=== PATIENT | female | born 1965 | race Two or more races ===

== ENCOUNTER 2022-07-28 22:51 | Emergency (ER) | payer OTHER, SELFPAY ==
[2022-07-28 23:03] VITALS: BP 148/79; PULSE 72; RESP 20; TEMP 37.2; O2SAT 94; BMI 42.5
--- NOTE | 2022-07-29 00:08 | ED.URI1 ---
HPI - URI/Sore Throat General Chief Complaint: Upper Respiratory Infection Stated Complaint: COUGH Time Seen by Provider: 07/29/22 00:06 Source: patient Limitations: no limitations History of Present Illness HPI Narrative: complains of cough since mid week last week. States she did talk to Tele doc and amoxicillin and tessalon perles were called in and did not help. States she is wheezing. Not able to sleep because of the cough. No history of asthma and does not smoke cigarettes. No nausea or chest pain Related Data Home Medications Medication Instructions Recorded Confirmed cetirizine 10 mg tablet 10 mg PO DAILY 07/28/22 07/28/22 famotidine 40 mg tablet 40 mg PO Q12H 07/28/22 07/28/22 glimepiride 4 mg tablet 4 mg PO .TWICE 07/28/22 07/28/22 pioglitazone 30 mg tablet 30 mg PO DAILY 07/28/22 07/28/22 propranolol 80 mg capsule,24 80 mg PO Q24H 07/28/22 07/28/22 hr,extended release venlafaxine 150 mg 150 mg PO DAILY 07/28/22 07/28/22 capsule,extended release 24 hr Allergies Allergy/AdvReac Type Severity Reaction Status Date / Time No Known Drug Allergies Allergy Verified 07/28/22 23:11 Review of Systems ROS Status of ROS 10 or more systems reviewed and unremarkable except as noted in history and below Respiratory Reports: cough and wheezing Exam Constitutional Vital Signs - 24 hr 07/28/22 23:03 Temperature 99 F Pulse Rate [Monitor] 72 Respiratory Rate 20 Blood Pressure [Right Arm] 148/79 H Pulse Oximetry 94 L Oxygen Delivery Method Room Air [facility] Common normals: normocephalic and head/scalp atraumatic Eye Common normals: PERRL, EOMs intact bilaterally and conjunctivae normal Neck & C-Spine Common normals: full ROM and no lymphadenopathy Chest Common normals: inspection of chest normal Respiratory Common normals: normal respiratory effort, no retractions and no use of accessory muscles Effort & inspection: audible wheezes Cardio Common normals: regular rate, regular rhythm, S1 normal heart sound and S2 normal heart sound GI Common normals: Normal to inspection, nondistended, normoactive bowel sounds present, soft to palpation and non-tender Back & Pelvis Common normals: no CVA tenderness Extremity Common normals: normal to inspection, full ROM, normal capillary refill and no joint enlargement Neuro Common normals: oriented x3, CN's II-XII intact bilaterally, moves all extremities and no focal motor deficits Psych Appearance: grossly normal Course Vital Signs Vital signs: Vital Signs Temperature 99 F 07/28/22 23:03 Pulse Rate 72 07/28/22 23:03 Respiratory Rate 20 07/28/22 23:03 Blood Pressure 148/79 H 07/28/22 23:03 Pulse Oximetry 94 L 07/28/22 23:03 Oxygen Delivery Method Room Air 07/28/22 23:03 Temperature 99 F 07/28/22 23:03 Pulse Rate 72 07/28/22 23:03 Respiratory Rate 20 07/28/22 23:03 Blood Pressure 148/79 H 07/28/22 23:03 Pulse Oximetry 94 L 07/28/22 23:03 Oxygen Delivery Method Room Air 07/28/22 23:03 MDM - URI/Sore Throat MDM Narrative Medical decision making narrative: patient presents with cough. cough interfering with her sleeping. She denies cigarette smoke and does not have asthma. Exam with diffuse wheeze. Cxray is clear and swab positive for viral illness. Treated with solumedrol and albuterol NMT. At time of discharge wheezing significantly decreased and patient is feeling better and requesting discharge. Advised to discontinue Amoxicillin that was prescribed by TeleDoc. Discharged with albuterol solution, prednisone and zpak to cover atypicals. she is to follow up with her family doctor Discharge Plan Discharge Chief Complaint: Upper Respiratory Infection Clinical Impression: Acute bronchospasm, Bronchitis Patient Disposition: Home, Self-Care Prescriptions / Home Meds: No Action cetirizine 10 mg tablet 10 mg PO DAILY famotidine 40 mg tablet 40 mg PO Q12H glimepiride 4 mg tablet 4 mg PO .TWICE pioglitazone 30 mg tablet 30 mg PO DAILY propranolol 80 mg capsule,extended release 24 hr 80 mg PO Q24H venlafaxine 150 mg capsule,extended release 24hr 150 mg PO DAILY Instructions: Acute Bronchitis (ED), Bronchospasm (ED) Additional Instructions: follow up with PCP in 3 days Stand Alone Forms: Portal Instructions Referrals: POP MA [Primary Care Provider] - 1 week Follow Up Appointments: follow up with your family doctor in 3 days
--- NOTE | 2022-07-29 00:11 | XR_ITS ---
The [address] [address] Patient Name: VERONICA LEON MRN: [id number] date: 1965 Sex: F Assigned Patient Location: ER Current Patient Location: ER Accession/Order Number: [id number] Exam Date: 07/29/2022 00:23 Report Date: 07/29/2022 01:02 At the request of: JAMARCUS ZHANG Procedure: XR chest 2V EXAM: XR chest 2V 07/29/2022 12:23 AM EDT OH001 CLINICAL STATEMENT: cough COMPARISON: No prior studies are available at the time of dictation. TECHNIQUE: PA and lateral radiograph of the chest are submitted. FINDINGS: There is left midlung atelectasis and/or scarring. No acute airspace disease. The cardiac silhouette is normal. The costophrenic recesses are sharp. No pneumothorax. The bony elements are unremarkable. IMPRESSION: Left midlung atelectasis and/or scarring. No acute airspace disease. Electronically authenticated by: JAYANT OLMOS Date: 07/29/2022 01:02
[2022-07-29] MEDS: METHYLPREDNISOLONE SOD SUCC PF 125 MG/2 ML VIAL IVP (00:51)
[2022-07-29 00:55] LABS: Adenovirus NOT DETECTED (NOT DETECTE); Bordetella parapertussis NOT DETECTED (NOT DETECTE); Coronavirus 229E NOT DETECTED (NOT DETECTE); Coronavirus HKU1 NOT DETECTED (NOT DETECTE); Coronavirus NL63 NOT DETECTED (NOT DETECTE); Coronavirus OC43 NOT DETECTED (NOT DETECTE); Human Rhinovirus/Enterovirus NOT DETECTED (NOT DETECTE); Influenza A NOT DETECTED; Influenza B NOT DETECTED (NOT DETECTE); Mycoplasma pneumoniae NOT DETECTED (NOT DETECTE); Parainfluenza Virus 1 NOT DETECTED (NOT DETECTE); Parainfluenza Virus 2 NOT DETECTED (NOT DETECTE); Parainfluenza Virus 3 NOT DETECTED (NOT DETECTE); Parainfluenza Virus 4 NOT DETECTED (NOT DETECTE); Respiratory Syncytial Virus NOT DETECTED (NOT DETECTE); SARS-CoV-2 NOT DETECTED (NOT DETECTE)
[2022-07-29 01:13] LABS: Basophils Percent Auto 0.8 % (0.2-2.0); Eosinophils Absolute Auto 0.1 10^3/uL (0.0-0.7); Eosinophils Percent Auto 1.9 % (0.9-7.0); Hematocrit 49.8 % (36.0-48.0); Hemoglobin 15.6 g/dL (12.0-16.0); Immature Granulocytes Abs Auto 0.01 10^3/uL (0.00-0.03); Immature Granulocytes Pct Auto 0.2 % (0.0-0.5); Lymphocytes Absolute Auto 1.2 10^3/uL (1.2-3.8); Lymphocytes Percent Auto 24.6 % (20.5-60.0); Mean Corpuscular HGB Conc 31.3 g/dL (29.9-35.2); Mean Corpuscular Hemoglobin 27.4 pg (26.7-34.0); Mean Corpuscular Volume 87.4 fL (81.0-99.0); Monocytes Absolute Auto 0.5 10^3/uL (0.3-0.8); Monocytes Percent Auto 9.6 % (1.7-12.0); Neutrophils Percent Auto 62.9 % (43.0-75.0); Platelet Count 224 10^3/uL (150-450); Red Cell Distribution Width 13.6 % (11.0-15.0); White Blood Count 4.8 10^3/uL (4.0-11.0)
[2022-07-29 01:15] LABS: Anion Gap 13.4; Calcium 8.8 mg/dL (8.5-10.1); Carbon Dioxide 26.3 mmol/L (21.0-32.0); Chloride 104 mmol/L (98-107); Estimated GFR (African America >60 (>=60); Estimated GFR (Non-African Ame >60 (>=60); Glucose 100 mg/dL (74-106); Potassium 3.7 mmol/L (3.5-5.1); Sodium 140 mmol/L (136-145)
[2022-07-29 01:29] VITALS: PULSE 80; RESP 18; O2SAT 94
[2022-07-29] MEDS: ALBUTEROL SULFATE 2.5 MG/3 ML VIAL NEB IH (01:29)
[2022-07-29 01:36] VITALS: PULSE 70; RESP 18
[2022-07-29 02:01] LABS: Human Metapneumovirus DETECTED (NOT DETECTE)
[2022-07-29 02:58] VITALS: O2SAT 97
== END 2022-07-29 03:41 | disposition home or self-care (01) ==
PROVIDERS: Emergency Provider Internal Medicine; PCP Family Medicine
DX: J20.9 Acute bronchitis, unspecified (principal); Z20.822 Contact with and (suspected) exposure to COVID-19
CPT/HCPCS: 0202U; 36415; 71046; 80048; 85025; 94640; 96374; 99284; J2930

== ENCOUNTER 2022-09-03 23:07 | Emergency (ER) | payer OTHER, SELFPAY ==
[2022-09-03 23:12] VITALS: BP 126/84; PULSE 79; RESP 16; TEMP 37.2; O2SAT 95; BMI 43.8
[2022-09-04] MEDS: 0.9 % SODIUM CHLORIDE 1,000 ML 1000 ML IV (00:04)
[2022-09-04] MEDS: ONDANSETRON PF 4 MG/2 ML VIAL IV (00:05)
[2022-09-04] MEDS: FAMOTIDINE/PF 20 MG/2 ML VIAL IV (00:05)
[2022-09-04] MEDS: KETOROLAC TROMETHAMINE 30 MG/ML VIAL IVP (00:05)
[2022-09-04 00:13] LABS: Basophils Percent Auto 0.3 % (0.2-2.0); Eosinophils Percent Auto 0.5 % (0.9-7.0); Hematocrit 46.7 % (36.0-48.0); Hemoglobin 15.2 g/dL (12.0-16.0); Immature Granulocytes Abs Auto 0.02 10^3/uL (0.00-0.03); Immature Granulocytes Pct Auto 0.3 % (0.0-0.5); Lymphocytes Absolute Auto 0.3 10^3/uL (1.2-3.8); Lymphocytes Percent Auto 5.2 % (20.5-60.0); Mean Corpuscular HGB Conc 32.5 g/dL (29.9-35.2); Mean Corpuscular Hemoglobin 27.5 pg (26.7-34.0); Mean Corpuscular Volume 84.4 fL (81.0-99.0); Mean Platelet Volume 11.1 fL (9.5-13.5); Monocytes Absolute Auto 0.2 10^3/uL (0.3-0.8); Monocytes Percent Auto 3.6 % (1.7-12.0); Neutrophils Absolute Auto 5.2 10^3/uL (1.4-6.5); Neutrophils Percent Auto 90.1 % (43.0-75.0); Platelet Count 275 10^3/uL (150-450); Red Blood Count 5.53 10^6/uL (4.20-5.40); Red Cell Distribution Width 13.7 % (11.0-15.0); White Blood Count 5.8 10^3/uL (4.0-11.0)
[2022-09-04 00:27] LABS: Alanine Aminotransferase 19 U/L (14-59); Albumin Globulin Ratio 0.9; Albumin Level 3.6 g/dL (3.4-5.0); Alkaline Phosphatase 89 U/L (46-116); Anion Gap 12.3; Aspartate Amino Transferase 18 U/L (15-37); BUN Creatinine Ratio 13.2; Bilirubin Total 0.8 mg/dL (0.2-1.0); Calcium 8.7 mg/dL (8.5-10.1); Carbon Dioxide 26.5 mmol/L (21.0-32.0); Chloride 101 mmol/L (98-107); Estimated GFR (African America >60 (>=60); Estimated GFR (Non-African Ame >60 (>=60); Globulin 3.8 g/dL; Glucose 135 mg/dL (74-106); Potassium 3.8 mmol/L (3.5-5.1); Sodium 136 mmol/L (136-145); Total Protein 7.4 g/dL (6.4-8.2)
--- NOTE | 2022-09-04 01:17 | ED.NAVMDI1 ---
HPI - Nausea/Vomiting/Diarrhea General Chief complaint: Nausea/Vomiting/Diarrhea Stated complaint: NAUSES/VOMITTING/DIARRHEA Time Seen by Provider: 09/03/22 23:52 Source: patient Mode of arrival: walk-in Limitations: no limitations History of Present Illness HPI Narrative: This 56-year-old female presents for evaluation of nausea, vomiting and diarrhea. The patient states she wasn't feeling well this morning and around 1 PM started becoming nauseated with turning in her stomach. Since that time she has had 4-5 episodes of vomiting associated with diarrhea. She states she is having some abdominal cramps. She has not had any bloody stools. She has not had a fever. She denies any dizziness or syncope. She denies any bernadine abdominal pain. She states that she has having some generalized back pain because she thinks that she strained her back muscles due to forceful vomiting. She is not having any specific flank pain. She denies any chest pain or shortness of breath. She states she has had some cramping of her hands and feet and thinks that she is dehydrated. Related Data Home Medications Medication Instructions Recorded Confirmed cetirizine 10 mg tablet 10 mg PO DAILY 07/28/22 07/28/22 famotidine 40 mg tablet 40 mg PO Q12H 07/28/22 07/28/22 glimepiride 4 mg tablet 4 mg PO .TWICE 07/28/22 07/28/22 pioglitazone 30 mg tablet 30 mg PO DAILY 07/28/22 07/28/22 propranolol 80 mg capsule,24 80 mg PO Q24H 07/28/22 07/28/22 hr,extended release venlafaxine 150 mg 150 mg PO DAILY 07/28/22 07/28/22 capsule,extended release 24 hr Allergies Allergy/AdvReac Type Severity Reaction Status Date / Time No Known Drug Allergies Allergy Verified 07/28/22 23:11 Review of Systems ROS Status of ROS 10 or more systems reviewed and unremarkable except as noted in history and below [facility] Social History Smoking status: Never smoker Exam Narrative Exam Narrative: Nurses note and vital signs reviewed and patient is not hypoxic. General: The patient appears well and in no apparent distress. Patient is resting comfortably on cart. Skin: Warm, dry, no pallor noted. There is no rash noted. Head: Normocephalic, atraumatic Eye: Normal conjunctiva, no drainage, EOMI. PERRL Ears, Nose, Mouth, and Throat: oral mucosa is moist. Cardiovascular: Regular Rate and Rhythm Respiratory: Patient is in no distress, no accessory muscle use, lungs are clear to auscultation, no wheezing, rales or rhonchi Back: non-tender, no CVA tenderness bilaterally to percussion. GI: Obese, soft, nondistended, nontender, mildly diminished bowel sounds, no rebound guarding or rigidity Musculoskeletal: The patient has no evidence of calf tenderness, no pitting edema, symmetrical pulses noted bilaterally Neurological: A&O x4, normal speech Psychiatric: Cooperative Constitutional Vital Signs, click to edit/add: Last Vital Signs Temp 98.9 F 09/03/22 23:12 Pulse 79 09/03/22 23:12 Resp 16 09/03/22 23:12 BP 126/84 H 09/03/22 23:12 Pulse Ox 95 09/03/22 23:12 O2 Del Method Room Air 09/03/22 23:12 Course Vital Signs Vital signs: Vital Signs Temperature 98.9 F 09/03/22 23:12 Pulse Rate 79 09/03/22 23:12 Respiratory Rate 16 09/03/22 23:12 Blood Pressure 126/84 H 09/03/22 23:12 Pulse Oximetry 95 09/03/22 23:12 Oxygen Delivery Method Room Air 09/03/22 23:12 Temperature 98.9 F 09/03/22 23:12 Pulse Rate 79 09/03/22 23:12 Respiratory Rate 16 09/03/22 23:12 Blood Pressure 126/84 H 09/03/22 23:12 Pulse Oximetry 95 09/03/22 23:12 Oxygen Delivery Method Room Air 09/03/22 23:12 MDM - Nausea/Vomiting/Diarrhea MDM Narrative Medical decision making narrative: This 56-year-old female presents for evaluation of one day of nausea, vomiting, diarrhea, abdominal cramps and some spasming of her hands And feet. States she think that she strained her back muscle while she was forcefully vomiting. She has no reproducible back tenderness or flank pain. She is concerned that she may be dehydrated. She has not had a fever. She denies any chest pain or shortness of breath. She denies any sick contacts. Her physical exam and vital signs were normal. An IV was placed and she was given a liter of normal saline, Toradol, Pepcid and Zofran. Routine labs including CBC with differential, comprehensive metabolic profile and lipase were ordered and are reviewed. They are normal. I did not feel that any radiographic studies were indicated. On reevaluation the patient is feeling better and tolerating clear liquids. She feels comfortable being discharged home and will be discharged home with a prescription for Zofran and Bentyl. She did not have any recurrent vomiting or diarrhea while in the emergency department. I encouraged her to have a clear liquid diet for the next 24 hours and slowly advance her diet as tolerated. She is in agreement with this plan. Lab Data Attestation: I reviewed the patient's lab results. Lab results narrative: Labs are normal Labs: Lab Results 09/03/22 Range/Units 23:40 WBC 5.8 (4.0-11.0) 10^3/uL RBC 5.53 H (4.20-5.40) 10^6/uL Hgb 15.2 (12.0-16.0) g/dL Hct 46.7 (36.0-48.0) % MCV 84.4 (81.0-99.0) fL MCH 27.5 (26.7-34.0) pg MCHC 32.5 (29.9-35.2) g/dL RDW 13.7 (11.0-15.0) % Plt Count 275 (150-450) 10^3/uL MPV 11.1 (9.5-13.5) fL Neut % (Auto) 90.1 H (43.0-75.0) % Lymph % (Auto) 5.2 L (20.5-60.0) % [place] % (Auto) 3.6 (1.7-12.0) % Eos % (Auto) 0.5 L (0.9-7.0) % Baso % (Auto) 0.3 (0.2-2.0) % Neut # (Auto) 5.2 (1.4-6.5) 10^3/uL Lymph # (Auto) 0.3 L (1.2-3.8) 10^3/uL [place] # (Auto) 0.2 L (0.3-0.8) 10^3/uL Eos # (Auto) 0.0 (0.0-0.7) 10^3/uL Baso # (Auto) 0.0 (0.0-0.1) 10^3/uL Abs Immat Gran (auto) 0.02 (0.00-0.03) 10^3/uL Imm/Tot Granulo (auto) 0.3 (0.0-0.5) % Sodium 136 (136-145) mmol/L Potassium 3.8 (3.5-5.1) mmol/L Chloride 101 (98-107) mmol/L Carbon Dioxide 26.5 (21.0-32.0) mmol/L Anion Gap 12.3 BUN 10.0 (7.0-18.0) mg/dL Creatinine 0.76 (0.55-1.02) mg/dL Est GFR ( Amer) >60 (>=60) Est GFR (Non-Af Amer) >60 (>=60) BUN/Creatinine Ratio 13.2 Glucose 135 H (74-106) mg/dL Calcium 8.7 (8.5-10.1) mg/dL Total Bilirubin 0.8 (0.2-1.0) mg/dL AST 18 (15-37) U/L ALT 19 (14-59) U/L Alkaline Phosphatase 89 (46-116) U/L Total Protein 7.4 (6.4-8.2) g/dL Albumin 3.6 (3.4-5.0) g/dL Globulin 3.8 g/dL Albumin/Globulin Ratio 0.9 Lipase 42.0 L (73.0-393.0) U/L Discharge Plan Discharge Chief Complaint: Nausea/Vomiting/Diarrhea Clinical Impression: Gastroenteritis Patient Disposition: Home, Self-Care Time of Disposition Decision: 01:24 Condition: Good Prescriptions / Home Meds: No Action cetirizine 10 mg tablet 10 mg PO DAILY famotidine 40 mg tablet 40 mg PO Q12H glimepiride 4 mg tablet 4 mg PO .TWICE pioglitazone 30 mg tablet 30 mg PO DAILY propranolol 80 mg capsule,extended release 24 hr 80 mg PO Q24H venlafaxine 150 mg capsule,extended release 24hr 150 mg PO DAILY Instructions: Gastroenteritis (ED), Acute Nausea and Vomiting (ED) Stand Alone Forms: Portal Instructions Referrals: POP MA [Primary Care Provider] - 1 week
== END 2022-09-04 01:43 | disposition home or self-care (01) ==
PROVIDERS: Emergency Provider Emergency Medicine; PCP Family Medicine
DX: K52.9 Noninfective gastroenteritis and colitis, unspecified (principal); R10.9 Unspecified abdominal pain; Z79.84 Long term (current) use of oral hypoglycemic drugs; Z79.899 Other long term (current) drug therapy
CPT/HCPCS: 36415; 80053; 83690; 85025; 96374; 96375; 99284

== ENCOUNTER 2022-11-14 21:23 | Emergency (ER) | payer OTHER, SELFPAY ==
[2022-11-14 21:33] VITALS: BP 166/83; PULSE 75; RESP 16; TEMP 36.8; O2SAT 97; BMI 42.6
--- NOTE | 2022-11-14 21:38 | XR_ITS ---
The [address] [address] Patient Name: VERONICA LEON MRN: [id number] date: 1965 Sex: F Assigned Patient Location: ED.MAIN Current Patient Location: ER Accession/Order Number: [id number] Exam Date: 11/14/2022 22:08 Report Date: 11/14/2022 22:24 At the request of: EMERITA GUNN Procedure: XR foot LT min 3V EXAM: PLAIN FILM FOOT LEFT HISTORY: Pain. Foot pain for one half weeks. A car door was closed and hit the left lateral foot pain is not gotten any better. TECHNIQUE: 3 views of the foot are submitted for review. COMPARISON: None available FINDINGS: Evaluation for Lisfranc injury is limited given the lack of standing views. Joint spaces are within normal limits. Bone mineralization is decreased involving the head/neck of the proximal phalanx of the second third and fourth and fifth digits. Soft tissues are edematous. There is an acute displaced osseous avulsion off of the lateral cuboid bone. XR/XR foot LT min 3V IMPRESSION: 1. Soft tissue swelling. 2. Acute minimally displaced osseous avulsion off of the lateral cuboid bone. Electronically authenticated by: DORA PARADA Date: 11/14/2022 22:24
--- NOTE | 2022-11-14 21:45 | PC.NURSE ---
patient states approx 2 weeks ago she closed her left foot in the car door. states she was not seen at that time. patient remains ambulatory of foot but states pain has continued to increase. no swelling or bruising observed. nothing taken for pain prior to arrival. patient placed back in waiting room with written explanation, verbalized agreement and understanding, denies needs.
[2022-11-14 21:57] VITALS: BP 131/72; PULSE 67; RESP 16; TEMP 36.8; O2SAT 98; BMI 42.5
--- NOTE | 2022-11-14 22:41 | ED_ITS ---
HPI - Extremity Injury (Lower) General Chief Complaint: Extremity Injury, Lower Stated Complaint: left foot Injury Time Seen by Provider: 11/14/22 21:38 Source: patient Mode of arrival: walk-in Limitations: no limitations Limitations comment: Ambulated to room History of Present Illness HPI Narrative: This 57-year-old female presents for evaluation of left lateral foot pain. She states that she got her foot caught in a car door approximately 1-1/2 weeks ago. She has had pain in the lateral aspect of her foot, base of the 5th metatarsal going into her left 5th toe since that time. The pain is worse with ambulation. She has been using Tylenol with minimal relief of her pain. She does have an appointment scheduled with [facility] in the next several days. She has no radiation into her ankle or calf. She has no chest pain or shortness of breath. No additional injuries or complaints. Related Data Home Medications Medication Instructions Recorded Confirmed cetirizine 10 mg tablet 10 mg PO DAILY 07/28/22 11/14/22 famotidine 40 mg tablet 40 mg PO Q12H 07/28/22 11/14/22 glimepiride 4 mg tablet 4 mg PO .TWICE 07/28/22 11/14/22 pioglitazone 30 mg tablet 30 mg PO DAILY 07/28/22 11/14/22 propranolol 80 mg capsule,24 80 mg PO Q24H 07/28/22 11/14/22 hr,extended release venlafaxine 150 mg 150 mg PO DAILY 07/28/22 11/14/22 capsule,extended release 24 hr Allergies Allergy/AdvReac Type Severity Reaction Status Date / Time No Known Drug Allergies Allergy Verified 11/14/22 22:03 Review of Systems ROS Status of ROS 10 or more systems reviewed and unremarkable except as noted in history and below PFSH PFS Social History Smoking status: Never smoker Exam Narrative Exam Narrative: Nurses note and vital signs reviewed and patient is not hypoxic. General: Overweight female resting currently on the stretcher, no respiratory distress Skin: Warm, dry, no pallor noted. There is no rash noted. Head: Normocephalic, atraumatic Eye: Normal conjunctiva, no drainage, EOMI. PERRL Cardiovascular: Regular Rate and RhythmS1 and S2, no murmurs rubs or gallops Respiratory: Patient is in no distress, no accessory muscle use, lungs are cl ear to auscultation, no wheezing, rales or rhonchi GI: Normal bowel sounds, no tenderness to palpation, no masses appreciated. No rebound, guarding, or rigidity noted. Musculoskeletal: There is tenderness with mild swelling to the lateral aspect of the left foot with mild mild tenderness at the base of the 5th metatarsal and along the lateral aspect of the entire foot. No abrasion, laceration or bruising noted. Neurovascularly intact, pulses are brisk and equal bilaterally. There is no ankle tenderness, Achilles is intact. Patient is able to move all her toes, sensation is intact. Neurological: A&O x4, normal speech Psychiatric: Cooperative Constitutional Vital Signs, click to edit/add: Last Vital Signs Temp 98.2 F 11/14/22 21:57 Pulse 67 11/14/22 21:57 Resp 16 11/14/22 21:57 BP 131/72 11/14/22 21:57 Pulse Ox 98 11/14/22 21:57 O2 Del Method Room Air 11/14/22 21:57 Course Vital Signs Vital signs: Vital Signs Temperature 98.3 F 11/14/22 21:33 Pulse Rate 75 11/14/22 21:33 Respiratory Rate 16 11/14/22 21:33 Blood Pressure 166/83 H 11/14/22 21:33 Pulse Oximetry 97 11/14/22 21:33 Temperature 98.2 F 11/14/22 21:57 Pulse Rate 67 11/14/22 21:57 Respiratory Rate 16 11/14/22 21:57 Blood Pressure 131/72 11/14/22 21:57 Pulse Oximetry 98 11/14/22 21:57 Oxygen Delivery Method Room Air 11/14/22 21:57 MDM - Extremity Injury (Lower) MDM Narrative Medical decision making narrative: This 57-year-old female presents for evaluation of left lateral foot pain after getting her foot caught in a car door week and half ago. She has some mild tenderness along the distribution of the lateral aspect of the foot and base of the left 5th metatarsal. X-ray of the left foot show some soft tissue swelling and a subacute minimally displaced osseous avulsion of the lateral cuboid bone. The results of the x-ray was discussed with her and she was placed in an Faizan wrap and given a postop shoe. She was medicated with ibuprofen emergency department. She has follow up with outpatient orthopedics in the next several days. She was given a disc of her x-ray and a prescription for ibuprofen. She did not require anything stronger for pain. Discharge Plan Discharge Chief Complaint: Extremity Injury, Lower Clinical Impression: Closed fracture cuboid Patient Disposition: Home, Self-Care Time of Disposition Decision: 22:40 Condition: Good Prescriptions / Home Meds: No Action cetirizine 10 mg tablet 10 mg PO DAILY famotidine 40 mg tablet 40 mg PO Q12H glimepiride 4 mg tablet 4 mg PO .TWICE pioglitazone 30 mg tablet 30 mg PO DAILY propranolol 80 mg capsule,extended release 24 hr 80 mg PO Q24H venlafaxine 150 mg capsule,extended release 24hr 150 mg PO DAILY Instructions: Foot Fracture in Adults (ED) Additional Instructions: Follow up with orthopedics as scheduled, Use the postop shoe and Faizan wrap for comfort and compression. Use ice and elevation as well as ibuprofen as needed for pain. Stand Alone Forms: Portal Instructions Referrals: IRIS KENNEDY [Primary Care Provider] - 1 week Discharge Date/Time: 11/14/22 23:10
[2022-11-14] MEDS: IBUPROFEN 600 MG TABLET PO (22:57)
--- NOTE | 2022-11-14 23:03 | PC.NURSE ---
patient placed in surgical boot
== END 2022-11-14 23:10 | disposition home or self-care (01) ==
PROVIDERS: Emergency Provider Emergency Medicine; PCP Nurse Practitioner
DX: S92.212A Displaced fracture of cuboid bone of left foot, initial encounter for closed fracture (principal); W23.0XXA Caught, crushed, jammed, or pinched between moving objects, initial encounter; Z79.899 Other long term (current) drug therapy
CPT/HCPCS: 73630; 99283

== ENCOUNTER 2023-07-04 20:55 | Emergency (ER) | payer OTHER, SELFPAY ==
[2023-07-04 21:06] VITALS: BP 143/73; PULSE 94; TEMP 37.3; O2SAT 94; BMI 45.2
--- NOTE | 2023-07-04 21:13 | XR_ITS ---
The [address] [address] Patient Name: VERONICA LEON MRN: [id number] date: 1965 Sex: F Assigned Patient Location: ER Current Patient Location: ED.MAIN Accession/Order Number: [id number] Exam Date: 07/04/2023 21:18 Report Date: 07/04/2023 23:11 At the request of: POOL KRUGER Procedure: XR chest 1V CHEST RADIOGRAPH: HISTORY: Nausea, diabetes. COMPARISON: Chest 07/29/2022. TECHNIQUE: AP radiograph of was performed of the chest. FINDINGS: SUPPORT APPARATUS/POST-SURGICAL CHANGES: None. CARDIOMEDIASTINAL SILHOUETTE: Normal. AIRWAYS/LUNGS: Limited study due to the patient's body habitus but no definite focal consolidation. PLEURAL SPACES: No pleural effusion or pneumothorax. BONES AND SOFT TISSUES: No acute abnormality. XR/XR chest 1V IMPRESSION: Limited study but no definite acute cardiopulmonary process. Electronically authenticated by: XENIA AUGUSTINE Date: 07/04/2023 23:11
--- NOTE | 2023-07-04 21:14 | ED.GENADUL1 ---
HPI HPI - General Adult General Chief complaint: Nausea/Vomiting/Diarrhea Stated complaint: nausea, not feeling well Time Seen by Provider: 07/04/23 21:09 Source: patient Mode of arrival: Wheelchair Limitations: no limitations History of Present Illness HPI narrative: 57-year-old female presented to the emergency department for not feeling well for 2 days. She was nauseous and she threw up tonight for the first time about an hour ago. No diarrhea. She is not complaining of chest pain or significant cough and does not complain of abdominal pain. She is diabetic. She had recent travel to [place]. Related Data Home Medications ?Medication ?Instructions ?Recorded ?Confirmed cetirizine 10 mg tablet 10 mg PO DAILY 07/28/22 11/14/22 famotidine 40 mg tablet 40 mg PO Q12H 07/28/22 11/14/22 glimepiride 4 mg tablet 4 mg PO .TWICE 07/28/22 11/14/22 pioglitazone 30 mg tablet 30 mg PO DAILY 07/28/22 11/14/22 propranolol 80 mg capsule,24 80 mg PO Q24H 07/28/22 11/14/22 hr,extended release venlafaxine 150 mg 150 mg PO DAILY 07/28/22 11/14/22 capsule,extended release 24 hr Previous Rx's ?Medication ?Instructions ?Recorded ondansetron 4 mg disintegrating 4 mg PO Q6H PRN nausea and 07/04/23 tablet vomiting #20 tabs Allergies Allergy/AdvReac Type Severity Reaction Status Date / Time No Known Drug Allergies Allergy Verified 07/04/23 21:06 Opioid HPI Opioid Management Most Recent Opioid Data: Last Pain Scale 8 11/14/22 22:57 Review of Systems ROS Narrative A ten point review of systems is negative except as noted above. PFSH PFSH Social History Smoking status: Never smoker Exam Narrative Exam Narrative: Nurses note and vital signs reviewed and patient is not hypoxic. General: The patient appears well and in no apparent distress. Patient is resting comfortably on cart. Skin: Warm, dry, no pallor noted. There is no rash noted. Head: Normocephalic, atraumatic Eye: Normal conjunctiva, no drainage Ears, Nose, Mouth, and Throat: oral mucosa is moist. Nares patent. Cardiovascular: Regular Rate and Rhythm, not tachycardic Respiratory: Patient is in no distress, no accessory muscle use, lungs are clear to auscultation, no wheezing, rales or rhonchi Back: non-tender GI: Soft and nontender Musculoskeletal: The patient has no evidence of calf tenderness, no pitting edema, symmetrical pulses noted bilaterally Neurological: A&O, normal speech Psychiatric: Cooperative Constitutional Vital Signs, click to edit/add: Last Vital Signs Temp 98.6 F 07/04/23 22:10 Pulse 84 07/04/23 22:10 Resp 18 07/04/23 22:10 BP 143/73 H 07/04/23 21:06 Pulse Ox 94 L 07/04/23 21:06 O2 Del Method Room Air 07/04/23 21:06 Course Vital Signs Vital signs: Vital Signs Temperature 99.1 F 07/04/23 21:06 Pulse Rate 94 H 07/04/23 21:06 Respiratory Rate 20 07/04/23 21:06 Blood Pressure 143/73 H 07/04/23 21:06 Pulse Oximetry 94 L 07/04/23 21:06 Oxygen Delivery Method Room Air 07/04/23 21:06 Temperature 98.6 F 07/04/23 22:10 Pulse Rate 84 07/04/23 22:10 Respiratory Rate 18 07/04/23 22:10 Blood Pressure 143/73 H 07/04/23 21:06 Pulse Oximetry 94 L 07/04/23 21:06 Oxygen Delivery Method Room Air 07/04/23 21:06 Medical Decision Making MDM Narrative Medical decision making narrative: Her workup is essentially negative and she is feels better after being given IV fluids and Zofran. She is able to be discharged home with a prescription for Zofran. Treatment diagnosis and follow-up were discussed with the patient. Urine culture pending. She does not have urinary symptoms. Differential Diagnosis Differential Diagnosis: Gastroenteritis, dehydration, UTI Lab Data Lab results reviewed: Yes I reviewed the patient's lab results Labs: Lab Results 07/04/23 07/04/23 07/04/23 Range/Units 21:20 21:30 21:50 WBC 13.1 H (4.0-11.0) 10^3/uL RBC 5.21 (4.20-5.40) 10^6/uL Hgb 14.0 (12.0-16.0) g/dL Hct 43.0 (36.0-48.0) % MCV 82.5 (81.0-99.0) fL MCH 26.9 (26.7-34.0) pg MCHC 32.6 (29.9-35.2) g/dL RDW 13.4 (11.0-15.0) % Plt Count 241 (150-450) 10^3/uL MPV 11.4 (9.5-13.5) fL Neut % (Auto) 86.9 H (43.0-75.0) % Lymph % (Auto) 6.0 L (20.5-60.0) % [place] % (Auto) 5.7 (1.7-12.0) % Eos % (Auto) 0.5 L (0.9-7.0) % Baso % (Auto) 0.3 (0.2-2.0) % Neut # (Auto) 11.4 H (1.4-6.5) 10^3/uL Lymph # (Auto) 0.8 L (1.2-3.8) 10^3/uL [place] # (Auto) 0.8 (0.3-0.8) 10^3/uL Eos # (Auto) 0.1 (0.0-0.7) 10^3/uL Baso # (Auto) 0.0 (0.0-0.1) 10^3/uL Abs Immat Gran (auto) 0.08 H (0.00-0.03) 10^3/uL Imm/Tot Granulo (auto) 0.6 H (0.0-0.5) % Sodium 130 L (136-145) mmol/L Potassium 3.8 (3.5-5.1) mmol/L Chloride 96 L (98-107) mmol/L Carbon Dioxide 21.0 (21.0-32.0) mmol/L Anion Gap 16.8 BUN 10.0 (7.0-18.0) mg/dL Creatinine 0.80 (0.55-1.02) mg/dL Est GFR ( Amer) >60 (>=60) Est GFR (Non-Af Amer) >60 (>=60) BUN/Creatinine Ratio 12.5 Glucose 162 H (74-106) mg/dL Calcium 8.9 (8.5-10.1) mg/dL Urine Color Dk. yellow (YELLOW) Urine Clarity Clear (CLEAR) Urine pH 6.0 (5.0-9.0) Ur Specific [place] >=1.030 A (1.005-1.025) Urine Protein >=300 A (NEG/TRACE) mg/dL Urine Glucose (UA) 100 A (NEGATIVE) mg/dL Urine Ketones 15 A (NEGATIVE) mg/dL Urine Occult Blood Large A (NEGATIVE) Urine Nitrite Negative (NEGATIVE) Urine Bilirubin Moderate A (NEGATIVE) Urine Urobilinogen >=8.0 (0.2-1.0) EU/dL Ur Leukocyte Esterase Small A (NEGATIVE) Urine RBC 5-10 A (0-2) #/HPF Urine WBC 5-10 A (NONE SEEN) #/HPF Ur Squamous Epith Cells Many A (NONE/RARE) #/LPF Urine Crystals Seen A (None Seen) #/HPF Uric Acid Crystals Few Amorphous Sediment Few Urine Bacteria Large A (NONE SEEN) #/HPF Urine Casts None seen (NONE SEEN) #/LPF Urine Mucus None seen (NONE SEEN) Ur Culture Indicated? Yes Influenza Type A Ag Negative Influenza Type B Ag Negative SARS-CoV-2 Ag (CV2AG) Negative (NEGATIVE) Discharge Plan Discharge Stand Alone Forms: Portal Instructions Chief Complaint: Nausea/Vomiting/Diarrhea Clinical Impression: Nausea & vomiting Patient Disposition: Home, Self-Care Time of Disposition Decision: 23:03 Condition: Good Mode of Transportation: Private Vehicle Prescriptions / Home Meds: New ondansetron 4 mg tablet,disintegrating 4 mg PO Q6H PRN (Reason: nausea and vomiting) Qty: 20 0RF No Action cetirizine 10 mg tablet 10 mg PO DAILY famotidine 40 mg tablet 40 mg PO Q12H glimepiride 4 mg tablet 4 mg PO .TWICE pioglitazone 30 mg tablet 30 mg PO DAILY propranolol 80 mg capsule,extended release 24 hr 80 mg PO Q24H venlafaxine 150 mg capsule,extended release 24hr 150 mg PO DAILY Print Language: Tajik Instructions: Acute Nausea and Vomiting (ED) Referrals: IRIS KENNEDY [Primary Care Provider] - 1 week
[2023-07-04 21:35] LABS: Basophils Percent Auto 0.3 % (0.2-2.0); Eosinophils Absolute Auto 0.1 10^3/uL (0.0-0.7); Eosinophils Percent Auto 0.5 % (0.9-7.0); Immature Granulocytes Abs Auto 0.08 10^3/uL (0.00-0.03); Immature Granulocytes Pct Auto 0.6 % (0.0-0.5); Lymphocytes Absolute Auto 0.8 10^3/uL (1.2-3.8); Mean Corpuscular HGB Conc 32.6 g/dL (29.9-35.2); Mean Corpuscular Hemoglobin 26.9 pg (26.7-34.0); Mean Corpuscular Volume 82.5 fL (81.0-99.0); Mean Platelet Volume 11.4 fL (9.5-13.5); Monocytes Absolute Auto 0.8 10^3/uL (0.3-0.8); Monocytes Percent Auto 5.7 % (1.7-12.0); Neutrophils Absolute Auto 11.4 10^3/uL (1.4-6.5); Neutrophils Percent Auto 86.9 % (43.0-75.0); Platelet Count 241 10^3/uL (150-450); Red Blood Count 5.21 10^6/uL (4.20-5.40); Red Cell Distribution Width 13.4 % (11.0-15.0); White Blood Count 13.1 10^3/uL (4.0-11.0)
[2023-07-04 21:44] LABS: Anion Gap 16.8; BUN Creatinine Ratio 12.5; Calcium 8.9 mg/dL (8.5-10.1); Chloride 96 mmol/L (98-107); Estimated GFR (African America >60 (>=60); Estimated GFR (Non-African Ame >60 (>=60); Glucose 162 mg/dL (74-106); Potassium 3.8 mmol/L (3.5-5.1); Sodium 130 mmol/L (136-145)
[2023-07-04] MEDS: ONDANSETRON PF 4 MG/2 ML VIAL IV (21:45)
[2023-07-04] MEDS: 0.9 % SODIUM CHLORIDE 1,000 ML 1000 ML IV (21:45)
[2023-07-04 22:00] LABS: Bilirubin Urine MODERATE (NEGATIVE); Blood Urine LARGE (NEGATIVE); Clarity Urine CLEAR (CLEAR); Color Urine DK. YELLOW (YELLOW); Glucose Urine UA 100 mg/dL (NEGATIVE); Ketones Urine 15 mg/dL (NEGATIVE); Leukocyte Esterase Urine SMALL (NEGATIVE); Nitrite Urine NEGATIVE (NEGATIVE); Protein Urine >=300 mg/dL (NEG/TRACE); Specific Gravity Urine >=1.030 (1.005-1.025); Urobilinogen Urine >=8.0 EU/dL (0.2-1.0)
[2023-07-04 22:07] LABS: Influenza Virus A Antigen Negative; Influenza Virus B Antigen Negative
[2023-07-04 22:08] LABS: Internal Control Within Normal Limits; SARS-CoV-2 Ag NEGATIVE (NEGATIVE)
[2023-07-04 22:10] VITALS: PULSE 84; TEMP 37
[2023-07-04 22:10] LABS: Amorphous Sediment Urine FEW; Bacteria Urine LARGE #/HPF (NONE SEEN); Crystals Seen? Seen #/HPF (None Seen); Mucus Urine NONE SEEN (NONE SEEN); Squamous Epithelial Cell Urine MANY #/LPF (NONE/RARE); Uric Acid Crystals Urine FEW
[2023-07-04 22:11] LABS: Cast Seen? NONE SEEN #/LPF (NONE SEEN); Urine Culture Indicated YES
[2023-07-04 23:18] VITALS: BP 111/78; PULSE 85; O2SAT 94
== END 2023-07-04 23:20 | disposition home or self-care (01) ==
PROVIDERS: Emergency Provider Emergency Medicine; PCP Nurse Practitioner
DX: R11.2 Nausea with vomiting, unspecified (principal); E11.9 Type 2 diabetes mellitus without complications; Z79.84 Long term (current) use of oral hypoglycemic drugs
CPT/HCPCS: 36415; 71045; 80048; 81001; 85025; 87086; 87150; 87186; 87804; 87811; 96361; 96374; 99284

== ENCOUNTER 2023-08-05 05:37 | Emergency (ER) | payer OTHER, SELFPAY ==
[2023-08-05 05:40] VITALS: BP 144/66; PULSE 71; TEMP 36.6; O2SAT 97; BMI 44.3
[2023-08-05 05:54] LABS: Bilirubin Urine SMALL (NEGATIVE); Blood Urine LARGE (NEGATIVE); Clarity Urine CLEAR (CLEAR); Color Urine YELLOW (YELLOW); Glucose Urine UA NEGATIVE (NEGATIVE); Ketones Urine NEGATIVE (NEGATIVE); Leukocyte Esterase Urine SMALL (NEGATIVE); Nitrite Urine POSITIVE (NEGATIVE); Protein Urine 100 mg/dL (NEG/TRACE); Specific Gravity Urine 1.025 (1.005-1.025); pH Urine 6.5 (5.0-9.0)
--- OUTSIDE RECORDS SUMMARY | 2023-08-05 05:54 | XMS_ITS | CCD ---
Author Organization [facility] Care Team Providers Care Charter Representative Name Role Phone Anil Sexton., Robin Bray Primary Care Provider ANIL, DR LORD Primary Care Unavailable AKANKSHA, DR DEWITT Admitting Unavailable AKANKSHA, DR DEWITT Attending Unavailable AKANKSHA, DR DEWITT Consulting Unavailable STEPANIC, DR ORTIZ Admitting Unavailable STEPANIC, DR ORTIZ Attending Unavailable HOUSE, DR LORD Primary Care Unavailable STEPTESS, DR ORTIZ Consulting Unavailable ZIEBER, DR XENIA Mckee Consulting Unavailable ANIL, DR LORD Primary Care Unavailable SUSY, DR BEE Mckee Admitting Unavailable SUSY, DR BEE Mckee Attending Unavailable SUSY, DR BEE Mckee Consulting Unavailable STACIE, BRY Consulting Unavailable Terrance, Francia Unavailable Pawan FAMILY NURSE-MORTICIAN HELPER, Iris J Primary Care Provid er JR. JAZMÍN, ANGEL Tong Attending Unavaila IRIS Contreras Referring Unavailable VILLALTA, IRIS Primary Care Unavailable VILLALTA, IRIS Referring Unavailable VILLALTA, IRIS Primary Care Unavailable Ronan Delcid Admitting Unavailable Ronan Delcid Attending Unavailable Iris Villalta Primary Care Unavailable VILLALTAIRIS J Attending Unavailable VILLALTA, IRIS J Referring Unavailable VILLALTA, IRIS J Primary Care Unavailable VILLALTA, IRIS J Attending Unavailable VILLALTA, IRIS J Referring Unavailable VILLALTA, IRIS J Primary Care Unavailable VILLALTAIRIS J Attending Unavailable VILLALTA, IRIS J Referring Unavailable VILLALTA, IRIS J Primary Care Unavailable VILLALTA, IRIS J Attending Unavailable VILLALTA, IRIS J Referring Unavailable VILLALTA, IRIS J Primary Care Unavailable VILLALTA, IRIS J Attending Unavailable VILLALTA, IRIS J Referring Unavailable VILLALTA, IRIS J Primary Care Unavailable Medications Current Medications Medication Drug Class(es) Dates Sig (Normalized) Sig (Original) [id number] 200 actuat albuterol 0.09 mg/actuat metered dose inhaler (6 sources) beta2-Adrenergic Agonist Start: 08-28-2022 take 2 puff(s) by inhalation every six hours as needed VENTOLIN HFA 90 mcg/actuation inhaler Inhale 2 puffs every 6 (six) hours as needed. 0 08/28/2022 Active azithromycin 250 mg oral tablet (2 sources) Macrolide Antimicrobial Start: 01-14-2023 Azithromycin 250 MG 2 tablet on the first day, then 1 tablet daily for 4 days Orally Once a day for 5 day(s) Dec, Active betamethasone 0.5 mg/ml / clotrimazole 10 mg/ml topical cream (3 sources) Azole Antifungal, Corticosteroid Start: 05-19-2023 clotrimazole-beta methasone (LOTRISONE) cream Indications: Saloni infection of flexural skin Apply 1 Application topically in the morning and 1 Application before bedtime. 15 g 0 05/19/2023 Active blood-glucose sensor (FREESTYLE JAYNE 3 SENSOR) device (7 sources) Start: 03-18-2023 blood-glucose sensor (FREESTYLE JAYNE 3 SENSOR) device Indications: Type 2 diabetes mellitus with hyperglycemia, without long-term current use of insulin ([facility]) USE DIRECTED; change EVERY 2 (TWO) weeks 6 each 2 03/18/2023 Active Start: 09-25-2022 End: 03-18-2023 blood-glucose sensor (FREEST YLE JAYNE 3 SENSOR) device Indications: Type 2 diabetes mellitus with hyperglycemia, without long-term current use of insulin ([facility]) USE DIRECTED; change EVERY 2 (TWO) weeks 2 each 5 09/25/2022 03/18/2023 Discontinued (Reorder) Start: 09-25-2022 blood-glucose sensor (FREESTYLE JAYNE 3 SENSOR) device Indications: Type 2 diabetes mellitus with hyperglycemia, without long-term current use of insulin ([facility]) USE DIRECTED; change EVERY 2 (TWO) weeks 2 each 5 09/25/2022 Active dextromethorphan hydrobromide 1.5 mg/ml / pyrilamine maleate 1.5 mg/ml oral solution (2 sources) Uncompetitive M-ylsmlu-M-aspartate Receptor Antagonist, Sigma-1 Agonist Start: 01-12-2023 take 10 mL by mouth every eight hours [place] DM 7.5-7.5 MG/5ML 10 mL Orally every 8 hours for 5 days Dec, Active famotidine 40 mg oral tablet (10 sources) Histamine-2 Receptor Antagonist Start: 09-10-2022 End: 03-18-2023 take 1 tablet by mouth once famotidine (PEPCID) 40 mg tablet Indications: Gastroesophageal reflux disease without esophagitis Take 1 tablet (40 mg total) by mouth every 12 (twelve) hours. 180 tablet 1 03/18/2023 Active Start: 07-10-2020 take 1 tablet by th twice daily famotidine (PEPCID) 40 mg tablet Take 40 mg by mouth twice daily. 0 07/10/2020 Active Comment on above: Take 40 mg by mouth twice daily. fluconazole 150 mg oral tablet (1 source) Azole Antifungal Start: 2023 End: 2023 take 1 tablet by mouth in the morning fluconazole (DIFLUCAN) 150 mg tablet Indications: Saloni infection of flexural skin Take 1 tablet (150 mg total) by mouth in the morning for 3 doses. 3 tablet 0 05/19/2023 05/22/2023 Active glimepiride 4 mg oral tablet (10 sources) Sulfonylurea Start: 2022 End: 2023 take 1 tablet by mouth at bedtime glimepiride (AMARYL) 4 mg tablet Indications: Type 2 diabetes mellitus with hyperglycemia, without long-term current use of insulin ([facility]) Take 1 tablet (4 mg total) by mouth in the morning and at bedtime. 90 tablet 1 03/18/2023 Active Comment on above: 1 tablet with breakf ast or the first main meal of the day levocetirizine dihydrochloride 5 mg oral tablet (5 sources) Histamine-1 Receptor Antagonist Start: 2023 take 1 tablet by mouth once daily levocetirizine (XYZAL) 5 mg tablet Indications: Seasonal allergic rhinitis due to pollen Take 1 tablet (5 mg total) by mouth nightly. 90 tablet 1 03/18/2023 Active omeprazole 20 mg delayed release oral capsule (7 sources) Proton Pump Inhibitor Start: 2022 End: 2023 take 1 capsule by mouth in the morning omeprazole (PriLOSEC) 20 mg capsule Indications: Gastroesophageal reflux disease without esophagitis Take 1 capsule (20 mg total) by mouth in the morning. 90 capsule 1 03/18/2023 Active pioglitazone 30 mg oral tablet (11 sources) Peroxisome Proliferator Receptor alpha Agonist, Peroxisome Proliferator Receptor gamma Agonist, Thiazolidinedione Start: 2022 End: 2023 take 1 tablet by mouth in the morning pioglitazone (ACTOS) 30 mg tablet Indications: Type 2 diabetes mellitus with hyperglycemia, without long-term current use of insulin ([facility]) TAKE 1 TABLET BY MOUTH IN THE MORNING 90 tablet 1 03/30/2023 Active 24 hr propranolol hydrochloride 80 mg extended release oral capsule (11 sources) beta-Adrenergic Nikko Start: 2023 take 1 capsule by mouth once daily propranolol LA (INDERAL LA) 80 mg 24 hr capsule Indications: Benign essential HTN , Migraine 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, not intractable TAKE 1 CAPSULE BY MOUTH DAILY 30 capsule 1 03/30/2023 Active Start: 03-18-2023 End: 03-30-2023 take 1 capsule by mouth every twenty-four hours in the morning propranolol LA (INDERAL LA) 80 mg 24 hr capsule Indications: Benign essential HTN , Migraine 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, not intractable Take 1 capsule (80 mg total) by mouth in the morning. 90 capsule 1 03/18/2023 03/30/2023 Discontinued Start: 09-18-2022 End: 03-18-2023 take 1 capsule by mouth once daily propranolol LA (INDERAL LA) 80 mg 24 hr capsule Indications: Benign essential HTN , Migraine 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, not intractable TAKE 1 CAPSULE BY MOUTH EVERY DAY 30 capsule 5 09/18/2022 03/18/2023 Discontinued (Reorder) Start: 06-27-2020 take 1 capsule by mo uth once daily propranolol ER (INDERAL LA) 80 mg 24 hr capsule Take 80 mg by mouth once daily. 0 06/27/2020 Active Propranolol HCl Active Comment on above: Take 80 mg by mouth once daily. sulfamethoxazole 800 mg / trimethoprim 160 mg oral tablet (1 source) Dihydrofolate Reductase Inhibitor Antibacterial, Sulfonamide Antimicrobial Start: End: take 1 tablet by mouth once in the morning sulfamethoxazole-t rimethoprim (BACTRIM DS) 800-160 mg per tablet Indications: Acute cystitis without hematuria Take 1 tablet by mouth in the morning and 1 tablet before bedtime. Do all this for 7 days. Take with food. Increase fluids. 14 tablet 0 05/29/2023 06/05/2023 Active 24 hr venlafaxine 150 mg extended release oral capsule (10 sources) Serotonin and Norepinephrine Reuptake Inhibitor Start: take 1 capsule by mouth once daily venlafaxine XR (EFFEXOR-XR) 150 mg 24 hr capsule Indications: Current mild episode of major depressive disorder without prior episode (CMS-HCC) TAKE 1 CAPSULE BY MOUTH DAILY 30 capsule 1 03/30/2023 Active Start: 03-18-2023 End: 03-30-2023 take 1 capsule by mouth every twenty-four hours in the morning venlafaxine XR (EFFEXOR-XR) 150 mg 24 hr capsule Indications: Current mild episode of major depressive disorder without prior episode (CMS-HCC) Take 1 capsule (150 mg total) by mouth in the morning. 90 capsule 1 03/18/2023 03/30/2023 Discontinued Start: 09-18-2022 End: 03-18-2023 take 1 capsule by mouth once daily venlafaxine XR (EFFEXOR-XR) 150 mg 24 hr capsule TAKE 1 CAPSULE BY MOUTH DAILY 30 capsule 5 09/18/2022 03/18/2023 Discontinued (Reorder) Completed/Discontinued Medications Medication Drug Class(es) Dates Sig (Normalized) Sig (Original) ARIPiprazole 5 mg oral tablet (1 source) Atypical Antipsychotic Start: 1 ARIPiprazole (ABILIFY) 5 mg tablet cetirizine hydrochloride 10 mg oral tablet (2 sources) Histamine-1 Receptor Antagonist Start: 3 End: 4 take 1 tablet by mouth in the morning cetirizine (ZyrTEC) 10 mg tablet Indications: Seasonal allergic rhinitis due to pollen Take 1 tablet (10 mg total) by mouth in the morning. 90 tablet 1 09/10/2022 03/18/2023 Discontinued (Therapy completed) codeine phosphate 2 mg/ml / guaiFENesin 20 mg/ml oral solution (2 sources) Opioid Agonist Start: 8 take 5 mL by mouth every four hours as needed guaiFENesin-Codeine 100-10 MG/5ML 5 ml as needed Orally every [address] OR OPERATE MACHINERY Feb, Not-Taking 24 hr desvenlafaxine succinate 100 mg extended release oral tablet (1 source) Serotonin and Norepinephrine Reuptake Inhibitor Start: 9 desvenlafaxine ER (PRISTIQ) 100 mg 24 hr tablet diclofenac sodium 0.01 mg/mg topical gel (1 source) Nonsteroidal Anti-inflammatory Drug Start: 1 diclofenac (VOLTAREN) 1 % topical gel Indications: Secondary osteoarthritis of multiple sites apply 2gms to areas of joint pain up to four times a day. Avoid contact with eyes. Do not exceed 32gm/day 100 g 5 02/08/2021 Active Comment on above: apply 2gms to areas of joint pain up to four times a day. Avoid contact with eyes. Do not exceed 32gm/day Estradiol (2 sources) Estrogen Estradiol Not-Ta rob hydroxychloroquine sulfate 200 mg oral tablet (1 source) Antimalarial, Antirheumatic Agent Start: 1 hydrOXYchloroQUINE (PLAQUENIL) 200 mg tablet Indications: Ulnar deviation of fingers of both hands , Elevated C-reactive protein (CRP) , Elevated sed rate TAKE 1 TABLET BY MOUTH DAILY WITH FOOD. use sunscreen when outdoors. see ophthalmology EVERY 6-12 months on this med 90 tablet 3 02/08/2021 Active Comment on above: TAKE 1 TABLET BY ANGIE TH DAILY WITH FOOD. use sunscreen when outdoors. see ophthalmology EVERY 6-12 months on this med 24 hr levomilnacipran 20 mg extended release oral capsule (4 sources) Serotonin and Norepinephrine Reuptake Inhibitor Start: 3 End: 4 take 2 capsules by mouth every twenty-four hours in the morning levomilnacipran (FETZIMA) 20 mg capsule,extended release 24 hr Indications: Current severe episode of major depressive disorder without psychotic features without prior episode (CMS-HCC) Take 2 capsules (40 mg total) by mouth in the morning. 30 capsule 1 09/10/2022 03/18/2023 Discontinued (Therapy completed) Fetzima Not-Taki ng nabumetone 500 mg oral tablet (1 source) Nonsteroidal Anti-inflammatory Drug Start: 02-12-2021 take 1 tablet by mouth twice daily as needed nabumetone (RELAFEN) 500 mg tablet Indications: Secondary osteoarthritis of multiple sites Take 1 tablet by mouth twice daily as needed. 60 tablet 3 02/12/2021 Active Comment on above: Take 1 tablet by angie twice daily as needed. QUEtiapine (2 sources) Atypical Antipsychotic SEROquel Not-Taking tirzepatide (MOUNJARO) 5 mg/0.5 mL pen injector (2 sources) Start: 09-10-2022 End: 03-18-2023 tirzepatide (MOUNJARO) 5 mg/0.5 mL pen injector Indications: Type 2 diabetes mellitus with hyperglycemia, without long-term current use of insulin ([facility]) Inject 5 mg under the skin every 7 days. 2 mL 0 09/10/2022 03/18/2023 Discontinued (Cost of medication) Start: 09-10-2022 tirzepatide (M OUNJARO) 5 mg/0.5 mL pen injector Indications: Type 2 diabetes mellitus with hyperglycemia, without long-term current use of insulin ([facility]) Inject 5 mg under the skin every 7 days. 2 mL 0 09/10/2022 Active Problems Active Problems Problem Classification Problem Date Documented Da te Episodic/Chronic Abdominal pain (1 source) Unspecified abdominal pain; Translations: [Unspecified abdominal pain] Onset: 07-09-2023 Episodic Diabetes mellitus with complications (4 sources) Type 2 diabetes mellitus; Translations: [Type 2 diabetes mellitus with hyperglycemia] Onset: 03-18-2023 03-17-2023 Chronic Diabetes mellitus without complication (1 source) Diabetes mellitus Onset: 03-18-2023 Chronic Esophageal disorders (3 sources) Gastro-esophageal reflux disease without esophagitis; Translations: [Gastroesophageal reflux disease without esophagitis] Onset: 05-09-2021 03-18-2023 Chronic Essential hypertension (3 sources) Benign essential hypertension; Translations: [Essential (primary) hypertension] Onset: 03-18-2023 03-18-2023 Chronic Genitourinary symptoms and ill-defined conditions (2 sources) Dysuria; Translations: [Dysuria] Onset: 05-29-2023 4 Episodic Headache; including migraine (3 sources) Migraine without aura, not refractory ; Translations: [Migraine without aura, not intractable, without status migrainosus] Onset: 03-18-2023 03-18-2023 Chronic Joint disorders and dislocations; trauma-related (5 sources) Articular cartilage disorder of shoulder region; Translations: [Other articular cartilage disorders, left shoulder] Onset: 12-22-2020 03-18-2023 Chronic Mood disorders (3 sources) Mild major depression, single episode; Translations: [Major depressive disorder, single episode, mild] Onset: 03-18-2023 03-18-2023 Chronic Mycoses (1 source) Candidal intertrigo; Translations: [Candidiasis of skin and nail] 05-19-2023 Episodic Osteoarthritis (13 sources) Degenerative joint disease involving multiple joints; 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] Onset: 07-20-2020 07-20-2020 Chronic Other aftercare (1 source) Other [facility] (current) drug therapy; Translations: [OTH [facility] CURRENT DRUG THERAPY] Onset: 02-26-2022 Episodic Other non-traumatic joint disorders (4 sources) Other specific joint derangements of right shoulder, not elsewhere classified; Translations: [OTH SPEC JOINT DERANG RT SHLDR NEC] Onset: 05-03-2021 Chronic Other non-traumatic joint disorders (6 sources) Derangement of right shoulder joint; Translations: [Other specific joint derangements of right shoulder, not elsewhere classified] Onset: 04-02-2021 09-10-2022 Chronic Other upper respiratory disease (1 source) Allergic rhinitis due to pollen; Translations: [Allergic rhinitis due to pollen] 03-18-2023 Chronic Other upper respiratory disease (1 source) Allergic rhinitis due to pollen; Translations: [Allergic rhinitis due to pollen] Onset: 03-18-2023 Chronic Other upper respiratory infections (2 sources) Acute upper respiratory infection, unspecified; Translations: [ACUTE UP RESPIRATORY INFECTION UNS] Onset: 02-26-2022 Episodic Unclassified (2 sources) COUGH, UNSPECIFIED; Translations: [COUGH, UNSPECIFIED] Onset: 02-26-2022 Unclassified (1 source) CONTACT W/AND (SUSP) EXPOS COVID-19; Translations: [CONTACT W/AND (SUSP) EXPOS COVID-19] Onset: 02-26-2022 Unclassified (1 source) er follow up not eating Onset: 07-09-2023 Unclassified (1 source) Acute candidiasis of vulva and vagina; Translations: [Acute candidiasis of vulva and vagina] Onset: 05-19-2023 Unclassified (1 source) Rash Onset: 05-19-2023 Urinary tract infections (2 sources) Acute cystitis; Translations: [Acute cystitis without hematuria] Onset: 05-29-2023 05-29-2023 Episodic Past or Other Problems Problem Classification Problem Date Documented Date Episodic/Chronic E Codes: Natural/environment (1 source) Overexertion from strenuous movement or load, initial encounter; Translations: [OVEREXERT STRENUOUS MVMT/LOAD INIT] Onset: 05-09-2021 Episodic Mood disorders (6 sources) Mood disorders Onset: 09-10-2022 Resolved: 05-19-2023 09-10-2022 Other acquired deformities (7 sources) Ulnar drift; Translations: [Other deformity of right finger(s)] Onset: 07-21-2020 07-21-2020 Episodic Other aftercare (1 source) Drug therapy finding; Translations: [Other [facility] (current) drug therapy] Onset: 02-08-2021 02-08-2021 Episodic Other connective tissue disease (1 source) Pain of bilateral hands; Translations: [Pain in right hand] Onset: 07-20-2020 07-20-2020 Episodic Other connective tissue disease (1 source) Chronic pain of left upper limb; Translations: [Pain in left finger(s)] Onset: 02-08-2021 02-08-2021 Episodic Other connective tissue disease (1 source) Arthrodesis status; Translations: [ARTHRODESIS STATUS] Onset: 05-09-2021 Episodic Other hematologic conditions (1 source) ESR raised; Translations: [Elevated erythrocyte sedimentation rate] Onset: 07-20-2020 07-20-2020 Episodic Other non-traumatic joint disorders (7 sources) Pain in right knee; Translations: [Pain in joint, lower leg] Onset: 07-20-2020 07-20-2020 Episodic Other non-traumatic joint disorders (6 sources) Chronic pain of right upper limb; Translations: [Pain in right elbow] Onset: 07-20-2020 07-20-2020 Episodic Other non-traumatic joint disorders (1 source) Bilateral chronic pain of upper limbs; Translations: [Pain in right shoulder] Onset: 02-08-2021 02-08-2021 Episodic Other non-traumatic joint disorders (3 sources) Pain in right hip; Translations: [PAIN IN RIGHT HIP] Onset: 05-08-2021 Episodic Other non-traumatic joint disorders (6 sources) Arthralgia of the upper arm; Translations: [Pain in unspecified elbow] Onset: 02-11-2020 09-10-2022 Episodic Other screening for suspected conditions (not mental disorders or infectious disease) (1 source) Elevated C-reactive protein; Translations: [Elevated C-reactive protein (CRP)] Onset: 07-21-2020 07-21-2020 Episodic Residual codes; unclassified (1 source) Acquired absence of both cervix and uterus; Translations: [ACQUIRED ABSENCE BOTH CERVIX AND UTERUS] Onset: 05-09-2021 Episodic Sprains and strains (2 sources) Strain of muscle, fascia and tendon of right hip, initial encounter; Translations: [Strain of muscle, fascia and tendon of lower back, initial encounter] Onset: 05-09-2021 Episodic Unclassified (1 source) COUGH, UNSPECIFIED; Translations: [COUGH, UNSPECIFIED] Onset: 02-21-2022 Unclassified (1 source) Suspected COVID-19 virus infection Z20.822 Unclassified (6 sources) Onset: 09-10-2022 Resolved: 05-19-2023 09-10-2022 Results Test Name Value Interpretation Reference Range Facility CT abdomen pelvis w conon CT abdomen pelvis w con [place] [address] CT Scan Report Signed Patient: Judy Roca MR#: [id number] [birth year] : 1965 Acct:[id number] Age/Sex: 57 / F ADM Date: 07/09/23 Loc: ER Room: Type: [facility] ER Attending Dr: Copies to: Ronan Delcid APRN Ordering Provider: Ronan Delcid APRN Date of Service: 07/09/23 CT/CT abdomen pelvis w con: Abdominal Pain CT Abdomen and Pelvis withcontrast TECHNIQUE: Axial imaging with 2-D reconstruction.90 cc of Isovue-300. The CT exam was performed using one or more the following dose reduction techniques: Automated exposure control, adjustment of the MA and/or Kv according to patient size, or use of the iterative reconstruction technique. COMPARISON: None History: Nausea vomiting diarrhea for 5 days LIMITATIONS: None LOWER THORAX the LEFT lower lobe groundglass consolidation. LIVER: Unremarkable GALLBLADDER: No gallbladder abnormality identified. BILE DUCTS: No dilatation SPLEEN: Unremarkable PANCREAS: Unremarkable ADRENAL GLANDS: Unremarkable KIDNEYS:17 mm RIGHT renal cyst. Tiny fat-containing LEFT renal lesion. No nephrolithiasis or obstructive uropathy. AORTA: No abdominal aortic aneurysm identified. RETROPERITONEUM: No significant retroperitoneal abnormalities identified. MESENTERY:Unremarkable SMALL BOWEL: The small bowel loops are nondistended. APPENDIX: The appendix is not seen. No pericecal inflammatory changes identified. COLON: Unremarkable URINARY BLADDER: Urinary bladder is unremarkable. REPRODUCTIVE SYSTEM: Nonvisualization PNEUMOPERITONEUM: None PERITONEAL FLUID:None BONY STRUCTURES: Lower lumbar degeneration. ABDOMINAL WALL: Small fat-containing umbilical hernia. CT/CT abdomen pelvis w con IMPRESSION: LEFT lower lobe groundglass consolidation concerning for infiltrate. No acute abdominal or pelvic findings. Impression dictated by: Elia Weiss M.D.07/09/2023 6:06 PM Dictation Location: [place] [address] Transcribed By: [facility] 07/09/231805 Dictated By: Elia Weiss DO 07/09/23 1800 Signed By: 07/09/23 180 Normal [facility] Complete Blood Count Auto Di ffon 07-09-2023 Basophils (Bld) [#/Vol] 0.0 10*3/uL Normal 0.0-0.2 [facility] Comment on above: Result Comment: PERF ORMED BY: [place] [address] PATHOLOGIST RIDE ASSEMBLY SUPERVISOR ATIF JOHNSON M.D. Performed By: #### C MP, CBC #### [address] Basophils/100 WBC (Bld) 0.4 % Normal . [facility] Comment on above: Performed By: #### C MP, CBC #### [address] Eosinophils (Bld) [#/Vol] 0.1 10*3/uL Normal 0.0-0.45 [facility] Comment on above: Performed By: #### C MP, CBC #### [address] Eosinophils/100 WBC (Bld) 0.8 % Normal . [facility] Comment on above: Performed By: #### C MP, CBC #### [address] Erythrocyte distribution width (RBC) [Ratio] 14.3 % Normal 11.9-15.3 [facility] Comment on above: Performed By: #### C MP, CBC #### [address] Hematocrit (Bld) [Volume fraction] 40.5 % Normal 34.0-46.4 [facility] Comment on above: Performed By: #### C MP, CBC #### [address] Hemoglobin (Bld) [Mass/Vol] 13.6 g/dL Normal 11.8-15.4 [facility] Comment on above: Performed By: #### C MP, CBC #### [address] Lymphocytes (Bld) [#/Vol] 1.0 10*3/uL Normal 1.00-4.8 [facility] Comment on above: Performed By: #### C MP, CBC #### [address] Lymphocytes/100 WBC (Bld) 11.9 % Normal . [facility] Comment on above: Performed By: #### C MP, CBC #### [address] MCH (RBC) [Entitic mass] 27.3 pg Normal 24.7-34.3 [facility] Comment on above: Performed By: #### C MP, CBC #### [address] MCV (RBC) [Entitic vol] 81.2 fL Normal 80-100 [facility] Comment on above: Performed By: #### C MP, CBC #### [address] Mean Corpuscular HGB Conc 33.6 g/dL Normal 32.0-35.0 [facility] Comment on above: Performed By: #### C MP, CBC #### [address] Monocytes (Bld) [#/Vol] 0.9 10*3/uL High 0.0-0.8 [facility] Comment on above: Performed By: #### C MP, CBC #### [address] Monocytes/100 WBC (Bld) 28.39 % High 0.00-20.00 [facility] Comment on above: Result Comment: For adults in ED, MDW > 20.0 may be associated with a higher risk of sepsis during the first 12 hrs of hospital admission Performed By: #### C MP, CBC #### [address] Monocytes/100 WBC (Bld) 10.3 % Normal . [facility] Comment on above: Performed By: #### C MP, CBC #### [address] [address] Neutrophils (Bld) [#/Vol] 6.6 10*3/uL Normal 1.8-7.7 [facility] Comment on above: Performed By: #### C MP, CBC #### [place] [address] [place] Neutrophils/100 WBC (Bld) 76.6 % Normal . [facility] Comment on above: Performed By: #### C MP, CBC #### [address] NRBC% 0.1 /100{WBC} Normal 0-0.5 [facility] Comment on above: Performed By: #### C MP, CBC #### [address] Platelet mean volume (Bld) [Entitic vol] 8.9 fL Normal 6.3-10.7 [facility] Comment on above: Performed By: #### C MP, CBC #### [address] Platelets (Bld) [#/Vol] 293 10*3/uL Normal 150-450 [facility] Comment on above: Performed By: #### C MP, CBC #### [address] RBC (Bld) [#/Vol] 4.99 10*6/uL Normal 3.60-5.00 [facility] Comment on above: Performed By: #### C MP, CBC #### [address] WBC (Bld) [#/Vol] 8.7 10*3/uL Normal 3.8-11.6 [facility] Comment on above: Performed By: #### C MP, CBC #### [address] Comprehensive Metabolic Pane jazzmine 07-09-2023 Albumin [Mass/Vol] 3.1 g/dL Low 3.5-5.7 [facility] Comment on above: Performed By: #### C MP, CBC #### [address] Albumin/Globulin [Mass ratio] 0.8 {ratio} Normal [facility] Comment on above: Performed By: #### C MP, CBC #### [address] Performed By: #### H EPATIC #### [address] ALP [Catalytic activity/Vol] 222 U/L High 34-104 [facility] Comment on above: Performed By: #### C MP, CBC #### [address] [address] [place] ALT [Catalytic activity/Vol] 105 U/L High 7-52 [facility] Comment on above: Performed By: #### C MP, CBC #### [address] Anion gap [Moles/Vol] 14.3 mmol/L Normal 6.0-15.0 [facility] Comment on above: Performed By: #### C MP, CBC #### [address] AST [Catalytic activity/Vol] 54 U/L High 13-39 [facility] Comment on above: Performed By: #### C MP, CBC #### [address] Bilirubin [Mass/Vol] 0.6 mg/dL Normal 0.3-1.0 [facility] Comment on above: Performed By: #### C MP, CBC #### [address] Performed By: #### H EPATIC #### [address] Calcium [Mass/Vol] 8.1 mg/dL Low 8.6-10.3 [facility] Comment on above: Performed By: #### C MP, CBC #### [address] Chloride [Moles/Vol] 95 mmol/L Low 98-107 [facility] Comment on above: Performed By: #### C MP, CBC #### [address] CO2 [Moles/Vol] 23.7 mmol/L Normal 21.0-31.0 [facility] Comment on above: Performed By: #### C MP, CBC #### [address] Creatinine [Mass/Vol] 0.64 mg/dL Normal 0.60-1.20 [facility] Comment on above: Performed By: #### C MP, CBC #### [address] Creatinine Clr Calc Pharmacy 111.97 Normal [facility] Comment on above: Result Comment: PERF ORMED BY: [place] [address] PATHOLOGIST [employer]IDE ASSEMBLY SUPERVISOR ATIF JOHNSON M.D. Performed By: #### C MP, CBC #### [address] GFR/1.73 sq M.predicted MDRD (S/P/Bld) [Vol rate/Area] mL/min/{1.73_m2} Normal [facility] Comment on above: Performed By: #### C MP, CBC #### [address] Globulin (S) [Mass/Vol] 4.0 g/dL Normal [facility] Comment on above: Performed By: #### C MP, CBC #### [address] Glucose [Mass/Vol] 155 mg/dL High 70-100 [facility] Comment on above: Result Comment: [facility] Glucose Reference Range is dependent on time and content of last meal. Glucose of more than 200 mg/dL in a nonstressed, ambulatory subject supports the diagnosis of Diabetes Mellitus. ADA recommended reference range Performed By: #### C MP, CBC #### [address] Potassium [Moles/Vol] 3.0 mmol/L Low 3.5-5.1 [facility] Comment on above: Performed By: #### C MP, CBC #### [address] Protein [Mass/Vol] 7.1 g/dL Normal 6.4-8.9 [facility] Comment on above: Performed By: #### C MP, CBC #### [address] Performed By: #### H EPATIC #### [address] Sodium [Moles/Vol] 130 mmol/L Low 136-145 [facility] Comment on above: Performed By: #### C MP, CBC #### [facility] [address] [place] [address] [place] Urea nitrogen [Mass/Vol] 17 mg/dL Normal 7-25 [facility] Comment on above: Performed By: #### C MP, CBC #### [place] [address] [place] Dipstick and Microscopicon 0 07-09-2023 Appearance (U) Cloudy Critically abnormal Clear [facility] Comment on above: Order Comment: Name Collection Type:: Clean-Voided Midstream Performed By: #### C UU, ADDONUAPLUS #### [place] [address] [place] Bacteria,Urine 2+ High None Seen [facility] Comment on above: Order Comment: Name Collection Type:: Clean-Voided Midstream Performed By: #### C UU, ADDONUAPLUS #### [place] [address] [place] Bilirubin,Urine 2+ High Negative [facility] Comment on above: Order Comment: Name Collection Type:: Clean-Voided Midstream Performed By: #### C UU, ADDONUAPLUS #### [place] [address] [place] Color (U) Dark Yellow Critically abnormal Yellow [facility] Comment on above: Order Comment: Name Collection Type:: Clean-Voided Midstream Performed By: #### C UU, ADDONUAPLUS #### [place] [address] [place] Glucose Ql (U) Normal Normal Normal [facility] Comment on above: Order Comment: Name Collection Type:: Clean-Voided Midstream Performed By: #### C UU, ADDONUAPLUS #### [place] [address] [place] Hyaline Casts,Urine 9-19 High 0-8 [facility] Comment on above: Order Comment: Name Collection Type:: Clean-Voided Midstream Result Comment: PERF ORMED BY: [place] [address] PATHOLOGIST RIDE ASSEMBLY SUPERVISOR ATIF JOHNSON M.D. Performed By: #### C UU, ADDONUAPLUS #### [place] [address] [place] Ketones Ql (U) 3+ High Negative [facility] Comment on above: Order Comment: Name Collection Type:: Clean-Voided Midstream Performed By: #### C UU, ADDONUAPLUS #### [place] [address] [place] Leukocyte esterase Test strip Ql (U) 2+ High Negative [facility] Comment on above: Order Comment: Name Collection Type:: Clean-Voided Midstream Performed By: #### C UU, ADDONUAPLUS #### [place] [address] [place] Nitrite,Urine Negative Normal Negative [facility] Comment on above: Order Comment: Name Collection Type:: Clean-Voided Midstream Performed By: #### C UU, ADDONUAPLUS #### [place] [address] [place] Occult Blood,Urine 2+ High Negative [facility] Comment on above: Order Comment: Name Collection Type:: Clean-Voided Midstream Result Comment: PERF ORMED BY: [place] [address] PATHOLOGIST RIDE ASSEMBLY SUPERVISOR ATIF JOHNSON M.D. Performed By: #### C UU, ADDONUAPLUS #### [place] [address] [place] pH (U) 6.0 [pH] Normal 5.0-9.0 [facility] Comment on above: Order Comment: Name Collection Type:: Clean-Voided Midstream Performed By: #### C UU, ADDONUAPLUS #### [place] [address] [place] Protein (U) [Mass/Vol] 100 mg/dL High Negative [facility] Comment on above: Order Comment: Name Collection Type:: Clean-Voided Midstream Performed By: #### C UU, ADDONUAPLUS #### [address] RBC,Urine 10-19 High 0-4 [facility] Comment on above: Order Comment: Name Collection Type:: Clean-Voided Midstream Performed By: #### C UU, ADDONUAPLUS #### [address] Specificy [place],Urine 1.023 Normal 1.001-1.030 [facility] Comment on above: Order Comment: Name Collection Type:: Clean-Voided Midstream Performed By: #### C UU, ADDONUAPLUS #### [address] Squamous Epithelial Cell,Urine 5-9 High 0-2 [facility] Comment on above: Order Comment: Name Collection Type:: Clean-Voided Midstream Performed By: #### C UU, ADDONUAPLUS #### [address] Urobilinogen,Urin e Normal Normal Normal [facility] Comment on above: Order Comment: Name Collection Type:: Clean-Voided Midstream Performed By: #### C UU, ADDONUAPLUS #### [address] WBC,Urine 5-9 High 0-4 [facility] Comment on above: Order Comment: Name Collection Type:: Clean-Voided Midstream Performed By: #### C UU, ADDONUAPLUS #### [address] Glucose Poct Glucometerson 0 07-09-2023 Glucose [Mass/Vol] 160 mg/dL Normal [facility] Comment on above: Result Comment: [place] Glucose Reference Range is dependent on time and content of last meal. Glucose of more than 200 mg/dL in a nonstressed, ambulatory subject supports the diagnosis of Diabetes Mellitus. PERFORMED BY: [place] [address] PATHOLOGIST RIDE ASSEMBLY SUPERVISOR ATIF JOHNSON M.D. Performed By: #### G LULS #### Point of Care testing , Hepatic Panelon 07-09-2023 Albumin [Mass/Vol] 3.2 g/dL Low 3.5-5.7 [facility] Comment on above: Performed By: #### H EPATIC #### [address] ALP [Catalytic activity/Vol] 241 U/L High 34-104 [facility] Comment on above: Result Comment: PERF ORMED BY: [place] [address] PATHOLOGIST RIDE ASSEMBLY SUPERVISOR ATIF JOHNSON M.D. Performed By: #### H EPATIC #### [address] ALT [Catalytic activity/Vol] 104 U/L High 7-52 [facility] Comment on above: Performed By: #### H EPATIC #### [address] AST [Catalytic activity/Vol] 53 U/L High 13-39 [facility] Comment on above: Performed By: #### H EPATIC #### [address] Bilirubin,Indirec t 0.5 mg/dL Normal [facility] Comment on above: Performed By: #### H EPATIC #### [address] Bilirubin.indirec t [Mass/Vol] 0.10 mg/dL Normal 0.03-0.18 [facility] Comment on above: Performed By: #### H EPATIC #### [address] Globulin (S) [Mass/Vol] 3.9 g/dL Normal [facility] Comment on above: Performed By: #### H EPATIC #### [address] Lipaseon 07-09-2023 Lipase [Catalytic activity/Vol] 74.0 U/L Normal 11.0-82.0 [facility] Comment on above: Result Comment: PERF ORMED BY: [place] [address] PATHOLOGIST RIDE ASSEMBLY SUPERVISOR ATIF JOHNSON M.D. Performed By: #### L IPASE #### [facility] [address] [place] [address] [place] Urine Cultureon 07-09-2023 Bacteria identified Cx Nom (U) 30,000 colonies/ml mixed bacterial skin contaminants including mixed gram negative bacilli - 2 Days PERFORMED BY: [place] [address] PATHOLOGIST RIDE ASSEMBLY SUPERVISOR ATIF JOHNSON M.D. Normal [facility] Comment on above: Performed By: #### C UU, ADDONUAPLUS #### [facility] [address] [place], [place] [id number] [place] POCT urinalysis dipstick onl yon 05-29-2023 Appearance (U) clear [facility] External Poct Urine Bilirubin Negative [facility]ct Urine Blood Trace [facility] Poct Urine Color yellow [facility] External Poct Urine Glucose Negative [facility]ct Urine Ketones Negative [facility] Urine Leukocyte Esterase Trace [facility] Urine Nitrite Negative [facility] Urine Ph 5.5 [facility] External Poct Urine Protein Negative [facility] External Poct Urine Specific [place] 1.025 [facility] External Poct Urine Urobilinogen 0.2 [facility] URINE CULTUREon 05-29-2023 Bacteria identified Cx Nom (U) CULTURE RESULTS 50-100,000 ORGANISMS/ML NORMAL UROGENITAL ABHILASH Normal [facility] Comment on above: Performed By: #### 6 30-4 #### [facility] ([id number]) [address] [place] [address] MICROALBUMIN - ALBUMIN:CREAT ININE URINE RATIOon 03-18-2023 ALB/CREAT RATIO 5.5 mg/g creat Normal 0.0-30.0 [facility] Comment on above: Performed By: #### M ALBU #### [facility] ([id number]) [address], [address] [place] [address] Albumin DL <= 20 mg/L (U) [Mass/Vol] 1.0 mg/dL Normal 0.0-1.9 [facility] Comment on above: Performed By: #### M ALBU #### [facility] ([id number]) [address], [address] [place] [address] URINE CREAT 180.91 mg/dL Normal [facility] Comment on above: Performed By: #### M ALBU #### [facility] ([id number]) [address] [place] [address] POCT Hemoglobin A1con 2023 HbA1c (Bld) [Mass fraction] 6.5 g/dL 4 - 7 g/dL [facility] COVID + FLU Quick Testingon 01-12-2023 SARS-CoV-2 (COVID-19) RNA MONICO+probe Ql (Unsp spec) Negative [facility] Other COVID + FLU Quick Testing Negative [facility] Other Cov[facility]-19 PCR [facility] 01-25 SARS-CoV-2 (COVID-19) RNA MONICO+probe Ql (Unsp spec) Not detected Normal NOT DETECTED [facility] Comment on above: Result Comment: This test is not yet approved or cleared by the [place] FDA. When there are no FDA-approved or cleared tests available, and other criteria are met, FDA can make tests available under an emergency access mechanism called an Emergency Use Authorization (EUA). The EUA for this test is supported by the [employer] Tender of Health and Human Service's (HHS's) declaration that circumstances exist to justify the emergency use of in vitro diagnostics for the detection and/or diagnosis of the virus that causes COVID-19. This EUA will remain in effect (meaning this test can be used) for the duration of the COVID-19 declaration justifying emergency of IVDs, unless it is terminated or revoked by FDA (after which the test may no longer be used). When diagnostic testing is negative, the possibility of a false negative should be considered in the context of a patient's recent exposures and the presence of clinical signs and symptoms consistent with SARS-CoV-2. Performed By: #### [facility] #### [facility] [address] [place] [address] Dr. Robert Barragna INFLUENZA A AND B [facility] 02-21 [facility] SEE BELOW Normal [facility] Comment on above: Result Comment: Nega tive for Flu A protein angiten. Infection due to Flu A cannot be ruled out. Flu A angiten in the sample may be below the detection limit of the test. Performed By: #### I NFLUAB #### [facility] [address] [place] [address] Dr. Robert Barragan [facility] SEE BELOW Normal [facility] Comment on above: Result Comment: Nega tive for Flu B protein antigen. Infection due to Flu B cannot be ruled out. Flu B antigen in the sample may be below the detection limit of the test. Performed By: #### I NFLUAB #### [facility] [address] [place] [address] Dr. Robert Barragan INFLUENZA A AG Negative Normal NEGATIVE SEE COMMENT [facility] Comment on above: Performed By: #### I NFLUAB #### [facility] [address] [place] [address] Dr. Robert Barragan INFLUENZA B AG Negative Normal NEGATIVE SEE COMMENT [facility] Comment on above: Performed By: #### I NFLUAB #### [facility] [address] [place] [address] Dr. Robert Hadley 2021 LAUREN Telephone (SOHAM) JUDY ROCA ([id number]) 1965 F Date Time Provider Department 09/13/21 NABOR PICHARDO During your visit today, we recorded the following information about you: Nabor Pichardo MD 2021 6:02 AM Signed For chart eye exam 08/22/21 Dr.Mark Alonso, OD Blurry vision , diabetes making her vision fluctuate. Plaquenil 2years. No toxicity. Allergies As of Date: 2021 (No Known Allergies) Date Reviewed: 02/08/2021 Reviewed by: Nabor Pichardo MD - Fully Assessed Reason for Visit: Results [95] Prescriptions as of 2021 - nabumetone (RELAFEN) 500 mg tablet Take 1 tablet by mouth twice daily as needed. - glimepiride (AMARYL) 4 mg tablet 1 tablet with breakfast or the first main meal of the day - ARIPiprazole (ABILIFY) 5 mg tablet - pioglitazone (ACTOS) 30 mg tablet - diclofenac (VOLTAREN) 1 % topical gel apply 2gms to areas of joint pain up to four times a day. Avoid contact with eyes. Do not exceed 32gm/day - hydrOXYchloroQUINE (PLAQUENIL) 200 mg tablet TAKE 1 TABLET BY MOUTH DAILY WITH FOOD. use sunscreen when outdoors. see ophthalmology EVERY 6-12 months on this med - desvenlafaxine ER (PRISTIQ) 100 mg 24 hr tablet - famotidine (PEPCID) 40 mg tablet Take 40 mg by mouth twice daily. - propranolol ER (INDERAL LA) 80 mg 24 hr capsule Take 80 mg by mouth once daily. Problem List As Of Date 2021 Noted Resolved Elevated sed rate [R70.0] 07/20/2020 Bilateral hand pain [M79.641, M79.642] 07/20/2020 Chronic pain of both knees [M25.561, M25.562, G*07/20/2020 Chronic elbow pain, right [M25.521, G89.29] 07/20/2020 Secondary osteoarthritis of multiple sites [M15*07/20/2020 Ulnar deviation of fingers of both hands [M20.0*07/21/2020 Elevated C-reactive protein (CRP) [R79.82] 07/21/2020 Long-term use of Plaquenil [Z79.899] 02/08/2021 Chronic thumb pain, left [M79.645, G89.29] 02/08/2021 Chronic pain of both shoulders [M25.511, G89.29*02/08/2021 Encounter Status:Closed by NABOR PICHARDO on 09/13/21 Normal [facility] XR HIP RT 2 3V W PELVISon XR HIP RT 2 3V W PELVIS EXAM: XR HIP RT 2 3V W PELVIS HISTORY: Pain COMPARISON: None. TECHNIQUE: One view of the pelvis and 2 views of the right hip were obtained. FINDINGS: No acute fracture or dislocation is seen. The femoral heads are well-seated in the acetabula. There are mild degenerative changes of both sacroiliac joints and both hip joints. The pubic symphysis is preserved. IMPRESSION: 1. Mild degenerative changes of both hips with no acute abnormality of the pelvis or right hip seen. Electronically authenticated by: Benny QUINONES Date: 2021-05-08 03:14 Normal [facility] MRI SHOULDER RT WO CONon MRI SHOULDER RT WO CON EXAMINATION: MRI SHOULDER RT WO CON HISTORY: Derangement of right shoulder joint ; chronic right shoulder pain, decreased range of motion COMPARISON: No relevant comparison available. TECHNIQUE: A variety of imaging planes and parameters were utilized for visualization of suspected pathology. Imaging was performed without contrast. FINDINGS: ROTATOR CUFF REGION CUFF TENDONS: Minimal increased signal intensity in the supraspinatus tendon indicates tendon degeneration and/or tendinitis. No bernadine tear is seen. CUFF MUSCLES: Normal appearing muscles. DELTOID: Normal. No significant atrophy or tear. LONG BICEPS TENDON: Normal. No abnormal signal, attrition, or tear. LABRUM/BICEPS ANCHOR SUPERIOR: Normal. No visible labral tear or biceps anchor pathology. ANTERIOR/INFERIOR: Normal. No visible tear or attrition. POSTERIOR: Normal. No posterior labrum abnormality. CAPSULE Normal. No visible capsular laxity or thickening. AC JOINT REGION AC JOINT: Thickened and edematous appearance of the joint capsule and demonstrate increased T2 signal. Mild degenerative changes. AC LIGAMENTS: Normal acromioclavicular ligament. CC LIGAMENTS: Normal coracoclavicular ligaments. ACROMION: Normal horizontal (Type I) configuration. SUBACROMIAL BURSA: Normal. No significant effusion. HYALINE CARTILAGE: Normal. No visible cartilage narrowing or focal defect. OTHER BONES: Normal proximal humerus, glenoid, and coracoid. OTHER OBSERVATIONS: Negative. No other significant findings or glenohumeral effusion. IMPRESSION: 1. Mild strain of the supraspinatal tendon. 2. Acromioclavicular joints mild degenerative changes with increased T2 signal of the joint capsule suggestive of inflammatory changes, which may contribute to patient's symptoms. Electronically authenticated by: XENIA LO Date: 2021-05-04 07:[address] [facility] 02-12-2021 [facility] Telephone (INTMAL) JUDY ROCA ([id number]) 1965 F Date Time Provider Department 02/12/21 NABOR PICHARDO During your visit today, we recorded the following information about you: Jeanne Saini 02/12/2021 4:09 PM Signed Patient calling because she states she has a prescription Nabumetone and her instructions are to take 1 tablet po once daily. Patient states she were told she is supposed to take 1 tablet po twice daily. Patient wanting to know which regimen to follow or if this has changed ? Nabor Pichardo MD 02/12/2021 5:06 PM Signed Please call patient and pharmacy May increase relafen up to twice a day for pain if tolerated. New script sent to pharmacy May complete nonfasting labs Thank you. Patient's request for medication is as follows: Signed Prescriptions Disp Refills nabumetone (RELAFEN) 500 mg tablet 60 tablet 3 Sig: Take 1 tablet by mouth twice daily as needed. ANGIE: No Authorizing Provider: KYLEE, NABOR Prescription(s) as above. Please process accordingly. MD Octavia Augustine MA 02/13/2021 8:27 AM Signed Pt read my chart. No further action needed. Octavia Belle MA Allergies As of Date: 02/12/2021 (No Known Allergies) Date Reviewed: 02/08/2021 Reviewed by: Nabor Pichardo MD - Fully Assessed Reason for Visit: Medication Question [1478] Visit Diagnosis:Secondary osteoarthritis of multiple sites [M15.3] Order(s):nabumetone (RELAFEN) 500 mg tabletTake 1 tablet by mouth twice daily as needed.Disp: 60 tabletRfl: 3 Prescriptions as of 02/13/2021 - nabumetone (RELAFEN) 500 mg tablet Take 1 tablet by mouth twice daily as needed. - glimepiride (AMARYL) 4 mg tablet 1 tablet with breakfast or the first main meal of the day - ARIPiprazole (ABILIFY) 5 mg tablet - pioglitazone (ACTOS) 30 mg tablet - diclofenac (VOLTAREN) 1 % topical gel apply 2gms to areas of joint pain up to four times a day. Avoid contact with eyes. Do not exceed 32gm/day - hydrOXYchloroQUINE (PLAQUENIL) 200 mg tablet TAKE 1 TABLET BY MOUTH DAILY WITH FOOD. use sunscreen when outdoors. see ophthalmology EVERY 6-12 months on this med - desvenlafaxine ER (PRISTIQ) 100 mg 24 hr tablet - famotidine (PEPCID) 40 mg tablet Take 40 mg by mouth twice daily. - propranolol ER (INDERAL LA) 80 mg 24 hr capsule Take 80 mg by mouth once daily. Problem List As Of Date 02/12/2021 Noted Resolved Elevated sed rate [R70.0] 07/20/2020 Bilateral hand pain [M79.641, M79.642] 07/20/2020 Chronic pain of both knees [M25.561, M25.562, G*07/20/2020 Chronic elbow pain, right [M25.521, G89.29] 07/20/2020 Secondary osteoarthritis of multiple sites [M15*07/20/2020 Ulnar deviation of fingers of both hands [M20.0*07/21/2020 Elevated C-reactive protein (CRP) [R79.82] 07/21/2020 Long-term use of Plaquenil [Z79.899] 02/08/2021 Chronic thumb pain, left [M79.645, G89.29] 02/08/2021 Chronic pain of both shoulders [M25.511, G89.29*02/08/2021 Prescriptions ordered this encounter Disp Refills Start End NABUMETONE 500 MG TABLET 60 t* 3 02/12/2021 Route: ORAL Sig: Take 1 tablet by mouth twice daily as needed. Medications Discontinued During This Encounter Prescriptions - nabumetone (RELAFEN) 500 mg tablet (Discontinued) Take 1 tablet by mouth once daily. Encounter Status:Closed by OCTAVIA BELLE on 02/13/21 [facility] 02-08-2021 [facility] Office Visit (SOHAM ) JUDY ROCA ([id number]) 1965 F Date Time Provider Department 02/08/21 7:20 AM NABOR PICHARDO During your visit today, we recorded the following information about you: Pulse Blood pressure Weight 72/minute 122/62 94.3 kg Nabor Pichardo MD 02/08/2021 1:33 PM Signed Face to face follow up for joint pain/high esr/crp/ osteoarthritis Today's visit 02/08/21:high esr/crp levels improved. xrays showed osteoarthritis. Reports dry mouth, gerd, numbness, headache. Worse pain in R>L shoulders, hand, L thumb. Less relief with motrin. Just had steroid injections of both shoulders from ortho. L side better but R side still ouchy. Had L shoulder MRI 10/2020 showed fraying, bone spur and osteoarthritis. Diagnosed with diabetes 06/2020, better with diabetic medications. Reports pain 2-10/03. minimal AM stiffness. Had flu vaccine. Taking 1tab daily Plaquenil. Saw eye exam no medication toxicity. R elbow better after surgery 06/2020. Biking several times a week. COVID vaccine [employer] 03/07/20, 04/17/20, 11/29/20. Feels safe at home. Has enough food, supplies and medications. Overall mildly uncomfortable but happy with rheum care. No falls/fx/trauma/illnes s/oral sores/rash/hairloss/ja w pain/dysphagia/epistax is/hemoptysis since last visit. No adverse effects with meds. No other complaints. Patient denies fever, chills, cp, dyspnea, nausea, vomiting, night sweats, scalp tenderness, visual changes, mercado, bowel/bladder changes, weight changes or other complaints. Last visit supportive care, see ortho, no oral nsaids due to GI upset, start prn heat/ice/otc arthritis creams, low impact weightbearing exercise as tolerated, avoid aggravating triggers, July 20, 2020 SUBJECTIVE Ms. Roca is a 54 year old female who presents for joint pain/high esr eval. Back pain with radiation RLE/numbness, dragging RLE, now better after surgery S/p lumbar surgery 2000 with laser with temporary relief since no response with back injections s/p R CTS release with R cubital release summer joint pain hands L>R, neck, L>R knee medial, R mid foot/swelling at end of day, L shoulder, low back Swelling of MCPs 11/2019 R tennis elbow failed PT/injection, thus treated with surgery 07/04/20 removed bone spur Motrin some relief, stopped due to GI upset GI upset with mobic, tried celebrex no response Usually takes over the counter 650mg tylenol Reports pain 09/02 No falls/fx/trauma/illnes s/oral sores/rash/hairloss/ja w pain/dysphagia/epistax is/hemoptysis. No adverse effects with meds. No other complaints. Patient denies fever, chills, cp, dyspnea, nausea, vomiting, night sweats, scalp tenderness, visual changes, mercado, bowel/bladder changes, weight changes or other complaints. COMPLETE REVIEW OF SYSTEMS: RHEUM. ROS: Joint pain: yes- hands L>R, neck, L>R knee medial, R mid foot/swelling at end of day, L shoulder, low back Joint swelling: yes hands, R foot Am stiffness: yes 30minutes Low back pain: yes Enthesopathy/Yolie's /heel/plantar tenderness: s/p R CTS release with R cubital release 2007 Alpecia, patchy: yes Eye inflammation: glasses GI problems-diarrhea/blee ding/IBD/Gluten intolerence/Dysphagia: gerd Fatigue: yes, sleeps 5-6 hr/night PMR/GCA ROS: negative Patient denies history of Gout or Pseudogout, Psoriasis, Rheumatic Fever, PUD, Liver Disease, Hepatitis , Kidney Disease, Kidney Stones, DM, HTN, CAD, Dyslipidemia, PAD, Sinusitis, Asthma, TB infection or exposure, Pneumonias, Anemia, Seizures, Stroke, MS, Clots, Cancer, Thyroid Disease, Transfusions, Tattoos and Alcohol dependency. Other ROS:The remainder of the review of systems is negative. All other reviewed and negative other than HPI. PATIENT REPORTS: Cardiac stress test:no Breast exam:negative Pap exam: normal, last menses 2009 s/p hysterectomy/uterine prolapse, not taking hormones; G3, P3, no miscarriage Colonoscopy: no Bone Density:no History of Fractures:no Height Loss: no IMMUNIZATION HX: Pneumovax no Flu shot yes Tetanus yes Had both [employer] vaccines 03/2020 Last PPD: negative years ago PAST MEDICAL HISTORY: PMH gerd, anxiety, s/p R CTS release with R cubital release 2007, S/p lumbar surgery 2000,2009 s/p hysterectomy/uterine prolapse PAST SURGICAL HISTORY: s/p R CTS release with R cubital release 2007, S/p lumbar surgery 2000,2009 s/p hysterectomy/uterine prolapse FAMILY HISTORY: mother-osteoarthritis, htn;father-DM, CAD, htn;children/siblings- healthy; 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 Normal [facility] OBSOLETEon 11-14-2020 OBSOLETE Refill (RHEULN) JUDY ROCA ([id number]) 1965 F Date Time Provider Department 11/14/20 NABOR PICAHRDO During your visit today, we recorded the following information about you: Marshall Mcguire MA 11/15/2020 7:34 AM Signed Pending Prescriptions Disp Refills HYDROXYCHLOROQUINE 200 MG TABLET 30 tablet 3 Sig: TAKE 1 TABLET BY MOUTH DAILY WITH FOOD. use sunscreen when outdoors. see ophthalmology EVERY 6-12 months on this med ANGIE: No Nabor Pichardo MD 11/16/2020 6:22 AM Signed Notify patient medication sent as requested Thank you. Patient's request for medication is as follows: Pending Prescriptions: Disp Refills hydrOXYchloroQUINE (PLAQUENIL) 200 mg 90 tablet 3 tablet [Pharmacy Med Name: hydroxychloroquine 200 mg tablet] Sig: TAKE 1 TABLET BY MOUTH DAILY WITH FOOD. use sunscreen when outdoors. see ophthalmology EVERY 6-12 months on this med ANGIE: No Prescription(s) as above. Please process accordingly. 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 use sunscreen when outdoors. see ophthalmology EVERY 6-12 months on this medDisp: 90 tabletRfl: 3 Prescriptions as of 11/16/2020 - hydrOXYchloroQUINE (PLAQUENIL) 200 mg tablet TAKE 1 TABLET BY MOUTH DAILY WITH FOOD. use sunscreen when outdoors. see ophthalmology EVERY 6-12 months on this med - desvenlafaxine ER (PRISTIQ) 100 mg 24 hr tablet - famotidine (PEPCID) 40 mg tablet Take 40 mg by mouth twice daily. - ibuprofen (MOTRIN) 800 mg tablet TAKE 1 TABLET BY MOUTH THREE TIMES DAILY NEEDED WITH FOOD - propranolol ER (INDERAL LA) 80 mg 24 hr capsule Take 80 mg by mouth once daily. - cyanocobalamin (VITAMIN B-12) 500 mcg tablet Take 1 tablet by mouth once daily. - calcium carbonate/vitamin D3 (CALCIUM 600 + D,3, ORAL) Take by mouth. Problem List As Of Date 11/14/2020 Noted Resolved Elevated sed rate [R70.0] 07/20/2020 Bilateral hand pain [M79.641, M79.642] 07/20/2020 Chronic pain of both knees [M25.561, M25.562, G*07/20/2020 Chronic elbow pain, right [M25.521, G89.29] 07/20/2020 Secondary osteoarthritis of multiple sites [M15*07/20/2020 Ulnar deviation of fingers of both hands [M20.0*07/21/2020 Elevated C-reactive protein (CRP) [R79.82] 07/21/2020 Prescriptions ordered this encounter Disp Refills Start End HYDROXYCHLOROQUINE 200 MG TABLET 90 t* 3 11/16/2020 Cmt: This patient participates in our Sync Your Meds program to help increase their medication adherence. We are requesting this refill a month in advance so we can have it on file. Thank You! Sig: TAKE 1 TABLET BY MOUTH DAILY WITH FOOD. use sunscreen when outdoors. see ophthalmology EVERY 6-12 months on this med Medications Discontinued During This Encounter Prescriptions - hydrOXYchloroQUINE (PLAQUENIL) 200 mg tablet (Discontinued) Take one tab by mouth daily with food. Sunscreen when outdoors. See ophthalmology every 6-12months on med. Encounter Status:Closed by NABOR PICHARDO on 11/16/20 Normal [facility] Vital Signs Date Time Vital Sign Value Performing Clinician Facility 05-19-2023 13:54-0400 Body height 160 cm Iris Villalta APRN-JORDIN Work Phone: [facility] [employer] [facility] 05-19-2023 13:54-0400 Body mass index (BMI) [Ratio] 45.6 kg/m2 Iris Villalta APRN-JORDIN Work Phone: [facility] [employer] [facility] 05-19-2023 13:54-0400 Body temperature 98.1 [degF] Iris Villalta APRN-JORDIN Work Phone: [facility] [employer] [facility] 05-19-2023 13:54-0400 Body weight 116.76 kg Iris Villalta APRN-JORDIN Work Phone: [facility] [employer] [facility] 05-19-2023 13:54-0400 Diastolic blood pressure 78 mm[Hg] Iris Villalta APRN-JORDIN Work Phone: [facility] [employer] [facility] 05-19-2023 13:54-0400 Heart rate 74 /min Iris ABARCA Work Phone: [facility] 05-19-2023 13:54-0400 SaO2% (BldA) [Mass fraction] 97 % Iris Villalta APRN-JORDIN Work Phone: [facility] [employer] [facility] 05-19-2023 13:54-0400 Systolic blood pressure 120 mm[Hg] Iris Villalta APRN-JORDIN Work Phone: [facility] [employer] [facility] 03-18-2023 08:17-0500 Body height 160 cm Iris Villalta APRN-JORDIN Work Phone: [facility] [employer] [facility] 03-18-2023 08:17-0500 Body mass index (BMI) [Ratio] 45.19 kg/m2 Iris Villalta APRN-JORDIN Work Phone: [facility] [employer] [facility] 03-18-2023 08:17-0500 Body temperature 97.7 [degF] Iris Villalta APRN-MORTICIAN HELPER Work Phone: [facility] [employer] [facility] 01-23-2024 08:17-0500 Body weight 115.71 kg Iris Villalta APRN-JORDIN Work Phone: [employer] 03-18-2023 08:17-0500 Diastolic blood pressure 80 mm[Hg] Iris Villalta APRN-MORTICIAN HELPER Work Phone: [employer] 03-18-2023 08:17-0500 Heart rate 67 /min Iris Villalta APRN-JORDIN Work Phone: [employer] 03-18-2023 08:17-0500 SaO2% (BldA) [Mass fraction] 95 % Iris Villalta APRN-JORDIN Work Phone: [employer] 03-18-2023 08:17-0500 Systolic blood pressure 120 mm[Hg] Iris Villalta APRN-MORTICIAN HELPER Work Phone: [employer] 01-12-2023 14:10-0500 Body height 160.02 cm Francia Carlos Other [facility] Other 01-12-2023 14:10-0500 Body mass index (BMI) [Ratio] 43.78 kg/m2 Francia Carlos Other [facility] Other 01-12-2023 14:10-0500 Body temperature 97.4 [degF] Francia Carlos Other [facility] Other 01-12-2023 14:10-0500 Body weight 112.13 kg Francia Carlos Other [facility] Other 01-12-2023 14:10-0500 Respiratory rate 18 /min Francia Carlos Other [facility] Other 01-12-2023 14:10-0500 SaO2% (BldA) [Mass fraction] 97 % Francia Carlos Other [facility] [employer] Other Encounters Encounter Date Encounter Type Care Provider Facility Start: 07-22-2023 End: 07-22-2023 ambulatory [facility] Start: 07-09-2023 End: 07-09-2023 Emergency department patient visit Ronan Delcid Facility:[facility] Start: 07-09-2023 End: 07-09-2023 ambulatory [facility] Start: 05-29-2023 End: 05-30-2023 ambulatory [facility] Start: 05-29-2023 End: 05-29-2023 ambulatory [facility] Start: 05-29-2023 End: 05-29-2023 Clinical Support Iris Villalta FAMILY NURSE-MORTICIAN HELPER Work Phone: [facility] - [facility] Comment on above: Dysuria (Primary Dx) ; Acute cystitis without hematuria Start: 05-26-2023 Telephone encounter Iris Villalta FAMILY NURSE-MORTICIAN HELPER Work Phone: [facility] Start: 05-19-2023 End: 05-19-2023 ambulatory [facility] Start: 05-19-2023 End: 05-19-2023 Office outpatient visit 15 minutes Iris Villalta FAMILY NURSE-MORTICIAN HELPER Work Phone: [facility] Comment on above: Saloni infection of flexural skin (Primary Dx) Start: 03-29-2023 Refill Iris Jovanna Dory paredes FAMILY NURSE-MORTICIAN HELPER Work Phone: [facility] Comment on above: Type 2 diabetes hunter itus with hyperglycemia, without long-term current use of insulin ([facility]); Current mild episode of major depressive disorder without prior episode ([facility]); Benign essential HTN; Migraine 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, not intractable Start: 03-19-2023 End: 03-19-2023 ambulatory ANGEL BAHENA Not Available Start: 03-18-2023 End: 03-19-2023 ambulatory IRISSoto VILLALTA [facility] Start: 03-18-2023 End: 03-18-2023 ambulatory IRISMIK VILLALTA [facility] Start: 03-18-2023 End: 03-18-2023 Office outpatient visit 25 minutes Iris J Pawan FAMILY NURSE-MORTICIAN HELPER Work Phone: [facility] - [facility] Comment on above: Type 2 diabetes hunter itus with hyperglycemia, without long-term current use of insulin ([facility]) (Primary Dx); Current mild episode of major depressive disorder without prior episode ([facility]); Gastroesophageal reflux disease without esophagitis; Benign essential HTN; Migraine 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, not intractable; Seasonal allergic rhinitis due to pollen Start: 03-13-2023 Orders Only Irissoto quinonesronaldo FAMILY NURSE-MORTICIAN HELPER Work Phone: [facility] - [facility] Start: 01-14-2023 End: 01-14-2023 ambulatory Francia Carlos Other [facility] Other Start: 01-14-2023 Telephone encounter Francia Carlos [facility] Start: 01-12-2023 End: 01-12-2023 ambulatory Francia Carlos Other [facility] Other Start: 01-12-2023 Office outpatient ne w 30 minutes Francia Carlos [facility] Start: 02-21-2022 End: 02-21-[address] ROBIN MA Facility:[facility] Start: 2021 Telephone encounter Nabro low MD Work Phone: Rheumatology Comment on above: Results Start: 05-08-2021 End: 05-08-[address] ROBIN MA Facility:[facility] Start: 05-03-2021 End: 05-04-[address] ANGEL NOYOLA Facility:[facility] Procedures Date Procedure Procedure Detail Performing Clinician Start: 07-22-2023 Follow-up visit Follow-up IRIS VILLALTA Start: 05-29-2023 Urnls dip stick/tabl et rgnt non-auto w/o micrscp Iris Villalta [facility] Work Phone: Start: 05-19-2023 Adult depression scr eening [facility] Work Phone: Start: 03-18-2023 Hemoglobin glycosyla moshe a1c Iris Villalta [facility] Work Phone: Start: 03-18-2023 Adult depression scr eening assessment Iris Villalta [facility] Work Phone: Start: 03-18-2023 Microalbumin [Mass/v olume] in Urine by Test strip [facility] Work Phone: Start: 02-13-2023 Diabetic retinal eye exam Iris Villalta [facility] Work Phone: Start: 09-10-2022 Adult depression scr eening assessment Iris Villalta [facility] Work Phone: Start: 07-13-2020 Adult depression scr eening assessment Nabor Pichardo MD Work Phone: Start: 07-03-2013 Microscopic observat ion [Identifier] in Cervix by Cyto stain Iris Villalta [facility] Work Phone: Plan of Treatment Date Care Activity Detail Author Start: 05-18-2024 Adult BMI Follow Up Plan Adult BMI Follow Up Plan [facility] Start: 05-18-2024 Adult BMI Screening Adult BMI Screen ing [facility] Start: 05-18-2024 Depression Screening Depression Scre ening [facility] Start: 05-18-2024 Tobacco Screening Tobacco Screening [facility] Start: 03-18-2024 Adult BMI Follow Up Plan Adult BMI Follow Up Plan [facility] Start: 03-18-2024 Adult BMI Screening Adult BMI Screen ing [facility] Start: 03-18-2024 Depression Screening Depression Scre ening [facility] Start: 03-18-2024 Tobacco Screening Tobacco Screening [facility] Start: 03-18-2024 Urine screening for protein Urine Microalbumin [facility] Start: 02-14-2024 Glaucoma screening Diabetic Op hthalmology Exam [facility] Start: 10-26-2023 Influenza vaccination Influenza Vacc ine [facility] Start: 09-22-2023 End: 09-22-2023 Patient encounter procedure 09/22/2023 11:00 AM EDT Office Visit [facility] [address] [place] [address] Iris Villalta, FAMILY NURSE-MORTICIAN HELPER [address] [place] [address] [facility] Start: 09-11-2023 Adult BMI Follow Up Plan Adult BMI Follow Up Plan [facility] Start: 09-11-2023 Adult BMI Screening Adult BMI Screen ing [facility] Start: 09-11-2023 Depression Screening Depression Scre ening [facility] Start: 09-11-2023 Tobacco Screening Tobacco Screening [facility] Start: 07-21-2023 DIABETES SCREEN DIABETES SCREEN [facility] Start: 03-18-2023 End: 03-18-2023 Patient encounter procedure 03/18/2023 8:00 AM EST Office Visit [facility] [address] [place] [address] Iris Villalta, FAMILY NURSE-MORTICIAN HELPER [address] [place] [address] [facility] Start: 10-25-2022 COVID-19 Vaccine ( season) COVID-19 Vaccine ( season) [facility] Start: 10-25-2022 Influenza vaccination Influenza Vacc ine [facility] Start: 10-25-2021 Influenza vaccination INFLUENZA (#1) [facility] Start: 07-13-2021 Adult depression screening assessment DEPRESSION SCREENING [facility] Start: 03-01-2021 COVID-19 VACCINE (4 - Booster for Pfizer series) COVID-19 VACCINE (4 - Booster for Pfizer series) [facility] Start: 2016 Administration of varicella zoster vaccine Zoster (Shingles) Vaccine (1 of 2) [facility] Start: 07-03-2016 Screening for malign ant neoplasm of cervix Pap Smear [facility] Start: 09-14-2011 COLOGUARD (FIT-DNA) COLOGUARD (FIT-D NA) [facility] Start: 09-14-2011 Colonoscopy COLONOSCOPY [facility] Start: 09-14-2011 COLORECTAL CANCER SCREENING COLORECTAL CANCER SCREENING [facility] Start: 09-14-[address] COLONOGRAPHY [facility] Start: 09-14-2011 FECAL OCCULT BLOOD FECAL OCCULT BLOO D [facility] Start: 09-14-2011 LIPID SCREEN LIPID SCREEN [facility] Start: 09-14-2011 SIGMOIDOSCOPY SIGMOIDOSCOPY [facility] Start: 2006 Mammography MAMMOGRAM [facility] Start: 1996 HPV TESTING HPV TESTING [facility] Start: 09-14-1987 PAP TESTING PAP TESTING [facility] Start: 1985 SHINGRIX VACCINE (1 of 2) SHINGRIX VACCINE (1 of 2) [facility] Start: 1985 Urine microalbumin profile DTAP,TDAP,TD (1 - Tdap) [facility] Start: 1984 Diabetic foot examination Diabetic Foot Exam [facility] Start: 1984 HIV SCREENING HIV SCREENING [facility] Start: 12-17-1983 DTaP,Tdap and Td Vaccines (3 - Tdap) DTaP,Tdap and Td Vaccines (3 - Tdap) [facility] Start: 1972 PNEUMOCOCCAL (1 - PCV) PNEUMOCOCCAL (1 - PCV) [facility] Start: 1966 Urine screening for protein Urine Microalbumin [facility] End: 05-28-2024 Bacteria identified in Urine by Culture Urine culture (clean catch) Microbiology Routine Acute cystitis without hematuria 1 Occurrences starting 05/29/2023 until 05/28/2024 [employer] Work Phone: Comment on above: 1 Occurrences starti ng 05/29/2023 until 05/28/2024 End: 03-17-2024 Microalbumin - Albumin: Creatinine Urine Ratio Microalbumin - Albumin: Creatinine Urine Ratio Lab Routine Type 2 diabetes mellitus with hyperglycemia, without long-term current use of insulin ([facility]) 1 Occurrences starting 03/18/2023 until 03/17/2024 [facility] Work Phone: Comment on above: 1 Occurrences starti ng 03/18/2023 until 03/17/2024 [facility] Immunizations Immunization Date Immunization Notes Care Provider Tor[facility] 12-05-2022 influenza, injectabl e, quadrivalent, preservative free Iris Villalta FAMILY NURSE-MORTICIAN HELPER Work Phone: [facility] 12-05-2022 influenza virus vaccine, unspecified formulation Iris Villalta FAMILY NURSE-MORTICIAN HELPER Work Phone: [facility] 10-27-2021 influenza, injectabl e, quadrivalent, preservative free Iris Villalta FAMILY NURSE-MORTICIAN HELPER Work Phone: [facility] 10-27-2021 influenza virus vaccine, unspecified formulation Iris Villalta FAMILY NURSE-MORTICIAN HELPER Work Phone: [facility] 11-02-2020 influenza, injectabl e, quadrivalent, preservative free Iris Villalta FAMILY NURSE-MORTICIAN HELPER Work Phone: [facility] 10-27-2019 influenza, injectabl e, quadrivalent, preservative free Iris Villalta FAMILY NURSE-MORTICIAN HELPER Work Phone: [facility] 12-16-1983 mumps virus vaccine Iris Villalta FAMILY NURSE-MORTICIAN HELPER Work Phone: [facility] 12-16-1983 TD(adult) unspecifie d formulation Iris Villalta FAMILY NURSE-MORTICIAN HELPER Work Phone: [facility] 12-05-1970 poliovirus vaccine, unspecified formulation Iris Villalta FAMILY NURSE-MORTICIAN HELPER Work Phone: [facility] 11-07-1970 diphtheria, tetanus toxoids and pertussis vaccine Iris Villalta FAMILY NURSE-MORTICIAN HELPER Work Phone: [facility] 11-07-1970 measles, mumps and rubella virus vaccine Iris Villalta FAMILY NURSE-MORTICIAN HELPER Work Phone: [facility] 11-04-1967 poliovirus vaccine, unspecified formulation Iris Villalta FAMILY NURSE-[facility] Work Phone: [facility] 08-30-1967 measles virus vaccine Jenni Villalta FAMILY NURSE-[facility] Work Phone: [facility] 08-05-1967 poliovirus vaccine, unspecified formulation rIis Villalta FAMILY NURSE-[facility] Work Phone: [facility] Payers Date Payer Category Payer Self-pay 2021 Unknown [facility] [id number] 2021-Present [phone] [address] [address] [place] [address] [id number] 2020 Unknown MMO [employer] [id number] 2020-Present [phone] [address] [place] [address] PPO [id number] 1966 Unknown [id number] 1966 Unknown [id number] 1966 Unknown [id number] 1966 Unknown [id number] 1966 Unknown [id number] 1966 Unknown [id number] 1966 Unknown [id number] 1966 Unknown [id number] 1966 Unknown [id number] 1966 Unknown [id number] 1966 Unknown [id number] 1959 Unknown [id number] 1959 Unknown [id number] Unknown [id number] Social History Date Type Detail Facility Start: 07-20-2020 End: 09-10-2022 Tobacco smoking status NHIS Never smoked tobacco [facility] Start: 07-20-2020 End: 09-10-2022 Tobacco use and exposure Smokeless tobacco non-user [facility] Start: 02-08-2021 Alcohol intake Ex-drinker (finding) [facility] Start: 1965 Sex Assigned At Female [facility] Start: 09-10-2022 End: 05-19-2023 Sex Assigned At [facility] Other Start: 09-10-2022 End: 05-19-2023 Alcohol intake Lifetime non-drinker (finding) [facility] Start: 09-10-2022 End: 05-19-2023 History of Social function [facility] Adolescent depressio n screening assessment 8 [facility] Start: 1965 Sex Assigned At Not on file P [facility] Clinical Notes 02-08-2021 to 05-29-2023 IrisRIMA Mulligan - 05/29/2023 1:40 PM EDTAddendum Note - Fidencio Degroot CMA - 05/29/2023 1:40 PM EDTAddendum Note - Fidencio Degroot CMA - 05/29/2023 1:40 PM EDT Note Date & Type Note Facility 05-29-2023 History of Presen t illness Narrative New orders for Bactrim DS oral twice daily for 7 days. Send urine for culture. RIMA Gamez 05/29/23 1451 documented in this encounter [facility] 05-29-2023 Miscellaneous Notes Addended by: FIDENCIO DEGROOT on: 05/29/2023 03:03 PM Modules accepted: Orders documented in this encounter [facility] 05-29-2023 Note Addended by: FIDENCIO DEGROOT on: 05/29/2023 03:03 PM Modules accepted: Orders [facility] 05-26-2023 Miscellaneous Notes Formattin g of this note might be different from the original. Patient called ans said that she is still having some pressure and burning, the rash is starting to clear up. She was wondering if you could send in estrogen cream for her Please inform patient I do not order estrogen cream for her current complaint. I am concerned she may have a UTI. Patient will be dropping a UA arounf 1:30okay per shereen documented in this encounter [facility] 05-26-2023 Telephone encount er Note Patient called ans said that she is still having some pressure and burning, the rash is starting to clear up. She was wondering if you could send in estrogen cream for her [facility] 05-26-2023 Telephone encount er Note Please inform patient I do not order estrogen cream for her current complaint. I am concerned she may have a UTI. [facility] 05-26-2023 Telephone encount er Note Patient will be dropping a UA arounf 1:30okay per shereen [facility] 05-19-2023 History of Presen t illness Narrative Images from the original note were not included. [address] [facility] [id number] SUBJECTIVE: Patient ID: Judy Roca is a 57 y.o. female. Chief Complaint Patient presents with Rash Right groin Presents for rash occurring for several weeks, external vaginal areas. Discomfort is dull to moderate. Denies dysuria, hematuria, or any changes with urination. Rash This is a new problem. The current episode started 1 to 4 weeks ago. The problem has been waxing and waning since onset. Location: external vaginal. The rash is characterized by pain, redness and burning. She was exposed to nothing. Pertinent negatives include no fever or shortness of breath. Treatments tried: keeping area clean and dry. The following portions of the patient's history were reviewed and updated as appropriate: allergies, current medications, past family history, past medical history, past social history, past surgical history and problem list. Past Surgical History: Procedure Laterality Date ROTATOR CUFF REPAIR Right 05/2021 Past Medical History: Diagnosis Date Allergic Diabetes mellitus ([facility]) Hypertension Immunization History Administered Date(s) Administered COVID-19, mRNA, LNP-S, PF, 30mcg/0.3mL Dose 03/17/2020, 04/07/2020, 11/29/2020 Covid-19, Mrna, Lnp-s, Bivalent, Pf, 30mcg/0.3 ml 11/09/2021 Covid-19, Mrna, Lnp-s, Pf, 30 Mcg/0.3 Ml Dose, Arnie-sucrose 06/07/2021 DTP 11/07/1970 Influenza, Injectable, quadrivalent (PF) 10/27/2019, 11/02/2020, 10/27/2021, 12/05/2022 MMR 11/07/1970 Measles 08/30/1967 Mumps 12/16/1983 Polio, Unspecified 08/05/1967, 11/04/1967, 12/05/1970 Td, Unspecified 12/16/1983 REVIEW OF SYSTEMS: Review of Systems Constitutional: Negative for chills and fever. HENT: Negative. Eyes: Negative for visual disturbance. Respiratory: Negative for chest tightness and shortness of breath. Cardiovascular: Negative for chest pain and palpitations. Gastrointestinal: Negative. Endocrine: Negative. Genitourinary: Negative for menstrual problem and pelvic pain. Musculoskeletal: Negative. Skin: Positive for rash. Allergic/Immunologic: Negative. Neurological: Negative for syncope and facial asymmetry. Hematological: Does not bruise/bleed easily. Psychiatric/Behavioral: Negative. PHYSICAL EXAMINATION: Vitals: 05/19/23 1354 BP: 120/78 BP Site: Left Arm BP Postition: Sitting Pulse: 74 Temp: 36.7 C (98.1 F) TempSrc: Tympanic SpO2: 97% Weight: 116.8 kg (257 lb 6.4 oz) Height: 160 cm (5' 3 ) Patient noted to have elevated BMI and the following intervention(s) were applied: encouragement to exercise. Physical Exam Vitals and nursing note reviewed. Constitutional: General: She is not in acute distress. Appearance: She is well-developed. She is not diaphoretic. HENT: Head: Normocephalic and atraumatic. Right Ear: Tympanic membrane and external ear normal. Left Ear: Tympanic membrane and external ear normal. Nose: Nose normal. Mouth/Throat: Mouth: Mucous membranes are moist. Pharynx: No oropharyngeal exudate. Eyes: General: Right eye: No discharge. Left eye: No discharge. Conjunctiva/sclera: Conjunctivae normal. Pupils: Pupils are equal, round, and reactive to light. Neck: Thyroid: No thyromegaly. Vascular: No JVD. Cardiovascular: Rate and Rhythm: Normal rate and regular rhythm. Heart sounds: Normal heart sounds. No murmur heard. No friction rub. No gallop. Pulmonary: Effort: Pulmonary effort is normal. Breath sounds: Normal breath sounds. Abdominal: General: Bowel sounds are normal. There is no distension. Palpations: Abdomen is soft. There is no mass. Tenderness: There is no abdominal tenderness. Musculoskeletal: General: Normal range of motion. Cervical back: Normal range of motion and neck supple. Lymphadenopathy: Cervical: No cervical adenopathy. Skin: General: Skin is warm and dry. Capillary Refill: Capillary refill takes less than 2 seconds. Neurological: Mental Status: She is alert and oriented to person, place, and time. Deep Tendon Reflexes: Reflexes are normal and symmetric. Psychiatric: Mood and Affect: Mood normal. Behavior: Behavior normal. Thought Content: Thought content normal. Judgment: Judgment normal. ASSESSMENT/PLAN: Judy was seen today for rash. Diagnoses and all orders for this visit: Saloni infection of flexural skin - fluconazole (DIFLUCAN) 150 mg tablet; Take 1 tablet (150 mg total) by mouth in the morning for 3 doses. - clotrimazole-betamethasone (LOTRISONE) cream; Apply 1 Application topically in the morning and 1 Application before bedtime. Keep area clean and dry. Start fluconazole 150 mg oral daily x3 days Lotrisone cream as directed. ALL QUESTIONS ANSWERED Total time spent was 25 minutes: Preparing to see the patient (e.g., review of tests) Obtaining and/or reviewing separately obtained history Performing a medically appropriate examination and/or evaluation Counseling and educating the patient/family/caregiver Ordering medications, tests, or procedures Follow-up: Next scheduled Sooner if no improvement RIMA Gamez 05/19/23 1412 documented in this encounter [facility] [place] 03-18-2023 History of Presen t illness Narrative Images from the original note were not included. [address] [place] [address] SUBJECTIVE: Patient ID: Judy Roca is a 57 y.o. female. Chief Complaint Patient presents with Diabetes Presents for follow up States her allergies have been bothering her more lately. Is taking cetirizine but is not effective. Has tried loratadine as well. Flonase causes nose bleeds. Blood sugars average in the 130s. Uses [employer] system for blood glucose monitoring. Diabetes She presents for her follow-up diabetic visit. She has type 2 diabetes mellitus. Her disease course has been stable. There are no hypoglycemic associated symptoms. There are no diabetic associated symptoms. Pertinent negatives for diabetes include no chest pain and no weight loss. There are no hypoglycemic complications. Symptoms are stable. There are no diabetic complications. Risk factors for coronary artery disease include diabetes mellitus, dyslipidemia, hypertension and post-menopausal. Current diabetic treatment includes oral agent (dual therapy). She is compliant with treatment all of the time. She is following a low fat/cholesterol and generally healthy diet. Meal planning includes avoidance of concentrated sweets. She participates in exercise intermittently. Her home blood glucose trend is fluctuating minimally. Her breakfast blood glucose range is generally 130-140 mg/dl. 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 Hypertension This is a chronic problem. The current episode started more than 1 year ago. The problem is controlled. Pertinent negatives include no chest pain, palpitations or shortness of breath. There are no associated agents to hypertension. Risk factors for coronary artery disease include obesity, post-menopausal state, diabetes mellitus, dyslipidemia and family history. Past treatments include beta blockers. The current treatment provides significant improvement. There are no compliance problems. Sinus Problem This is a chronic problem. Associated symptoms include congestion, sinus pressure and sneezing. Pertinent negatives include no chills or shortness of breath. Heartburn She reports no belching, no chest pain or no globus sensation. This is a chronic problem. The current episode started more than 1 year ago. The problem occurs rarely. The problem has been resolved. The symptoms are aggravated by certain foods. Pertinent negatives include no anemia, melena, muscle weakness, orthopnea or weight loss. Risk factors include obesity. She has tried a PPI and a histamine-2 antagonist for the symptoms. The treatment provided significant relief. Depression Visit: Follow-up Initial visit: Symptoms: no chest pain, no palpitations and no shortness of breath Follow-up visit: Symptoms: decreased concentration and depressed mood Frequency: Occasionally Severity: Mild Current Treatment: Non-SSRI antidepressants Response to treatment: Stable The following portions of the patient's history were reviewed and updated as appropriate: allergies, current medications, past family history, past medical history, past social history, past surgical history and problem list. Past Surgical History: Procedure Laterality Date ROTATOR CUFF REPAIR Right 05/2021 Past Medical History: Diagnosis Date Allergic Diabetes mellitus ([facility]) Hypertension Immunization History Administered Date(s) Administered COVID-19, mRNA, LNP-S, PF, 30mcg/0.3mL Dose 03/17/2020, 04/07/2020, 11/29/2020 Covid-19, Mrna, Lnp-s, Bivalent, Pf, 30mcg/0.3 ml 11/09/2021 Covid-19, Mrna, Lnp-s, Pf, 30 Mcg/0.3 Ml Dose, Arnie-sucrose 06/07/2021 DTP 11/07/1970 Influenza, Injectable, quadrivalent (PF) 10/27/2019, 11/02/2020, 10/27/2021 MMR 11/07/1970 Measles 08/30/1967 Mumps 12/16/1983 Polio, Unspecified 08/05/1967, 11/04/1967, 12/05/1970 Td, Unspecified 12/16/1983 REVIEW OF SYSTEMS: Review of Systems Constitutional: Negative for chills, fever and weight loss. HENT: Positive for congestion, sinus pressure and sneezing. Eyes: Negative for visual disturbance. Respiratory: Negative for chest tightness and shortness of breath. Cardiovascular: Negative for chest pain and palpitations. Gastrointestinal: Negative for melena. Endocrine: Negative. Genitourinary: Negative for menstrual problem and pelvic pain. Musculoskeletal: Negative. Negative for muscle weakness. Skin: Negative. Allergic/Immunologic: Negative. Neurological: Negative for syncope and facial asymmetry. Hematological: Does not bruise/bleed easily. Psychiatric/Behavioral: Negative. PHYSICAL EXAMINATION: Vitals: 03/18/23 0817 BP: 120/80 BP Site: Left Arm BP Postition: Sitting Pulse: 67 Temp: 36.5 C (97.7 F) TempSrc: Tympanic SpO2: 95% Weight: 115.7 kg (255 lb 1.6 oz) Height: 160 cm (5' 3 ) Patient noted to have elevated BMI and the following intervention(s) were applied: encouragement to exercise. Physical Exam Vitals and nursing note reviewed. Constitutional: General: She is not in acute distress. Appearance: She is well-developed. She is not diaphoretic. HENT: Head: Normocephalic and atraumatic. Right Ear: Tympanic membrane and external ear normal. Left Ear: Tympanic membrane and external ear normal. Nose: Nose normal. Mouth/Throat: Mouth: Mucous membranes are moist. Pharynx: No oropharyngeal exudate. Eyes: General: Right eye: No discharge. Left eye: No discharge. Conjunctiva/sclera: Conjunctivae normal. Pupils: Pupils are equal, round, and reactive to light. Neck: Thyroid: No thyromegaly. Vascular: No JVD. Cardiovascular: Rate and Rhythm: Normal rate and regular rhythm. Heart sounds: Normal heart sounds. No murmur heard. No friction rub. No gallop. Pulmonary: Effort: Pulmonary effort is normal. Breath sounds: Normal breath sounds. Abdominal: General: Bowel sounds are normal. There is no distension. Palpations: Abdomen is soft. There is no mass. Tenderness: There is no abdominal tenderness. Musculoskeletal: General: Normal range of motion. Cervical back: Normal range of motion and neck supple. Lymphadenopathy: Cervical: No cervical adenopathy. Skin: General: Skin is warm and dry. Capillary Refill: Capillary refill takes less than 2 seconds. Neurological: Mental Status: She is alert and oriented to person, place, and time. Deep Tendon Reflexes: Reflexes are normal and symmetric. Psychiatric: Mood and Affect: Mood normal. Behavior: Behavior normal. Thought Content: Thought content normal. Judgment: Judgment normal. ASSESSMENT/PLAN: Judy was seen today for diabetes. Diagnoses and all orders for this visit: Type 2 diabetes mellitus with hyperglycemia, without long-term current use of insulin ([facility]) - POCT Hemoglobin A1c - blood-glucose sensor (FREESTYLE JAYNE 3 SENSOR) device; USE DIRECTED; change EVERY 2 (TWO) weeks - pioglitazone (ACTOS) 30 mg tablet; Take 1 tablet (30 mg total) by mouth in the morning. - glimepiride (AMARYL) 4 mg tablet; Take 1 tablet (4 mg total) by mouth in the morning and at bedtime. - Microalbumin - Albumin: Creatinine Urine Ratio; Future Current mild episode of major depressive disorder without prior episode ([facility]) - venlafaxine XR (EFFEXOR-XR) 150 mg 24 hr capsule; Take 1 capsule (150 mg total) by mouth in the morning. Gastroesophageal reflux disease without esophagitis - omeprazole (PriLOSEC) 20 mg capsule; Take 1 capsule (20 mg total) by mouth in the morning. - famotidine (PEPCID) 40 mg tablet; Take 1 tablet (40 mg total) by mouth every 12 (twelve) hours. Benign essential HTN - propranolol LA (INDERAL LA) 80 mg 24 hr capsule; Take 1 capsule (80 mg total) by mouth in the morning. Migraine 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, not intractable - propranolol LA (INDERAL LA) 80 mg 24 hr capsule; Take 1 capsule (80 mg total) by mouth in the morning. Seasonal allergic rhinitis due to pollen - levocetirizine (XYZAL) 5 mg tablet; Take 1 tablet (5 mg total) by mouth nightly. Type 2 Dm Currently taking pioglitazone and glimepiride A1c 6.5% in office today. Was 6.3% Using Jayne 3 testing system Previously ordered Jihan but insurance would not cover Encourage daily foot skin checks Yearly eye exams or as directed by eye provider Microalbumine urine collected today HTN Controlled with propanolol LA 80 mg nightly Migraines Controlled with propanolol Seasonal allergic rhinitis Not controlled Has tried cetirizine and Claritin products. Flonase causes nosebleeds She would like to start levocetirizine 5 mg oral daily, as this benefited in the past GERD Limit or avoid trigger foods and beverages. Consider weight loss. Reorder omeprazole, famotidine Depression Depression: Not at risk (03/18/2023) PHQ-2 PHQ-2 Score: 0 Continue venlafaxine 150 mg oral daily Body mass index is 45.19 kg/m . Patient noted to have elevated BMI and the following intervention(s) were applied: Discussed current weight today. Consider healthy food choices, portion control. Avoid sugary beverages and high concentrated sweets. Routine exercise regimen encouraged. ALL QUESTIONS ANSWERED Total time spent was 30 minutes: Preparing to see the patient (e.g., review of tests) Obtaining and/or reviewing separately obtained history Performing a medically appropriate examination and/or evaluation Counseling and educating the patient/family/caregiver Ordering medications, tests, or procedures Follow-up: Annual physical RIMA Gamez 03/18/23 0935 documented in this encounter [facility] 01-12-2023 Evaluation note Encounter Date Diagnosis Assessment Notes Dec, Suspected COVID-19 virus infection (ICD-10 - Z20.822) Dec, Viral URI with cough (ICD-10 - J06.9) Advised patient that rapid COVID/Influenza A/B was negative today in office. Advised that we will treat as viral URI. Advised that viral illnesses may last 7-10 days, antibiotics are not indicated at this time. If symptoms do not improve in the next 3 days, will send in Rx of Z-Thai. Encouraged supportive care as directed, increase fluids and rest, Tylenol/Motrin as directed, rx of [place], OTC Flonase, cool mist humidifier, throat lozenges. Discussed infection control practices such as good hand washing and mask wearing. Patient to follow up with PCP if symptoms persist or worsen despite treatment. Immediate eval for SOB, difficulty breathing, chest pain, fevers that do not break with antipyretic or any other concerning symptoms as reviewed on patient education handout. Patient verbalizes understanding and is agreeable to treatment plan. Patient left in stable condition [facility] Other 07-21-2022 Miscellaneous Notes* Telephone Encounter - Nabor Pichardo MD - 2021 5:59 AM EDT For chart eye exam 08/22/21 Dr.Mark Alonso, OD Blurry vision , diabetes making her vision fluctuate. Plaquenil 2years. No toxicity. [facility] NoteHNO ID: [id number] Author: Nabor Pichardo MD Service: ? Author Type: Physician Type: Progress Notes Filed: 02/08/2021 1:33 PM Note Text: Face to face follow up for joint pain/high esr/crp/ osteoarthritis Today's visit 02/08/21:high esr/crp levels improved. xrays showed osteoarthritis. Reports dry mouth, gerd, numbness, headache. Worse pain in R>L shoulders, hand, L thumb. Less relief with motrin. Just had steroid injections of both shoulders from ortho. L side better but R side still ouchy. Had L shoulder MRI 10/2020 showed fraying, bone spur and osteoarthritis. Diagnosed with diabetes 06/2020, better with diabetic medications. Reports pain 2-10/03. minimal AM stiffness. Had flu vaccine. Taking 1tab daily Plaquenil. Saw eye exam no medication toxicity. R elbow better after surgery 06/2020. Biking several times a week. COVID vaccine [employer] 03/07/20, 04/17/20, 11/29/20. Feels safe at home. Has enough food, supplies and medications. Overall mildly uncomfortable but happy with rheum care. No falls/fx/trauma/illness/oral sores/rash/hairloss/jaw pain/dysphagia/epistaxis/hemoptysis since last visit. No adverse effects with meds. No other complaints. Patient denies fever, chills, cp, dyspnea, nausea, vomiting, night sweats, scalp tenderness, visual changes, mercado, bowel/bladder changes, weight changes or other complaints. Last visit supportive care, see ortho, no oral nsaids due to GI upset, start prn heat/ice/otc arthritis creams, low impact weightbearing exercise as tolerated, avoid aggravating triggers, July 20, 2020 SUBJECTIVE Ms. Roca is a 54 year old female who presents for joint pain/high esr eval. Back pain with radiation RLE/numbness, dragging RLE, now better after surgery S/p lumbar surgery 2000 with laser with temporary relief since no response with back injections s/p R CTS release with R cubital release summer joint pain hands L>R, neck, L>R knee medial, R mid foot/swelling at end of day, L shoulder, low back Swelling of MCPs 11/2019 R tennis elbow failed PT/injection, thus treated with surgery 07/04/20 removed bone spur Motrin some relief, stopped due to GI upset GI upset with mobic, tried celebrex no response Usually takes over the counter 650mg tylenol Reports pain 09/02 No falls/fx/trauma/illness/oral sores/rash/hairloss/jaw pain/dysphagia/epistaxis/hemoptysis. No adverse effects with meds. No other complaints. Patient denies fever, chills, cp, dyspnea, nausea, vomiting, night sweats, scalp tenderness, visual changes, mercado, bowel/bladder changes, weight changes or other complaints. COMPLETE REVIEW OF SYSTEMS: RHEUM. ROS: Joint pain: yes- hands L>R, neck, L>R knee medial, R mid foot/swelling at end of day, L shoulder, low back Joint swelling: yes hands, R foot Am stiffness: yes 30minutes Low back pain: yes Enthesopathy/[place]'s/heel/plantar tenderness: s/p R CTS release with R cubital release 2007 Alpecia, patchy: yes Eye inflammation: glasses GI problems-diarrhea/bleeding/IBD/Gluten intolerence/Dysphagia: gerd Fatigue: yes, sleeps 5-6 hr/night PMR/GCA ROS: negative Patient denies history of Gout or Pseudogout, Psoriasis, Rheumatic Fever, PUD, Liver Disease, Hepatitis , Kidney Disease, Kidney Stones, DM, HTN, CAD, Dyslipidemia, PAD, Sinusitis, Asthma, TB infection or exposure, Pneumonias, Anemia, Seizures, Stroke, MS, Clots, Cancer, Thyroid Disease, Transfusions, Tattoos and Alcohol dependency. Other ROS:The remainder of the review of systems is negative. All other reviewed and negative other than HPI. PATIENT REPORTS: Cardiac stress test:no Breast exam:negative Pap exam: normal, last menses 2009 s/p hysterectomy/uterine prolapse, not taking hormones; G3, P3, no miscarriage Colonoscopy: no Bone Density:no History of Fractures:no Height Loss: no IMMUNIZATION HX: Pneumovax no Flu shot yes Tetanus yes Had both [employer] vaccines 03/2020 Last PPD: negative years ago PAST MEDICAL HISTORY: PMH gerd, anxiety, s/p R CTS release with R cubital release 2007, S/p lumbar surgery 2000,2009 s/p hysterectomy/uterine prolapse PAST SURGICAL HISTORY: s/p R CTS release with R cubital release 2007, S/p lumbar surgery 2000,2009 s/p hysterectomy/uterine prolapse FAMILY HISTORY: mother-osteoarthritis, htn;father-DM, CAD, htn;children/siblings-healthy; 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 07/20/20 hand xrays-Right hand:No erosive changes of the fingers are carpus. Ulnar positive sarah (more content not included)...[facility]No InformationNortSaint [facility] Other Evaluation note* Diagnosis Type 2 diabetes mellitus with hyperglycemia, without long-term current use of insulin ([facility])- Primary Current mild episode of major depressive disorder without prior episode ([facility]) Gastroesophageal reflux disease without esophagitis Esophageal reflux Benign essential HTN Migraine 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, not intractable Seasonal allergic rhinitis due to pollen documented in this encounter [facility] SystemEvaluation note* Diagnosis Type 2 diabetes mellitus with hyperglycemia, without long-term current use of insulin ([facility]) Current mild episode of major depressive disorder without prior episode ([facility]) Benign essential HTN Migraine 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, not intractable documented in this encounter [facility]* Diagnosis Saloni infection of flexural skin- Primary Candidiasis of skin and nails documented in this encounter [facility] SystemEvaluation note* Diagnosis Dysuria- Primary Acute cystitis without hematuria documented in this encounter [facility] SystemHistory general Narrative - Reported* Type Description Date Medical History depression Medical History hypertension Medical History menopause Surgical History hysterectomy Surgical History back surgery Surgical History elbow surgery Surgical History carpal tunnel release [facility] Other InstructionsNot on filedocumented in this encounter [facility] SystemInst[facility]* Attachments The following attachments cannot be sent through Care Everywhere. * High blood pressure in adults ([place]inyarwanda) documented in this [facility] SystemInstructionsNot on file documented in this [facility]Pro[facility] SystemInstructionsNot on file documented in [facility]Pro[facility] SystemInstructionsNot on file documented in this [facility]Pro[facility] SystemInstructionsNot on file [facility] Summary Purpose Family History No Family History Records FoundNo Family History Records FoundNo Family History Records FoundNo Family History Records FoundNo Family History Records FoundNo Family History Records Found Advance Directives No Advanced Directives Records FoundNo Advanced Directives Records FoundNo Advanced Directives Records FoundNo Advanced Directives Records FoundNo Advanced Directives Records FoundNo Advanced Directives Records Found Reason for Referral Specialty Diagnoses / Procedures Referred By Lukasz t Referred To Contact Diagnoses Seasonal allergic rhinitis due to pollen Iris Villalta, FAMILY NURSE-MORTICIAN HELPER [address] [place] [address] Referral ID Status Reason Start Date Expiration Date V isits Requested Visits Authorized [id number] Pending Review 1 1 Additional Source Comments Source Comments (unrecognize d section and content) In the event this informatio n is protected by the Federal Confidentiality of Alcohol and Drug Abuse Patient Records regulations: The Federal rules restrict any use of the information to criminally investigate or prosecute any alcohol or drug abuse patient.[facility] Reason for Visit (unrecogniz ed section and content) Reason Comments Results Reason Comments Diabetes Reason Comments Med Refill Reason Comments Rash Right groin Reason Comments Urinary Tract Infection Care Teams (unrecognized sec tion and content) Charter Representative Relationship Specialty Start Date End Date Robin Ma Sr. [address] [place], [place] [id number] PCP - General Family Practice 07/20/20 Charter Representative Relationship Specialty Start Date End Date [facility] [address] [place] [address] PCP - General Family Medicine 08/28/22 Charter Representative Relationship Specialty Start Date End Date [facility] [address] [place] [address] PCP - General Family Medicine 08/28/22 Charter Representative Relationship Specialty Start Date End Date [facility]ris [facility] [address] [place] [address] PCP - General Family Medicine 08/28/22 Charter Representative Relationship Specialty Start Date End Date [facility]ris [facility] [address] [place] [address] PCP - General Family Medicine 08/28/22 Charter Representative Relationship Specialty Start Date End Date [facility]ris [facility] [address] [place] [address] PCP - General Family Medicine 08/28/22 Charter Representative Relationship Specialty Start Date End Date [facility]ris [facility] [address] [place] [address] PCP - General Family Medicine 08/28/22 INFORMATION SOURCE (unrecogn ized section and content) DATE CREATED AUTHOR 09/15/2021 [facility] DATE CREATED AUTHOR AUTHOR'S ORGANIZ ATION 02/26/2022 [facility] DATE CREATED AUTHOR AUTHOR'S ORGANIZ ATION 03/20/2023 [facility] DATE CREATED AUTHOR AUTHOR'S ORGANIZ ATION 05/31/2023 [facility] DATE CREATED AUTHOR AUTHOR'S ORGANIZ ATION 07/20/2023 [facility] DATE CREATED AUTHOR AUTHOR'S ORGANIZ ATION 07/22/[address] [facility] FOR RECORDS PERTAINING TO PATIENTS WHO ARE OR HAVE BEEN ENROLLED IN A CHEMICAL DEPENDENCY/SUBSTANCEABUSE PROGRAM, SOME INFORMATION MAY BE OMITTED. This clinical summary was aggregated from multiple sources. Caution should be exercised in using it in the provision of clinical care. This summary normalizes information from multiple sources, and as a consequence, information in this document may materially change the coding, format and clinical context of patient data. In addition, data may be omitted in some cases. CLINICAL DECISIONS SHOULD BE BASED ON THE PRIMARY CLINICAL RECORDS. [facility] [employer] provides no warranty or guarantee of the accuracy or completeness of information in this document.
--- NOTE | 2023-08-05 05:56 | ED.FEMALEGU1 ---
HPI - Female Genitourinary General Chief complaint: Urogenital-Female Stated complaint: UTI Time Seen by Provider: 08/05/23 05:49 Source: patient Mode of arrival: walk-in Limitations: no limitations History of Present Illness HPI Narrative: 57-year-old female presents for dysuria. She believes she has a UTI, she has had none before. She has had symptoms for 3 days and she tried to get into see her family doctor but was unable to do so. No fever or vomiting or current back pain. Related Data Home Medications ?Medication ?Instructions ?Recorded ?Confirmed cetirizine 10 mg tablet 10 mg PO DAILY 07/28/22 11/14/22 famotidine 40 mg tablet 40 mg PO Q12H 07/28/22 11/14/22 glimepiride 4 mg tablet 4 mg PO .TWICE 07/28/22 11/14/22 pioglitazone 30 mg tablet 30 mg PO DAILY 07/28/22 11/14/22 propranolol 80 mg capsule,24 80 mg PO Q24H 07/28/22 11/14/22 hr,extended release venlafaxine 150 mg 150 mg PO DAILY 07/28/22 11/14/22 capsule,extended release 24 hr Previous Rx's ?Medication ?Instructions ?Recorded ondansetron 4 mg disintegrating 4 mg PO Q6H PRN nausea and 07/04/23 tablet vomiting #20 tabs cephalexin 500 mg capsule 500 mg PO TID 7 days #21 caps 08/05/23 phenazopyridine 200 mg tablet 200 mg PO Q8H PRN pain #15 tabs 08/05/23 (Pyridium) Allergies Allergy/AdvReac Type Severity Reaction Status Date / Time No Known Drug Allergies Allergy Verified 08/05/23 05:43 Review of Systems ROS Narrative A ten point review of systems is negative except as noted above. PFSH PFSH Social History Smoking status: Never smoker Exam Narrative Exam Narrative: Nurses note and vital signs reviewed and patient is not hypoxic. General: The patient appears well and in no apparent distress. Patient is resting comfortably on cart. Skin: Warm, dry, no pallor noted. There is no rash noted. Head: Normocephalic, atraumatic Eye: Normal conjunctiva, no drainage Ears, Nose, Mouth, and Throat: oral mucosa is moist. Nares patent. Cardiovascular: Regular Rate and Rhythm Respiratory: Patient is in no distress, no accessory muscle use, lungs are clear to auscultation, no wheezing, rales or rhonchi Back: non-tender, no CVA tenderness bilaterally to percussion. GI: Soft and nontender Musculoskeletal: The patient has no evidence of calf tenderness, no pitting edema, symmetrical pulses noted bilaterally Neurological: Awake and alert Psychiatric: Cooperative Constitutional Vital Signs, click to edit/add: Last Vital Signs Temp 97.9 F 08/05/23 05:40 Pulse 71 08/05/23 05:40 Resp 18 08/05/23 05:40 BP 144/66 H 08/05/23 05:40 Pulse Ox 97 08/05/23 05:40 O2 Del Method Room Air 08/05/23 05:40 Course Vital Signs Vital signs: Vital Signs Temperature 97.9 F 08/05/23 05:40 Pulse Rate 71 08/05/23 05:40 Respiratory Rate 18 08/05/23 05:40 Blood Pressure 144/66 H 08/05/23 05:40 Pulse Oximetry 97 08/05/23 05:40 Oxygen Delivery Method Room Air 08/05/23 05:40 Temperature 97.9 F 08/05/23 05:40 Pulse Rate 71 08/05/23 05:40 Respiratory Rate 18 08/05/23 05:40 Blood Pressure 144/66 H 08/05/23 05:40 Pulse Oximetry 97 08/05/23 05:40 Oxygen Delivery Method Room Air 08/05/23 05:40 MDM - Female Genitourinary MDM Narrative Medical decision making narrative: UTI is identified and she is prescribed Keflex and Pyridium. She was given her first doses here. Treatment diagnosis and follow-up were discussed with the patient. Differential Diagnosis Differential diagnosis: Likely urinary tract infection and other (Pyelonephritis) Lab Data Attestation: I reviewed the patient's lab results. Labs: Lab Results 08/05/23 Range/Units 05:46 Urine Color Yellow (YELLOW) Urine Clarity Clear (CLEAR) Urine pH 6.5 (5.0-9.0) Ur Specific [place] 1.025 (1.005-1.025) Urine Protein 100 A (NEG/TRACE) mg/dL Urine Glucose (UA) Negative (NEGATIVE) mg/dL Urine Ketones Negative (NEGATIVE) mg/dL Urine Occult Blood Large A (NEGATIVE) Urine Nitrite Positive A (NEGATIVE) Urine Bilirubin Small A (NEGATIVE) Urine Urobilinogen 1.0 (0.2-1.0) EU/dL Ur Leukocyte Esterase Small A (NEGATIVE) Urine RBC >100 A (0-2) #/HPF Urine WBC 0-2 A (NONE SEEN) #/HPF Ur Squamous Epith Cells Few A (NONE/RARE) #/LPF Urine Crystals None seen (None Seen) #/HPF Urine Bacteria None seen (NONE SEEN) #/HPF Urine Casts None seen (NONE SEEN) #/LPF Urine Mucus None seen (NONE SEEN) Ur Culture Indicated? Yes Discharge Plan Discharge Stand Alone Forms: Portal Instructions Chief Complaint: Urogenital-Female Clinical Impression: Urinary tract infection Patient Disposition: Home, Self-Care Time of Disposition Decision: 06:02 Condition: Good Mode of Transportation: Private Vehicle Prescriptions / Home Meds: New cephalexin 500 mg capsule 500 mg PO TID 7 Days Qty: 21 0RF phenazopyridine [Pyridium] 200 mg tablet 200 mg PO Q8H PRN (Reason: pain) Qty: 15 0RF No Action cetirizine 10 mg tablet 10 mg PO DAILY famotidine 40 mg tablet 40 mg PO Q12H glimepiride 4 mg tablet 4 mg PO .TWICE pioglitazone 30 mg tablet 30 mg PO DAILY propranolol 80 mg capsule,extended release 24 hr 80 mg PO Q24H venlafaxine 150 mg capsule,extended release 24hr 150 mg PO DAILY ondansetron 4 mg tablet,disintegrating 4 mg PO Q6H PRN (Reason: nausea and vomiting) Qty: 20 0RF Print Language: Georgian Instructions: Urinary Tract Infection in Women (ED) Referrals: IRIS KENNEDY [Primary Care Provider] - 1 week
[2023-08-05 06:01] LABS: Bacteria Urine NONE SEEN #/HPF (NONE SEEN); Cast Seen? NONE SEEN #/LPF (NONE SEEN); Crystals Seen? None Seen #/HPF (None Seen); Mucus Urine NONE SEEN (NONE SEEN); RBC Urine >100 #/HPF (0-2); Squamous Epithelial Cell Urine FEW #/LPF (NONE/RARE); Urine Culture Indicated YES; WBC Urine 0-2 #/HPF (NONE SEEN)
[2023-08-05] MEDS: CEPHALEXIN 500 MG CAPSULE PO (06:20)
[2023-08-05] MEDS: PHENAZOPYRIDINE 100 MG TABLET 200 MG PO (06:20)
[2023-08-05 06:22] VITALS: BP 132/82; PULSE 70; O2SAT 99
== END 2023-08-05 06:22 | disposition home or self-care (01) ==
PROVIDERS: Emergency Provider Emergency Medicine; PCP Nurse Practitioner
DX: N39.0 Urinary tract infection, site not specified (principal)
CPT/HCPCS: 81001; 87086; 99283

== ENCOUNTER 2023-08-31 20:30 | Emergency (ER) | payer OTHER, SELFPAY ==
[2023-08-31 20:35] VITALS: BP 139/88; PULSE 69; TEMP 36.8; O2SAT 96; BMI 44.3
--- OUTSIDE RECORDS SUMMARY | 2023-08-31 20:38 | XMS_ITS | CCD ---
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 JAZMÍN, ANGEL Gonzales Attending Unavaila kellen NOYOLA JR., ANGEL Gonzales Attending Unavaila kellen NOYOLA JR., ANGEL Gonzales Referring Unavaila ble IRIS VILLALTA Attending Unavailable VILLALTAIRIS Referring Unavailable VILLALTA, IRIS J Primary Care Unavailable VILLALTAIRIS Attending Unavailable VILLALTA, IRIS J Referring Unavailable VILLALTA, IRIS J Primary Care Unavailable VILLALTAIRIS J Attending Unavailable VILLALTA, IRIS J Referring Unavailable VILLALTA, IRIS J Primary Care Unavailable VILLALTA, IRIS J Attending Unavailable VILLALTA, IRIS J Referring Unavailable VILLALTA, IRIS J Primary Care Unavailable VILLALTA, IRIS J Attending Unavailable VILLALTA, IRIS J Referring Unavailable VILLALTA, IRIS J Primary Care Unavailable IRIS VILLALTA Attending Unavailable IRIS VILLALTA Referring Unavailable IRIS VILLALTA Primary Care Unavailable Medications Current Medications Medication Drug Class(es) Dates Sig (Normalized) Sig (Original) [id number] 200 actuat albuterol 0.09 mg/actuat metered dose [...] Start: 05-19-2023 clotrimazole-beta methasone (LOTRISONE) cream Indications: Slaoni infection of flexural skin Apply 1 Application topically in the morning and 1 Application before bedtime. 15 g 0 05/19/2023 Active blood-glucose sensor (FREESTYLE JAYNE 3 SENSOR) device (7 sources) Start: 03-18-2023 blood-glucose sensor (FREESTYLE JAYNE 3 SENSOR) device Indications: Type 2 diabetes mellitus with hyperglycemia, without long-term current use of insulin ([facility]) USE DIRECTED; change EVERY 2 (TWO) weeks 6 each 2 03/18/2023 Active Start: 09-25-2022 End: 03-18-2023 blood-glucose sensor (FREEST YLE JAYNE 3 SENSOR) device Indications: Type 2 diabetes mellitus with hyperglycemia, without long-term current use of insulin ([facility]) USE DIRECTED; change EVERY 2 (TWO) weeks 2 each 5 09/25/2022 03/18/2023 Discontinued (Reorder) Start: 09-25-2022 blood-glucose sensor (FREESTYLE JAYNE 3 SENSOR) device Indications: Type 2 diabetes mellitus with hyperglycemia, without long-term current use of insulin ([facility]) USE DIRECTED; change EVERY 2 (TWO) weeks 2 each 5 09/25/2022 Active dextromethorphan hydrobromide 1.5 mg/ml / pyrilamine maleate 1.5 mg/ml oral solution (2 sources) Uncompetitive B-sdnajp-H-aspartate Receptor Antagonist, Sigma-1 Agonist Start: 01-12-2023 take 10 mL by mouth every eight hours [place] DM 7.5-7.5 MG/5ML 10 mL Orally every [...] Active Start: 07-10-2020 take 1 tablet by angie th twice daily famotidine (PEPCID) 40 mg [...] hyperglycemia, without long-term current use of insulin ([facility]) Take 1 tablet (4 mg total) by [...] hyperglycemia, without long-term current use of insulin ([facility]) TAKE 1 TABLET BY MOUTH IN THE [...] Start: 06-27-2020 take 1 capsule by mo ut once daily propranolol ER (INDERAL LA) 80 [...] 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 OPERATOR CURRENT DRUG THERAPY] Onset: 02-26-2022 Episodic Other [...] source) Rash Onset: 05-19-2023 Urinary tract infections (4 sources) Acute cystitis; Translations: [Acute cystitis without [...] (1 source) Drug therapy finding; Translations: [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] Onset: 02-08-2021 02-08-2021 Episodic [...] Reference Range Facility CT abdomen pelvis w [facility] CT abdomen pelvis [place] [address] CT Scan Report Signed Patient: Judy Roca MR#: [id number] 18 : 1965 Acct:[id number] Age/Sex: 57 / F ADM Date: 07/09/23 Loc: ER Room: Type: [facility] ER Attending Dr: Copies to: Ronan Delcid [...] Elia Weiss M.D.07/09/2023 6:06 PM Dictation Location: [place] [address] Transcribed By: [facility] 07/09/231805 Dictated By: Elia Weiss DO 07/09/23 1800 Signed By: 07/09/231805 Normal [facility] Complete Blood Count Auto Di ffon 07-09-2023 Basophils (Bld) [#/Vol] 0.0 10*3/uL Normal 0.0-0.2 [facility] Comment on above: Result Comment: PERF ORMED BY: [facility] [address] [place] [address] PATHOLOGIST SOFTWARE DESIGNER ATIF JOHNSON M.D. Performed By: #### C MP, CBC #### [address] Basophils/100 WBC (Bld) 0.4 % Normal . [facility] Comment on above: Performed By: #### C MP, CBC #### [address] Eosinophils (Bld) [#/Vol] 0.1 10*3/uL Normal 0.0-0.45 [facility] Comment on above: Performed By: #### C MP, CBC #### [address] Eosinophils/100 WBC (Bld) 0.8 % Normal . [facility] Comment on above: Performed By: #### C MP, CBC #### [address] Erythrocyte distribution width (RBC) [Ratio] 14.3 % Normal 11.9-15.3 [facility] Comment on above: Performed By: #### C MP, CBC #### [address] Hematocrit (Bld) [Volume fraction] 40.5 % Normal 34.0-46.4 [facility] Comment on above: Performed By: #### C MP, CBC #### [address] Hemoglobin (Bld) [Mass/Vol] 13.6 g/dL Normal 11.8-15.4 [facility] Comment on above: Performed By: #### C MP, CBC #### [address] Lymphocytes (Bld) [#/Vol] 1.0 10*3/uL Normal 1.00-4.8 [facility] Comment on above: Performed By: #### C MP, CBC #### [address] Lymphocytes/100 WBC (Bld) 11.9 % Normal . [facility] Comment on above: Performed By: #### C MP, CBC #### [address] MCH (RBC) [Entitic mass] 27.3 pg Normal 24.7-34.3 [facility] Comment on above: Performed By: #### C MP, CBC #### [address] MCV (RBC) [Entitic vol] 81.2 fL Normal 80-100 [facility] Comment on above: Performed By: #### C MP, CBC #### [address] Mean Corpuscular HGB Conc 33.6 g/dL Normal 32.0-35.0 [facility] Comment on above: Performed By: #### C MP, CBC #### [address] Monocytes (Bld) [#/Vol] 0.9 10*3/uL High 0.0-0.8 [facility] Comment on above: Performed By: #### C MP, CBC #### [address] Monocytes/100 WBC (Bld) 28.39 % High 0.00-20.00 [facility] Comment on above: Result Comment: For adults in ED, MDW > 20.0 may be associated with a higher risk of sepsis during the first 12 hrs of hospital admission Performed By: #### C MP, CBC #### [address] Monocytes/100 WBC (Bld) 10.3 % Normal . [facility] Comment on above: Performed By: #### C MP, CBC #### [address] Neutrophils (Bld) [#/Vol] 6.6 10*3/uL Normal 1.8-7.7 [facility] Comment on above: Performed By: #### C MP, CBC #### [address] Neutrophils/100 WBC (Bld) 76.6 % Normal . [facility] Comment on above: Performed By: #### C MP, CBC #### [address] NRBC% 0.1 /100{WBC} Normal 0-0.5 [facility] Comment on above: Performed By: #### C MP, CBC #### [address] Platelet mean volume (Bld) [Entitic vol] 8.9 fL Normal 6.3-10.7 [facility] Comment on above: Performed By: #### C MP, CBC #### [address] Platelets (Bld) [#/Vol] 293 10*3/uL Normal 150-450 [facility] Comment on above: Performed By: #### C MP, CBC #### [address] RBC (Bld) [#/Vol] 4.99 10*6/uL Normal 3.60-5.00 [facility] Comment on above: Performed By: #### C MP, CBC #### [address] WBC (Bld) [#/Vol] 8.7 10*3/uL Normal 3.8-11.6 [facility] Comment on above: Performed By: #### C MP, CBC #### [address] Comprehensive Metabolic Pane jazzmine 07-09-2023 Albumin [Mass/Vol] 3.1 g/dL Low 3.5-5.7 [facility] Comment on above: Performed By: #### C MP, CBC #### [address] Albumin/Globulin [Mass ratio] 0.8 {ratio} Normal [facility] Comment on above: Performed By: #### C MP, CBC #### [address] Performed By: #### H EPATIC #### [address] ALP [Catalytic activity/Vol] 222 U/L High 34-104 [facility] Comment on above: Performed By: #### C MP, CBC #### [address] ALT [Catalytic activity/Vol] 105 U/L High 7-52 [facility] Comment on above: Performed By: #### C MP, CBC #### [address] Anion gap [Moles/Vol] 14.3 mmol/L Normal 6.0-15.0 [facility] Comment on above: Performed By: #### C MP, CBC #### [address] AST [Catalytic activity/Vol] 54 U/L High 13-39 [facility] Comment on above: Performed By: #### C MP, CBC #### [address] Bilirubin [Mass/Vol] 0.6 mg/dL Normal 0.3-1.0 [facility] Comment on above: Performed By: #### C MP, CBC #### [facility] [address] [place] [address] Performed By: #### H EPATIC #### [address] Calcium [Mass/Vol] 8.1 mg/dL Low 8.6-10.3 [facility] Comment on above: Performed By: #### C MP, CBC #### [address] Chloride [Moles/Vol] 95 mmol/L Low 98-107 [facility] Comment on above: Performed By: #### C MP, CBC #### [address] CO2 [Moles/Vol] 23.7 mmol/L Normal 21.0-31.0 [facility] Comment on above: Performed By: #### C MP, CBC #### [address] Creatinine [Mass/Vol] 0.64 mg/dL Normal 0.60-1.20 [facility] Comment on above: Performed By: #### C MP, CBC #### [address] Creatinine Clr Calc Pharmacy 111.97 Normal [facility] Comment on above: Result Comment: PERF ORMED BY: [place] [address] PATHOLOGIST SOFTWARE DESIGNER ATIF JOHNSON M.D. Performed By: #### C MP, CBC #### [address] GFR/1.73 sq M.predicted MDRD (S/P/Bld) [Vol rate/Area] mL/min/{1.73_m2} Normal [facility] Comment on above: Performed By: #### C MP, CBC #### [address] Globulin (S) [Mass/Vol] 4.0 g/dL Normal [facility] Comment on above: Performed By: #### C MP, CBC #### [address] Glucose [Mass/Vol] 155 mg/dL High 70-100 [facility] Comment on above: Result Comment: [place] Glucose Reference Range is dependent on time and content of last meal. Glucose of more than 200 mg/dL in a nonstressed, ambulatory subject supports the diagnosis of Diabetes Mellitus. ADA recommended reference range Performed By: #### C MP, CBC #### [address] Potassium [Moles/Vol] 3.0 mmol/L Low 3.5-5.1 [facility] Comment on above: Performed By: #### C MP, CBC #### [address] Protein [Mass/Vol] 7.1 g/dL Normal 6.4-8.9 [facility] Comment on above: Performed By: #### C MP, CBC #### [address] Performed By: #### H EPATIC #### [address] Sodium [Moles/Vol] 130 mmol/L Low 136-145 [facility] Comment on above: Performed By: #### C MP, CBC #### [address] Urea nitrogen [Mass/Vol] 17 mg/dL Normal 7-25 [facility] Comment on above: Performed By: #### C MP, CBC #### [address] Dipstick and Microscopicon 0 07-09-2023 Appearance (U) Cloudy Critically abnormal Clear [facility] Comment on above: Order Comment: Name Collection Type:: Clean-Voided Midstream Performed By: #### C UU, ADDONUAPLUS #### [address] Bacteria,Urine 2+ High None Seen [facility] Comment on above: Order Comment: Name Collection Type:: Clean-Voided Midstream Performed By: #### C UU, ADDONUAPLUS #### [address] Bilirubin,Urine 2+ High Negative [facility] Comment on above: Order Comment: Name Collection Type:: Clean-Voided Midstream Performed By: #### C UU, ADDONUAPLUS #### [address] Color (U) Dark Yellow Critically abnormal Yellow [facility] Comment on above: Order Comment: Name Collection Type:: Clean-Voided Midstream Performed By: #### C UU, ADDONUAPLUS #### [address] Glucose Ql (U) Normal Normal Normal [facility] Comment on above: Order Comment: Name Collection Type:: Clean-Voided Midstream Performed By: #### C UU, ADDONUAPLUS #### [place] [address] [place] Hyaline Casts,Urine 9-19 High 0-8 [facility] Comment on above: Order Comment: Name Collection Type:: Clean-Voided Midstream Result Comment: PERF ORMED BY: [place] [address] PATHOLOGIST SOFTWARE DESIGNER ATIF JOHNSON M.D. Performed By: #### C UU, ADDONUAPLUS #### [address] Ketones Ql (U) 3+ High Negative [facility] Comment on above: Order Comment: Name Collection Type:: Clean-Voided Midstream Performed By: #### C UU, ADDONUAPLUS #### [address] Leukocyte esterase Test strip Ql (U) 2+ High Negative [facility] Comment on above: Order Comment: Name Collection Type:: Clean-Voided Midstream Performed By: #### C UU, ADDONUAPLUS #### [place] [address] [place] Nitrite,Urine Negative Normal Negative [facility] Comment on above: Order Comment: Name Collection Type:: Clean-Voided Midstream Performed By: #### C UU, ADDONUAPLUS #### [place] [address] [place] Occult Blood,Urine 2+ High Negative [facility] Comment on above: Order Comment: Name Collection Type:: Clean-Voided Midstream Result Comment: PERF ORMED BY: [place] [address] PATHOLOGIST SOFTWARE DESIGNER ATIF JOHNSON M.D. Performed By: #### C UU, ADDONUAPLUS #### [place] [address] [place] pH (U) 6.0 [pH] Normal 5.0-9.0 [facility] Comment on above: Order Comment: Name Collection Type:: Clean-Voided Midstream Performed By: #### C UU, ADDONUAPLUS #### [address] Protein (U) [Mass/Vol] 100 mg/dL High Negative [facility] Comment on above: Order Comment: Name Collection Type:: Clean-Voided Midstream Performed By: #### C UU, ADDONUAPLUS #### [address] RBC,Urine 10-19 High 0-4 [facility] Comment on above: Order Comment: Name Collection Type:: Clean-Voided Midstream Performed By: #### C UU, ADDONUAPLUS #### [address] Specificy Harper,Urine 1.023 Normal 1.001-1.030 [facility] Comment on above: Order Comment: Name Collection Type:: Clean-Voided Midstream Performed By: #### C UU, ADDONUAPLUS #### [address] Squamous Epithelial Cell,Urine 5-9 High 0-2 [facility] Comment on above: Order Comment: Name Collection Type:: Clean-Voided Midstream Performed By: #### C UU, ADDONUAPLUS #### [address] Urobilinogen,Urin e Normal Normal Normal [facility] Comment on above: Order Comment: Name Collection Type:: Clean-Voided Midstream Performed By: #### C UU, ADDONUAPLUS #### [address] WBC,Urine 5-9 High 0-4 [facility] Comment on above: Order Comment: Name Collection Type:: Clean-Voided Midstream Performed By: #### C UU, ADDONUAPLUS #### [address] Glucose Poct Glucometerson 0 07-09-2023 Glucose [Mass/Vol] 160 mg/dL Normal [facility] Comment on above: Result Comment: [place] Glucose Reference Range is dependent on time and content of last meal. Glucose of more than 200 mg/dL in a nonstressed, ambulatory subject supports the diagnosis of Diabetes Mellitus. PERFORMED BY: [place] [address] PATHOLOGIST SOFTWARE DESIGNER ATIF JOHNSON M.D. Performed By: #### G LUKAS #### Point of Care testing , Hepatic Panelon 07-09-2023 Albumin [Mass/Vol] 3.2 g/dL Low 3.5-5.7 [facility] Comment on above: Performed By: #### H EPATIC #### [address] ALP [Catalytic activity/Vol] 241 U/L High 34-104 [facility] Comment on above: Result Comment: PERF ORMED BY: [place] [address] PATHOLOGIST SOFTWARE DESIGNER ATIF JOHNSON M.D. Performed By: #### H EPATIC #### [address] ALT [Catalytic activity/Vol] 104 U/L High 7-52 [facility] Comment on above: Performed By: #### H EPATIC #### [address] AST [Catalytic activity/Vol] 53 U/L High 13-39 [facility] Comment on above: Performed By: #### H EPATIC #### [place] [address] [place] Bilirubin,Indirec t 0.5 mg/dL Normal [facility] Comment on above: Performed By: #### H EPATIC #### [address] Bilirubin.indirec t [Mass/Vol] 0.10 mg/dL Normal 0.03-0.18 [facility] Comment on above: Performed By: #### H EPATIC #### [address] Globulin (S) [Mass/Vol] 3.9 g/dL Normal [facility] Comment on above: Performed By: #### H EPATIC #### [address] Lipaseon 07-09-2023 Lipase [Catalytic activity/Vol] 74.0 U/L Normal 11.0-82.0 [facility] Comment on above: Result Comment: PERF ORMED BY: [place] [address] PATHOLOGIST SOFTWARE DESIGNER ATIF JOHNSON M.D. Performed By: #### L IPASE #### [facility] [address] [place] [address] Urine Cultureon 07-09-2023 Bacteria identified Cx Nom (U) 30,000 colonies/ml mixed bacterial skin contaminants including mixed gram negative bacilli - 2 Days PERFORMED BY: [place] [address] PATHOLOGIST SOFTWARE DESIGNER ATIF JOHNSON M.D. Normal [facility] Comment on above: Performed By: #### C UU, ADDONUAPLUS #### [address] POCT urinalysis dipstick onl yon 05-29-2023 Appearance (U) clear [facility] External Poct Urine Bilirubin Negative [facility] Poct Urine Blood Trace [facility] External Poct Urine Color yellow [facility] External Poct Urine Glucose Negative [facility] Poct Urine Ketones Negative [facility] Poct Urine Leukocyte Esterase Trace [facility] Urine Nitrite Negative [facility] Urine Ph 5.5 [facility] Urine Protein Negative [facility] Urine Specific Harper 1.025 [facility] Urine Urobilinogen 0.2 [facility] URINE CULTUREon 05-29-2023 Bacteria identified Cx Nom (U) CULTURE RESULTS 50-100,000 ORGANISMS/ML NORMAL UROGENITAL ABHILASH Normal [facility] Comment on above: Performed By: #### 6 30-4 #### [facility] ([id number]) [address], [address] [place] [address] MICROALBUMIN - ALBUMIN:CREAT ININE URINE RATIOon 03-18-2023 ALB/CREAT RATIO 5.5 mg/g creat Normal 0.0-30.0 [facility] Comment on above: Performed By: #### M ALBU #### [facility] ([id number]) [address], [address] [place] [address] Albumin DL <= 20 mg/L (U) [Mass/Vol] 1.0 mg/dL Normal 0.0-1.9 [facility] Comment on above: Performed By: #### M ALBU #### [facility] ([id number]) [address] [place] [address] URINE CREAT 180.91 mg/dL Normal [facility] Comment on above: Performed By: #### M ALBU #### [facility] ([id number]) [address] [place] [address] POCT Hemoglobin A1con 2023 HbA1c (Bld) [Mass fraction] 6.5 g/dL 4 - 7 g/dL [facility] COVID + FLU Quick Testingon 01-12-2023 SARS-CoV-2 (COVID-19) RNA MONICO+probe Ql (Unsp spec) Negative [employer] [facility] Other COVID + FLU Quick Testing Negative [employer] [facility] Other Covid-19 PCR (CVDTBH)on 01-25 SARS-CoV-2 (COVID-19) RNA MONICO+probe Ql (Unsp spec) Not detected Normal NOT DETECTED [facility] Comment on above: Result Comment: This test is not yet approved or cleared by the [place] FDA. When there are no FDA-approved or cleared tests available, and other criteria are met, FDA can make tests available under an emergency access mechanism called an Emergency Use Authorization (EUA). The EUA for this test is supported by the [place] of Health and Human Service's (HHS's) declaration [...] consistent with SARS-CoV-2. Performed By: #### C VDTB #### [facility] [address] [place] [address] Dr. Robert Barragan INFLUENZA A AND B [facility] 02-21 [facility] SEE BELOW Normal [facility] Comment on above: Result Comment: Nega tive for Flu A protein angiten. Infection due to Flu A cannot be ruled out. Flu A angiten in the sample may be below the detection limit of the test. Performed By: #### I NFLUAB #### [facility] [address] [place] [address] Dr. Robert Barragan [facility] SEE BELOW Normal [facility] Comment on above: Result Comment: Nega tive for Flu B protein antigen. Infection due to Flu B cannot be ruled out. Flu B antigen in the sample may be below the detection limit of the test. Performed By: #### I NFLUAB #### [facility] [address] [place] [address] Dr. Robert Barragan INFLUENZA A AG Negative Normal NEGATIVE SEE COMMENT [facility] Comment on above: Performed By: #### I NFLUAB #### [facility] [address] [place] [address] Dr. Robert Barragan INFLUENZA B AG Negative Normal NEGATIVE SEE COMMENT [facility] Comment on above: Performed By: #### I NFLUAB #### [facility] [address] [place] [address] Dr. Robert Hadley 2021 [facility] JUDY ROCA ([id number]) 1965 F Date Time Provider Department 09/13/21 [...] Status:Closed by NABOR PICHARDO on 09/13/21 Normal [facility] XR HIP RT 2 3V W [...] by: Benny QUINONES Date: 2021-05-08 03:14 Normal [facility] MRI SHOULDER RT WO CONon MRI [...] contribute to patient's symptoms. Electronically authenticated by: XEINA LO Date: 2021-05-04 07:53 Normal [facility] 02-12-2021 [facility] Telephone (INTMAL) JUDY ROCA ([id number]) 1965 F Date Time Provider Department 02/12/21 [...] daily as needed. ANGIE: No Authorizing Provider: NABOR PICHARDO Prescription(s) as above. Please process accordingly. MD Octavia Augustine MA 02/13/2021 8:27 AM Signed Pt read my chart. No further action needed. Octavia Blele MA Allergies As of Date: 02/12/2021 (No [...] Encounter Status:Closed by OCTAVIA BELLE on 02/13/21 [facility] Sang 02-08-2021 NAHUN Office Visit (SOHAM ) JUDY ROCA ([id number]) 1965 F Date Time Provider Department 02/08/21 [...] Biking several times a week. COVID vaccine Traxian 03/07/20, 04/17/20, 11/29/20. Feels safe at home. 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 Normal [facility] OBSOLETEon 11-14-2020 OBSOLETE Refill (RHEULN) EDWARDJUDY ([id number]) 1965 F Date Time Provider Department 11/14/20 NABOR PICHARDO During your visit today, we [...] Status:Closed by NABOR PICHARDO on 11/16/20 Normal [facility] Vital Signs Date Time Vital Sign Value Performing Clinician Facility 05-19-2023 13:54-0400 Body height 160 cm Iris Villalta APRN-[employer] SAL[employer] Work Phone: [facility] 05-19-2023 13:54-0400 Body mass index (BMI) [Ratio] 45.6 kg/m2 Iris Villalta APRN-[employer] Work Phone: [facility] 05-19-2023 13:54-0400 Body temperature 98.1 [degF] Iris Villalta IMAGING CENTER MANAGER-[employer] Work Phone: [facility] 05-19-2023 13:54-0400 Body weight 116.76 kg Iris Villalta APRN-[employer] Work Phone: [facility] 05-19-2023 13:54-0400 Diastolic blood pressure 78 mm[Hg] Iris Villalta APRN-[employer] Work Phone: [facility] 05-19-2023 13:54-0400 Heart rate 74 /min Iris Villalta APRN[employer] Work Phone: [facility] 05-19-2023 13:54-0400 SaO2% (BldA) [Mass fraction] 97 % Iris Villalta APRN[employer] Work Phone: [facility] 05-19-2023 13:54-0400 Systolic blood pressure 120 mm[Hg] Iris Villalta APRN[employer] Work Phone: [facility] 03-18-2023 08:17-0500 Body height 160 cm Iris Villalta IMAGING CENTER MANAGER-[employer] Work Phone: [facility] 03-18-2023 08:17-0500 Body mass index (BMI) [Ratio] 45.19 kg/m2 Iris Villalta IMAGING CENTER MANAGER-[employer] Work Phone: [facility] 03-18-2023 08:17-0500 Body temperature 97.7 [degF] Iris Villalta APRN-JORDIN Work Phone: [facility] 03-18-2023 08:17-0500 Body weight 115.71 kg Iris Villalta APRN-JORDIN Work Phone: [facility] 03-18-2023 08:17-0500 Diastolic blood pressure 80 mm[Hg] Iris Villalta APRN-JORDIN Work Phone: [facility] 03-18-2023 08:17-0500 Heart rate 67 /min Iris Villalta APRN-JORDIN Work Phone: [facility] 03-18-2023 08:17-0500 SaO2% (BldA) [Mass fraction] 95 % Iris Villalta APRN-JORDIN Work Phone: [facility] 03-18-2023 08:17-0500 Systolic blood pressure 120 mm[Hg] Iris Villalta APRN-JORDIN Work Phone: [facility] 01-12-2023 14:10-0500 Body height 160.02 cm Fracnia Carlos Other [facility] Other 01-12-2023 14:10-0500 Body mass index (BMI) [Ratio] 43.78 kg/m2 Francia Carlos Other [facility] Other 01-12-2023 14:10-0500 Body temperature 97.4 [degF] Francia Carlos Other [facility] Other 01-12-2023 14:10-0500 Body weight 112.13 kg Francia Carlos Other [facility] Other 01-12-2023 14:10-0500 Respiratory rate 18 /min Francia Carlos Other [facility] Other 01-12-2023 14:100500 SaO2% (BldA) [Mass fraction] 97 % Francia Carlos Other [facility] Other Encounters Encounter Date Encounter Type Care Provider Facility Start: 08-19-2023 End: 08-19-2023 ambulatory [facility] Start: 08-11-2023 End: 08-11-2023 ambulatory ANGEL BAHENA Not Available Start: 07-22-2023 End: 07-22-2023 ambulatory [facility] Start: 07-09-2023 End: 07-09-2023 Emergency department patient visit Ronan Delcid Facility:[facility] Start: 07-09-2023 End: 07-09-2023 ambulatory [facility] Start: 05-29-2023 End: 05-30-2023 [facility] Start: 05-29-2023 End: 05-29-2023 Clinical Support Iris Villalta IMAGING CENTER MANAGER-[employer] Work Phone: [facility] Comment on above: Dysuria (Primary Dx) ; Acute cystitis without hematuria Start: 05-26-2023 Telephone encounter Iris Villalta IMAGING CENTER MANAGER-[employer] Work Phone: [facility] Start: 05-19-2023 End: 05-19-2023 ambulatory [facility] Start: 05-19-2023 End: 05-19-2023 Office outpatient visit 15 minutes Iris Villalta IMAGING CENTER MANAGER-[employer] Work Phone: [facility] Comment on above: Saloni infection of flexural skin (Primary Dx) Start: 03-29-2023 Refill Iris paerdes IMAGING CENTER MANAGER-[employer] Work Phone: [facility] Comment on above: Type 2 diabetes hunter itus with hyperglycemia, without long-term current use of insulin ([facility]); Current mild episode of major depressive disorder without prior episode ([facility]); Benign essential HTN; Migraine 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, not intractable Start: 03-19-2023 End: 03-19-2023 ambulatory ANGEL BAHENA Not Available Start: 03-18-2023 End: 03-19-2023 ambulatory [facility] Start: 03-18-2023 End: 03-18-2023 ambulatory [facility] Start: 03-18-2023 End: 03-18-2023 Office [facility] CENTER MANAGER-[employer] Work Phone: [facility] Comment on above: Type 2 diabetes hunter itus with hyperglycemia, without long-term current use of insulin ([facility]) (Primary Dx); Current mild episode of major depressive disorder without prior episode ([facility]); Gastroesophageal reflux disease without esophagitis; Benign essential HTN; Migraine 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, not intractable; Seasonal allergic rhinitis due to pollen Start: 03-13-2023 Orders Only [facility] IMAGING CENTER MANAGER-[employer] Work Phone: [facility] Start: 01-14-2023 End: 01-14-2023 ambulatory Francia Carlos Other [facility] Other Start: 01-14-2023 Telephone encounter Francia Carlos [facility] Start: 01-12-2023 End: 01-12-2023 ambulatory Francia Carlos Other [facility] Other Start: 01-12-2023 Office outpatient ne w 30 minutes Francia Carlos [facility] Start: 02-21-2022 End: 02-21-[address] ROBIN MA Facility: Start: 2021 Telephone encounter Nabor low MD Work Phone: Rheumatology Comment on above: Results Start: 05-08-2021 End: 05-08-[address] ROBIN MA Facility:[facility] Start: 05-03-2021 End: 05-04-[address] ANGEL NOYOLA Facility:[facility] Procedures Date Procedure Procedure Detail Performing Clinician Start: 07-22-2023 Follow-up visit Follow-up IRIS Jovanna CONNORSVILLALTA Start: 05-29-2023 Urnls dip stick/tabl et rgnt non-auto w/o micrscp Iriserich Villalta IMAGING CENTER MANAGER-[facility] Work Phone: Start: 05-19-2023 Adult depression scr eening assessment Iris Villalta IMAGING CENTER MANAGER-[facility] Work Phone: Start: 03-18-2023 Hemoglobin glycosyla moshe a1c Iris Connorsillo IMAGING CENTER MANAGER-[facility] Work Phone: Start: 03-18-2023 Adult depression scr eening assessment Iris Villalta IMAGING CENTER MANAGER-[facility] Work Phone: Start: 03-18-2023 Microalbumin [Mass/v olume] in Urine by Test strip Iris Connorsillo [facility] Work Phone: Start: 02-13-2023 Diabetic retinal eye exam Iris Connorsillo IMAGING CENTER MANAGER-[facility] Work Phone: Start: 09-10-2022 Adult depression scr eening assessment Iris Connorsillo IMAGING CENTER MANAGER-[facility] Work Phone: Start: 07-13-2020 Adult depression scr eening assessment Nabor Pichardo MD Work Phone: Start: 07-03-2013 Microscopic observat ion [Identifier] in Cervix by Cyto stain Iris Connorsillo [facility] Work Phone: Plan of Treatment Date Care Activity Detail Author Start: 05-18-2024 Adult BMI Follow Up Plan Adult BMI Follow Up Plan [facility] Start: 05-18-2024 Adult BMI Screening Adult BMI Screen ing [facility] Start: 05-18-2024 Depression Screening Depression Scre ening [facility] Start: 05-18-2024 Tobacco Screening Tobacco Screening [facility] Start: 03-18-2024 Adult BMI Follow Up Plan Adult BMI Follow Up Plan [facility] Start: 03-18-2024 Adult BMI Screening Adult BMI Screen ing [facility] Start: 03-18-2024 Depression Screening Depression Scre ening [facility] Start: 03-18-2024 Tobacco Screening Tobacco Screening [facility] Start: 03-18-2024 Urine screening for protein Urine Microalbumin [facility] Start: 02-14-2024 Glaucoma screening Diabetic Op hthalmology Exam [facility] Start: 10-26-2023 Influenza vaccination Influenza Vacc ine [facility] Start: 09-22-2023 End: 09-22-2023 Patient encounter procedure 09/22/2023 11:00 AM EDT Office Visit [facility] [address] [place] [address] Iris Villalta, IMAGING CENTER MANAGER-[employer] [address] [place] [address] [facility] Start: 09-11-2023 Adult BMI Follow Up Plan Adult BMI Follow Up Plan [facility] Start: 09-11-2023 Adult BMI Screening Adult BMI Screen ing [facility] Start: 09-11-2023 Depression Screening Depression Scre ening [facility] Start: 09-11-2023 Tobacco Screening Tobacco Screening [facility] Start: 07-21-2023 DIABETES SCREEN DIABETES SCREEN [facility] Start: 03-18-2023 End: 03-18-2023 Patient encounter procedure 03/18/2023 8:00 AM EST Office Visit [facility] [address] [place] [address] Iris Villalta, IMAGING CENTER MANAGER-[employer] [address] [place] [address] [facility] Start: 10-25-2022 COVID-19 Vaccine ( season) COVID-19 Vaccine ( season) [facility] Start: 10-25-2022 Influenza vaccination Influenza Vacc ine [facility] Start: 10-25-2021 Influenza vaccination INFLUENZA (#1) [facility] Start: 07-13-2021 Adult depression screening assessment DEPRESSION SCREENING [facility] Start: 03-01-2021 COVID-19 VACCINE (4 - Booster for Pfizer series) COVID-19 VACCINE (4 - Booster for Pfizer series) [facility] Start: 2016 Administration of varicella zoster vaccine Zoster (Shingles) Vaccine (1 of 2) [facility] Start: 07-03-2016 Screening for malign ant neoplasm of cervix Pap Smear [facility] Start: 09-14-2011 COLOGUARD (FIT-DNA) COLOGUARD (FIT-D NA) [facility] Start: 09-14-2011 Colonoscopy COLONOSCOPY [facility] Start: 09-14-2011 COLORECTAL CANCER SCREENING COLORECTAL CANCER SCREENING [facility] Start: 09-14-[address] COLONOGRAPHY [facility] Start: 09-14-2011 FECAL OCCULT BLOOD FECAL OCCULT BLOO D [facility] Start: 09-14-2011 LIPID SCREEN LIPID SCREEN [facility] Start: 09-14-2011 SIGMOIDOSCOPY SIGMOIDOSCOPY [facility] Start: 2006 Mammography MAMMOGRAM [facility] Start: 1996 HPV TESTING HPV TESTING [facility] Start: 09-14-1987 PAP TESTING PAP TESTING [facility] Start: 1985 SHINGRIX VACCINE (1 of 2) SHINGRIX VACCINE (1 of 2) [facility] Start: 1985 Urine microalbumin profile DTAP,TDAP,TD (1 - Tdap) [facility] Start: 1984 Diabetic foot examination Diabetic Foot Exam [facility] Start: 1984 HIV SCREENING HIV SCREENING [facility] Start: 12-17-1983 DTaP,Tdap and Td Vaccines (3 - Tdap) DTaP,Tdap and Td Vaccines (3 - Tdap) [facility] Start: 1972 PNEUMOCOCCAL (1 - PCV) PNEUMOCOCCAL (1 - PCV) [facility] Start: 1966 Urine screening for protein Urine Microalbumin [facility] End: 05-28-2024 Bacteria identified in Urine by Culture Urine culture (clean catch) Microbiology Routine Acute cystitis without hematuria 1 Occurrences starting 05/29/2023 until 05/28/2024 [facility] Work Phone: Comment on above: 1 Occurrences starti ng 05/29/2023 until 05/28/2024 End: 03-17-2024 Microalbumin - Albumin: Creatinine Urine Ratio Microalbumin - Albumin: Creatinine Urine Ratio Lab Routine Type 2 diabetes mellitus with hyperglycemia, without long-term current use of insulin ([facility]) 1 Occurrences starting 03/18/2023 until 03/17/2024 [facility] Work Phone: Comment on above: 1 Occurrences starti ng 03/18/2023 until 03/17/2024 Oconnor Amari gonzales Immunizations Immunization Date Immunization Notes Care Provider [facility] 12-05-2022 influenza, injectabl e, quadrivalent, preservative free Iris Villalta IMAGING CENTER MANAGER-[employer] Work Phone: [facility] 12-05-2022 influenza virus vaccine, unspecified formulation Iris Villalta IMAGING CENTER MANAGER-[employer] Work Phone: [facility] 10-27-2021 influenza, injectabl e, quadrivalent, preservative free Iris Villalta IMAGING CENTER MANAGER-[employer] Work Phone: [facility] 10-27-2021 influenza virus vaccine, unspecified formulation Iris Villalta IMAGING CENTER MANAGER-[employer] Work Phone: [facility] 11-02-2020 influenza, injectabl e, quadrivalent, preservative free Iris Villalta IMAGING CENTER MANAGER-[employer] Work Phone: [facility] 10-27-2019 influenza, injectabl e, quadrivalent, preservative free Iris Villalta IMAGING CENTER MANAGER-[employer] Work Phone: [facility] 12-16-1983 mumps virus vaccine Iris Villalta IMAGING CENTER MANAGER-[employer] Work Phone: [facility] 12-16-1983 TD(adult) unspecifie d formulation Iris Villalta IMAGING CENTER MANAGER-[employer] Work Phone: [facility] 12-05-1970 poliovirus vaccine, unspecified formulation Iris Connorsillo IMAGING CENTER MANAGER-[employer] Work Phone: [facility] 11-07-1970 diphtheria, tetanus toxoids and pertussis vaccine Iris Villalta IMAGING CENTER MANAGER-[employer] Work Phone: [facility] 11-07-1970 measles, mumps and rubella virus vaccine Iris Villalta IMAGING CENTER MANAGER-[employer] Work Phone: [facility] 11-04-1967 poliovirus vaccine, unspecified formulation Iris Connorsillo IMAGING CENTER MANAGER-[employer] Work Phone: [facility] 08-30-1967 measles virus vaccine Jenni dana Villalta IMAGING CENTER MANAGER-[employer] Work Phone: [facility] 08-05-1967 poliovirus vaccine, unspecified formulation Iris Villalta IMAGING CENTER MANAGER-[employer] Work Phone: [facility] Payers Date Payer Category Payer Self-pay 2021 Unknown [facility] [id number] 2021-Present [phone] [address] [address] [place] [address] [id number] 2020 Unknown MMO MMO [employer] [id number] 2020-Present [phone] [address] [place] [address] PPO [id number] 1965 Unknown [id number] 1965 Unknown [id number] 1965 Unknown [id number] [id number] 1965 Unknown [id number] [id number] 1965 Unknown [id number] [id number] 1965 Unknown [id number] [id number] 1965 Unknown [id number] [id number] 1965 Unknown [id number] [id number] 1965 Unknown [id number] [id number] 1966 Unknown [id number] [id number] 1965 Unknown [id number] [id number] 1965 Unknown [id number] [id number] 1966 Unknown [id number] [id number] 1965 Unknown [id number] [id number] 1959 Unknown [id number] 1959 Unknown [id number] Unknown [id number] Social History Date Type Detail Facility Start: 07-20-2020 End: 09-10-2022 Tobacco smoking status NHIS Never smoked tobacco [facility] Start: 07-20-2020 End: 09-10-2022 Tobacco use and exposure Smokeless tobacco non-user [facility] Start: 02-08-2021 Alcohol intake Ex-drinker (finding) [facility] Start: 1965 Sex Assigned At Female C [facility] Start: 09-10-2022 End: 05-19-2023 Sex Assigned At [facility] Other Start: 09-10-2022 End: 05-19-2023 Alcohol intake Lifetime non-drinker (finding) [facility] Start: 09-10-2022 End: 05-19-2023 History of Social function [facility] Adolescent depressio n screening assessment 8 [facility] Start: 1965 Sex Assigned At Not on file P [facility] Clinical Notes 02-08-2021 to 05-29-2023 RIMA Gamez - 05/29/2023 1:40 PM EDTAddendum Note - Fidencio Degroot CMA - 05/29/2023 1:40 PM EDTAddendum Note - Fidencio Degroot CMA - 05/29/2023 1:40 PM EDT Note Date & Type Note Facility 05-29-2023 History of Presen t illness Narrative New orders for Bactrim DS oral twice daily for 7 days. Send urine for culture. RIMA Gamez 05/29/23 1451 documented in this encounter [facility] 05-29-2023 Miscellaneous Notes Addended by: FIDENCIO DEGROOT on: 05/29/2023 03:03 PM Modules accepted: Orders documented in this encounter [facility] 05-29-2023 Note Addended by: FIDENCIO DEGROOT on: 05/29/2023 03:03 PM Modules accepted: Orders [facility] 05-26-2023 Miscellaneous Notes Formattin g of this note might be different from the original. Patient called donal said that she is still having some [...] 1:30okay per shereen documented in this encounter [facility] 05-26-2023 Telephone encount er Note Patient called ans said that she is still having some pressure and burning, the rash is starting to clear up. She was wondering if you could send in estrogen cream for her [facility] 05-26-2023 Telephone encount er Note Please inform patient I do not order estrogen cream for her current complaint. I am concerned she may have a UTI. [facility] 05-26-2023 Telephone encount er Note Patient will be dropping a UA arounf 1:30okay per shereen [facility] 05-19-2023 History of Presen t illness Narrative Images from the original note were not included. [place] [address] SUBJECTIVE: Patient ID: Judy Roca is a [...] Medical History: Diagnosis Date Allergic Diabetes mellitus ([facility]) Hypertension Immunization History Administered Date(s) Administered COVID-19, [...] [facility] 05/19/23 1412 documented in this encounter [facility] 03-18-2023 History of Presen t illness Narrative Images from the original note were not included. [address] [place] [address] SUBJECTIVE: Patient ID: Judy Roca is a 57 y.o. female. Chief Complaint Patient presents with Diabetes Presents for follow up States her allergies have been bothering her more lately. Is taking cetirizine but is not effective. Has tried loratadine as well. Flonase causes nose bleeds. Blood sugars average in the 130s. Uses [employer] system for blood glucose monitoring. Diabetes She [...] 130-140 mg/dl. She does not see a pipe coremaker.Eye exam is current. Hypertension This is a [...] Medical History: Diagnosis Date Allergic Diabetes mellitus ([facility]) Hypertension Immunization History Administered Date(s) Administered COVID-19, [...] hyperglycemia, without long-term current use of insulin ([facility]) - POCT Hemoglobin A1c - blood-glucose sensor ([employer] JAYNE 3 SENSOR) device; USE DIRECTED; change [...] of major depressive disorder without prior episode ([facility]) - venlafaxine XR (EFFEXOR-XR) 150 mg 24 [...] [facility] 03/18/23 0935 documented in this encounter [facility] 01-12-2023 Evaluation note Encounter Date Diagnosis Assessment [...] and rest, Tylenol/Motrin as directed, rx of [place], OTC Flonase, cool mist humidifier, throat lozenges. [...] treatment plan. Patient left in stable condition [employer] [facility] Other 07-21-2022 Miscellaneous Notes* Telephone Encounter - Nabor Pichardo MD - 2021 5:59 AM EDT For chart eye exam 08/22/21 Dr.Mark Alonso, OD Blurry vision , diabetes making her vision fluctuate. Plaquenil 2years. No toxicity. [facility] NoteHNO ID: [id number] Author: Nabor Pichardo MD Service: ? Author [...] 06/2020, better with diabetic medications. Reports pain 2-8/10. minimal AM stiffness. Had flu vaccine. Taking 1tab daily Plaquenil. Saw eye exam no medication toxicity. R elbow better after surgery 06/2020. Biking several times a week. COVID vaccine [employer] 03/07/20, 04/17/20, 11/29/20. Feels safe at home. 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 Ulnar positive sarah (more content not included)...[facility] [employer] Other Evaluation note* Diagnosis Type 2 diabetes mellitus with hyperglycemia, without long-term current use of insulin ([facility])- Primary Current mild episode of major depressive disorder without prior episode ([facility]) Gastroesophageal reflux disease without esophagitis Esophageal reflux Benign essential HTN Migraine 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, not intractable Seasonal allergic rhinitis due to pollen [facility] Diagnosis Type 2 diabetes mellitus with hyperglycemia, without long-term current use of insulin ([facility]) Current mild episode of major depressive disorder without prior episode ([facility]) Benign essential HTN Migraine 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, not intractable [facility] Diagnosis Saloni infection of flexural skin- Primary Candidiasis of skin and nails [facility]* Diagnosis Dysuria- Primary Acute cystitis without hematuria [facility] Narrative - Reported* Type Description Date Medical History depression Medical History hypertension Medical History menopause Surgical History hysterectomy Surgical History back surgery Surgical History elbow surgery Surgical History carpal tunnel release [facility] Other InstructionsNot on filedocumented in this encounter [facility]* Attachments The following attachments cannot be sent through Care Everywhere. * High blood pressure in adults (Rwandan) documented in [facility] encounter[facility] SystemInstructionsNot on file documented in this encounterPro[facility] [employer] SystemInstructionsNot on file documented in this encounterProM[facility] Hospital [employer] SystemInstructionsNot on file [facility] [employer] SystemInstructionsNot on file documented in [facility] Summary Purpose Family History No [...] Referral Specialty Diagnoses / Procedures Referred By Contac t Referred To Contact Diagnoses Seasonal allergic rhinitis due to pollen Iris Villalta, IMAGING CENTER MANAGER-[employer] [address] [place] [place] [address] Referral ID Status Reason Start Date Expiration Date V isits Requested Visits Authorized [id number] Pending Review 1 1 Additional Source Comments Source Comments (unrecognize d section and content) In the event this informatio n is protected by the Federal Confidentiality of Alcohol and Drug Abuse Patient Records regulations: The Federal rules restrict any use of the information to criminally investigate or prosecute any alcohol or drug abuse patient.[facility] Reason for Visit (unrecogniz ed section and content) Reason Comments Results Reason Comments Diabetes Reason Comments Med Refill Reason Comments Rash Right groin Reason Comments Urinary Tract Infection Care Teams (unrecognized sec tion and content) Lay Out Worker Relationship Specialty Start Date End Date Robin Ma Sr. [address] [facility] [place] [address] PCP - General Family Practice 07/20/20 Lay Out Worker Relationship Specialty Start Date End Date Iris Villalta APRN-[facility] [address] [place] [address] PCP - General Family Medicine 08/28/22 Lay Out Worker Relationship Specialty Start Date End Date Iris Villalta APRNJORDIN [address] [place] [address] PCP - General Family Medicine 08/28/22 Lay Out Worker Relationship Specialty Start Date End Date Iris Villalta APRN[employer] [address] [place] [place] [address] PCP - General Family Medicine 08/28/22 Lay Out Worker Relationship Specialty Start Date End Date Iris Villalta [employer] [address] [place] [place] [address] PCP - General Family Medicine 08/28/22 Lay Out Worker Relationship Specialty Start Date End Date Iris Villalta APRN-[employer] [address] [place] [address] PCP - General Family Medicine 08/28/22 Lay Out Worker Relationship Specialty Start Date End Date Villalta Iris Nugent, ABIDA[employer] [address] [place] [address] PCP - General Family Medicine 08/28/22 INFORMATION SOURCE (unrecogn ized section and content) DATE CREATED AUTHOR 09/15/2021 [facility] DATE CREATED AUTHOR AUTHOR'S ORGANIZ ATION 02/26/2022 [facility] DATE CREATED AUTHOR AUTHOR'S ORGANIZ ATION 05/31/2023 [facility] DATE CREATED AUTHOR AUTHOR'S ORGANIZ ATION 07/20/2023 [facility] DATE CREATED AUTHOR AUTHOR'S ORGANIZ ATION 08/16/2023 [facility] DATE CREATED AUTHOR AUTHOR'S ORGANIZ ATION 08/21/2023 [facility] FOR RECORDS PERTAINING TO PATIENTS [...] BE BASED ON THE PRIMARY CLINICAL RECORDS. [facility]. provides no warranty or guarantee of the accuracy or completeness of information in this document.
--- NOTE | 2023-08-31 20:43 | CT_ITS ---
The [address] [address] Patient Name: VERONICA LEON MRN: [id number] date: 1965 Sex: F Assigned Patient Location: ER Current Patient Location: ER Accession/Order Number: [id number] Exam Date: 08/31/2023 21:22 Report Date: 08/31/2023 22:42 At the request of: POOL KRUGER Procedure: CT head/brain wo con EXAMINATION: CT head/brain wo con, , 08/31/2023 9:22 PM EDT INDICATION: Fall, hit head HISTORY: Ordering Provider Reason for Exam: Fall, hit head Technologist Note: Additional: COMPARISON: None. TECHNIQUE: CT scan of the head was performed without IV contrast. CT dose reduction technique was used, including Automated Exposure Control. FINDINGS: Ventricles and sulci are normal in size and configuration. No extra-axial collection. No intracranial hemorrhage. No mass effect or edema. No CT evidence of large territorial infarction. Visualized paranasal sinuses are well aerated. Mastoids are clear. Calvarium is unremarkable. Large right high posterior scalp hematoma is seen. CT/CT head/brain wo con IMPRESSION: No intracranial hemorrhage or mass effect. Large right high posterior scalp hematoma. Electronically authenticated by: LEONID DOWELL Date: 08/31/2023 22:42
--- NOTE | 2023-08-31 20:43 | ED_ITS ---
HPI HPI - Head Injury General Chief complaint: Head Injury Stated complaint: FALL - HEADACHE Time Seen by Provider: 08/31/23 20:41 Source: patient Mode of arrival: Wheelchair Limitations: no limitations History of Present Illness HPI Narrative: 57-year-old female presents to the emergency department for head injury. She fell and hit the back of her head on concrete. No LOC or vomiting and she does not have neck pain. She put ice on it. No other injury was sustained and it happened just before coming into the emergency department. Related Data Home Medications ?Medication ?Instructions ?Recorded ?Confirmed cetirizine 10 mg tablet 10 mg PO DAILY 07/28/22 11/14/22 famotidine 40 mg tablet 40 mg PO Q12H 07/28/22 11/14/22 glimepiride 4 mg tablet 4 mg PO .TWICE 07/28/22 11/14/22 pioglitazone 30 mg tablet 30 mg PO DAILY 07/28/22 11/14/22 propranolol 80 mg capsule,24 80 mg PO Q24H 07/28/22 11/14/22 hr,extended release venlafaxine 150 mg 150 mg PO DAILY 07/28/22 11/14/22 capsule,extended release 24 hr Previous Rx's ?Medication ?Instructions ?Recorded ondansetron 4 mg disintegrating 4 mg PO Q6H PRN nausea and 07/04/23 tablet vomiting #20 tabs cephalexin 500 mg capsule 500 mg PO TID 7 days #21 caps 08/05/23 phenazopyridine 200 mg tablet 200 mg PO Q8H PRN pain #15 tabs 08/05/23 (Pyridium) Allergies Allergy/AdvReac Type Severity Reaction Status Date / Time No Known Drug Allergies Allergy Verified 08/31/23 20:39 Opioid HPI Opioid Management Most Recent Pain and Opioid Data: Last Pain Scale 8 11/14/22 22:57 Review of Systems ROS Narrative A ten point review of systems is negative except as noted above. PFSH PFSH Social History Smoking status: Never smoker Exam Narrative Exam Narrative: Nurses note and vital signs reviewed and patient is not hypoxic. General: The patient appears well and in no apparent distress. Skin: Warm, dry, no pallor noted. There is no rash noted. Head: Normocephalic, hematoma present on the occipital scalp without laceration. Cervical spine nontender. Eye: Normal conjunctiva, no drainage Ears, Nose, Mouth, and Throat: oral mucosa is moist. Nares patent. Cardiovascular: Regular Rate and Rhythm Respiratory: Patient is in no distress, no accessory muscle use, lungs are clear to auscultation, no wheezing, rales or rhonchi Back: non-tender, including the C-spine and thoracic spine. GI: Soft and nontender Musculoskeletal: The patient has no evidence of calf tenderness, no pitting edema, symmetrical pulses noted bilaterally Neurological: Awake and alert, moves all extremities well Psychiatric: Cooperative Constitutional Vital Signs, click to edit/add: Last Vital Signs Temp 98.3 F 08/31/23 20:35 Pulse 69 08/31/23 20:35 Resp 18 08/31/23 20:35 BP 139/88 08/31/23 20:35 Pulse Ox 96 08/31/23 20:35 O2 Del Method Room Air 08/31/23 20:35 Course Vital Signs Vital signs: Vital Signs Temperature 98.3 F 08/31/23 20:35 Pulse Rate 69 08/31/23 20:35 Respiratory Rate 18 08/31/23 20:35 Blood Pressure 139/88 08/31/23 20:35 Pulse Oximetry 96 08/31/23 20:35 Oxygen Delivery Method Room Air 08/31/23 20:35 Temperature 98.3 F 08/31/23 20:35 Pulse Rate 69 08/31/23 20:35 Respiratory Rate 18 08/31/23 20:35 Blood Pressure 139/88 08/31/23 20:35 Pulse Oximetry 96 08/31/23 20:35 Oxygen Delivery Method Room Air 08/31/23 20:35 MDM - Head Injury MDM Narrative Medical decision making narrative: CT per radiologist shows scalp hematoma but no intracranial pathology. Ice and Tylenol were recommended. Treatment diagnosis and follow-up were discussed with the patient. Differential Diagnosis Differential diagnosis: Likely epidural hematoma, closed head injury, subarachnoid hematoma and subdural hematoma Imaging Data CT scan - head: Radiologist's impression: ITS Impressions Head CT 08/31/23 20:43 IMPRESSION: No intracranial hemorrhage or mass effect. Large right high posterior scalp hematoma. Electronically authenticated by: LEONID DOWELL Date: 08/31/2023 22:42 Discharge Plan Discharge Stand Alone Forms: Portal Instructions Chief Complaint: Head Injury Clinical Impression: Head injury, Scalp hematoma Patient Disposition: Home, Self-Care Time of Disposition Decision: 22:54 Condition: Good Mode of Transportation: Private Vehicle Prescriptions / Home Meds: No Action cephalexin 500 mg capsule 500 mg PO TID 7 Days Qty: 21 0RF phenazopyridine [Pyridium] 200 mg tablet 200 mg PO Q8H PRN (Reason: pain) Qty: 15 0RF cetirizine 10 mg tablet 10 mg PO DAILY famotidine 40 mg tablet 40 mg PO Q12H glimepiride 4 mg tablet 4 mg PO .TWICE pioglitazone 30 mg tablet 30 mg PO DAILY propranolol 80 mg capsule,extended release 24 hr 80 mg PO Q24H venlafaxine 150 mg capsule,extended release 24hr 150 mg PO DAILY ondansetron 4 mg tablet,disintegrating 4 mg PO Q6H PRN (Reason: nausea and vomiting) Qty: 20 0RF Print Language: Japanese Instructions: Head Injury (ED), Scalp Contusion in Adults (ED) Referrals: IRIS KENNEDY [Primary Care Provider] - 1 week
[2023-08-31] MEDS: ACETAMINOPHEN 325 MG TABLET 650 MG PO (23:04)
== END 2023-08-31 23:08 | disposition home or self-care (01) ==
PROVIDERS: Emergency Provider Emergency Medicine; PCP Nurse Practitioner
DX: S00.03XA Contusion of scalp, initial encounter (principal); S09.90XA Unspecified injury of head, initial encounter; W19.XXXA Unspecified fall, initial encounter
CPT/HCPCS: 70450; 99284

== ENCOUNTER 2023-10-12 18:29 | Emergency (ER) | payer OTHER, SELFPAY ==
--- OUTSIDE RECORDS SUMMARY | 2023-10-12 18:35 | XMS_ITS | CCD ---
Author Organization [facility] Care Team Providers Care Behavioral Assistant Name Role Phone Anil Sr., Robin Bray [...] BRY Consulting Unavailable Francia Carlos Unavailable Pawan CASING PULLER-SEAFOOD CLERK, Iris Nugent Primary Care Provid er IRIS VILLALTA Referring Unavailable VILLALTA, IRIS Primary Care Unavailable VILLALTA, IRIS Referring Unavailable VILLALTA, IRIS Primary Care Unavailable Ronan Delcid Admitting Unavailable Ronan Delcid Attending Unavailable Iris Villalta Primary Care Unavailable JR. JAZMÍN, ANGEL Tong Attending Unavaila kellen NOYOLA JR., ANGEL Tong Attending Unavaila kellen NOYOLA JR., ANGEL Tong Referring Unavaila ble IRIS VILLALTA Attending Unavailable VILLALTAIRIS Referring Unavailable VILLALTA, IRIS J Primary Care Unavailable VILLALTAIRIS Attending Unavailable VILLALTA, IRIS J Referring Unavailable VILLALTA, IRIS J Primary Care Unavailable VILLALTAIRIS J Attending Unavailable VILLALTA, IRIS J Referring Unavailable VILLALTA, IRIS J Primary Care Unavailable VLILALTA, IRIS J Attending Unavailable VILLALTA, IRIS J Referring Unavailable VILLALTA, IRIS J Primary Care Unavailable VILLALTA, IRIS J Attending Unavailable VILLALTA, IRIS J Referring Unavailable VILLALTA, IRIS J Primary Care Unavailable IRIS VILLALTA Attending Unavailable IRIS VILLALTA Referring Unavailable IRIS VILLALTA Primary Care Unavailable IRIS VILLALTA Attending Unavailable IRIS VILLALTA Referring Unavailable IRIS VILLALTA Primary Care Unavailable Medications Current Medications Medication Drug Class(es) Dates Sig (Normalized) Sig (Original) [id number] 200 actuat albuterol 0.09 mg/actuat metered dose [...] hyperglycemia, without long-term current use of insulin ([facility]) USE DIRECTED; change EVERY 2 (TWO) weeks 6 each 2 03/18/2023 Active Start: 09-25-2022 End: 03-18-2023 blood-glucose sensor (FREEST YLE JAYNE 3 SENSOR) device Indications: Type 2 diabetes mellitus with hyperglycemia, without long-term current use of insulin ([facility]) USE DIRECTED; change EVERY 2 (TWO) weeks 2 each 5 09/25/2022 03/18/2023 Discontinued (Reorder) Start: 09-25-2022 blood-glucose sensor (FREESTYLE JAYNE 3 SENSOR) device Indications: Type 2 diabetes mellitus with hyperglycemia, without long-term current use of insulin ([facility]) USE DIRECTED; change EVERY 2 (TWO) weeks 2 each 5 09/25/2022 Active dextromethorphan hydrobromide 1.5 mg/ml / pyrilamine maleate 1.5 mg/ml oral solution (2 sources) Uncompetitive G-yxvlqt-J-aspartate Receptor Antagonist, Sigma-1 Agonist Start: 01-12-2023 take 10 mL by mouth every eight hours [place] DM 7.5-7.5 MG/5ML 10 mL Orally every [...] Active Start: 07-10-2020 take 1 tablet by cindy th twice daily famotidine (PEPCID) 40 mg [...] hyperglycemia, without long-term current use of insulin ([facility]) Take 1 tablet (4 mg total) by [...] hyperglycemia, without long-term current use of insulin ([facility]) TAKE 1 TABLET BY MOUTH IN THE [...] (Reorder) Start: 06-27-2020 take 1 capsule by [facility] once daily propranolol ER (INDERAL LA) 80 [...] Comment on above: TAKE 1 TABLET BY DAILY WITH FOOD. use sunscreen when outdoors. 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 QUEtiapine (2 sources) Atypical Antipsychotic SEROquel Not-Taking tirzepatide (MOUNJARO) 5 mg/0.5 mL pen injector (2 sources) Start: 09-10-2022 End: 03-18-2023 tirzepatide (MOUNJARO) 5 mg/0.5 mL pen injector Indications: Type 2 diabetes mellitus with hyperglycemia, without long-term current use of insulin ([facility]) Inject 5 mg under the skin every 7 days. 2 mL 0 09/10/2022 03/18/2023 Discontinued (Cost of medication) Start: 09-10-2022 tirzepatide (M OUNJARO) 5 mg/0.5 mL pen injector Indications: Type 2 diabetes mellitus with hyperglycemia, without long-term current use of insulin ([facility]) Inject 5 mg under the skin every 7 days. 2 mL 0 09/10/2022 Active Problems Active Problems Problem Classification Problem Date Documented Da te Episodic/Chronic Abdominal pain (1 source) Unspecified abdominal pain; Translations: [Unspecified abdominal pain] Onset: 07-09-2023 Episodic Bacterial infection; unspecified site (1 source) Other specified bacterial agents as the cause of diseases classified elsewhere; Translations: [Other specified bacterial agents as the cause of diseases classified elsewhere] Onset: 09-16-2023 Episodic Diabetes mellitus with complications (4 sources) [...] essential hypertension; Translations: [Essential (primary) hypertension] Onset: 08-19-2023 03-18-2023 Chronic Headache; including migraine (3 sources) Migraine without aura, not refractory ; Translations: [Migraine without aura, not intractable, without status migrainosus] Onset: 08-19-2023 03-18-2023 Chronic Inflammatory diseases of female pelvic organs (1 source) Acute vaginitis; Translations: [Acute vaginitis] Onset: 09-16-2023 Episodic Joint disorders and dislocations; trauma-related (5 sources) Articular cartilage disorder of shoulder region; Translations: [Other articular cartilage disorders, left shoulder] Onset: 12-22-2020 03-18-2023 Chronic Mood disorders (3 sources) Mild major depression, single episode; Translations: [Major depressive disorder, single episode, mild] Onset: 08-19-2023 03-18-2023 Chronic Mycoses (1 source) Candidal intertrigo; Translations: [Candidiasis of skin and nail] 05-19-2023 Episodic Osteoarthritis (13 sources) Degenerative joint disease involving multiple joints; 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] Onset: 07-20-2020 07-20-2020 Chronic Other aftercare (1 source) Other meterman (current) drug therapy; Translations: [OTH RETIREMENT CURRENT DRUG THERAPY] Onset: 02-26-2022 Episodic Other non-traumatic joint disorders (4 sources) Other specific joint derangements of right shoulder, not elsewhere classified; Translations: [OTH SPEC JOINT DERANG RT SHLDR NEC] Onset: 05-03-2021 Chronic Other non-traumatic joint disorders (6 sources) Derangement of right shoulder joint; Translations: [Other specific joint derangements of right shoulder, not elsewhere classified] Onset: 04-02-2021 09-10-2022 Chronic Other skin disorders (1 source) Acne vulgaris; Translations: [Acne vulgaris] Onset: 09-16-2023 Episodic Other upper respiratory disease (1 source) Allergic [...] [OVEREXERT STRENUOUS MVMT/LOAD INIT] Onset: 05-09-2021 Episodic Genitourinary symptoms and ill-defined conditions (2 sources) Dysuria; Translations: [Dysuria] Onset: 05-29-2023 05-29-2023 Episodic Mood disorders (6 sources) Mood disorders Onset: 09-10-2022 Resolved: 05-19-2023 09-10-2022 Other acquired deformities (7 sources) Ulnar drift; Translations: [Other deformity of right finger(s)] Onset: 07-21-2020 07-21-2020 Episodic Other aftercare (1 source) Drug therapy finding; Translations: [Other meterman (current) drug therapy] Onset: 02-08-2021 02-08-2021 Episodic Other connective tissue disease (1 source) Pain of bilateral hands; Translations: [Pain in right hand] Onset: 07-20-2020 1 Episodic Other connective tissue disease (1 source) [...] w conon CT abdomen pelvis w con [facility] [place] [address] [place] [id number] Scan Report Signed Patient: Judy Roca MR#: [id number] 18 : 1965 Acct:[id number] Age/Sex: 57 / F ADM Date: 07/09/23 Loc: ER Room: Type: [facility] ER Attending Dr: Copies to: Ronan [...] Elia Weiss M.D.07/09/2023 6:06 PM Dictation Location: [place] [address] Transcribed By: [facility] 07/09/23 [id number] Dictated By: Elia Weiss DO 07/09/23 1800 Signed By: 07/09/23 1806 Normal [facility] Complete Blood Count Auto Di ffon 07-09-2023 Basophils (Bld) [#/Vol] 0.0 10*3/uL Normal 0.0-0.2 [facility] Comment on above: Result Comment: PERF ORMED BY: [place] [address] PATHOLOGIST [employer] SOCIAL SCIENCE TEACHER ATIF JOHNSON M.D. Performed By: #### C MP, CBC #### [address] Basophils/100 WBC (Bld) 0.4 % Normal . [facility] Comment on above: Performed By: #### C MP, CBC #### [address] Eosinophils (Bld) [#/Vol] 0.1 10*3/uL Normal 0.0-0.45 [facility] Comment on above: Performed By: #### C MP, CBC #### [address] Eosinophils/100 WBC (Bld) 0.8 % Normal . [facility] Comment on above: Performed By: #### C MP, CBC #### [address] Erythrocyte distribution width (RBC) [Ratio] 14.3 % Normal 11.9-15.3 [facility] Comment on above: Performed By: #### C MP, CBC #### [address] Hematocrit (Bld) [Volume fraction] 40.5 % Normal 34.0-46.4 [facility] Comment on above: Performed By: #### C MP, CBC #### [address] Hemoglobin (Bld) [Mass/Vol] 13.6 g/dL Normal 11.8-15.4 [facility] Comment on above: Performed By: #### C MP, CBC #### [address] Lymphocytes (Bld) [#/Vol] 1.0 10*3/uL Normal 1.00-4.8 [facility] Comment on above: Performed By: #### C MP, CBC #### [address] Lymphocytes/100 WBC (Bld) 11.9 % Normal . [facility] Comment on above: Performed By: #### C MP, CBC #### [address] MCH (RBC) [Entitic mass] 27.3 pg Normal 24.7-34.3 [facility] Comment on above: Performed By: #### C MP, CBC #### [address] MCV (RBC) [Entitic vol] 81.2 fL Normal 80-100 [facility] Comment on above: Performed By: #### C MP, CBC #### [address] Mean Corpuscular HGB Conc 33.6 g/dL Normal 32.0-35.0 [facility] Comment on above: Performed By: #### C MP, CBC #### [address] Monocytes (Bld) [#/Vol] 0.9 10*3/uL High 0.0-0.8 [facility] Comment on above: Performed By: #### C MP, CBC #### [place] [address] [place] Monocytes/100 WBC (Bld) 28.39 % High 0.00-20.00 [facility] Comment on above: Result Comment: For adults in ED, MDW > 20.0 may be associated with a higher risk of sepsis during the first 12 hrs of hospital admission Performed By: #### C MP, CBC #### [place] [address] [place] Monocytes/100 WBC (Bld) 10.3 % Normal . [facility] Comment on above: Performed By: #### C MP, CBC #### [facility] [address] [place] [address] [place] Neutrophils (Bld) [#/Vol] 6.6 10*3/uL Normal 1.8-7.7 [facility] Comment on above: Performed By: #### C MP, CBC #### [facility] [address] [place] [address] [place] Neutrophils/100 WBC (Bld) 76.6 % Normal . [facility] Comment on above: Performed By: #### C MP, CBC #### [facility] [address] NRBC% 0.1 /100{WBC} Normal 0-0.[address] [facility] Comment on above: Performed By: #### C MP, CBC #### [facility] [address] [place] [address] [place] Platelet mean volume (Bld) [Entitic vol] 8.9 fL Normal 6.3-10.7 [facility] Comment on above: Performed By: #### C MP, CBC #### [facility] [address] [place] [address] [place] Platelets (Bld) [#/Vol] 293 10*3/uL Normal 150-450 [facility] Comment on above: Performed By: #### C MP, CBC #### [facility] [address] [place] [address] [place] RBC (Bld) [#/Vol] 4.99 10*6/uL Normal 3.60-5.00 [facility] Comment on above: Performed By: #### C MP, CBC #### [facility] [address] [place] [address] [place] WBC (Bld) [#/Vol] 8.7 10*3/uL Normal 3.8-11.6 [facility] Comment on above: Performed By: #### C MP, CBC #### [facility] [address] [place] [address] [place] Comprehensive Metabolic Pane jazzmine 07-09-2023 Albumin [Mass/Vol] 3.1 g/dL Low 3.5-5.7 [facility] Comment on above: Performed By: #### C MP, CBC #### [address] Albumin/Globulin [Mass ratio] 0.8 {ratio} Normal [facility] Comment on above: Performed By: #### C MP, CBC #### [address] Performed By: #### H EPATIC #### [address] ALP [Catalytic activity/Vol] 222 U/L High 34-104 [facility] Comment on above: Performed By: #### C MP, CBC #### [address] ALT [Catalytic activity/Vol] 105 U/L High 7-52 [facility] Comment on above: Performed By: #### C MP, CBC #### [address] Anion gap [Moles/Vol] 14.3 mmol/L Normal 6.0-15.0 [facility] Comment on above: Performed By: #### C MP, CBC #### [address] AST [Catalytic activity/Vol] 54 U/L High 13-39 [facility] Comment on above: Performed By: #### C MP, CBC #### [address] Bilirubin [Mass/Vol] 0.6 mg/dL Normal 0.3-1.0 [facility] Comment on above: Performed By: #### C MP, CBC #### [address] Performed By: #### H EPATIC #### [address] Calcium [Mass/Vol] 8.1 mg/dL Low 8.6-10.3 [facility] Comment on above: Performed By: #### C MP, CBC #### [address] Chloride [Moles/Vol] 95 mmol/L Low 98-107 [facility] Comment on above: Performed By: #### C MP, CBC #### [address] CO2 [Moles/Vol] 23.7 mmol/L Normal 21.0-31.0 [facility] Comment on above: Performed By: #### C MP, CBC #### [address] Creatinine [Mass/Vol] 0.64 mg/dL Normal 0.60-1.20 [facility] Comment on above: Performed By: #### C MP, CBC #### [address] Creatinine Clr Calc Pharmacy 111.97 Normal [facility] Comment on above: Result Comment: PERF ORMED BY: [place] [address] PATHOLOGIST [employer] SOCIAL SCIENCE TEACHER ATIF JOHNSON M.D. Performed By: #### C MP, CBC #### [address] GFR/1.73 sq M.predicted MDRD (S/P/Bld) [Vol rate/Area] mL/min/{1.73_m2} Normal [facility] Comment on above: Performed By: #### C MP, CBC #### [address] Globulin (S) [Mass/Vol] 4.0 g/dL Normal [facility] Comment on above: Performed By: #### C MP, CBC #### [address] Glucose [Mass/Vol] 155 mg/dL High 70-100 [facility] Comment on above: Result Comment: Check Glucose Reference Range is dependent on time and content of last meal. Glucose of more than 200 mg/dL in a nonstressed, ambulatory subject supports the diagnosis of Diabetes Mellitus. ADA recommended reference range Performed By: #### C MP, CBC #### [address] Potassium [Moles/Vol] 3.0 mmol/L Low 3.5-5.1 [facility] Comment on above: Performed By: #### C MP, CBC #### [address] Protein [Mass/Vol] 7.1 g/dL Normal 6.4-8.9 [facility] Comment on above: Performed By: #### C MP, CBC #### [address] Performed By: #### H EPATIC #### [address] Sodium [Moles/Vol] 130 mmol/L Low 136-145 [facility] Comment on above: Performed By: #### C MP, CBC #### [address] Urea nitrogen [Mass/Vol] 17 mg/dL Normal 7-25 [facility] Comment on above: Performed By: #### C MP, CBC #### [place] [address] [place] Dipstick and Microscopicon 0 07-09-2023 Appearance (U) Cloudy Critically abnormal Clear [facility] Comment on above: Order Comment: Name Collection Type:: Clean-Voided Midstream Performed By: #### C UU, ADDONUAPLUS #### [place] [address] [place] Bacteria,Urine 2+ High None Seen [facility] Comment on above: Order Comment: Name Collection Type:: Clean-Voided Midstream Performed By: #### C UU, ADDONUAPLUS #### [place] [address] [place] Bilirubin,Urine 2+ High Negative The Count includes the [facility] Comment on above: Order Comment: Name Collection Type:: Clean-Voided Midstream Performed By: #### C UU, ADDONUAPLUS #### [address] Color (U) Dark Yellow Critically abnormal Yellow [facility] Comment on above: Order Comment: Name Collection Type:: Clean-Voided Midstream Performed By: #### C UU, ADDONUAPLUS #### [place] [address] [place] Glucose Ql (U) Normal Normal Normal [facility] Comment on above: Order Comment: Name Collection Type:: Clean-Voided Midstream Performed By: #### C UU, ADDONUAPLUS #### [place] [address] [place] Hyaline Casts,Urine 9-19 High 0-8 [facility] Comment on above: Order Comment: Name Collection Type:: Clean-Voided Midstream Result Comment: PERF ORMED BY: [place] [address] PATHOLOGIST [employer] SOC[employer] SCIENCE TEACHER ATIF JOHNSON M.D. Performed By: #### C UU, ADDONUAPLUS #### [place] [address] [place] Ketones Ql (U) 3+ High Negative [facility] Comment on above: Order Comment: Name Collection Type:: Clean-Voided Midstream Performed By: #### C UU, ADDONUAPLUS #### [place] [address] [place] Leukocyte esterase Test strip Ql (U) 2+ High Negative [facility] Comment on above: Order Comment: Name Collection Type:: Clean-Voided Midstream Performed By: #### C UU, ADDONUAPLUS #### [place] [address] [place] Nitrite,Urine Negative Normal Negative The [facility] Comment on above: Order Comment: Name Collection Type:: Clean-Voided Midstream Performed By: #### C UU, ADDONUAPLUS #### [place] [address] [place] Occult Blood,Urine 2+ High Negative [facility] Comment on above: Order Comment: Name Collection Type:: Clean-Voided Midstream Result Comment: PERF ORMED BY: [place] [address] PATHOLOGIST [employer] SOCIAL SCIENCE TEACHER ATIF JOHNSON M.D. Performed By: #### C UU, ADDONUAPLUS #### [address] pH (U) 6.0 [pH] Normal 5.0-9.0 [facility] Comment on above: Order Comment: Name Collection Type:: Clean-Voided Midstream Performed By: #### C UU, ADDONUAPLUS #### [address] Protein (U) [Mass/Vol] 100 mg/dL High Negative [facility] Comment on above: Order Comment: Name Collection Type:: Clean-Voided Midstream Performed By: #### C UU, ADDONUAPLUS #### [address] RBC,Urine 10-19 High 0-4 [facility] Comment on above: Order Comment: Name Collection Type:: Clean-Voided Midstream Performed By: #### C UU, ADDONUAPLUS #### [address] Specificy Foley,Urine 1.023 Normal 1.001-1.030 [facility] Comment on above: Order Comment: Name Collection Type:: Clean-Voided Midstream Performed By: #### C UU, ADDONUAPLUS #### [address] Squamous Epithelial Cell,Urine 5-9 High 0-2 [facility] Comment on above: Order Comment: Name Collection Type:: Clean-Voided Midstream Performed By: #### C UU, ADDONUAPLUS #### [address] Urobilinogen,Urin e Normal Normal Normal [facility] Comment on above: Order Comment: Name Collection Type:: Clean-Voided Midstream Performed By: #### C UU, ADDONUAPLUS #### [address] WBC,Urine 5-9 High 0-4 [facility] Comment on above: Order Comment: Name Collection Type:: Clean-Voided Midstream Performed By: #### C UU, ADDONUAPLUS #### [address] Glucose Poct Glucometerson 0 07-09-2023 Glucose [Mass/Vol] 160 mg/dL Normal [facility] Comment on above: Result Comment: [facility] Glucose Reference Range is dependent on time and content of last meal. Glucose of more than 200 mg/dL in a nonstressed, ambulatory subject supports the diagnosis of Diabetes Mellitus. PERFORMED BY: [place] [address] PATHOLOGIST [employer] SOC[employer] SCIENCE TEACHER ATIF JOHNSON M.D. Performed By: #### G LULS #### Point of Care testing , Hepatic Panelon 07-09-2023 Albumin [Mass/Vol] 3.2 g/dL Low 3.5-5.7 [facility] Comment on above: Performed By: #### H EPATIC #### [address] ALP [Catalytic activity/Vol] 241 U/L High 34-104 [facility] Comment on above: Result Comment: PERF ORMED BY: [place] [address] PATHOLOGIST [employer] SOCIAL SCIENCE TEACHER ATIF JOHNSON M.D. Performed By: #### H EPATIC #### [address] ALT [Catalytic activity/Vol] 104 U/L High 7-52 [facility] Comment on above: Performed By: #### H EPATIC #### [address] AST [Catalytic activity/Vol] 53 U/L High 13-39 [facility] Comment on above: Performed By: #### H EPATIC #### [place] [address] [place] Bilirubin,Indirec t 0.5 mg/dL Normal [facility] Comment on above: Performed By: #### H EPATIC #### [address] Bilirubin.indirec t [Mass/Vol] 0.10 mg/dL Normal 0.03-0.18 [facility] Comment on above: Performed By: #### H EPATIC #### [address] Globulin (S) [Mass/Vol] 3.9 g/dL Normal [facility] Comment on above: Performed By: #### H EPATIC #### [address] Lipaseon 07-09-2023 Lipase [Catalytic activity/Vol] 74.0 U/L Normal 11.0-82.0 [facility] Comment on above: Result Comment: PERF ORMED BY: [place] [address] PATHOLOGIST [employer] SCIENCE TEACHER ATIF JOHNSON M.D. Performed By: #### L IPASE #### [address] Urine Cultureon 07-09-2023 Bacteria identified Cx Nom (U) 30,000 colonies/ml mixed bacterial skin contaminants including mixed gram negative bacilli - 2 Days PERFORMED BY: [place] [address] PATHOLOGIST [employer] SCIENCE TEACHER ATIF JOHNSON M.D. Normal [facility] Comment on above: Performed By: #### C UU, ADDONUAPLUS #### [address] POCT urinalysis dipstick onl yon 05-29-2023 Appearance (U) clear [facility] External Poct Urine Bilirubin Negative [facility] External Poct Urine Blood Trace [facility] External Poct Urine Color yellow [facility] External Poct Urine Glucose Negative [facility] External Poct Urine Ketones Negative [facility] External Poct Urine Leukocyte Esterase Trace [facility] External Poct Urine Nitrite Negative [facility] External Poct Urine Ph 5.5 [facility] External Poct Urine Protein Negative [facility] External Poct Urine Specific [place] 1.025 [facility] External Poct Urine Urobilinogen 0.2 [facility] URINE CULTUREon 05-29-2023 Bacteria identified Cx Nom (U) CULTURE RESULTS 50-100,000 ORGANISMS/ML NORMAL UROGENITAL ABHILASH Normal [facility] Comment on above: Performed By: #### 6 30-4 #### [facility] ([id number]) [address] [place] [address], [address] [address] MICROALBUMIN - ALBUMIN:CREAT ININE URINE RATIOon 03-18-2023 ALB/CREAT RATIO 5.5 mg/g creat Normal 0.0-30.0 [facility] Comment on above: Performed By: #### M ALBU #### [facility] ([id number]) [address] [place] [address], [facility] [address] [place] [address] Albumin DL <= 20 mg/L (U) [Mass/Vol] 1.0 mg/dL Normal 0.0-1.9 [facility] Comment on above: Performed By: #### M ALBU #### [facility] ([id number]) [address] [place] [address], [address] [address] URINE CREAT 180.91 mg/dL Normal [facility] Comment on above: Performed By: #### M ALBU #### [facility] ([id number]) [address] [place] [address], [address] [place] [address] POCT Hemoglobin A1con 2023 HbA1c (Bld) [Mass fraction] 6.5 g/dL 4 - 7 g/dL [facility] COVID + FLU Quick Testingon 01-12-2023 SARS-CoV-2 (COVID-19) RNA MONICO+probe Ql (Unsp spec) Negative [facility] Other COVID + FLU Quick Testing Negative [facility] Other [facility] 01-25 SARS-CoV-2 (COVID-19) RNA MONICO+probe Ql (Unsp spec) Not detected Normal NOT DETECTED [facility] Comment on above: Result Comment: This test is not yet approved or cleared by the [place] FDA. When there are no FDA-approved or cleared tests available, and other criteria are met, FDA can make tests available under an emergency access mechanism called an Emergency Use Authorization (EUA). The EUA for this test is supported by the Pumping Plant Operator of Health and Human Service's (HHS's) declaration [...] consistent with SARS-CoV-2. Performed By: #### C VDTBH #### [facility] [address] [place] [address] Dr. Robert Barragan INFLUENZA A AND B AGon 02-21 [facility] SEE BELOW Normal [facility] Comment on above: Result Comment: Nega tive for Flu A protein angiten. Infection due to Flu A cannot be ruled out. Flu A angiten in the sample may be below the detection limit of the test. Performed By: #### I NFLUAB #### [facility] [address] [place] [address] Dr. Robert [facility] SEE BELOW Normal [facility] Comment on above: Result Comment: Nega tive for Flu B protein antigen. Infection due to Flu B cannot be ruled out. Flu B antigen in the sample may be below the detection limit of the test. Performed By: #### I NFLUAB #### [facility] [address] [place] [address] Dr. Robert Barragan INFLUENZA A AG Negative Normal NEGATIVE SEE COMMENT [facility] Comment on above: Performed By: #### I NFLUAB #### [facility] [address] [address] [address] Robert Barragan INFLUENZA B AG Negative Normal NEGATIVE SEE COMMENT [facility] Comment on above: Performed By: #### I NFLUAB #### [facility] [address] [address] [address] Robert Hadley 2021 CNPN Telephone (The BauhubULN) JUDY ROCA ([id number]) 1965 F Date Time Provider Department 09/13/21 [...] Status:Closed by NABOR PICHARDO on 09/13/21 Normal [facility] XR HIP RT 2 3V [...] right hip seen. Electronically authenticated by: Benny QUINNOES Date: 2021-05-08 03:14 Normal [facility] MRI SHOULDER RT WO CONon MRI SHOULDER [...] by: XENIA LO Date: 2021-05-04 07:53 Normal [facility] Joamr 02-12-2021 JORDIN Telephone (INTMAL) JUDY ROCA ([id number]) 1965 F Date Time Provider Department 02/12/21 [...] Prescription(s) as above. Please process accordingly. MD Julienne Augustine MA 02/13/2021 8:27 AM Signed Pt read my chart. No further action needed. Julienne Belle MA Allergies As of Date: 02/12/2021 [...] by mouth once daily. Encounter Status:Closed by JULIENNE BELLE on 02/13/21 [facility] 02-08-2021 NAHUN Office Visit (SOHAM ) JUDY ROCA ([id number]) 1965 F Date Time Provider Department 02/08/21 [...] 06/2020, better with diabetic medications. Reports pain 2-8. minimal AM stiffness. Had flu vaccine. Taking 1tab daily Plaquenil. Saw eye exam no medication toxicity. R elbow better after surgery 06/2020. Biking several times a week. COVID vaccine ODEC 03/07/20, 04/17/20, 11/29/20. Feels safe at home. 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 Normal [facility] OBSOLETEon 11-14-2020 OBSOLETE Refill (XIOMARAULN) JUDY ROCA ([id number]) 1965 F Date Time Provider Department 11/14/20 [...] Status:Closed by NABOR PICHARDO on 11/16/20 Normal [facility] Vital Signs Date Time Vital Sign Value Performing Clinician Facility 05-19-2023 13:54-0400 Body height 160 cm Iris ABARCA Work Phone: [facility] 05-19-2023 13:54-0400 Body mass index (BMI) [Ratio] 45.6 kg/m2 Iris Villalta APRNShopettiSEAFOOD CLERK Work Phone: [facility] 05-19-2023 13:54-0400 Body temperature 98.1 [degF] Iris Pawan [employer] Work Phone: [facility] 05-19-2023 13:54-0400 Body weight 116.76 kg Iris Villalta APRNPhotoPharmics Work Phone: [facility] 05-19-2023 13:54-0400 Diastolic blood pressure 78 mm[Hg] Iris Villalta [employer]NPhotoPharm[employer] Work Phone: [facility] 05-19-2023 13:54-0400 Heart rate 74 /min Iris Villalta [employer]NPhotoPharm[employer] Work Phone: [facility] 05-19-2023 13:54-0400 SaO2% (BldA) [Mass fraction] 97 % Iris Villalta APRNPhotoPharmics Work Phone: [facility] 05-19-2023 13:54-0400 Systolic blood pressure 120 mm[Hg] Iris Villalta APRN-SEAFOOD CLERK Work Phone: [facility] 03-18-2023 08:17-0500 Body height 160 cm Iris Villalta APRN-SEAFOOD CLERK [facility] 03-18-2023 08:17-0500 Body mass index (BMI) [Ratio] 45.19 kg/m2 Iris Villalta APRN-SEAFOOD CLERK [facility] 03-18-2023 08:17-0500 Body temperature 97.7 [degF] Iris Villalta APRN-SEAFOOD CLERK [facility] 03-18-2023 08:17-0500 Body weight 115.71 kg Iris Villalta APRN-SEAFOOD CLERK Work Phone: [facility] 03-18-2023 08:17-0500 Diastolic blood pressure 80 mm[Hg] Iris Villalta APRN-SEAFOOD CLERK [facility] 03-18-2023 08:17-0500 Heart rate 67 /min Iris Villalta APRN-JORDIN [facility] 03-18-2023 08:17-0500 SaO2% (BldA) [Mass fraction] 95 % Iris Villalta APRN-SEAFOOD CLERK Work Phone: [employer] 03-18-2023 08:17-0500 Systolic blood pressure 120 mm[Hg] Iris Villalta APRN-SEAFOOD CLERK Work Phone: [employer] 01-12-2023 14:10-0500 Body height 160.02 cm Francia Carlos Other [employer] Other 01-12-2023 14:10-0500 Body mass index (BMI) [Ratio] 43.78 kg/m2 Francia Carlos Other [employer] Other 01-12-2023 14:10-0500 Body temperature 97.4 [degF] Francia Carlos Other [employer] Other 01-12-2023 14:10-0500 Body weight 112.13 kg Francia Carlos Other [employer] Other 01-12-2023 14:10-0500 Respiratory rate 18 /min Francia Carlos Other [employer] Other 01-12-2023 14:10-0500 SaO2% (BldA) [Mass fraction] 97 % Francia Carlos Other [employer] Other Encounters Encounter Date Encounter Type Care Provider Facility Start: 09-16-2023 End: 09-16-2023 ambulatory [facility] Start: 08-19-2023 End: 08-19-2023 ambulatory [facility] Start: 08-11-2023 End: 08-11-2023 ambulatory ANGEL BAHENA Not Available Start: 07-22-2023 End: 07-22-2023 ambulatory [facility] Start: 07-09-2023 End: 07-09-2023 Emergency department patient visit Ronan Delcid Facility:[facility] Start: 07-09-2023 End: 07-09-2023 ambulatory [facility] Start: 05-29-2023 End: 05-30-2023 ambulatory [facility] Start: 05-29-2023 End: 05-29-2023 Clinical Support Iris ABARCA Work Phone: [facility] Comment on above: Dysuria (Primary Dx) ; Acute cystitis without hematuria Start: 05-26-2023 Telephone encounter Iris ABARCA Work Phone: [facility] - [facility] Start: 05-19-2023 End: 05-19-2023 ambulatory [facility] Start: 05-19-2023 End: 05-19-2023 Office outpatient visit 15 minutes Irisdana Villalta CASING PULLER-SEAFOOD CLERK Work Phone: [facility] Comment on above: Saloni infection of flexural skin (Primary Dx) Start: 03-29-2023 Refill Iris paredes CASING PULLER-SEAFOOD CLERK Work Phone: [facility] Comment on above: Type 2 diabetes hunter itus with hyperglycemia, without long-term current use of insulin ([facility]); Current mild episode of major depressive disorder without prior episode ([facility]); Benign essential HTN; Migraine 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, not intractable Start: 03-19-2023 End: 03-19-2023 ambulatory ANGEL BAHENA Not Available Start: 03-18-2023 End: 03-19-2023 ambulatory [facility] Start: 03-18-2023 End: 03-18-2023 ambulatory [facility] Start: 03-18-2023 End: 03-18-2023 Office outpatient visit 25 minutes Iris Villalta CASING PULLER-SEAFOOD CLERK Work Phone: [facility] Comment on above: Type 2 diabetes hunter itus with hyperglycemia, without long-term current use of insulin ([facility]) (Primary Dx); Current mild episode of major depressive disorder without prior episode ([facility]); Gastroesophageal reflux disease without esophagitis; Benign essential HTN; Migraine 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, not intractable; Seasonal allergic rhinitis due to pollen Start: 03-13-2023 Orders Only Iris paredes CASING PULLER-SEAFOOD CLERK Work Phone: [facility] Start: 01-14-2023 End: 01-14-2023 ambulatory Francia Carlos Other [employer] Other Start: 01-14-2023 Telephone encounter Francia Terrance [facility] [place] Start: 01-12-2023 End: 01-12-2023 ambulatory Francia Carlos Other [employer] Other Start: 01-12-2023 Office outpatient ne w 30 minutes Francia Terrance [facility] [place] Start: 02-21-2022 End: 02-21-[address] ROBIN MA Facility:[facility] Start: 2021 Telephone encounter Nabor low MD Work Phone: Rheumatology Comment on above: Results Start: 05-08-2021 End: 05-08-[address] ROBIN MA Facility:[facility] Start: 05-03-2021 End: 05-04-[address] ANGEL NOYOLA Facility:[facility] Procedures Date Procedure Procedure Detail Performing Clinician Start: 07-22-2023 Follow-up visit Follow-up IRIS VILLALTA Start: 05-29-2023 Urnls dip stick/tabl et rgnt non-auto w/o micrscp Iris Villalta CASING PULLER-SEAFOOD CLERK Work Phone: Start: 05-19-2023 Adult depression scr eening assessment Iris Villalta CASING PULLER-SEAFOOD CLERK Work Phone: Start: 03-18-2023 Hemoglobin glycosyla moshe a1c Iris Villalta CASING PULLER-SEAFOOD CLERK Work Phone: Start: 03-18-2023 Adult depression scr eening assessment Iris Villalta CASING PULLER-SEAFOOD CLERK Work Phone: Start: 03-18-2023 Microalbumin [Mass/v olume] in Urine by Test strip Iris Villalta APRN-SEAFOOD CLERK Work Phone: Start: 02-13-2023 Diabetic retinal eye exam Iris Villalta APRN-SEAFOOD CLERK Work Phone: Start: 09-10-2022 Adult depression scr eening assessment Iris Villalta CASING PULLER-SEAFOOD CLERK Work Phone: Start: 07-13-2020 Adult depression scr eening assessment Nabor Pichardo MD Work Phone: Start: 07-03-2013 Microscopic observat ion [Identifier] in Cervix by Cyto stain Iris [facility]alta [facility] Work Phone: Plan of Treatment Date Care Activity Detail Author Start: 05-18-2024 Adult BMI Follow Up Plan Adult BMI Follow Up Plan [facility] Start: 05-18-2024 Adult BMI Screening Adult BMI Screen ing [facility] Start: 05-18-2024 Depression Screening Depression Scre ening [facility] Start: 05-18-2024 Tobacco Screening Tobacco Screening [facility] Start: 03-18-2024 Adult BMI Follow Up Plan Adult BMI Follow Up Plan [facility] Start: 03-18-2024 Adult BMI Screening Adult BMI Screen ing [facility] Start: 03-18-2024 Depression Screening Depression Scre ening [facility] Start: 03-18-2024 Tobacco Screening Tobacco Screening [facility] Start: 03-18-2024 Urine screening for protein Urine Microalbumin [facility] Start: 02-14-2024 Glaucoma screening Diabetic Op hthalmology Exam [facility] Start: 10-26-2023 Influenza vaccination Influenza Vacc ine [facility] Start: 09-22-2023 End: 09-22-2023 Patient encounter procedure 09/22/2023 11:00 AM EDT Office [facility] [address] [place] [address] Iris Villalta [facility] [address] [place] [address] [facility] Start: 09-11-2023 Adult BMI Follow Up Plan Adult BMI Follow Up Plan [facility] Start: 09-11-2023 Adult BMI Screening Adult BMI Screen ing [facility] Start: 09-11-2023 Depression Screening Depression Scre ening [facility] Start: 09-11-2023 Tobacco Screening Tobacco Screening [facility] Start: 07-21-2023 DIABETES SCREEN DIABETES SCREEN [facility] Start: 03-18-2023 End: 03-18-2023 Patient encounter procedure 03/18/2023 8:00 AM EST Office Visit [facility] [address] [place] [id number] Iris Villalta, CASING PULLER-SEAFOOD CLERK [address] [place] [address] [facility] Start: 10-25-2022 COVID-19 Vaccine ( season) COVID-19 Vaccine ( season) [facility] Start: 10-25-2022 Influenza vaccination Influenza Vacc ine [facility] Start: 10-25-2021 Influenza vaccination INFLUENZA (#1) [facility] Start: 07-13-2021 Adult depression screening assessment DEPRESSION SCREENING [facility] Start: 03-01-2021 COVID-19 VACCINE (4 - Booster for Pfizer series) COVID-19 VACCINE (4 - Booster for Pfizer series) [facility] Start: 2016 Administration of varicella zoster vaccine Zoster (Shingles) Vaccine (1 of 2) [facility] Start: 07-03-2016 Screening for malign ant neoplasm of cervix Pap Smear [facility] Start: 09-14-2011 COLOGUARD (FIT-DNA) COLOGUARD (FIT-D NA) [facility] Start: 09-14-2011 Colonoscopy COLONOSCOPY [facility] Start: 09-14-2011 COLORECTAL CANCER SCREENING COLORECTAL CANCER SCREENING [facility] Start: 09-14-[address] COLONOGRAPHY [facility] Start: 09-14-2011 FECAL OCCULT BLOOD FECAL OCCULT BLOO D [facility] Start: 09-14-2011 LIPID SCREEN LIPID SCREEN [facility] Start: 09-14-2011 SIGMOIDOSCOPY SIGMOIDOSCOPY [facility] Start: 2006 Mammography MAMMOGRAM [facility] Start: 1996 HPV TESTING HPV TESTING [facility] Start: 09-14-1987 PAP TESTING PAP TESTING [facility] Start: 1985 SHINGRIX VACCINE (1 of 2) SHINGRIX VACCINE (1 of 2) [facility] Start: 1985 Urine microalbumin profile DTAP,TDAP,TD (1 - Tdap) [facility] Start: 1984 Diabetic foot examination Diabetic Foot Exam [facility] Start: 1984 HIV SCREENING HIV SCREENING [facility] Start: 12-17-1983 DTaP,Tdap and Td Vaccines (3 - Tdap) DTaP,Tdap and Td Vaccines (3 - Tdap) [facility] Start: 1972 PNEUMOCOCCAL (1 - PCV) PNEUMOCOCCAL (1 - PCV) [facility] Start: 1966 Urine screening for protein Urine Microalbumin [facility] End: 05-28-2024 Bacteria identified in Urine by Culture Urine culture (clean catch) Microbiology Routine Acute cystitis without hematuria 1 Occurrences starting 05/29/2023 until 05/28/2024 [employer] Work Phone: Comment on above: 1 Occurrences starti ng 05/29/2023 until 05/28/2024 End: 03-17-2024 Microalbumin - Albumin: Creatinine Urine Ratio Microalbumin - Albumin: Creatinine Urine Ratio Lab Routine Type 2 diabetes mellitus with hyperglycemia, without long-term current use of insulin ([facility]) 1 Occurrences starting 03/18/2023 until 03/17/2024 [facility] Work Phone: Comment on above: 1 Occurrences starti ng 03/18/2023 until 03/17/2024 [facility] Immunization Date Immunization Notes Care Provider Torito patton 12-05-2022 influenza, injectabl e, quadrivalent, preservative free Iris Villalta CASING PULLER-SEAFOOD CLERK Work Phone: [facility] 12-05-2022 influenza virus vaccine, unspecified formulation Iris Villalta CASING PULLER-SEAFOOD CLERK Work Phone: [facility] 10-27-2021 influenza, injectabl e, quadrivalent, preservative free Iris Villlata CASING PULLER-SEAFOOD CLERK Work Phone: [facility] 10-27-2021 influenza virus vaccine, unspecified formulation Iris Villalta CASING PULLER-SEAFOOD CLERK Work Phone: [facility] 11-02-2020 influenza, injectabl e, quadrivalent, preservative free Iris Villalta CASING PULLER-SEAFOOD CLERK Work Phone: [facility] 10-27-2019 influenza, injectabl e, quadrivalent, preservative free Iris Villalta CASING PULLER-SEAFOOD CLERK Work Phone: [facility] 12-16-1983 mumps virus vaccine Iris Villalta CASING PULLER-SEAFOOD CLERK Work Phone: [facility] 12-16-1983 TD(adult) unspecifie d formulation Iris Villalta CASING PULLER-SEAFOOD CLERK Work Phone: [facility] 12-05-1970 poliovirus vaccine, unspecified formulation Iris Villalta CASING PULLER-SEAFOOD CLERK Work Phone: [facility] 11-07-1970 diphtheria, tetanus toxoids and pertussis vaccine Iris Villalta CASING PULLER-SEAFOOD CLERK Work Phone: [facility] 11-07-1970 measles, mumps and rubella virus vaccine Iris Villalta CASING PULLER-SEAFOOD CLERK Work Phone: [facility] 11-04-1967 poliovirus vaccine, unspecified formulation Iris Villalta CASING PULLER-SEAFOOD CLERK Work Phone: [facility] 08-30-1967 measles virus vaccine Jenni e Villalta CASING PULLER-SEAFOOD CLERK Work Phone: [facility] 08-05-1967 poliovirus vaccine, unspecified formulation Iris Villalta CASING PULLER-SEAFOOD CLERK Work Phone: [facility] Payers Date Payer Category Payer Self-pay 2021 Unknown [facility] [id number] 2021-Present [phone] [address] [address] [place] [address] [id number] 2020 Unknown [employer] [id number] 2020-Present [phone] [address] [place] [address] O [id number] 1966 Unknown [id number] 1965 Unknown [id number] [id number] 1965 Unknown [id number] [id number] 1965 Unknown [id number] [id number] 1965 Unknown [id number] [id number] 1965 Unknown [id number] [id number] 1965 Unknown [id number] [id number] 1965 Unknown [id number] [id number] 1965 Unknown [id number] 2.16.840.1.588206.3.579.2.1286 1965 Unknown [id number] 2.16.840.1.983154.3.579.2.1286 1966 Unknown [id number] 2.16.840.1.753589.3.579.2.1286 1965 Unknown [id number] 2.16.840.1.045004.3.579.2.1286 1965 Unknown [id number] 2.16.840.1.990411.3.579.2.1286 1965 Unknown [id number] 2.16.840.1.003308.3.579.2.1286 1966 Unknown [id number] 2.16.840.1.937873.3.579.2.1286 1959 Unknown [id number] 1959 Unknown [id number] Unknown [id number] Social History Date Type Detail Facility Start: 07-20-2020 End: 09-10-2022 Tobacco smoking status NHIS Never smoked tobacco [facility] Start: 07-20-2020 End: 09-10-2022 Tobacco use and exposure Smokeless tobacco non-user [facility] Start: 02-08-2021 Alcohol intake Ex-drinker (finding) [facility] Start: 1965 Sex Assigned At Female [facility] Start: 09-10-2022 End: 05-19-2023 Sex Assigned At [facility] [employer] Other Start: 09-10-2022 End: 05-19-2023 Alcohol intake Lifetime non-drinker (finding) [facility] Start: 09-10-2022 End: 05-19-2023 History of Social function [facility] Adolescent depressio n screening assessment 8 [facility] Start: 1965 Sex Assigned At Not on file P [facility] Clinical Notes 02-08-2021 to 05-29-2023 HEIDI GamezSEAFOOD CLERK - 05/29/2023 1:40 PM EDTAddendum Note - Fidencio Degroot CMA - 05/29/2023 1:40 PM EDTAddendum Note - Fidencio Degroot CMA - 05/29/2023 1:40 PM EDT Note Date & Type Note Facility 05-29-2023 History of Presen t illness Narrative New orders for Bactrim DS oral twice daily for 7 days. Send urine for culture. RIMA [employer] 05/29/23 1451 documented in this encounter [facility] 05-29-2023 Miscellaneous Notes Addended by: FIDENCIO DEGROOT on: 05/29/2023 03:03 PM Modules accepted: Orders documented in this encounter [facility] 05-29-2023 Note Addended by: FIDENCIO DEGROOT on: 05/29/2023 03:03 PM Modules accepted: Orders [facility] 05-26-2023 Miscellaneous Notes Formattin g of [...] 1:30okay per shereen documented in this encounter [facility] 05-26-2023 Telephone encount er Note Patient called ans said that she is still having some pressure and burning, the rash is starting to clear up. She was wondering if you could send in estrogen cream for her [facility] 05-26-2023 Telephone encount er Note Please inform patient I do not order estrogen cream for her current complaint. I am concerned she may have a UTI. [facility] 05-26-2023 Telephone encount er Note Patient will be dropping a UA arounf 1:30okay per shereen [facility] 05-19-2023 History of Presen t illness Narrative Images from the original note were not included. [address] [place] [address] SUBJECTIVE: Patient ID: Judy Roca is a [...] Medical History: Diagnosis Date Allergic Diabetes mellitus ([facility]) Hypertension Immunization History Administered Date(s) Administered COVID-19, [...] [employer] 05/19/23 1412 documented in this encounter [facility] [employer] 03-18-2023 History of Presen t illness Narrative Images from the original note were not included. [address] [facility] [address] SUBJECTIVE: Patient ID: Judy Roca is a 57 y.o. female. Chief Complaint Patient presents with Diabetes Presents for follow up States her allergies have been bothering her more lately. Is taking cetirizine but is not effective. Has tried loratadine as well. Flonase causes nose bleeds. Blood sugars average in the 130s. Uses [employer] system for blood glucose monitoring. Diabetes She [...] 130-140 mg/dl. 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 Hypertension This is a [...] Medical History: Diagnosis Date Allergic Diabetes mellitus ([facility]) Hypertension Immunization History Administered Date(s) Administered COVID-19, [...] hyperglycemia, without long-term current use of insulin ([facility]) - POCT Hemoglobin A1c - blood-glucose sensor [...] of major depressive disorder without prior episode [place] [facility]) - venlafaxine XR (EFFEXOR-XR) 150 mg 24 [...] 6.5% in office today. Was 6.3% Using [employer] testing system Previously ordered Jihan but insurance [...] [employer] 03/18/23 0935 documented in this encounter [facility] 01-12-2023 Evaluation note Encounter Date Diagnosis [...] and rest, Tylenol/Motrin as directed, rx of [place], OTC Flonase, cool mist humidifier, throat lozenges. [...] treatment plan. Patient left in stable condition [employer] Other 07-21-2022 Miscellaneous Notes* Telephone Encounter - Nabor Pichardo MD - 2021 5:59 AM EDT For chart eye exam 08/22/21 Dr.Mark Alonso, OD Blurry vision , diabetes making her vision fluctuate. Plaquenil 2years. No toxicity. [facility] NoteHNO ID: [id number] Author: Nabor Pichardo MD Service: ? Author [...] Biking several times a week. COVID vaccine ODEC 03/07/20, 04/17/20, 11/29/20. Feels safe at home. 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 Ulnar positive sarah (more content not included)...[facility]al[facility] noteNo InformationNoGe[facility] [employer] Other Evaluation note* Diagnosis Type 2 diabetes mellitus with hyperglycemia, without long-term current use of insulin ([facility])- Primary Current mild episode of major depressive disorder without prior episode ([facility]) Gastroesophageal reflux disease without esophagitis Esophageal reflux Benign essential HTN Migraine 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, not intractable Seasonal allergic rhinitis due to pollen documented in this encounter [facility] System[facility]* Diagnosis Type 2 diabetes mellitus with hyperglycemia, without long-term current use of insulin ([facility]) Current mild episode of major depressive disorder without prior episode ([facility]) Benign essential HTN Migraine 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, not intractable documented in this encounter [facility]* Diagnosis Saloni infection of flexural skin- Primary Candidiasis of skin and nails documented in this encounter [facility]* Diagnosis Dysuria- Primary Acute cystitis without hematuria documented in this encounter [facility] SystemHistory general Narrative - Reported* Type Description Date Medical History depression Medical History hypertension Medical History menopause Surgical History hysterectomy Surgical History back surgery Surgical History elbow surgery Surgical History carpal tunnel release [facility] [employer] Other InstructionsNot on filedocumented in this encounter [facility] [employer] SystemInstructions* Attachments The following attachments cannot be sent through Care Everywhere. * High blood pressure in adults ([place]) documented [facility] [employer] Pages SystemInstructionsNot on file documented in this encounterProN[facility] Insider Pages SystemInstructionsNot on file documented in this encounterProNoland [facility] Insider Pages SystemInstructionsNot on file documented in this encounterBl[facility] [employer] Pages SystemInstructionsNot on file documented in this encounterBl[facility] Summary Purpose Family History No [...] Seasonal allergic rhinitis due to pollen Iris Villalta APRN-SEAFOOD CLERK [address] [place] [address] Referral ID Status Reason Start Date Expiration Date V isits Requested Visits Authorized [id number] Pending Review 1 1 Additional Source Comments Source Comments (unrecognize d section and content) In the event this informatio n is protected by the Federal Confidentiality of Alcohol and Drug Abuse Patient Records regulations: The Federal rules restrict any use of the information to criminally investigate or prosecute any alcohol or drug abuse patient.[facility] Reason for Visit (unrecogniz ed section and content) Reason Comments Results Reason Comments Diabetes Reason Comments Med Refill Reason Comments Rash Right groin Reason Comments Urinary Tract Infection Care Teams (unrecognized sec tion and content) Behavioral Assistant Relationship Specialty Start Date End Date Anil Robin Asa . [address] [facility] [place] [address] PCP - General Family Practice 07/20/20 Behavioral Assistant Relationship Specialty Start Date End Date Iris Villalta APRN-SEAFOOD CLERK [address] [place] [address] PCP - General Family Medicine 08/28/22 Behavioral Assistant Relationship Specialty Start Date End Date Iris Villalta APRN-SEAFOOD CLERK [address] [place] [id number] PCP - General Family Medicine 08/28/22 Behavioral Assistant Relationship Specialty Start Date End Date Iris Villalta [facility] [address] [place] [address] PCP - General Family Medicine 08/28/22 Behavioral Assistant Relationship Specialty Start Date End Date Iris Villalta [facility] [address] [place] [address] PCP - General Family Medicine 08/28/22 Behavioral Assistant Relationship Specialty Start Date End Date Iris Villalta [facility] [address] [place] [address] PCP - General Family Medicine 08/28/22 Behavioral Assistant Relationship Specialty Start Date End Date Iris Villalta [facility] [address] [place] [address] PCP - General Family Medicine 08/28/22 INFORMATION SOURCE (unrecogn ized section and content) DATE CREATED AUTHOR 09/15/2021 [facility] DATE CREATED AUTHOR AUTHOR'S ORGANIZ ATION 02/26/2022 [facility] DATE CREATED AUTHOR AUTHOR'S ORGANIZ ATION 05/31/2023 [facility] DATE CREATED AUTHOR AUTHOR'S ORGANIZ ATION 07/20/2023 [facility] DATE CREATED AUTHOR AUTHOR'S ORGANIZ ATION 08/16/[address] [facility] DATE CREATED AUTHOR AUTHOR'S ORGANIZ ATION 09/19/2023 [facility] FOR RECORDS PERTAINING TO PATIENTS [...] BE BASED ON THE PRIMARY CLINICAL RECORDS. [facility]. provides no warranty or guarantee of the accuracy or completeness of information in this document.
[2023-10-12 18:36] VITALS: BP 100/78; PULSE 65; TEMP 36.8; O2SAT 95; BMI 45.0
[2023-10-12 18:48] LABS: Bilirubin Urine NEGATIVE (NEGATIVE); Blood Urine SMALL (NEGATIVE); Clarity Urine CLEAR (CLEAR); Color Urine LT. YELLOW (YELLOW); Glucose Urine UA NEGATIVE (NEGATIVE); Ketones Urine NEGATIVE (NEGATIVE); Leukocyte Esterase Urine TRACE (NEGATIVE); Nitrite Urine NEGATIVE (NEGATIVE); Protein Urine NEGATIVE (NEG/TRACE); Specific Gravity Urine >=1.030 (1.005-1.025); Urobilinogen Urine 0.2 EU/dL (0.2-1.0); pH Urine 5.5 (5.0-9.0)
--- NOTE | 2023-10-12 18:55 | ED.GENADUL1 ---
HPI HPI - General Adult General Chief complaint: Urogenital-Female Stated complaint: EYE IRRITATION, URINARY ISSUES Time Seen by Provider: 10/12/23 18:39 Source: patient Mode of arrival: walk-in Limitations: no limitations History of Present Illness HPI narrative: 58-year female presents for 2 issues. First she has had a 2-day history of eye redness and drainage. She woke up today and yesterday with her eyes matted shut. Second for 4 days she has had frequency and dysuria and believes she has a UTI. No fever or back pain vomiting or gross hematuria. Related Data Home Medications ?Medication ?Instructions ?Recorded ?Confirmed cetirizine 10 mg tablet 10 mg PO DAILY 07/28/22 11/14/22 famotidine 40 mg tablet 40 mg PO Q12H 07/28/22 11/14/22 glimepiride 4 mg tablet 4 mg PO .TWICE 07/28/22 11/14/22 pioglitazone 30 mg tablet 30 mg PO DAILY 07/28/22 11/14/22 propranolol 80 mg capsule,24 80 mg PO Q24H 07/28/22 11/14/22 hr,extended release venlafaxine 150 mg 150 mg PO DAILY 07/28/22 11/14/22 capsule,extended release 24 hr Previous Rx's ?Medication ?Instructions ?Recorded ondansetron 4 mg disintegrating 4 mg PO Q6H PRN nausea and 07/04/23 tablet vomiting #20 tabs cephalexin 500 mg capsule 500 mg PO TID 7 days #21 caps 08/05/23 phenazopyridine 200 mg tablet 200 mg PO Q8H PRN pain #15 tabs 08/05/23 (Pyridium) nitrofurantoin 100 mg PO BID 7 days #14 caps 10/12/23 monohydrate/macrocrystals 100 mg capsule (Macrobid) sulfacetamide sodium 10 % eye drops 2 drp ophthalmic (eye) Q4H #15 mL 10/12/23 Allergies Allergy/AdvReac Type Severity Reaction Status Date / Time No Known Drug Allergies Allergy Verified 10/12/23 18:39 Opioid HPI Opioid Management Most Recent Opioid Data: Last Pain Scale 8 11/14/22 22:57 Review of Systems ROS Narrative A ten point review of systems is negative except as noted above. PFSH PFSH Social History Smoking status: Never smoker Exam Narrative Exam Narrative: Nurses note and vital signs reviewed and patient is not hypoxic. General: The patient appears well and in no apparent distress. Patient is resting comfortably on cart. Skin: Warm, dry, no pallor noted. There is no rash noted. Head: Normocephalic, atraumatic Eye: Both conjunctiva are minimally injected. No periorbital erythema or swelling. Ears, Nose, Mouth, and Throat: oral mucosa is moist. Nares patent. Cardiovascular: Regular Rate and Rhythm Respiratory: Patient is in no distress, no accessory muscle use, lungs are clear to auscultation, no wheezing, rales or rhonchi Back: non-tender GI: Soft and non- Musculoskeletal: The patient has no evidence of calf tenderness, no pitting edema, symmetrical pulses noted bilaterally Neurological: A&O, normal speech Psychiatric: Cooperative Constitutional Vital Signs, click to edit/add: Last Vital Signs Temp 98.2 F 10/12/23 18:36 Pulse 65 10/12/23 18:36 Resp 18 10/12/23 18:36 BP 100/78 10/12/23 18:36 Pulse Ox 95 10/12/23 18:36 O2 Del Method Room Air 10/12/23 18:36 Course Vital Signs Vital signs: Vital Signs Temperature 98.2 F 10/12/23 18:36 Pulse Rate 65 10/12/23 18:36 Respiratory Rate 18 10/12/23 18:36 Blood Pressure 100/78 10/12/23 18:36 Pulse Oximetry 95 10/12/23 18:36 Oxygen Delivery Method Room Air 10/12/23 18:36 Temperature 98.2 F 10/12/23 18:36 Pulse Rate 65 10/12/23 18:36 Respiratory Rate 18 10/12/23 18:36 Blood Pressure 100/78 10/12/23 18:36 Pulse Oximetry 95 10/12/23 18:36 Oxygen Delivery Method Room Air 10/12/23 18:36 Medical Decision Making MDM Narrative Medical decision making narrative: Urinalysis shows a few white cells and she has symptoms so she will be placed on Macrobid. She was also prescribed Bleph-10 for the conjunctivitis. Treatment diagnosis and follow-up were discussed with the patient. Differential Diagnosis Differential Diagnosis: UTI, conjunctivitis, environmental allergy Lab Data Lab results reviewed: Yes I reviewed the patient's lab results Labs: Lab Results 10/12/23 Range/Units 18:40 Urine Color Lt. yellow (YELLOW) Urine Clarity Clear (CLEAR) Urine pH 5.5 (5.0-9.0) Ur Specific [place] >=1.030 A (1.005-1.025) Urine Protein Negative (NEG/TRACE) mg/dL Urine Glucose (UA) Negative (NEGATIVE) mg/dL Urine Ketones Negative (NEGATIVE) mg/dL Urine Occult Blood Small A (NEGATIVE) Urine Nitrite Negative (NEGATIVE) Urine Bilirubin Negative (NEGATIVE) Urine Urobilinogen 0.2 (0.2-1.0) EU/dL Ur Leukocyte Esterase Trace A (NEGATIVE) Urine RBC None seen (0-2) #/HPF Urine WBC 5-10 A (NONE SEEN) #/HPF Ur Squamous Epith Cells Moderate A (NONE/RARE) #/LPF Urine Crystals None seen (None Seen) #/HPF Amorphous Sediment Few Urine Bacteria None seen (NONE SEEN) #/HPF Urine Casts None seen (NONE SEEN) #/LPF Urine Mucus Moderate A (NONE SEEN) Ur Culture Indicated? Yes Discharge Plan Discharge Stand Alone Forms: Portal Instructions Chief Complaint: Urogenital-Female Clinical Impression: Acute conjunctivitis, bilateral, Urinary tract infection Patient Disposition: Home, Self-Care Time of Disposition Decision: 19:06 Condition: Good Mode of Transportation: Private Vehicle Prescriptions / Home Meds: New sulfacetamide sodium 10 % drops 2 drp ophthalmic (eye) Q4H Qty: 15 0RF nitrofurantoin monohyd/m-cryst [Macrobid] 100 mg capsule 100 mg PO BID 7 Days Qty: 14 0RF Rx Instructions: must administer with a meal/food No Action cephalexin 500 mg capsule 500 mg PO TID 7 Days Qty: 21 0RF phenazopyridine [Pyridium] 200 mg tablet 200 mg PO Q8H PRN (Reason: pain) Qty: 15 0RF cetirizine 10 mg tablet 10 mg PO DAILY famotidine 40 mg tablet 40 mg PO Q12H glimepiride 4 mg tablet 4 mg PO .TWICE pioglitazone 30 mg tablet 30 mg PO DAILY propranolol 80 mg capsule,extended release 24 hr 80 mg PO Q24H venlafaxine 150 mg capsule,extended release 24hr 150 mg PO DAILY ondansetron 4 mg tablet,disintegrating 4 mg PO Q6H PRN (Reason: nausea and vomiting) Qty: 20 0RF Print Language: [place] Citizen Instructions: Urinary Tract Infection in Women (ED), Conjunctivitis (ED) Referrals: IRIS KENNEDY [Primary Care Provider] - 1 week
[2023-10-12 19:03] LABS: Amorphous Sediment Urine FEW; Bacteria Urine NONE SEEN #/HPF (NONE SEEN); Cast Seen? NONE SEEN #/LPF (NONE SEEN); Crystals Seen? None Seen #/HPF (None Seen); Mucus Urine MODERATE (NONE SEEN); RBC Urine NONE SEEN #/HPF (0-2); Squamous Epithelial Cell Urine MODERATE #/LPF (NONE/RARE); Urine Culture Indicated YES
== END 2023-10-12 19:16 | disposition home or self-care (01) ==
PROVIDERS: Emergency Provider Emergency Medicine; PCP Nurse Practitioner
DX: N39.0 Urinary tract infection, site not specified (principal); H10.33 Unspecified acute conjunctivitis, bilateral
CPT/HCPCS: 81001; 87086; 99283

== ENCOUNTER 2023-12-15 20:38 | Emergency (ER) | payer MEDICAID, SELFPAY ==
[2023-12-15 20:43] VITALS: BP 160/88; PULSE 69; TEMP 36.7; O2SAT 98; BMI 44.3
--- OUTSIDE RECORDS SUMMARY | 2023-12-15 21:00 | XMS_ITS | CCD ---
Author Organization [facility] Care Team Providers Care Arabic Linguist Name Role Phone Anil Sexton., Robin Bray Primary Care Provider ANIL, DR LORD Primary Care Unavailable AKANKSHA, DR DEWITT Admitting Unavailable AKANKSHA, DR DEWITT Attending Unavailable AKANKSHA, DR DEWITT Consulting Unavailable STEPANIC, DR ORTIZ Admitting Unavailable STEPANIC, DR ORTIZ Attending Unavailable HOUSE, DR LORD Primary Care Unavailable STEPANIC, DR ORTIZ Consulting Unavailable ZIEBER, DR XENIA Mckee Consulting Unavailable ANIL, DR LORD Primary Care Unavailable SUSY, DR BEE Mckee Admitting Unavailable SUSY, DR BEE Mckee Attending Unavailable SUSY, DR BEE Mckee Consulting Unavailable STACIE, BRY Consulting Unavailable Francia Carlos Unavailable Villalta SPOKE MAKER-CABLE ARMORER, Iris Nugent Primary Care Provid er Ronan Delcid Admitting Unavailable Ronan Delcid Attending Unavailable Iris Villalta Primary Care Unavailable JR. JAZMÍN, ANGEL Tong Attending Unavaila kellen NOYOLA JR., ANGEL Tong Attending Unavaila kellen NOYOLA JR., ANGEL Tong Referring Unavaila ble IRIS VILLALTA Referring Unavailable VILLALTA, IRIS Nugent Primary Care Unavailable VILLALTAIRIS Referring Unavailable VILLALTA, IRIS Jovanna Primary Care Unavailable VILLALTA, IRIS J Referring Unavailable VILLALTA, IRIS Jovanna Primary Care Unavailable VILLALTA, IRIS Nugent Attending Unavailable VILLALTAGARYE J Referring Unavailable VILLALTA, IRIS J Primary Care Unavailable VILLALTA, IRIS J Attending Unavailable VILLALTA, IRIS J Referring Unavailable VILLALTA, IRIS J Primary Care Unavailable VILLALTA, IRIS J Attending Unavailable VILLALTA, IRIS J Referring Unavailable VILLALTA, IRIS J Primary Care Unavailable VILLALTA, IRIS J Attending Unavailable VILLALTA, IRIS J Referring Unavailable VILLALTA, IRIS J Primary Care Unavailable VILLLATA, IRIS J Attending Unavailable IRIS VILLALTA Referring Unavailable IRIS VILLALTA Primary Care Unavailable IRIS VILLALTA Attending Unavailable IRIS VILLALTA Referring Unavailable PAWAN, IRIS Nugent Primary Care Unavailable PAWAN, IRIS Nugent Attending Unavailable IRIS VILLALTA Referring Unavailable PAWAN, IRIS Nugent Primary Care Unavailable IRIS VILLALTA Attending Unavailable IRIS VILLALTA Referring Unavailable IRIS VILLALTA Primary Care Unavailable IRIS VILLALTA Attending Unavailable IRIS VILLALTA Referring Unavailable IRIS VILLALTA Primary Care Unavailable IRIS VILLALTA Attending Unavailable IRIS VILLALTA Referring Unavailable IRIS VILLALTA Primary Care Unavailable Medications Current Medications Medication Drug Class(es) Dates Sig (Normalized) Sig (Original) [id number] 200 actuat albuterol 0.09 mg/actuat metered dose [...] (3 sources) Azole Antifungal, Corticosteroid Start: 05-19-2023 clotrimazole-betam ethasone (LOTRISONE) cream Indications: Saloni infection of flexural skin Apply 1 Application topically in the morning and 1 Application before bedtime. 15 g 0 05/19/2023 Active blood-glucose sensor (FREESTYLE JAYNE 3 SENSOR PLUS) device (1 source) Start: 11-18-2023 blood-glucose sensor (FREESTYLE JAYNE 3 SENSOR PLUS) device Indications: Type 2 diabetes mellitus with hyperglycemia, without long-term current use of insulin ([facility]) 1 Device by miscellaneous route See Admin Instructions. Change every 15 days 2 each 6 11/18/2023 Active blood-glucose sensor (FREESTYLE JAYNE 3 SENSOR) device (7 sources) Start: 03-18-2023 blood-glucose sensor (FREESTYLE JAYNE 3 SENSOR) device Indications: Type 2 diabetes mellitus with hyperglycemia, without long-term current use of insulin (CMS-HCC) USE DIRECTED; change EVERY 2 (TWO) weeks 6 each 2 03/18/2023 Active Start: 09-25-2022 End: 03-18-2023 blood-glucose sensor (FREEST YLE JAYNE 3 SENSOR) device Indications: Type 2 diabetes mellitus with hyperglycemia, without long-term current use of insulin (CMS-HCC) USE DIRECTED; change EVERY 2 (TWO) weeks 2 each 5 09/25/2022 03/18/2023 Discontinued (Reorder) Start: 09-25-2022 blood-glucose sensor (FREESTYLE JAYNE 3 SENSOR) device Indications: Type 2 diabetes mellitus with hyperglycemia, without long-term current use of insulin (CMS-HCC) USE DIRECTED; change EVERY 2 (TWO) weeks 2 each 5 09/25/2022 Active cariprazine 1.5 mg oral capsule (1 source) Atypical Antipsychotic Start: 11-18-2023 take 1 capsule by mouth in the morning cariprazine (VRAYLAR) 1.5 mg capsule Indications: Major depression, chronic Take 1 capsule (1.5 mg total) by mouth in the morning. 90 capsule 1 11/18/2023 Active dextromethorphan hydrobromide 1.5 mg/ml / pyrilamine maleate 1.5 mg/ml oral solution (2 sources) Uncompetitive R-ndxxfc-V-aspartat e Receptor Antagonist, Sigma-1 Agonist Start: 01-12-2023 take 10 mL by mouth every eight hours [place] DM 7.5-7.5 MG/5ML 10 mL Orally every 8 hours for 5 days Dec, Active diclofenac sodium 50 mg delayed release oral tablet (2 sources) Nonsteroidal Anti-inflammatory Drug Start: 11-18-2023 take 1 tablet by mouth in the morning, then take 1 tablet by mouth at bedtime diclofenac (VOLTAREN) 50 mg EC tablet Indications: Arthritis, multiple joint involvement Take 1 tablet (50 mg total) by mouth in the morning and 1 tablet (50 mg total) before bedtime. 180 tablet 1 11/18/2023 Active Start: 02-08-2021 diclofenac (VO LTAREN) 1 % topical gel Indications: Secondary osteoarthritis of multiple sites apply 2gms to areas of joint pain up to four times a day. Avoid contact with eyes. Do not exceed 32gm/day 100 g 5 02/08/2021 Active Comment on above: apply 2gms to areas of joint pain up to four times a day. Avoid contact with eyes. Do not exceed 32gm/day dicyclomine hydrochloride 20 mg oral tablet (1 source) Anticholinergic Start: take 1 tablet by mouth every eight hours as needed dicyclomine (BENTYL) 20 mg tablet Indications: Generalized abdominal pain Take 1 tablet (20 mg total) by mouth every 8 (eight) hours as needed (abdominal cramping). 90 tablet 10/21/2023 Active famotidine 40 mg oral tablet (11 sources) Histamine-2 Receptor Antagonist Start: take 1 tablet by mouth once famotidine (PEPCID) 40 mg tablet Indications: Gastroesophageal reflux disease without esophagitis Take 1 tablet (40 mg total) by mouth every 12 (twelve) hours. 180 tablet 1 08/19/2023 Active Start: 09-10-2022 End: 03-18-2023 take 1 tablet by mouth once famotidine (PEPCID) 40 mg tablet Indications: Gastroesophageal reflux disease without esophagitis Take 1 tablet (40 mg total) by mouth every 12 (twelve) hours. 180 tablet 1 03/18/2023 Active Start: 07-10-2020 take 1 tablet by angie twice daily famotidine (PEPCID) 40 mg tablet Take 40 mg by mouth twice daily. 0 07/10/2020 Active Comment on above: Take 40 mg by mouth twice daily. flash glucose scanning reader (FREESTYLE JAYNE 2 READER) [facility] (1 source) Start: 11-11-19 flash glucose scanning reader (FREESTYLE JAYNE 2 READER) [facility] Indications: Non-insulin dependent type 2 diabetes mellitus (CMS-HCC) 1 each by miscellaneous route in the morning. 1 each 11/11/2023 Active flash glucose sensor (FREESTYLE JAYNE 2 SENSOR) kit (1 source) Start: 11-11-19 flash glucose sensor (FREESTYLE JAYNE 2 SENSOR) kit Indications: Non-insulin dependent type 2 diabetes mellitus ([facility]) 1 Device by miscellaneous route every 14 (fourteen) days. 3 kit 3 11/11/2023 Active fluconazole 150 mg oral tablet (1 source) Azole Antifungal Start: 05-19-19 End: 05-22-19 take 1 tablet by mouth in the morning fluconazole (DIFLUCAN) 150 mg tablet Indications: Saloni infection of flexural skin Take 1 tablet (150 mg total) by mouth in the morning for 3 doses. 3 tablet 0 05/19/2023 05/22/2023 Active glimepiride 4 mg oral tablet (11 sources) Sulfonylurea Start: 08-19-19 take 1 tablet by mouth at bedtime glimepiride (AMARYL) 4 mg tablet Indications: Type 2 diabetes mellitus with hyperglycemia, without long-term current use of insulin ([facility]) Take 1 tablet (4 mg total) by mouth in the morning and at bedtime. 90 tablet 1 08/19/2023 Active Start: 09-10-2022 End: 03-18-2023 take 1 tablet by mouth at bedtime glimepiride (AMARYL) 4 mg tablet Indications: Type 2 diabetes mellitus with hyperglycemia, without long-term current use of insulin ([facility]) Take 1 tablet (4 mg total) by mouth in the morning and at bedtime. 90 tablet 1 03/18/2023 Active Comment on above: 1 tablet with breakf ast or the first main meal of the day hydrOXYzine hydrochloride 25 mg oral tablet (1 source) Antihistamine Start: take 1 tablet by mouth once daily as needed hydrOXYzine (ATARAX) 25 mg tablet Indications: Other insomnia Take 1 tablet (25 mg total) by mouth nightly as needed for itching. 30 tablet 2 11/12/2023 Active levocetirizine dihydrochloride 5 mg oral tablet (6 sources) Histamine-1 Receptor Antagonist Start: take 1 tablet by mouth once daily levocetirizine (XYZAL) 5 mg tablet Indications: Seasonal allergic rhinitis due to pollen Take 1 tablet (5 mg total) by mouth nightly. 90 tablet 1 03/18/2023 Active lisinopril 10 mg oral tablet (1 source) Angiotensin Converting Enzyme Inhibitor Start: take 1 tablet by mouth in the morning lisinopriL (PRINIVIL,ZESTRIL) 10 mg tablet Indications: Benign essential HTN Take 1 tablet (10 mg total) by mouth in the morning. 90 tablet 1 11/18/2023 Active omeprazole 20 mg delayed release oral capsule (8 sources) Proton Pump Inhibitor Start: take 1 capsule by mouth in the morning omeprazole (PriLOSEC) 20 mg capsule Indications: Gastroesophageal reflux disease without esophagitis Take 1 capsule (20 mg total) by mouth in the morning. 90 capsule 1 08/19/2023 Active Start: 09-10-2022 End: 03-18-2023 take 1 capsule by mouth in the morning omeprazole (PriLOSEC) 20 mg capsule Indications: Gastroesophageal reflux disease without esophagitis Take 1 capsule (20 mg total) by mouth in the morning. 90 capsule 1 03/18/2023 Active pioglitazone 30 mg oral tablet (12 sources) Peroxisome Proliferator Receptor alpha Agonist, Peroxisome Proliferator Receptor gamma Agonist, Thiazolidinedione Start: 08-19-2023 take 1 tablet by mouth in the morning pioglitazone (ACTOS) 30 mg tablet Indications: Type 2 diabetes mellitus with hyperglycemia, without long-term current use of insulin ([facility]) Take 1 tablet (30 mg total) by mouth in the morning. 90 tablet 1 08/19/2023 Active Start: 09-10-2022 End: 03-30-2023 take 1 tablet by mouth in the morning pioglitazone (ACTOS) 30 mg tablet Indications: Type 2 diabetes mellitus with hyperglycemia, without long-term current use of insulin ([facility]) TAKE 1 TABLET BY MOUTH IN THE MORNING 90 tablet 1 03/30/2023 Active 24 hr propranolol hydrochloride 80 mg extended release oral capsule (12 sources) beta-Adrenergic Nikko Start: 08-19-2023 take 1 capsule by mouth every twenty-four hours in the morning propranolol LA (INDERAL LA) 80 mg 24 hr capsule Indications: Benign essential HTN , Migraine 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, not intractable Take 1 capsule (80 mg total) by mouth in the morning. 90 capsule 1 08/19/2023 Active Start: 03-30-2023 take 1 capsule by mo [facility] once daily propranolol LA (INDERAL LA) 80 [...] venlafaxine 150 mg extended release oral capsule (11 sources) Serotonin and Norepinephrine Reuptake Inhibitor Start: take 1 capsule by mouth every twenty-four hours in the morning venlafaxine XR (EFFEXOR-XR) 150 mg 24 hr capsule Indications: Current mild episode of major depressive disorder without prior episode (CMS-HCC) Take 1 capsule (150 mg total) by mouth in the morning. 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 QUEtiapine (2 sources) Atypical Antipsychotic SEROquel Not-Taking tirzepatide (MOUNJARO) 5 mg/0.5 mL pen injector (2 sources) Start: 09-10-2022 End: 03-18-2023 tirzepatide (MOUNJARO) 5 mg/0.5 mL pen injector Indications: Type 2 diabetes mellitus with hyperglycemia, without long-term current use of insulin ([facility]) Inject 5 mg under the skin every 7 days. 2 mL 0 09/10/2022 03/18/2023 Discontinued (Cost of medication) Start: 09-10-2022 tirzepatide (M OUNJARO) 5 mg/0.5 mL pen injector Indications: Type 2 diabetes mellitus with hyperglycemia, without long-term current use of insulin ([facility]) Inject 5 mg under the skin every 7 days. 2 mL 0 09/10/2022 Active Problems Active Problems Problem Classification Problem Date Documented Da te Episodic/Chronic Abdominal pain (3 sources) Unspecified abdominal pain; Translations: [Generalized abdominal pain] Onset: 07-09-2023 Episodic Anxiety disorders (1 source) Anxiety Onset: 11-12-2023 Chronic Bacterial infection; unspecified site (1 source) Other [...] without status migrainosus] Onset: 08-19-2023 03-18-2023 Chronic Headache; including migraine (1 source) Headache Onset: 11-12-2023 Episodic Inflammatory diseases of female pelvic organs (1 source) Acute vaginitis; Translations: [Acute vaginitis] Onset: 09-16-2023 Episodic Joint disorders and dislocations; trauma-related (6 sources) Articular cartilage disorder of shoulder region; Translations: [Other articular cartilage disorders, left shoulder] Onset: 12-22-2020 03-18-2023 Chronic Mood disorders (4 sources) Mild major depression, single episode; Translations: [Major depressive disorder, single episode, mild] Onset: 08-19-2023 03-18-2023 Chronic Mycoses (1 source) Candidal intertrigo; Translations: [Candidiasis of skin and nail] 05-19-2023 Episodic Osteoarthritis (15 sources) Degenerative joint disease involving multiple joints; 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] Onset: 07-20-2020 07-20-2020 Chronic Other aftercare (1 source) Other oysterman (current) drug therapy; Translations: [OTH [facility] CURRENT DRUG THERAPY] Onset: 02-26-2022 Episodic Other gastrointestinal disorders (1 source) Diarrhea Onset: 10-21-2023 Episodic Other non-traumatic joint disorders (4 sources) Other specific joint derangements of right shoulder, not elsewhere classified; Translations: [OTH SPEC JOINT DERANG RT SHLDR NEC] Onset: 05-03-2021 Chronic Other non-traumatic joint disorders (7 sources) Derangement of right shoulder joint; Translations: [Other specific joint derangements of right shoulder, not elsewhere classified] Onset: 04-02-2021 09-10-2022 Chronic Other non-traumatic joint disorders (1 source) Arthropathy, unspecified; Translations: [Arthropathy, unspecified] Onset: 11-18-2023 Chronic Other skin disorders (1 source) Acne [...] UP RESPIRATORY INFECTION UNS] Onset: 02-26-2022 Episodic Residual codes; unclassified (1 source) Other insomnia; Translations: [Other insomnia] Onset: 11-12-2023 Chronic Unclassified (2 sources) COUGH, UNSPECIFIED; Translations: [COUGH, UNSPECIFIED] Onset: 02-26-2022 Unclassified (1 source) CONTACT W/AND (SUSP) EXPOS COVID-19; Translations: [CONTACT W/AND (SUSP) EXPOS COVID-19] Onset: 02-26-2022 Unclassified (1 source) er follow up not eating Onset: 07-09-2023 Unclassified (1 source) Acute candidiasis of vulva and vagina; Translations: [Acute candidiasis of vulva and vagina] Onset: 05-19-2023 Unclassified (1 source) Rash Onset: 05-19-2023 Past or Other Problems Problem Classification Problem Date Documented Date Episodic/Chronic E Codes: Natural/environment (1 source) Overexertion from strenuous movement or load, initial encounter; Translations: [OVEREXERT STRENUOUS MVMT/LOAD INIT] Onset: 05-09-2021 Episodic Genitourinary symptoms and ill-defined conditions (2 sources) Dysuria; Translations: [Dysuria] Onset: 05-29-2023 05-29-2023 Episodic Mood disorders (7 sources) Mood disorders Onset: 09-10-2022 Resolved: 11-18-2023 09-10-2022 Other acquired deformities (8 sources) Ulnar drift; Translations: [Other deformity of right finger(s)] Onset: 07-21-2020 07-21-2020 Episodic Other aftercare (1 source) Drug therapy finding; Translations: [Other nursing home (current) drug therapy] Onset: 02-08-2021 02-08-2021 Episodic [...] 07-20-2020 07-20-2020 Episodic Other non-traumatic joint disorders (8 sources) Pain in right knee; Translations: [Pain in joint, lower leg] Onset: 07-20-2020 07-20-2020 Episodic Other non-traumatic joint disorders (7 sources) Chronic pain of right upper limb; Translations: [Pain in right elbow] Onset: 07-20-2020 07-20-2020 Episodic Other non-traumatic joint disorders (1 source) Bilateral chronic pain of upper limbs; Translations: [Pain in right shoulder] Onset: 02-08-2021 02-08-2021 Episodic Other non-traumatic joint disorders (3 sources) Pain in right hip; Translations: [PAIN IN RIGHT HIP] Onset: 05-08-2021 Episodic Other non-traumatic joint disorders (7 sources) Arthralgia of the upper arm; Translations: [...] source) Suspected COVID-19 virus infection Z20.822 Unclassified (7 sources) Onset: 09-10-2022 Resolved: 11-18-2023 09-10-2022 Urinary tract infections (4 sources) Acute cystitis; Translations: [Acute cystitis without hematuria] Onset: 05-29-2023 05-29-2023 Episodic Results Test Name Value Interpretation Reference Range Facility URINE CULTUREon 10-21-2023 Bacteria identified Cx Nom (U) CULTURE RESULTS <10,000 ORGANISMS/ML NORMAL URO GENITAL ABHILASH Normal [facility] Comment on above: Performed By: #### 6 30-4 #### [facility] ([id number]) [address], [address] [place] [address] CT abdomen pelvis w [facility] CT abdomen pelvis w [facility] [address] [address] [address] Scan Report Signed Patient: Judy Roca MR#: [id number] 18 : 1965 Acct:[id number] Age/Sex: 57 / F ADM Date: 07/09/23 Loc: ER Room: Type: [facility] ER Attending Dr: Copies to: Ronan [...] Elia Weiss M.D.07/09/2023 6:06 PM Dictation Location: [place] [address] Transcribed By: [facility] 07/09/231805 Dictated By: Elia Weiss DO 07/09/23 1800 Signed By: 07/09/231805 Normal [facility] Complete Blood Count Auto Di ffon 07-09-2023 Basophils (Bld) [#/Vol] 0.0 10*3/uL Normal 0.0-0.2 [facility] Comment on above: Result Comment: PERF ORMED BY: [facility] [address] [place] [address] PATHOLOGIST CHAIR AND COUCH MAKER ATIF JOHNSON M.D. Performed By: #### C MP, CBC #### [address] Basophils/100 WBC (Bld) 0.4 % Normal . [facility] Comment on above: Performed By: #### C MP, CBC #### [address] Eosinophils (Bld) [#/Vol] 0.1 10*3/uL Normal 0.0-0.45 [facility] Comment on above: Performed By: #### C MP, CBC #### [address] Eosinophils/100 WBC (Bld) 0.8 % Normal . [facility] Comment on above: Performed By: #### C MP, CBC #### [address] Erythrocyte distribution width (RBC) [Ratio] 14.3 % Normal 11.9-15.3 [facility] Comment on above: Performed By: #### C MP, CBC #### [address] Hematocrit (Bld) [Volume fraction] 40.5 % Normal 34.0-46.4 [facility] Comment on above: Performed By: #### C MP, CBC #### [address] Hemoglobin (Bld) [Mass/Vol] 13.6 g/dL Normal 11.8-15.4 [facility] Comment on above: Performed By: #### C MP, CBC #### [address] Lymphocytes (Bld) [#/Vol] 1.0 10*3/uL Normal 1.00-4.8 [facility] Comment on above: Performed By: #### C MP, CBC #### [address] Lymphocytes/100 WBC (Bld) 11.9 % Normal . [facility] Comment on above: Performed By: #### C MP, CBC #### [address] MCH (RBC) [Entitic mass] 27.3 pg Normal 24.7-34.3 [facility] Comment on above: Performed By: #### C MP, CBC #### [address] MCV (RBC) [Entitic vol] 81.2 fL Normal 80-100 [facility] Comment on above: Performed By: #### C MP, CBC #### [address] Mean Corpuscular HGB Conc 33.6 g/dL Normal 32.0-35.0 [facility] Comment on above: Performed By: #### C MP, CBC #### [address] Monocytes (Bld) [#/Vol] 0.9 10*3/uL High 0.0-0.8 [facility] Comment on above: Performed By: #### C MP, CBC #### [address] Monocytes/100 WBC (Bld) 28.39 % High 0.00-20.00 [facility] Comment on above: Result Comment: For adults in ED, MDW > 20.0 may be associated with a higher risk of sepsis during the first 12 hrs of hospital admission Performed By: #### C MP, CBC #### [address] Monocytes/100 WBC (Bld) 10.3 % Normal . [facility] Comment on above: Performed By: #### C MP, CBC #### [address] Neutrophils (Bld) [#/Vol] 6.6 10*3/uL Normal 1.8-7.7 [facility] Comment on above: Performed By: #### C MP, CBC #### [address] Neutrophils/100 WBC (Bld) 76.6 % Normal . [facility] Comment on above: Performed By: #### C MP, CBC #### [address] NRBC% 0.1 /100{WBC} Normal 0-0.5 [facility] Comment on above: Performed By: #### C MP, CBC #### [address] Platelet mean volume (Bld) [Entitic vol] 8.9 fL Normal 6.3-10.7 [facility] Comment on above: Performed By: #### C MP, CBC #### [address] Platelets (Bld) [#/Vol] 293 10*3/uL Normal 150-450 [facility] Comment on above: Performed By: #### C MP, CBC #### [address] RBC (Bld) [#/Vol] 4.99 10*6/uL Normal 3.60-5.00 [facility] Comment on above: Performed By: #### C MP, CBC #### [address] WBC (Bld) [#/Vol] 8.7 10*3/uL Normal 3.8-11.6 [facility] Comment on above: Performed By: #### C MP, CBC #### [address] Comprehensive Metabolic Pane jazzmine 07-09-2023 Albumin [Mass/Vol] 3.1 g/dL Low 3.5-5.7 [facility] Comment on above: Performed By: #### C MP, CBC #### [address] Albumin/Globulin [Mass ratio] 0.8 {ratio} Normal [facility] Comment on above: Performed By: #### C MP, CBC #### [address] Performed By: #### H EPATIC #### [address] ALP [Catalytic activity/Vol] 222 U/L High 34-104 [facility] Comment on above: Performed By: #### C MP, CBC #### [address] ALT [Catalytic activity/Vol] 105 U/L High 7-52 [facility] Comment on above: Performed By: #### C MP, CBC #### [address] Anion gap [Moles/Vol] 14.3 mmol/L Normal 6.0-15.0 [facility] Comment on above: Performed By: #### C MP, CBC #### [address] AST [Catalytic activity/Vol] 54 U/L High 13-39 [facility] Comment on above: Performed By: #### C MP, CBC #### [address] Bilirubin [Mass/Vol] 0.6 mg/dL Normal 0.3-1.0 [facility] Comment on above: Performed By: #### C MP, CBC #### [facility] [address] [place] [address] Performed By: #### H EPATIC #### [address] Calcium [Mass/Vol] 8.1 mg/dL Low 8.6-10.3 [facility] Comment on above: Performed By: #### C MP, CBC #### [address] Chloride [Moles/Vol] 95 mmol/L Low 98-107 [facility] Comment on above: Performed By: #### C MP, CBC #### [address] CO2 [Moles/Vol] 23.7 mmol/L Normal 21.0-31.0 [facility] Comment on above: Performed By: #### C MP, CBC #### [address] Creatinine [Mass/Vol] 0.64 mg/dL Normal 0.60-1.20 [facility] Comment on above: Performed By: #### C MP, CBC #### [address] Creatinine Clr Calc Pharmacy 111.97 Normal [facility] Comment on above: Result Comment: PERF ORMED BY: [place] [address] PATHOLOGIST CHAIR AND COUCH MAKER ATIF JOHNSON M.D. Performed By: #### C MP, CBC #### [address] GFR/1.73 sq M.predicted MDRD (S/P/Bld) [Vol rate/Area] mL/min/{1.73_m2} Normal [facility] Comment on above: Performed By: #### C MP, CBC #### [address] Globulin (S) [Mass/Vol] 4.0 g/dL Normal [facility] Comment on above: Performed By: #### C MP, CBC #### [address] Glucose [Mass/Vol] 155 mg/dL High 70-100 [facility] Comment on above: Result Comment: [place] Glucose Reference Range is dependent on time and content of last meal. Glucose of more than 200 mg/dL in a nonstressed, ambulatory subject supports the diagnosis of Diabetes Mellitus. ADA recommended reference range Performed By: #### C MP, CBC #### [address] Potassium [Moles/Vol] 3.0 mmol/L Low 3.5-5.1 [facility] Comment on above: Performed By: #### C MP, CBC #### [address] Protein [Mass/Vol] 7.1 g/dL Normal 6.4-8.9 [facility] Comment on above: Performed By: #### C MP, CBC #### [address] Performed By: #### H EPATIC #### [address] Sodium [Moles/Vol] 130 mmol/L Low 136-145 [facility] Comment on above: Performed By: #### C MP, CBC #### [address] Urea nitrogen [Mass/Vol] 17 mg/dL Normal 7-25 [facility] Comment on above: Performed By: #### C MP, CBC #### [address] Dipstick and Microscopicon 0 07-09-2023 Appearance (U) Cloudy Critically abnormal Clear [facility] Comment on above: Order Comment: Name Collection Type:: Clean-Voided Midstream Performed By: #### C UU, ADDONUAPLUS #### [address] Bacteria,Urine 2+ High None Seen [facility] Comment on above: Order Comment: Name Collection Type:: Clean-Voided Midstream Performed By: #### C UU, ADDONUAPLUS #### [address] Bilirubin,Urine 2+ High Negative [facility] Comment on above: Order Comment: Name Collection Type:: Clean-Voided Midstream Performed By: #### C UU, ADDONUAPLUS #### [address] Color (U) Dark Yellow Critically abnormal Yellow [facility] Comment on above: Order Comment: Name Collection Type:: Clean-Voided Midstream Performed By: #### C UU, ADDONUAPLUS #### [address] Glucose Ql (U) Normal Normal Normal [facility] Comment on above: Order Comment: Name Collection Type:: Clean-Voided Midstream Performed By: #### C UU, ADDONUAPLUS #### [place] [address] [place] Hyaline Casts,Urine 9-19 High 0-8 [facility] Comment on above: Order Comment: Name Collection Type:: Clean-Voided Midstream Result Comment: PERF ORMED BY: [place] [address] PATHOLOGIST CHAIR AND COUCH MAKER ATIF JOHNSON M.D. Performed By: #### C UU, ADDONUAPLUS #### [address] Ketones Ql (U) 3+ High Negative [facility] Comment on above: Order Comment: Name Collection Type:: Clean-Voided Midstream Performed By: #### C UU, ADDONUAPLUS #### [address] Leukocyte esterase Test strip Ql (U) 2+ High Negative [facility] Comment on above: Order Comment: Name Collection Type:: Clean-Voided Midstream Performed By: #### C UU, ADDONUAPLUS #### [place] [address] [place] Nitrite,Urine Negative Normal Negative [facility] Comment on above: Order Comment: Name Collection Type:: Clean-Voided Midstream Performed By: #### C UU, ADDONUAPLUS #### [place] [address] [place] Occult Blood,Urine 2+ High Negative [facility] Comment on above: Order Comment: Name Collection Type:: Clean-Voided Midstream Result Comment: PERF ORMED BY: [place] [address] PATHOLOGIST CHAIR AND COUCH MAKER ATIF JOHNSON M.D. Performed By: #### C UU, ADDONUAPLUS #### [place] [address] [place] pH (U) 6.0 [pH] Normal 5.0-9.0 [facility] Comment on above: Order Comment: Name Collection Type:: Clean-Voided Midstream Performed By: #### C UU, ADDONUAPLUS #### [address] Protein (U) [Mass/Vol] 100 mg/dL High Negative [facility] Comment on above: Order Comment: Name Collection Type:: Clean-Voided Midstream Performed By: #### C UU, ADDONUAPLUS #### [address] RBC,Urine 10-19 High 0-4 [facility] Comment on above: Order Comment: Name Collection Type:: Clean-Voided Midstream Performed By: #### C UU, ADDONUAPLUS #### [address] Specificy [place],Urine 1.023 Normal 1.001-1.030 [facility] Comment on above: Order Comment: Name Collection Type:: Clean-Voided Midstream Performed By: #### C UU, ADDONUAPLUS #### [address] Squamous Epithelial Cell,Urine 5-9 High 0-2 [facility] Comment on above: Order Comment: Name Collection Type:: Clean-Voided Midstream Performed By: #### C UU, ADDONUAPLUS #### [address] Urobilinogen,Urin e Normal Normal Normal [facility] Comment on above: Order Comment: Name Collection Type:: Clean-Voided Midstream Performed By: #### C UU, ADDONUAPLUS #### [address] WBC,Urine 5-9 High 0-4 [facility] Comment on above: Order Comment: Name Collection Type:: Clean-Voided Midstream Performed By: #### C UU, ADDONUAPLUS #### [address] Glucose Poct Glucometerson 0 07-09-2023 Glucose [Mass/Vol] 160 mg/dL Normal [facility] Comment on above: Result Comment: [place] Glucose Reference Range is dependent on time and content of last meal. Glucose of more than 200 mg/dL in a nonstressed, ambulatory subject supports the diagnosis of Diabetes Mellitus. PERFORMED BY: [place] [address] PATHOLOGIST CHAIR AND COUCH MAKER ATIF JOHNSON M.D. Performed By: #### G LUKAS #### Point of Care testing , Hepatic Panelon 07-09-2023 Albumin [Mass/Vol] 3.2 g/dL Low 3.5-5.7 [facility] Comment on above: Performed By: #### H EPATIC #### [address] ALP [Catalytic activity/Vol] 241 U/L High 34-104 [facility] Comment on above: Result Comment: PERF ORMED BY: [place] [address] PATHOLOGIST CHAIR AND COUCH MAKER ATIF JOHNSON M.D. Performed By: #### H EPATIC #### [address] ALT [Catalytic activity/Vol] 104 U/L High 7-52 [facility] Comment on above: Performed By: #### H EPATIC #### [address] AST [Catalytic activity/Vol] 53 U/L High 13-39 [facility] Comment on above: Performed By: #### H EPATIC #### [place] [address] [place] Bilirubin,Indirec t 0.5 mg/dL Normal [facility] Comment on above: Performed By: #### H EPATIC #### [address] Bilirubin.indirec t [Mass/Vol] 0.10 mg/dL Normal 0.03-0.18 [facility] Comment on above: Performed By: #### H EPATIC #### [address] Globulin (S) [Mass/Vol] 3.9 g/dL Normal [facility] Comment on above: Performed By: #### H EPATIC #### [address] Lipaseon 07-09-2023 Lipase [Catalytic activity/Vol] 74.0 U/L Normal 11.0-82.0 [facility] Comment on above: Result Comment: PERF ORMED BY: [place] [address] PATHOLOGIST CHAIR AND COUCH MAKER ATIF JOHNSON M.D. Performed By: #### L IPASE #### [facility] [address] [place] [address] Urine Cultureon 07-09-2023 Bacteria identified Cx Nom (U) 30,000 colonies/ml mixed bacterial skin contaminants including mixed gram negative bacilli - 2 Days PERFORMED BY: [place] [address] PATHOLOGIST CHAIR AND COUCH MAKER ATIF JOHNSON M.D. Normal [facility] Comment on above: Performed By: #### C UU, ADDONUAPLUS #### [address] POCT urinalysis dipstick onl yon 05-29-2023 Appearance (U) clear [facility] External Poct Urine Bilirubin Negative [facility] Urine Blood Trace [facility] External [facility]ct Urine Color yellow [facility]ct Urine Glucose Negative [facility] Urine Ketones Negative [facility] Urine Leukocyte Esterase Trace [facility] Urine Nitrite Negative [facility] Urine Ph 5.5 [facility] Urine Protein Negative [facility] Urine Specific [place] 1.025 [facility] External [facility] Urine Urobilinogen 0.2 [facility] URINE CULTUREon 05-29-2023 Bacteria identified Cx Nom (U) CULTURE RESULTS 50-100,000 ORGANISMS/ML NORMAL UROGENITAL ABHILASH Normal [facility] Comment on above: Performed By: #### 6 30-4 #### [facility] ([id number]) [address], [address] [place] [address] MICROALBUMIN - ALBUMIN:CREAT ININE URINE RATIOon 03-18-2023 ALB/CREAT RATIO 5.5 mg/g creat Normal 0.0-30.0 [facility] Comment on above: Performed By: #### M ALBU #### [facility] ([id number]) [address], [address] [place] [address] Albumin DL <= 20 mg/L (U) [Mass/Vol] 1.0 mg/dL Normal 0.0-1.9 [facility] Comment on above: Performed By: #### M ALBU #### [facility] ([id number]) [address] [place] [address] URINE CREAT 180.91 mg/dL Normal [facility] Comment on above: Performed By: #### M ALBU #### [facility] ([id number]) [address] [place] [address] POCT Hemoglobin A1con 2023 HbA1c (Bld) [Mass fraction] 6.5 g/dL 4 - 7 g/dL [facility] COVID + FLU Quick Testingon 01-12-2023 SARS-CoV-2 (COVID-19) RNA MONICO+probe Ql (Unsp spec) Negative A and A [employer] [facility] [employer] Other COVID + FLU Quick Testing Negative [employer] [facility] [employer] Other Covid-19 PCR (CVDTBH)on 01-25 SARS-CoV-2 (COVID-19) RNA MONICO+probe Ql (Unsp spec) Not detected Normal NOT DETECTED [facility] Comment on above: Result Comment: This test is not yet approved or cleared by the [place] FDA. When there are no FDA-approved or cleared tests available, and other criteria are met, FDA can make tests available under an emergency access mechanism called an Emergency Use Authorization (EUA). The EUA for this test is supported by the [place] of Health and Human Service's (HHS's) declaration [...] SARS-CoV-2. Performed By: #### C VDTB #### [facility] [address] [place] [address] Dr. Robert Barragan INFLUENZA A AND B [facility] 02-21 [facility] SEE BELOW Normal [facility] Comment on above: Result Comment: Nega tive for Flu A protein angiten. Infection due to Flu A cannot be ruled out. Flu A angiten in the sample may be below the detection limit of the test. Performed By: #### I NFLUAB #### [facility] [address] [place] [address] Dr. Robert Barragan [facility] SEE BELOW Normal [facility] Comment on above: Result Comment: Nega tive for Flu B protein antigen. Infection due to Flu B cannot be ruled out. Flu B antigen in the sample may be below the detection limit of the test. Performed By: #### I NFLUAB #### [facility] [address] [place] [address] Dr. Robert Barragan INFLUENZA A AG Negative Normal NEGATIVE SEE COMMENT [facility] Comment on above: Performed By: #### I NFLUAB #### [facility] [address] [place] [address] Dr. Robert Barragan INFLUENZA B AG Negative Normal NEGATIVE SEE COMMENT [facility] Comment on above: Performed By: #### I NFLUAB #### [facility] [address] [place] [address] Dr. Robert Hadley 2021 [facility] JUDY ROCA ([id number]) 1965 F Date Time Provider Department 09/13/21 [...] Status:Closed by NABOR PICHARDO on 09/13/21 Normal [facility] XR HIP RT 2 3V W [...] by: Benny QUINONES Date: 2021-05-08 03:14 Normal [facility] MRI SHOULDER RT WO CONon MRI [...] by: XENIA LO Date: 2021-05-04 07:53 Normal [facility] 02-12-2021 [facility] Telephone (INTMAL) JUDY ROCA ([id number]) 1965 F Date Time Provider Department 02/12/21 [...] Encounter Status:Closed by OCTAVIA BELLE on 02/13/21 [facility] 02-08-2021 [facility] Office Visit (SOHAM ) JUDY ROCA ([id number]) 1965 F Date Time Provider Department 02/08/21 [...] Biking several times a week. COVID vaccine [employer] 03/07/20, 04/17/20, 11/29/20. Feels safe at home. 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 Normal [facility] OBSOLETEon 11-14-2020 OBSOLETE Refill (RHEULN) EDWARDJUDY ([id number]) 1965 F Date Time Provider Department 11/14/20 [...] Status:Closed by NABOR PICHARDO on 11/16/20 Normal [facility] Vital Signs Date Time Vital Sign Value Performing Clinician Facility 05-19-2023 13:54-0400 Body height 160 cm Iris Villalta APRN-CABLE ARMORER Work Phone: [facility] 05-19-2023 13:54-0400 Body mass index (BMI) [Ratio] 45.6 kg/m2 Iris Villalta APRN-CABLE ARMORER Work Phone: [facility] 05-19-2023 13:54-0400 Body temperature 98.1 [degF] Iris Villalta SPOKE MAKER-CABLE ARMORER Work Phone: [facility] 05-19-2023 13:54-0400 Body weight 116.76 kg Iris Villalta APRN-CABLE ARMORER Work Phone: [facility] 05-19-2023 13:54-0400 Diastolic blood pressure 78 mm[Hg] Iris Villalta APRN-CABLE ARMORER Work Phone: [facility] 05-19-2023 13:54-0400 Heart rate 74 /min Iris Villalta APRN-CABLE ARMORER Work Phone: [facility] 05-19-2023 13:54-0400 SaO2% (BldA) [Mass fraction] 97 % Iris Villalta APRN-CABLE ARMORER Work Phone: [facility] 05-19-2023 13:54-0400 Systolic blood pressure 120 mm[Hg] Iris Villalta APRN-CABLE ARMORER Work Phone: [facility] 03-18-2023 08:17-0500 Body height 160 cm Iris Villalta SPOKE MAKER-CABLE ARMORER Work Phone: [facility] 03-18-2023 08:17-0500 Body mass index (BMI) [Ratio] 45.19 kg/m2 Iris Villalta SPOKE MAKER-CABLE ARMORER Work Phone: [facility] 03-18-2023 08:17-0500 Body temperature 97.7 [degF] Iris Villalta APRN-JORDIN Work Phone: [facility] 03-18-2023 08:17-0500 Body weight 115.71 kg Iris Villalta APRN-JORDIN Work Phone: [facility] 03-18-2023 08:17-0500 Diastolic blood pressure 80 mm[Hg] Iris Villalta APRN-JORDIN Work Phone: [facility] 03-18-2023 08:17-0500 Heart rate 67 /min Iris Villalta APRN-JORDIN Work Phone: [facility] 03-18-2023 08:17-0500 SaO2% (BldA) [Mass fraction] 95 % Iris Villalta APRN-JORDIN Work Phone: [facility] 03-18-2023 08:17-0500 Systolic blood pressure 120 mm[Hg] Iris Villalta APRN-JORDIN Work Phone: [facility] 01-12-2023 14:10-0500 Body height 160.02 cm Francia Carlos Other [facility] Other 01-12-2023 14:10-0500 Body mass index (BMI) [Ratio] 43.78 kg/m2 Francia Carlos Other [facility] Other 01-12-2023 14:10-0500 Body temperature 97.4 [degF] Francia Carlos Other [facility] Other 01-12-2023 14:10-0500 Body weight 112.13 kg Francia Carlos Other [facility] Other 01-12-2023 14:10-0500 Respiratory rate 18 /min Francia Carlos Other [facility] Other 01-12-2023 [id number] SaO2% (BldA) [Mass fraction] 97 % Francia Carlos Other [facility] Other Encounters Encounter Date Encounter Type Care Provider Facility Start: 11-24-2023 End: 11-25-2023 Telephone encounter Iris GORDONCABLE ARMORER Work Phone: [facility] Start: 11-18-2023 End: 11-18-2023 ambulatory [facility] Start: 11-12-2023 End: 11-12-2023 ambulatory [facility] Start: 10-21-2023 End: 10-21-2023 ambulatory [facility] Start: 10-21-2023 End: 10-21-2023 ambulatory [facility] Start: 09-16-2023 End: 09-16-2023 ambulatory [facility] Start: 08-19-2023 End: 08-19-2023 ambulatory [facility] Start: 08-11-2023 End: 08-11-2023 ambulatory ANGEL BAHENA Not Available Start: 07-22-2023 End: 07-22-2023 ambulatory [facility] Start: 07-09-2023 End: 07-09-2023 Emergency department patient visit Ronan Delcid Facility:[facility] Start: 07-09-2023 End: 07-09-2023 ambulatory [facility] Start: 05-29-2023 End: 05-29-2023 ambulatory [facility] Start: 05-29-2023 End: 05-29-2023 Clinical Support Iris Villalta APRN-CABLE ARMORER Work Phone: [facility] Comment on above: Dysuria (Primary Dx) ; Acute cystitis without hematuria Start: 05-26-2023 Telephone encounter Iris Villalta SPOKE MAKER-CABLE ARMORER Work Phone: [facility] Start: 05-19-2023 End: 05-19-2023 ambulatory [facility] Start: 05-19-2023 End: 05-19-2023 Office outpatient visit 15 minutes Iris Villalta SPOKE MAKER-CABLE ARMORER Work Phone: [facility] Comment on above: Saloni infection of flexural skin (Primary Dx) Start: 03-29-2023 Refill Iris paredes SPOKE MAKER-CABLE ARMORER Work Phone: [facility] Comment on above: Type 2 diabetes hunter itus with hyperglycemia, without long-term current use of insulin ([facility]); Current mild episode of major depressive disorder without prior episode ([facility]); Benign essential HTN; Migraine 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, not intractable Start: 03-19-2023 End: 03-19-2023 ambulatory ANGEL BAHENA Not Available Start: 03-18-2023 End: 03-18-2023 ambulatory [facility] Start: 03-18-2023 End: 03-18-2023 ambulatory [facility] Start: 03-18-2023 End: 03-18-2023 Office outpatient visit 25 minutes Iriserich Villalta SPOKE MAKER-CABLE ARMORER Work Phone: [facility] Comment on above: Type 2 diabetes hunter itus with hyperglycemia, without long-term current use of insulin ([facility]) (Primary Dx); Current mild episode of major depressive disorder without prior episode ([facility]); Gastroesophageal reflux disease without esophagitis; Benign essential HTN; Migraine 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, not intractable; Seasonal allergic rhinitis due to pollen Start: 03-13-2023 Orders Only Iris paredes SPOKE MAKER-CABLE ARMORER Work Phone: [facility] Start: 01-14-2023 End: 01-14-2023 ambulatory Francia Carlos Other [facility] Other Start: 01-14-2023 Telephone encounter Francia Carlos [facility] Start: 01-12-2023 End: 01-12-2023 ambulatory Francia Carlos Other [facility] Other Start: 01-12-2023 Office outpatient ne w [...] Date Procedure Procedure Detail Performing Clinician Start: 11-18-2023 Adult depression scr eening assessment Iris Villalta SPOKE MAKER-CABLE ARMORER Work Phone: Start: 07-22-2023 Follow-up visit Follow-up IRIS VILLALTA Start: 05-29-2023 Urnls dip stick/tabl et rgnt non-auto w/o micrscp Iris Villalta SPOKE MAKER-CABLE ARMORER Work Phone: Start: 05-19-2023 Adult depression scr eening assessment Iris Villalta SPOKE MAKER-CABLE ARMORER Work Phone: Start: 03-18-2023 Hemoglobin glycosyla moshe a1c Iris Villalta SPOKE MAKER-CABLE ARMORER Work Phone: Start: 03-18-2023 Adult depression scr eening assessment Iris Villalta SPOKE MAKER-CABLE ARMORER Work Phone: Start: 03-18-2023 Microalbumin [Mass/v olume] in Urine by Test strip Iris Villalta APRN-CABLE ARMORER Work Phone: Start: 02-13-2023 Diabetic retinal eye exam [facility] Work Phone: Start: 09-10-2022 Adult depression scr eening assessment Iris Villalta SPOKE MAKER[facility] Work Phone: Start: 07-13-2020 Adult depression scr eening assessment Nabor Pichardo MD Work Phone: Start: 07-03-2013 Microscopic observat ion [Identifier] in Cervix by Cyto stain [facility] Work Phone: Plan of Treatment Date Care Activity Detail Author Start: 11-17-2024 Adult BMI Follow Up Plan Adult BMI Follow Up Plan [facility] Start: 11-17-2024 Adult BMI Screening Adult BMI Screen ing [facility] Start: 11-17-2024 Depression Screening Depression Scre ening [facility] Start: 11-17-2024 Tobacco Screening Tobacco Screening [facility] Start: 05-18-2024 Adult BMI Follow Up Plan Adult BMI Follow Up Plan [facility] Start: 05-18-2024 Adult BMI Screening Adult BMI Screen ing [facility] Start: 05-18-2024 Depression Screening Depression Scre ening [facility] Start: 05-18-2024 Tobacco Screening Tobacco Screening [facility] Start: 03-18-2024 Adult BMI Follow Up Plan Adult BMI Follow Up Plan [facility] Start: 03-18-2024 Adult BMI Screening Adult BMI Screen ing [facility] Start: 03-18-2024 Depression Screening Depression Scre ening [facility] Start: 03-18-2024 Tobacco Screening Tobacco Screening [facility] Start: 03-18-2024 Urine screening for protein Urine Microalbumin [facility] Start: 02-14-2024 Glaucoma screening Diabetic Op hthalmology Exam [facility] Start: 01-28-2024 End: 01-28-2024 Patient encounter procedure 01/28/2024 1:00 PM EST Office Visit [facility] [address] [place] [address] Iris Villalta, SPOKE MAKER-CABLE ARMORER [address] [place] [address] [facility] Start: 10-26-2023 COVID-19 Vaccine ( season) COVID-19 Vaccine ( season) [facility] Start: 10-26-2023 Influenza vaccination Influenza Vacc ine [facility] [facility] Start: 09-22-2023 End: 09-22-2023 Patient encounter procedure 09/22/2023 11:00 AM EDT Office Visit [facility] Internal Medicine - Family Medicine [address] [place] [address] Iris Villalta, SPOKE MAKER-CABLE ARMORER [address] [place] [address] [facility] Internal Medicine - Family Medicine Start: 09-11-2023 Adult BMI Follow Up Plan Adult BMI Follow Up Plan [facility] Start: 09-11-2023 Adult BMI Screening Adult BMI Screen ing [facility] Start: 09-11-2023 Depression Screening Depression Scre ening [facility] Start: 09-11-2023 Tobacco Screening Tobacco Screening [facility] Start: 07-21-2023 DIABETES SCREEN DIABETES SCREEN [facility] Start: 03-18-2023 End: 03-18-2023 Patient encounter procedure 03/18/2023 8:00 AM EST Office Visit [facility] Internal Medicine - Family Medicine [address] [place] [address] Iris Villalta, SPOKE MAKER-CABLE ARMORER [address] [place] [address] [facility] Internal Medicine - Family Medicine Start: 10-25-2022 COVID-19 Vaccine ( season) COVID-19 Vaccine ( season) [facility] Start: 10-25-2022 Influenza vaccination Influenza Vacc ine [facility] Start: 10-25-2021 Influenza vaccination INFLUENZA (#1) [facility] Start: 07-13-2021 Adult depression screening assessment DEPRESSION SCREENING [facility] Start: 03-01-2021 COVID-19 VACCINE (4 - Booster for Pfizer series) COVID-19 VACCINE (4 - Booster for Pfizer series) [facility] Start: 2016 Administration of varicella zoster vaccine Zoster (Shingles) Vaccine (1 of 2) [facility] Start: 07-03-2016 Screening for malign ant neoplasm of cervix Pap Smear [facility] Start: 09-14-2011 COLOGUARD (FIT-DNA) COLOGUARD (FIT-D NA) [facility] Start: 09-14-2011 Colonoscopy COLONOSCOPY [facility] Start: 09-14-2011 COLORECTAL CANCER SCREENING COLORECTAL CANCER SCREENING [facility] Start: 09-14-[address] COLONOGRAPHY [facility] Start: 09-14-2011 FECAL OCCULT BLOOD FECAL OCCULT BLOO D [facility] Start: 09-14-2011 LIPID SCREEN LIPID SCREEN [facility] Start: 09-14-2011 SIGMOIDOSCOPY SIGMOIDOSCOPY [facility] Start: 2006 Mammography MAMMOGRAM [facility] Start: 1996 HPV TESTING HPV TESTING [facility] Start: 09-14-1987 PAP TESTING PAP TESTING [facility] Start: 1985 SHINGRIX VACCINE (1 of 2) SHINGRIX VACCINE (1 of 2) [facility] Start: 1985 Urine microalbumin profile DTAP,TDAP,TD (1 - Tdap) [facility] Start: 1984 Diabetic foot examination Diabetic Foot Exam [facility] Start: 1984 HIV SCREENING HIV SCREENING [facility] Start: 12-17-1983 DTaP,Tdap and Td Vaccines (3 - Tdap) DTaP,Tdap and Td Vaccines (3 - Tdap) [facility] Start: 1972 PNEUMOCOCCAL (1 - PCV) PNEUMOCOCCAL (1 - PCV) [facility] Start: 1966 Urine screening for protein Urine Microalbumin [facility] End: 05-28-2024 Bacteria identified in Urine [...] hyperglycemia, without long-term current use of insulin ([facility]) 1 Occurrences starting 03/18/2023 until 03/17/2024 [facility] Work Phone: Comment on above: 1 Occurrences starti ng 03/18/2023 until 03/17/2024 [facility] Immunizations Immunization Date Immunization Notes Care Provider Torito patton 12-05-2022 influenza, injectabl e, quadrivalent, preservative free Iris Villalta SPOKE MAKER-CABLE ARMORER Work Phone: [facility] 12-05-2022 influenza virus vaccine, unspecified formulation Iris Villalta SPOKE MAKER-CABLE ARMORER Work Phone: [facility] 10-27-2021 influenza, injectabl e, quadrivalent, preservative free Iris Villalta SPOKE MAKER-CABLE ARMORER Work Phone: [facility] 10-27-2021 influenza virus vaccine, unspecified formulation Iris Villalta SPOKE MAKER-CABLE ARMORER Work Phone: [facility] 11-02-2020 influenza, injectabl e, quadrivalent, preservative free Iris Villalta SPOKE MAKER-CABLE ARMORER Work Phone: [facility] 10-27-2019 influenza, injectabl e, quadrivalent, preservative free Iris Villalta SPOKE MAKER-CABLE ARMORER Work Phone: [facility] 12-16-1983 mumps virus vaccine Iris Villalta SPOKE MAKER-CABLE ARMORER Work Phone: [facility] 12-16-1983 TD(adult) unspecifie d formulation Iris Villalta SPOKE MAKER-CABLE ARMORER Work Phone: [facility] 12-05-1970 poliovirus vaccine, unspecified formulation Iris Villalta SPOKE MAKER-CABLE ARMORER Work Phone: [facility] 11-07-1970 diphtheria, tetanus toxoids and pertussis vaccine Iris Pawan SPOKE MAKER-CABLE ARMORER Work Phone: [facility] 11-07-1970 measles, mumps and rubella virus vaccine Irisdana Villalta SPOKE MAKER-CABLE ARMORER Work Phone: [facility] 11-04-1967 poliovirus vaccine, unspecified formulation Iriserich Villalta SPOKE MAKER-CABLE ARMORER Work Phone: [facility] 08-30-1967 measles virus vaccine Gary e Villalta SPOKE MAKER-CABLE ARMORER Work Phone: [facility] 08-05-1967 poliovirus vaccine, unspecified formulation Iris Villalta SPOKE MAKER-CABLE ARMORER Work Phone: [facility] Payers Date Payer Category Payer Self-pay 2021 Medicaid [facility] [employer] [place] [id number] 2021-Present [phone] [address] [address] [place] [address] [id number] 2021 Unknown [facility] [id number] 2021-Present [phone] [address] [address] [place] [address] 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 [id number] 1966 Unknown [id number] 2.16.840.1.711553.3.579.2.593 1966 Unknown [id number] 2.16840.1.546266.3.579.2.593 1966 Unknown [id number] 2.16.840.1.102647.3.579.2.593 1966 Unknown [id number] 2.840.1.401950.3.579.2.9 1966 Unknown [id number] 2.16840.1.102090.3.579.2.9 1966 Unknown [id number] 2.840.1.582071.3.579.2.1258 1966 Unknown [id number] 2.840.1.079589.3.579.2.1285 1966 Unknown [id number] 2.840.1.888042.3.579.2.1285 1966 Unknown [id number] 2.840.1.712057.3.579.2.1285 1966 Unknown [id number] 2.840.1.751086.3.579.2.1285 1966 Unknown [id number] 2.840.1.878315.3.579.2.1285 1966 Unknown [id number] 1966 Unknown [id number] 2.840.1.971834.3.579.2.1285 1966 Unknown [id number] 2.840.1.176137.3.579.2.1285 1966 Unknown [id number] 2.840.1.637333.3.579.2.1285 1966 Unknown [id number] 2.840.1.188027.3.579.2.1285 1966 Unknown [id number] 2.840.1.625764.3.579.2.1286 1966 Unknown [id number] 2.16.840.1.682933.3.579.2.1286 1966 Unknown [id number] 2.16.840.1.494032.3.579.2.1286 1959 Unknown [id number] 1959 Unknown [id number] Unknown [id number] 2.16.840.1.212881.3.579.2.531 Social History Date Type Detail Facility Start: 07-20-2020 End: 09-10-2022 Tobacco smoking status NHIS Never smoked tobacco [facility] Start: 07-20-2020 End: 09-10-2022 Tobacco use and exposure Smokeless tobacco non-user [facility] Start: 02-08-2021 Alcohol intake Ex-drinker (finding) [facility] Start: 1965 Sex Assigned At Female [facility] Start: 09-10-2022 End: 11-18-2023 Sex Assigned At [facility] [email or web address] Other Start: 09-10-2022 End: 11-18-2023 Alcohol intake Lifetime non-drinker (finding) [facility] Start: 09-10-2022 End: 11-18-2023 History of Social function [facility] Adolescent depressio n screening assessment 8 [facility] Start: 1965 Sex Assigned At Not on file [facility] Clinical Notes 02-08-2021 to 11-24-2023 Telephone Encounter - Otilia Munoz - 11/24/2023 3:41 PM EDTTelephone Encounter - RIMA Gamez - 11/24/2023 3:41 PM EDTRIMA Gamez - 05/29/2023 1:40 PM EDT Note Date & Type Note Facility 11-24-2023 Miscellaneous Notes Formattin g of this note might be different from the original. She called about a cough she thinks is from her lisinopril, an you please advise I would like her to continue lisinopril. She just started less than 2 weeks ago.We are in allergy season. I would like her to continue to monitor for several more weeks. Notified documented in this encounter [facility] 11-24-2023 Telephone encount er Note She called about a cough she thinks is from her lisinopril, an you please advise [facility] 11-24-2023 Telephone encount er Note I would like her to continue lisinopril. She just started less than 2 weeks ago.We are in allergy season. I would like her to continue to monitor for several more weeks. [facility] 11-24-2023 Telephone encount er Note Notified [facility] 05-29-2023 History of Presen t illness Narrative New orders for Bactrim DS oral twice daily for 7 days. Send urine for culture. RIMA Gamez 05/29/23 1451 documented in this encounter [facility] 05-29-2023 Miscellaneous Notes Addended by: FIDENCIO DEGROOT on: 05/29/2023 03:03 PM Modules accepted: Orders documented in this encounter [facility] 05-29-2023 Note Addended by: FIDENCIO DEGROOT on: 05/29/2023 03:03 PM Modules accepted: Orders [facility] 05-26-2023 Miscellaneous Notes Formattin g of [...] 1:30okay per shereen documented in this encounter [facility] 05-26-2023 Telephone encount er Note Patient called donal said that she is still having some pressure and burning, the rash is starting to clear up. She was wondering if you could send in estrogen cream for her [facility] 05-26-2023 Telephone encount er Note Please inform patient I do not order estrogen cream for her current complaint. I am concerned she may have a UTI. [facility] 05-26-2023 Telephone encount er Note Patient will be dropping a UA arounf 1:30okay per shereen [facility] 05-19-2023 History of Presen t illness Narrative Images from the original note were not included. [address] [place] [address] SUBJECTIVE: Patient ID: Judy Roca is a [...] Medical History: Diagnosis Date Allergic Diabetes mellitus ([facility]) Hypertension Immunization History Administered Date(s) Administered COVID-19, [...] [facility] 05/19/23 1412 documented in this encounter [facility] 03-18-2023 History of Presen t illness Narrative Images from the original note were not included. [address] [facility] [address] SUBJECTIVE: Patient ID: Judy Roca is a 57 y.o. female. Chief Complaint Patient presents with Diabetes Presents for follow up States her allergies have been bothering her more lately. Is taking cetirizine but is not effective. Has tried loratadine as well. Flonase causes nose bleeds. Blood sugars average in the 130s. Uses [employer] system for blood glucose monitoring. Diabetes She [...] 130-140 mg/dl. She does not see a trade mark examiner.Eye exam is current. Hypertension This is a [...] Medical History: Diagnosis Date Allergic Diabetes mellitus ([facility]) Hypertension Immunization History Administered Date(s) Administered COVID-19, [...] hyperglycemia, without long-term current use of insulin ([facility]) - POCT Hemoglobin A1c - blood-glucose sensor [...] of major depressive disorder without prior episode ([facility]) - venlafaxine XR (EFFEXOR-XR) 150 mg 24 [...] 6.5% in office today. Was 6.3% Using [employer] 3 testing system Previously ordered Jihan but [...] procedures Follow-up: Annual physical RIMA Gamez 03/18/23 0984 documented in this encounter [facility] [employer] 01-12-2023 Evaluation note Encounter Date Diagnosis Assessment [...] and rest, Tylenol/Motrin as directed, rx of [place], OTC Flonase, cool mist humidifier, throat lozenges. [...] treatment plan. Patient left in stable condition [employer] Other 07-21-2022 Miscellaneous Notes* Telephone Encounter - Nabor Pichardo MD - 2021 5:59 AM EDT For chart eye exam 08/22/21 Dr.Mark Alonso, OD Blurry vision , diabetes making her vision fluctuate. Plaquenil 2years. No toxicity. [facility] NoteHNO ID: [id number] Author: Nabor Pichardo MD Service: ? Author [...] Biking several times a week. COVID vaccine [employer] 03/07/20, 04/17/20, 11/29/20. Feels safe at home. 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 Ulnar positive sarah (more content not included)...[facility]aluation noteNo InformationNortJeanes Hospital [employer] Other Evaluation note* Diagnosis Type 2 diabetes mellitus with hyperglycemia, without long-term current use of insulin ([facility])- Primary Current mild episode of major depressive disorder without prior episode ([facility]) Gastroesophageal reflux disease without esophagitis Esophageal reflux Benign essential HTN Migraine 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, not intractable Seasonal allergic rhinitis due to pollen documented in this encounter [facility] SystemEvaluation note* Diagnosis Type 2 diabetes mellitus with hyperglycemia, without long-term current use of insulin ([facility]) Current mild episode of major depressive disorder without prior episode ([facility]) Benign essential HTN Migraine 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, not intractable documented in this encounter [facility] System[facility] note* Diagnosis Saloni infection of flexural skin- Primary Candidiasis of skin and nails documented in this encounter [facility] SystemEvaluation note* Diagnosis Dysuria- Primary Acute cystitis without hematuria documented in this encounter [facility] SystemHistory general Narrative - Reported* Type Description Date Medical History depression Medical History hypertension Medical History menopause Surgical History hysterectomy Surgical History back surgery Surgical History elbow surgery Surgical History carpal tunnel release [employer] Other InstructionsNot on filedocumented in this encounter [facility] [employer] SystemInstructions* Attachments The following attachments cannot be sent through Care Everywhere. * High blood pressure in adults (Bengali) documented in this encounterHocking Valley Community HospitalCDI Computer Distribution Inc. SystemInstructionsNot on file documented in [facility] encounter[facility] [employer] SystemInstructionsNot on file documented in this encounterProW. D. [facility]low [facility] [employer] SystemInstructionsNot on file documented in this encounterK[facility] [employer] SystemInstructionsNot on file documented in this encounterK[facility] [employer] SystemInstructionsNot on file documented in this encounterHocking Valley Community HospitalCDI Computer Distribution Inc. System Summary Purpose Family History No Family [...] allergic rhinitis due to pollen Iris Villalta APRN-CNP [address] [place] [address] Referral ID Status Reason Start Date Expiration Date V isits Requested Visits Authorized [id number] Pending Review 1 1 Additional Source Comments Source Comments (unrecognize d section and content) In the event this informatio n is protected by the Federal Confidentiality of Alcohol and Drug Abuse Patient Records regulations: The Federal rules restrict any use of the information to criminally investigate or prosecute any alcohol or drug abuse patient.[facility] Reason for Visit (unrecogniz ed section and content) Reason Comments Results Reason Comments Diabetes Reason Comments Med Refill Reason Comments Rash Right groin Reason Comments Urinary Tract Infection Care Teams (unrecognized sec tion and content) Arabic Linguist Relationship Specialty Start Date End Date Robin Ma Sr. [address] [place] [address] PCP - General Family Practice 07/20/20 Arabic Linguist Relationship Specialty Start Date End Date Iris Villalta APRN-CNP [address] [place] [address] PCP - General Family Medicine 08/28/22 Arabic Linguist Relationship Specialty Start Date End Date Iris Villalta APRN-CNP [address] [place] [address] PCP - General Family Medicine 08/28/22 Arabic Linguist Relationship Specialty Start Date End Date Iris Villalta APRN-CNP [address] [place] [address] PCP - General Family Medicine 08/28/22 Arabic Linguist Relationship Specialty Start Date End Date [facility] [address] [place] [address] PCP - General Family Medicine 08/28/22 Arabic Linguist Relationship Specialty Start Date End Date Iris Villalta [facility] [address] [place] [address] PCP - General Family Medicine 08/28/22 Arabic Linguist Relationship Specialty Start Date End Date [facility]ris Vill[facility] [address] [place] [address] PCP - General Family Medicine 08/28/22 Arabic Linguist Relationship Specialty Start Date End Date [facility]ris [facility] [address] [place] [address] PCP - General Family Medicine 08/28/22 INFORMATION SOURCE (unrecogn ized section and content) DATE CREATED AUTHOR 09/15/2021 [facility] DATE CREATED AUTHOR AUTHOR'S ORGANIZ ATION 02/26/2022 [facility] DATE CREATED AUTHOR AUTHOR'S ORGANIZ ATION 07/20/2023 [facility] DATE CREATED AUTHOR AUTHOR'S ORGANIZ ATION 08/16/2023 [facility] DATE CREATED AUTHOR AUTHOR'S ORGANIZ ATION 10/24/2023 [facility] DATE CREATED AUTHOR AUTHOR'S ORGANIZ ATION 11/21/2023 [facility] FOR RECORDS PERTAINING TO [...] BE BASED ON THE PRIMARY CLINICAL RECORDS. [facility] [employer] [facility]. provides no warranty or guarantee of the accuracy or completeness of information in this document.
[2023-12-15 21:07] LABS: Influenza Virus A Antigen Negative; Influenza Virus B Antigen Negative; Internal Control Within Normal Limits; SARS-CoV-2 Ag NEGATIVE (NEGATIVE)
--- NOTE | 2023-12-15 21:09 | ED_ITS ---
HPI - URI/Sore Throat General Chief Complaint: Upper Respiratory Infection Stated Complaint: Upper Respiratory Infection Time Seen by Provider: 12/15/23 20:59 Source: patient History of Present Illness HPI Narrative: Patient 58-year-old female who presents to the emergency department for the evaluation of multiple complaints. Patient states she has had left-sided sciatica type symptoms for the last 3 days. She has a history of sciatica and states this feels similar. No new injury or trauma. No medications taken prior to arrival. She further complains of upper respiratory symptoms for the past 5 days which she describes as mostly sinus/nasal congestion. No fevers, vomiting. She denies any significant cough or sputum production. She states her son was sick last week. She is ambulatory, no significant back pain, flank or abdominal pain. No urinary symptoms or incontinence. Related Data Home Medications ?Medication ?Instructions ?Recorded ?Confirmed cetirizine 10 mg tablet 10 mg PO DAILY 07/28/22 11/14/22 famotidine 40 mg tablet 40 mg PO Q12H 07/28/22 11/14/22 glimepiride 4 mg tablet 4 mg PO .TWICE 07/28/22 11/14/22 pioglitazone 30 mg tablet 30 mg PO DAILY 07/28/22 11/14/22 propranolol 80 mg capsule,24 80 mg PO Q24H 07/28/22 11/14/22 hr,extended release venlafaxine 150 mg 150 mg PO DAILY 07/28/22 11/14/22 capsule,extended release 24 hr Previous Rx's ?Medication ?Instructions ?Recorded ondansetron 4 mg disintegrating 4 mg PO Q6H PRN nausea and 07/04/23 tablet vomiting #20 tabs cephalexin 500 mg capsule 500 mg PO TID 7 days #21 caps 08/05/23 phenazopyridine 200 mg tablet 200 mg PO Q8H PRN pain #15 tabs 08/05/23 (Pyridium) nitrofurantoin 100 mg PO BID 7 days #14 caps 10/12/23 monohydrate/macrocrystals 100 mg capsule (Macrobid) sulfacetamide sodium 10 % eye drops 2 drp ophthalmic (eye) Q4H #15 mL 10/12/23 [id number] 10 ml PO Q6H PRN cold symptoms 12/15/23 2 mg-30 mg-10 mg/5 mL oral syrup #200 mL (Bromfed DM) hydrocodone 5 mg-acetaminophen 325 1 tab PO Q6H PRN pain 3 days #8 12/15/23 mg tablet tabs ketorolac 10 mg tablet 10 mg PO TID PRN pain #10 tabs 12/15/23 Allergies Allergy/AdvReac Type Severity Reaction Status Date / Time No Known Drug Allergies Allergy Verified 10/12/23 18:39 Review of Systems ROS Constitutional Denies: fever or chills Ears, nose, mouth, and throat Reports: nasal congestion and post nasal drip; Denies: throat pain Respiratory Denies: shortness of breath or cough Gastrointestinal Denies: nausea or vomiting Genitourinary Denies: painful urination Musculoskeletal Reports: extremity pain; Denies: back pain or neck pain Integumentary/Breast Denies: rash Neurological Denies: numbness in extremities or weakness in extremities Hematologic/Lymphatic Denies: easy bruising or easy bleeding PFSH PFS Social History Smoking status: Never smoker Little interest or pleasure in doing things: not at all Feeling down, depressed, or hopeless: not at all Exam Narrative Exam Narrative: Gen.: Awake, alert, in no distress Head: Normocephalic, atraumatic ENT: Moist mucous membranes, left TM is fluid-filled with no erythema or injection. No pharyngeal erythema or tonsillar edema. Airway widely open and patent. Uvula is midline. No trismus or drooling Respiratory: No respiratory distress, lungs clear bilaterally Cardio: Regular rate and rhythm Back: No bony point tenderness of the T-spine or L-spine with diffuse tenderness of the left posterior hip. Extremities: Moves extremities equally, no injuries noted Psych: Normal mood and affect Neuro: No focal neuro deficit Skin: Warm, dry, intact Constitutional Vital Signs, click to edit/add: Last Vital Signs Temp 98.1 F 12/15/23 20:43 Pulse 69 12/15/23 20:43 Resp 16 12/15/23 20:43 BP 160/88 H 12/15/23 20:43 Pulse Ox 98 12/15/23 20:43 O2 Del Method Room Air 12/15/23 20:43 Course Vital Signs Vital signs: Vital Signs Temperature 98.1 F 12/15/23 20:43 Pulse Rate 69 12/15/23 20:43 Respiratory Rate 16 12/15/23 20:43 Blood Pressure 160/88 H 12/15/23 20:43 Pulse Oximetry 98 12/15/23 20:43 Oxygen Delivery Method Room Air 12/15/23 20:43 Temperature 98.1 F 12/15/23 20:43 Pulse Rate 69 12/15/23 20:43 Respiratory Rate 16 12/15/23 20:43 Blood Pressure 160/88 H 12/15/23 20:43 Pulse Oximetry 98 12/15/23 20:43 Oxygen Delivery Method Room Air 12/15/23 20:43 MDM - URI/Sore Throat MDM Narrative Medical decision making narrative: Patient with a benign exam, no focal neurodeficits to the lower extremities. She has no complaints of paresthesia or urinary symptoms. She has had previous imaging of the low back for sciatica previously. She is treated with Solu- Medrol in the ER, she is diabetic so we will withhold additional steroids for home. She is negative for COVID and influenza and will be started on Bromfed- DM. A short course of analgesics and NSAIDs given for the sciatica. Return to the ER if symptoms change or worsen. SHARED APC VISIT, PHYSICIAN ATTESTATION: [id number] I performed a substantive part of the MDM during the patient?s E/M visit. I personally evaluated and examined the patient. I personally made or approved the documented management plan and acknowledge its risk of complications. Medical Records Attestation: I reviewed the patient's medical records. Lab Data Attestation: I reviewed the patient's lab results. Labs: Lab Results 12/15/23 Range/Units 20:51 Influenza Type A Ag Negative Influenza Type B Ag Negative SARS-CoV-2 Ag (CV2AG) Negative (NEGATIVE) Discharge Plan Discharge Chief Complaint: Upper Respiratory Infection Clinical Impression: Left sided sciatica, URI (upper respiratory infection) Patient Disposition: Home, Self-Care Time of Disposition Decision: 21:28 Condition: Good Prescriptions / Home Meds: New hydrocodone-acetaminophen 5-325 mg tablet 1 tab PO Q6H PRN (Reason: pain) 3 Days Qty: 8 0RF Rx Instructions: DX: M54.5 ketorolac 10 mg tablet 10 mg PO TID PRN (Reason: pain) Qty: 10 0RF [id number] [Bromfed DM] 2-30-10 mg/5 mL syrup 10 ml PO Q6H PRN (Reason: cold symptoms) Qty: 200 0RF No Action cephalexin 500 mg capsule 500 mg PO TID 7 Days Qty: 21 0RF phenazopyridine [Pyridium] 200 mg tablet 200 mg PO Q8H PRN (Reason: pain) Qty: 15 0RF cetirizine 10 mg tablet 10 mg PO DAILY famotidine 40 mg tablet 40 mg PO Q12H glimepiride 4 mg tablet 4 mg PO .TWICE pioglitazone 30 mg tablet 30 mg PO DAILY propranolol 80 mg capsule,extended release 24 hr 80 mg PO Q24H venlafaxine 150 mg capsule,extended release 24hr 150 mg PO DAILY ondansetron 4 mg tablet,disintegrating 4 mg PO Q6H PRN (Reason: nausea and vomiting) Qty: 20 0RF sulfacetamide sodium 10 % drops 2 drp ophthalmic (eye) Q4H Qty: 15 0RF nitrofurantoin monohyd/m-cryst [Macrobid] 100 mg capsule 100 mg PO BID 7 Days Qty: 14 0RF Rx Instructions: must administer with a meal/food Print Language: Portuguese Instructions: Sciatica (ED), Upper Respiratory Infection (ED) Referrals: IRIS KENNEDY [Primary Care Provider] - 1 week
[2023-12-15] MEDS: METHYLPREDNISOLONE SOD SUCC PF 125 MG/2 ML VIAL IM (21:30)
== END 2023-12-15 21:39 | disposition home or self-care (01) ==
PROVIDERS: Emergency Provider Emergency Medicine; PCP Nurse Practitioner
DX: M54.32 Sciatica, left side (principal); J06.9 Acute upper respiratory infection, unspecified; Z20.822 Contact with and (suspected) exposure to COVID-19
CPT/HCPCS: 87804; 87811; 96372; 99284; J2919

== ENCOUNTER 2023-12-22 21:18 | Outpatient (REF) | payer MEDICAID, SELFPAY ==
--- OUTSIDE RECORDS SUMMARY | 2023-12-22 21:23 | XMS_ITS | CCD ---
Author Organization [facility]formerly [facility] Partnership [facility] Care Team Providers Care Associate Vice President Name Role Phone House Sr., Robin Bray Primary Care Provider ANIL, DR LORD Primary Care Unavailable AKANKSHA, DR DEWITT Admitting Unavailable AKANKSHA, DR DEWITT Attending Unavailable AKANKSHA, DR DEWITT Consulting Unavailable STEPANIC, DR ORTIZ Admitting Unavailable STEPTESS, DR ORTIZ Attending Unavailable ANIL, DR LORD Primary Care Unavailable JAZMÍN, DR ORTIZ Consulting Unavailable ZIEBER, DR XENIA Mckee Consulting Unavailable ANIL, DR LORD Primary Care Unavailable SUSY, DR BEE Mckee Admitting Unavailable SUSY, DR BEE Mckee Attending Unavailable SUSY, DR BEE Mckee Consulting Unavailable STACIE, BRY Consulting Unavailable Francia Carlos Unavailable Pawan PCU RN-GLASS BLOWING INSTRUCTOR, Iris Nugent Primary Care Provid er Ronan Delcid Admitting Unavailable Ronan Delcid Attending Unavailable Iris Villalta Primary Care Unavailable JR. JAZMÍN, ANGEL Tong Attending Unavaila kellen NOYOLA JR., ANGEL Tong Attending Unavaila kellen NOYOLA JR., ANGEL Tong Referring Unavaila ble IRIS VILLALTA Referring Unavailable VILLALTAIRIS Primary Care Unavailable VILLALTAIRIS Referring Unavailable VILLALTA, IRIS Nugent Primary Care Unavailable VILLALTAIRIS Referring Unavailable VILLALTA, IRIS Nugent Primary Care Unavailable IRIS VILLALTA Attending Unavailable IRIS VILLALTA Referring Unavailable VILLALTA, IRIS Nugent Primary Care Unavailable VILLALTAIRIS Attending Unavailable IRIS VILLALTA Referring Unavailable VILLALTA, IRIS Nugent Primary Care Unavailable IRIS VILLALTA Attending Unavailable IRIS VILLALTA Referring Unavailable VILLALTA, IRIS Nugent Primary Care Unavailable VILLALTAIRIS Attending Unavailable IRIS VILLALTA Referring Unavailable IRIS VILLALTA Primary Care Unavailable IRIS VILLALTA Attending Unavailable IRIS VILLALTA Referring Unavailable IRIS VILLALTA Primary Care Unavailable IRIS VILLALTA Attending Unavailable IRIS VILLALTA Referring Unavailable PAWAN, IRIS Nugent Primary Care Unavailable PAWAN, IRIS Nugent Attending Unavailable IRIS VILLALTA Referring Unavailable IRIS VILLALTA Primary Care Unavailable PAWAN, IRIS Nugent Attending Unavailable IRIS VLILALTA Referring Unavailable VILLALTA, IRIS Nugent Primary Care Unavailable PAWAN, IRIS Nugent Attending Unavailable IRIS VILLALTA Referring Unavailable IRIS VILLALTA Primary Care Unavailable IRIS VILLALTA Attending Unavailable IRIS VILLALTA Referring Unavailable VILLALTA, IRIS Nugent Primary Care Unavailable Villalta Iris AMAYA Unavailable Luis Felipe Obando MD Primary Care Provider Medications Current Medications Medication Drug Class(es) Dates Sig (Normalized) Sig (Original) [id number] 200 actuat albuterol 0.09 mg/actuat metered dose [...] hyperglycemia, without long-term current use of insulin ([facility]) 1 Device by miscellaneous route See Admin Instructions. Change every 15 days 2 each 6 11/18/2023 Active blood-glucose sensor (FREESTYLE JAYNE 3 SENSOR) device (7 sources) Start: 03-18-2023 blood-glucose sensor (FREESTYLE JAYNE 3 SENSOR) device Indications: Type 2 diabetes mellitus with hyperglycemia, without long-term current use of insulin ([facility]) USE DIRECTED; change EVERY 2 (TWO) weeks 6 each 2 03/18/2023 Active Start: 09-25-2022 End: 03-18-2023 blood-glucose sensor (FREEST YLE JAYNE 3 SENSOR) device Indications: Type 2 diabetes mellitus with hyperglycemia, without long-term current use of insulin ([facility]) USE DIRECTED; change EVERY 2 (TWO) weeks 2 each 5 09/25/2022 03/18/2023 Discontinued (Reorder) Start: 09-25-2022 blood-glucose sensor (FREESTYLE JAYNE 3 SENSOR) device Indications: Type 2 diabetes mellitus with hyperglycemia, without long-term current use of insulin ([facility]) USE DIRECTED; change EVERY 2 (TWO) weeks 2 each 5 09/25/2022 Active cariprazine 1.5 mg oral capsule (1 source) Atypical Antipsychotic Start: 11-18-2023 take 1 capsule by mouth in the morning cariprazine (VRAYLAR) 1.5 mg capsule Indications: Major depression, chronic Take 1 capsule (1.5 mg total) by mouth in the morning. 90 capsule 1 11/18/2023 Active Continuous Blood Gluc Sensor (FreeStyle Ajyne 3 Sensor) misc (1 source) Start: 11-12-2022 Continuous Blood Gluc Sensor (FreeStyle Jayne 3 Sensor) misc USE DIRECTED; change EVERY 2 (TWO) weeks 11/12/2022 Active dextromethorphan hydrobromide 1.5 mg/ml / pyrilamine maleate 1.5 mg/ml oral solution (2 sources) Uncompetitive O-kenknm-N-aspartat e Receptor Antagonist, Sigma-1 Agonist Start: 01-12-2023 take 10 mL by mouth every eight hours [place] DM 7.5-7.5 MG/5ML 10 mL Orally every [...] 10/21/2023 Active famotidine 40 mg oral tablet (12 sources) Histamine-2 Receptor Antagonist Start: take 1 [...] by mouth twice daily. 0 07/10/2020 Active famotidine (Pepc id) 40 MG tablet every 12 (twelve) hours. Active Comment on above: Take 40 mg by mouth twice daily. flash glucose scanning reader (FREESTYLE JAYNE 2 READER) mis (1 source) Start: 11-11-19 flash glucose scanning reader (FREESTYLE JAYNE 2 READER) [facility] Indications: Non-insulin dependent type 2 diabetes mellitus (CMS-HCC) 1 each by miscellaneous route in the morning. 1 each 11/11/2023 Active flash glucose sensor (FREESTYLE JAYNE 2 SENSOR) kit (1 source) Start: 11-11-19 flash glucose sensor (FREESTYLE JAYNE 2 SENSOR) kit Indications: Non-insulin dependent type 2 diabetes mellitus (CMS-HCC) 1 Device by miscellaneous route every 14 [...] 05/22/2023 Active glimepiride 4 mg oral tablet (12 sources) Sulfonylurea Start: 08-19-19 take 1 tablet [...] omeprazole 20 mg delayed release oral capsule (9 sources) Proton Pump Inhibitor Start: take 1 [...] 03/18/2023 Active pioglitazone 30 mg oral tablet (14 sources) Peroxisome Proliferator Receptor alpha Agonist, Peroxisome Proliferator Receptor gamma Agonist, Thiazolidinedione Start: 08-19-2023 take 1 tablet by mouth in the morning pioglitazone (ACTOS) 30 mg tablet Indications: Type 2 diabetes mellitus with hyperglycemia, without long-term current use of insulin ([facility]) Take 1 tablet (30 mg total) by mouth in the morning. 90 tablet 1 08/19/2023 Active Start: 09-10-2022 End: 03-30-2023 take 1 tablet by mouth in the morning pioglitazone (ACTOS) 30 mg tablet Indications: Type 2 diabetes mellitus with hyperglycemia, without long-term current use of insulin ([facility]) TAKE 1 TABLET BY MOUTH IN THE MORNING 90 tablet 1 03/30/2023 Active take 1 tablet by angie th once daily pioglitazone (Actos) 45 MG tablet Take 45 mg by mouth Daily Active pioglitazone (Ac tos) 15 MG tablet Pioglitazone HCl Active 24 hr propranolol hydrochloride 80 mg extended release oral capsule (13 sources) beta-Adrenergic Nikko Start: 08-19-2023 take 1 [...] capsule by mo uth once daily propranolol LA (INDERAL LA) 80 [...] Start: 06-27-2020 take 1 capsule by mo [facility] once daily propranolol ER (INDERAL LA) 80 mg 24 hr capsule Take 80 mg by mouth once daily. 0 06/27/2020 Active propranolol (Ind eral) 80 MG tablet 1 (one) time each day at the same time. Active Propranolol HCl Active Comment on above: [...] venlafaxine 150 mg extended release oral capsule (12 sources) Serotonin and Norepinephrine Reuptake Inhibitor Start: [...] 30 capsule 5 09/18/2022 03/18/2023 Discontinued (Reorder) take 1 tablet by angie th in the morning venlafaxine (Effexor) 100 MG tablet Take 100 mg by mouth in the morning and 100 mg before bedtime. Active Completed/Discontinued Medications Medication Drug Class(es) Dates Sig [...] hr tablet Estradiol (2 sources) Estrogen Estradiol Not- rob hydroxychloroquine sulfate 200 mg oral tablet [...] 1 09/10/2022 03/18/2023 Discontinued (Therapy completed) Fetzima Not-Tez ingram nabumetone 500 mg oral tablet (1 source) [...] hyperglycemia, without long-term current use of insulin ([facility]) Inject 5 mg under the skin every 7 days. 2 mL 0 09/10/2022 03/18/2023 Discontinued (Cost of medication) Start: 09-10-2022 tirzepatide (M OUNJARO) 5 mg/0.5 mL pen injector Indications: Type 2 diabetes mellitus with hyperglycemia, without long-term current use of insulin ([facility]) Inject 5 mg under the skin every [...] 09-16-2023 Episodic Joint disorders and dislocations; trauma-related (7 sources) Articular cartilage disorder of shoulder region; Translations: [Other articular cartilage disorders, left shoulder] Onset: 12-22-2020 03-18-2023 Chronic Mood disorders (4 sources) Mild major depression, single episode; Translations: [Major depressive disorder, single episode, mild] Onset: 08-19-2023 03-18-2023 Chronic Mycoses (1 source) Candidal intertrigo; Translations: [Candidiasis of skin and nail] 05-19-2023 Episodic Osteoarthritis (17 sources) Degenerative joint disease involving multiple joints; 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] Onset: 07-20-2020 07-20-2020 Chronic Other aftercare (1 source) Other long-term (current) drug therapy; Translations: [[facility] CURRENT DRUG THERAPY] Onset: 02-26-2022 Episodic Other gastrointestinal disorders (1 source) Diarrhea Onset: 10-21-2023 Episodic Other non-traumatic joint disorders (4 sources) Other specific joint derangements of right shoulder, not elsewhere classified; Translations: [OTH SPEC JOINT DERANG RT SHLDR NEC] Onset: 05-03-2021 Chronic Other non-traumatic joint disorders (8 sources) Derangement of right shoulder joint; Translations: [...] (1 source) Drug therapy finding; Translations: [Other long term acute care registered nurse (current) drug therapy] Onset: 02-08-2021 02-08-2021 Episodic [...] unspecified elbow] Onset: 02-11-2020 09-10-2022 Episodic Other non-traumatic joint disorders (1 source) Pain in elbow; Translations: [Pain in right elbow] Onset: 07-11-2022 07-11-2022 Episodic Other screening for suspected conditions (not [...] <10,000 ORGANISMS/ML NORMAL URO GENITAL ABHILASH Normal [facility] Comment on above: Performed By: #### 6 30-4 #### [facility] ([id number]) [address] [place] [address] [address] abdomen pelvis w con[facility] CT abdomen pelvis w [facility] [place] [address] [place] [id number] Scan Report Signed Patient: Judy Roca MR#: [id number] 18 : 1965 Acct:[id number] Age/Sex: 57 / F ADM Date: 07/09/23 Loc: ER Room: Type: [facility] ER Attending Dr: Copies to: [...] Elia Weiss M.D.07/09/2023 6:06 PM Dictation Location: [place] [address] Transcribed By: [facility] 07/09/231805 Dictated By: Elia Weiss DO 07/09/23 1800 Signed By: 07/09/231805 Normal [facility] Complete Blood Count Auto Di ffon 07-09-2023 Basophils (Bld) [#/Vol] 0.0 10*3/uL Normal 0.0-0.2 [facility] Comment on above: Result Comment: PERF ORMED BY: [place] [address] PATHOLOGIST SOLUTIONS ENGINEER ATIF JOHNSON M.D. Performed By: #### C MP, CBC #### [address] Basophils/100 WBC (Bld) 0.4 % Normal . [facility] Comment on above: Performed By: #### C MP, CBC #### [address] Eosinophils (Bld) [#/Vol] 0.1 10*3/uL Normal 0.0-0.45 [facility] Comment on above: Performed By: #### C MP, CBC #### [place] [address] [place] Eosinophils/100 WBC (Bld) 0.8 % Normal . [facility] Comment on above: Performed By: #### C MP, CBC #### [address] Erythrocyte distribution width (RBC) [Ratio] 14.3 % Normal 11.9-15.3 [facility] Comment on above: Performed By: #### C MP, CBC #### [address] Hematocrit (Bld) [Volume fraction] 40.5 % Normal 34.0-46.4 [facility] Comment on above: Performed By: #### C MP, CBC #### [address] Hemoglobin (Bld) [Mass/Vol] 13.6 g/dL Normal 11.8-15.4 [facility] Comment on above: Performed By: #### C MP, CBC #### [address] Lymphocytes (Bld) [#/Vol] 1.0 10*3/uL Normal 1.00-4.8 [facility] Comment on above: Performed By: #### C MP, CBC #### [address] Lymphocytes/100 WBC (Bld) 11.9 % Normal . [facility] Comment on above: Performed By: #### C MP, CBC #### [address] MCH (RBC) [Entitic mass] 27.3 pg Normal 24.7-34.3 [facility] Comment on above: Performed By: #### C MP, CBC #### [address] MCV (RBC) [Entitic vol] 81.2 fL Normal 80-100 [facility] Comment on above: Performed By: #### C MP, CBC #### [address] Mean Corpuscular HGB Conc 33.6 g/dL Normal 32.0-35.0 [facility] Comment on above: Performed By: #### C MP, CBC #### [address] Monocytes (Bld) [#/Vol] 0.9 10*3/uL High 0.0-0.8 [facility] Comment on above: Performed By: #### C MP, CBC #### [place] [address] [place] [address] [place] Monocytes/100 WBC (Bld) 28.39 % High 0.00-20.00 [facility] Comment on above: Result Comment: For adults in ED, MDW > 20.0 may be associated with a higher risk of sepsis during the first 12 hrs of hospital admission Performed By: #### C MP, CBC #### [place] [address] [place] Monocytes/100 WBC (Bld) 10.3 % Normal . [facility] Comment on above: Performed By: #### C MP, CBC #### [facility] [address] [place] [address] [place] Neutrophils (Bld) [#/Vol] 6.6 10*3/uL Normal 1.8-7.7 [facility] Comment on above: Performed By: #### C MP, CBC #### [place] [address] [place] Neutrophils/100 WBC (Bld) 76.6 % Normal . [facility] Comment on above: Performed By: #### C MP, CBC #### [place] [address] [place] NRBC% 0.1 /100{WBC} Normal 0-0.5 [facility] Comment on above: Performed By: #### C MP, CBC #### [place] [address] [place] Platelet mean volume (Bld) [Entitic vol] 8.9 fL Normal 6.3-10.7 [facility] Comment on above: Performed By: #### C MP, CBC #### [facility] [address] [place] [address] [place] Platelets (Bld) [#/Vol] 293 10*3/uL Normal 150-450 [facility] Comment on above: Performed By: #### C MP, CBC #### [place] [address] [place] RBC (Bld) [#/Vol] 4.99 10*6/uL Normal 3.60-5.[address] [facility] Comment on above: Performed By: #### C MP, CBC #### [address] WBC (Bld) [#/Vol] 8.7 10*3/uL Normal 3.8-11.6 [facility] Comment on above: Performed By: #### C MP, CBC #### [address] Comprehensive Metabolic Pane jazzmine 07-09-2023 Albumin [Mass/Vol] 3.1 g/dL Low 3.5-5.7 [facility] Comment on above: Performed By: #### C MP, CBC #### [address] Albumin/Globulin [Mass ratio] 0.8 {ratio} Normal [facility] Comment on above: Performed By: #### C MP, CBC #### [address] Performed By: #### H EPATIC #### [address] ALP [Catalytic activity/Vol] 222 U/L High 34-104 [facility] Comment on above: Performed By: #### C MP, CBC #### [address] ALT [Catalytic activity/Vol] 105 U/L High 7-52 [facility] Comment on above: Performed By: #### C MP, CBC #### [address] Anion gap [Moles/Vol] 14.3 mmol/L Normal 6.0-15.0 [facility] Comment on above: Performed By: #### C MP, CBC #### [address] AST [Catalytic activity/Vol] 54 U/L High 13-39 [facility] Comment on above: Performed By: #### C MP, CBC #### [address] Bilirubin [Mass/Vol] 0.6 mg/dL Normal 0.3-1.0 [facility] Comment on above: Performed By: #### C MP, CBC #### [address] Performed By: #### H EPATIC #### [address] Calcium [Mass/Vol] 8.1 mg/dL Low 8.6-10.3 [facility] Comment on above: Performed By: #### C MP, CBC #### [address] Chloride [Moles/Vol] 95 mmol/L Low 98-107 [facility] Comment on above: Performed By: #### C MP, CBC #### [address] CO2 [Moles/Vol] 23.7 mmol/L Normal 21.0-31.0 [facility] Comment on above: Performed By: #### C MP, CBC #### [address] Creatinine [Mass/Vol] 0.64 mg/dL Normal 0.60-1.20 [facility] Comment on above: Performed By: #### C MP, CBC #### [address] Creatinine Clr Calc Pharmacy 111.97 Normal [facility] Comment on above: Result Comment: PERF ORMED BY: [place] [address] PATHOLOGIST SOLUTIONS ENGINEER ATIF JOHNSON M.D. Performed By: #### C MP, CBC #### [place] [address] [place] GFR/1.73 sq M.predicted MDRD (S/P/Bld) [Vol rate/Area] mL/min/{1.73_m2} Normal [facility] Comment on above: Performed By: #### C MP, CBC #### [place] [address] [place] Globulin (S) [Mass/Vol] 4.0 g/dL Normal [facility] Comment on above: Performed By: #### C MP, CBC #### [address] Glucose [Mass/Vol] 155 mg/dL High 70-100 [facility] Comment on above: Result Comment: [place] Glucose Reference Range is dependent on time and content of last meal. Glucose of more than 200 mg/dL in a nonstressed, ambulatory subject supports the diagnosis of Diabetes Mellitus. ADA recommended reference range Performed By: #### C MP, CBC #### [address] Potassium [Moles/Vol] 3.0 mmol/L Low 3.5-5.1 [facility] Comment on above: Performed By: #### C MP, CBC #### [address] Protein [Mass/Vol] 7.1 g/dL Normal 6.4-8.9 [facility] Comment on above: Performed By: #### C MP, CBC #### [address] Performed By: #### H EPATIC #### [address] Sodium [Moles/Vol] 130 mmol/L Low 136-145 [facility] Comment on above: Performed By: #### C MP, CBC #### [address] Urea nitrogen [Mass/Vol] 17 mg/dL Normal 7-25 [facility] Comment on above: Performed By: #### C MP, CBC #### [place] [address] [place] Dipstick and Microscopicon 0 07-09-2023 Appearance (U) Cloudy Critically abnormal Clear [facility] Comment on above: Order Comment: Name Collection Type:: Clean-Voided Midstream Performed By: #### C UU, ADDONUAPLUS #### [place] [address] [place] Bacteria,Urine 2+ High None Seen [facility] Comment on above: Order Comment: Name Collection Type:: Clean-Voided Midstream Performed By: #### C UU, ADDONUAPLUS #### [place] [address] [place] Bilirubin,Urine 2+ High Negative [facility] Comment on above: Order Comment: Name Collection Type:: Clean-Voided Midstream Performed By: #### C UU, ADDONUAPLUS #### [place] [address] [place] Color (U) Dark Yellow Critically abnormal Yellow [facility] Comment on above: Order Comment: Name Collection Type:: Clean-Voided Midstream Performed By: #### C UU, ADDONUAPLUS #### [address] Glucose Ql (U) Normal Normal Normal [facility] Comment on above: Order Comment: Name Collection Type:: Clean-Voided Midstream Performed By: #### C UU, ADDONUAPLUS #### [place] [address] [place] Hyaline Casts,Urine 9-19 High 0-8 [facility] Comment on above: Order Comment: Name Collection Type:: Clean-Voided Midstream Result Comment: PERF ORMED BY: [place] [address] PATHOLOGIST SOLUTIONS ENGINEER ATIF JOHNSON M.D. Performed By: #### C UU, ADDONUAPLUS #### [place] [address] [place] Ketones Ql (U) 3+ High Negative [facility] Comment on above: Order Comment: Name Collection Type:: Clean-Voided Midstream Performed By: #### C UU, ADDONUAPLUS #### [place] [address] [place] Leukocyte esterase Test strip Ql (U) 2+ High Negative [facility] Comment on above: Order Comment: Name Collection Type:: Clean-Voided Midstream Performed By: #### C UU, ADDONUAPLUS #### [place] [address] [place] Nitrite,Urine Negative Normal Negative [facility] Comment on above: Order Comment: Name Collection Type:: Clean-Voided Midstream Performed By: #### C UU, ADDONUAPLUS #### [address] Occult Blood,Urine 2+ High Negative [facility] Comment on above: Order Comment: Name Collection Type:: Clean-Voided Midstream Result Comment: PERF ORMED BY: [place] [address] PATHOLOGIST SOLUTIONS ENGINEER ATIF JOHNSON M.D. Performed By: #### C UU, ADDONUAPLUS #### [address] pH (U) 6.0 [pH] Normal 5.0-9.0 [facility] Comment on above: Order Comment: Name Collection Type:: Clean-Voided Midstream Performed By: #### C UU, ADDONUAPLUS #### [address] Protein (U) [Mass/Vol] 100 mg/dL High Negative [facility] Comment on above: Order Comment: Name Collection Type:: Clean-Voided Midstream Performed By: #### C UU, ADDONUAPLUS #### [place] [address] [place] RBC,Urine 10-19 High 0-4 [facility] Comment on above: Order Comment: Name Collection Type:: Clean-Voided Midstream Performed By: #### C UU, ADDONUAPLUS #### [place] [address] [place] Specificy Hines,Urine 1.023 Normal 1.001-1.030 [facility] Comment on above: Order Comment: Name Collection Type:: Clean-Voided Midstream Performed By: #### C UU, ADDONUAPLUS #### [place] [id number] [place] Squamous Epithelial Cell,Urine 5-9 High 0-2 [facility] Comment on above: Order Comment: Name Collection Type:: Clean-Voided Midstream Performed By: #### C UU, ADDONUAPLUS #### [address] Urobilinogen,Urin e Normal Normal Normal [facility] Comment on above: Order Comment: Name Collection Type:: Clean-Voided Midstream Performed By: #### C UU, ADDONUAPLUS #### [address] WBC,Urine 5-9 High 0-4 [facility] Comment on above: Order Comment: Name Collection Type:: Clean-Voided Midstream Performed By: #### C UU, ADDONUAPLUS #### [address] Glucose Poct Glucometerson 0 07-09-2023 Glucose [Mass/Vol] 160 mg/dL Normal [facility] Comment on above: Result Comment: [facility] Glucose Reference Range is dependent on time and content of last meal. Glucose of more than 200 mg/dL in a nonstressed, ambulatory subject supports the diagnosis of Diabetes Mellitus. PERFORMED BY: [place] [address] PATHOLOGIST SOLUTIONS ENGINEER ATIF JOHNSON M.D. Performed By: #### G LULS #### Point of Care testing , Hepatic Panelon 07-09-2023 Albumin [Mass/Vol] 3.2 g/dL Low 3.5-5.7 [facility] Comment on above: Performed By: #### H EPATIC #### [address] ALP [Catalytic activity/Vol] 241 U/L High 34-104 [facility] Comment on above: Result Comment: PERF ORMED BY: [place] [address] PATHOLOGIST SOLUTIONS ENGINEER ATIF JOHNSON M.D. Performed By: #### H EPATIC #### [address] ALT [Catalytic activity/Vol] 104 U/L High 7-52 [facility] Comment on above: Performed By: #### H EPATIC #### [address] AST [Catalytic activity/Vol] 53 U/L High 13-39 [facility] Comment on above: Performed By: #### H EPATIC #### [address] Bilirubin,Indirec t 0.5 mg/dL Normal [facility] Comment on above: Performed By: #### H EPATIC #### [address] Bilirubin.indirec t [Mass/Vol] 0.10 mg/dL Normal 0.03-0.18 [facility] Comment on above: Performed By: #### H EPATIC #### [address] Globulin (S) [Mass/Vol] 3.9 g/dL Normal [facility] Comment on above: Performed By: #### H EPATIC #### [address] Lipaseon 07-09-2023 Lipase [Catalytic activity/Vol] 74.0 U/L Normal 11.0-82.0 [facility] Comment on above: Result Comment: PERF ORMED BY: [place] [address] PATHOLOGIST SOLUTIONS ENGINEER ATIF JOHNSON M.D. Performed By: #### L IPASE #### [address] Urine Cultureon 07-09-2023 Bacteria identified Cx Nom (U) 30,000 colonies/ml mixed bacterial skin contaminants including mixed gram negative bacilli - 2 Days PERFORMED BY: [place] [address] PATHOLOGIST SOLUTIONS ENGINEER ATIF JOHNSON M.D. Normal [facility] Comment on above: Performed By: #### C UU, ADDONUAPLUS #### [facility] [address] POCT urinalysis dipstick onl yon 05-29-2023 Appearance (U) clear [facility] External Poct Urine Bilirubin Negative [facility] External Poct Urine Blood Trace [facility] External Poct Urine Color yellow [facility] External Poct Urine Glucose Negative [facility] External Poct Urine Ketones Negative [facility] External Poct Urine Leukocyte Esterase Trace [facility] External Poct Urine Nitrite Negative [facility] External Poct Urine Ph 5.5 [facility] External Poct Urine Protein Negative [facility] External Poct Urine Specific Hines 1.025 [facility] External Poct Urine Urobilinogen 0.2 [facility] URINE CULTUREon 05-29-2023 Bacteria identified Cx Nom (U) CULTURE RESULTS 50-100,000 ORGANISMS/ML NORMAL UROGENITAL ABIHLASH Normal [facility] Comment on above: Performed By: #### 6 30-4 #### [facility] ([id number]) [address] [place] [address] MICROALBUMIN - ALBUMIN:CREAT ININE URINE RATIOon 03-18-2023 ALB/CREAT RATIO 5.5 mg/g creat Normal 0.0-30.0 [facility] Comment on above: Performed By: #### M ALBU #### [facility] ([id number]) [address], [address] [place] [address] Albumin DL <= 20 mg/L (U) [Mass/Vol] 1.0 mg/dL Normal 0.0-1.9 [facility] Comment on above: Performed By: #### M ALBU #### [facility] ([id number]) [address], [address] [place] [address] URINE CREAT 180.91 mg/dL Normal [facility] Comment on above: Performed By: #### M ALBU #### [facility] ([id number]) [address] [address], [address] [place] [address] POCT Hemoglobin A1con 2023 HbA1c (Bld) [Mass fraction] 6.5 g/dL 4 - 7 g/dL [facility] COVID + FLU Quick Testingon 01-12-2023 SARS-CoV-2 (COVID-19) RNA MONICO+probe Ql (Unsp spec) Negative [employer] Other COVID + FLU Quick Testing Negative [employer] Other Covid-19 PCR ([facility])on 01-25 SARS-CoV-2 (COVID-19) RNA MONICO+probe Ql (Unsp spec) Not detected Normal NOT DETECTED [facility] Comment on above: Result Comment: This test is not yet approved or cleared by the [place] FDA. When there are no FDA-approved or cleared tests available, and other criteria are met, FDA can make tests available under an emergency access mechanism called an Emergency Use Authorization (EUA). The EUA for this test is supported by the [place] of Health and Human Service's (HHS's) declaration [...] SARS-CoV-2. Performed By: #### C VDTB #### [facility] [address] [place] [address] Dr. Robert Barragan INFLUENZA A AND B AGon 02-21 INFLUANEGH SEE BELOW Normal [facility] Comment on above: Result Comment: Nega tive for Flu A protein angiten. Infection due to Flu A cannot be ruled out. Flu A angiten in the sample may be below the detection limit of the test. Performed By: #### I NFLUAB #### [facility] [address] [place] [address] Dr. Robert Barragan [facility] SEE BELOW Normal [facility] Comment on above: Result Comment: Nega tive for Flu B protein antigen. Infection due to Flu B cannot be ruled out. Flu B antigen in the sample may be below the detection limit of the test. Performed By: #### I NFLUAB #### [facility] [address] [place] [address] Dr. Robert Barragan INFLUENZA A AG Negative Normal NEGATIVE SEE COMMENT [facility] Comment on above: Performed By: #### I NFLUAB #### [facility] [address] [place] [address] Dr. Robert Barragan INFLUENZA B AG Negative Normal NEGATIVE SEE COMMENT [facility] Comment on above: Performed By: #### I NFLUAB #### [facility] [address] [place] [address] Dr. [facility] JUDY ROCA ([id number]) 1965 F Date Time Provider Department 09/13/21 [...] Encounter Status:Closed by NABOR PICHARDO on 09/13/21 [place] XR HIP RT 2 3V W PELVISon [...] by: Benny QUINONES Date: 2021-05-08 03:14 Normal [facility] MRI SHOULDER RT WO CONon MRI SHOULDER [...] by: XENIA LO Date: 2021-05-04 07:53 Normal [facility] CNPSakshi 02-12-2021 [facility] Telephone (INTMAL) JUDY ROCA ([id number]) 1965 Date Time Provider Department 02/12/21 NABOR PICHARDO [...] Fully Assessed Reason for Visit: Medication Question [4728] Visit Diagnosis:Secondary osteoarthritis of multiple sites [M15.3] [...] Encounter Status:Closed by OCTAVIA BELLE on 02/13/21 [place] CNOVfederica 02-08-2021 CNOV Office Visit (SOHAM ) JUDY ROCA ([id number]) 1965 F Date Time Provider Department 02/08/21 [...] 06/2020, better with diabetic medications. Reports pain 2-810. minimal AM stiffness. Had flu vaccine. Taking 1tab daily Plaquenil. Saw eye exam no medication toxicity. R elbow better after surgery 06/2020. Biking several times a week. COVID vaccine [employer] 03/07/20, 04/17/20, 11/29/20. Feels safe at home. 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 Normal [facility] OBSOLETEon 11-14-2020 OBSOLETE Refill (SOHAM) JUDY ROCA ([id number]) 1965 F Date Time Provider Department 11/14/20 [...] Status:Closed by NABOR PICHARDO on 11/16/20 Normal [facility] Vital Signs Date Time Vital Sign Value Performing Clinician Facility 05-19-2023 13:54-0400 Body height 160 cm Iris ABARCA Work Phone: [facility] 05-19-2023 13:54-0400 Body mass index (BMI) [Ratio] 45.6 kg/m2 Iris Villalta APRNMWM Media Workflow ManagementJORDIN Work Phone: [facility] 05-19-2023 13:54-0400 Body temperature 98.1 [degF] Iris Villalta APRNMWM Media Workflow ManagementGLASS BLOWING INSTRUCTOR [facility] 05-19-2023 13:54-0400 Body weight 116.76 kg Iris ABARCA [facility] 05-19-2023 13:54-0400 Diastolic blood pressure 78 mm[Hg] Iris ABARCA Work Phone: [facility] [employer] [facility] 05-19-2023 13:54-0400 Heart rate 74 /min Iris ABARCA Work Phone: [facility] [employer] [facility] 05-19-2023 13:54-0400 SaO2% (BldA) [Mass fraction] 97 % Iris ABARCA Work Phone: [facility] [employer] [facility] 05-19-2023 13:54-0400 Systolic blood pressure 120 mm[Hg] Iris Villalta APRN-JORDIN Work Phone: [facility] [employer] [facility] 03-18-2023 08:17-0500 Body height 160 cm Iris ABARCA Work Phone: [facility] [employer] [facility] 03-18-2023 08:17-0500 Body mass index (BMI) [Ratio] 45.19 kg/m2 Iris ABARCA Work Phone: [facility] [employer] [facility] 03-18-2023 08:17-0500 Body temperature 97.7 [degF] Iris Villalta APRN-JORDIN Work Phone: [facility] [employer] [facility] 03-18-2023 08:17-0500 Body weight 115.71 kg Iris ABARCA Work Phone: [facility] [employer] [facility] 03-18-2023 08:17-0500 Diastolic blood pressure 80 mm[Hg] Iris Villalta APRN-JORDIN Work Phone: [facility] [employer] [facility] 03-18-2023 08:17-0500 Heart rate 67 /min Iris ABARCA Work Phone: [facility] 03-18-2023 08:17-0500 SaO2% (BldA) [Mass fraction] 95 % Iris Villalta APRN-JORDIN Work Phone: [facility] [employer] [facility] 03-18-2023 08:17-0500 Systolic blood pressure 120 mm[Hg] Iris Villalta APRN-GLASS BLOWING INSTRUCTOR Work Phone: [facility] [employer] [facility] 01-12-2023 14:10-0500 Body height 160.02 cm Francia Carlos Other [employer] Other 01-12-2023 14:10-0500 Body mass index (BMI) [Ratio] 43.78 kg/m2 Francia Carlos Other [employer] Other 01-12-2023 14:10-0500 Body temperature 97.4 [degF] Francia Carlos Other [employer] Other 01-12-2023 14:10-0500 Body weight 112.13 kg Francia Carlos Other [employer] Other 01-12-2023 14:10-0500 Respiratory rate 18 /min Francia Carlos Other [employer] Other 01-12-2023 14:10-0500 SaO2% (BldA) [Mass fraction] 97 % Francia Carlos Other [employer] Other Encounters Encounter Date Encounter Type Care Provider Facility Start: 12-22-2023 End: 12-22-2023 Bamboo flowsheet Marlene MADDOX Work Phone: [facility] Start: 12-22-2023 End: 12-22-2023 Bamboo flowsheet Marlene MADDOX Work Phone: [facility] Start: 11-24-2023 End: 11-25-2023 Telephone encounter Iris Villalta PCU RN-GLASS BLOWING INSTRUCTOR Work Phone: [facility] Start: 11-18-2023 End: 11-18-[address] [facility] Start: 11-12-2023 End: 11-12-2023 ambulatory [facility] Start: 10-21-2023 End: 10-21-2023 ambulatory [facility] Start: 10-21-2023 End: 10-21-2023 ambulatory [facility] Start: 09-16-2023 End: 09-16-2023 ambulatory [facility] Start: 08-19-2023 End: 08-19-2023 ambulatory [facility] Start: 08-11-2023 End: 08-11-2023 ambulatory ANGEL BAHENA Not Available Start: 07-22-2023 End: 07-22-2023 ambulatory [facility] Start: 07-09-2023 End: 07-09-2023 Emergency department patient visit Ronan Delcid Facility:[facility] Start: 07-09-2023 End: 07-09-2023 ambulatory [facility] Start: 05-29-2023 End: 05-29-2023 ambulatory [facility] Start: 05-29-2023 End: 05-29-2023 Clinical Support Iris Villalta APRN-GLASS BLOWING INSTRUCTOR Work Phone: [facility] Comment on above: Dysuria (Primary Dx) ; Acute cystitis without hematuria Start: 05-26-2023 Telephone encounter Iris Villalta PCU RN-GLASS BLOWING INSTRUCTOR Work Phone: [facility] Start: 05-19-2023 End: 05-19-2023 ambulatory [facility] Start: 05-19-2023 End: 05-19-2023 Office outpatient visit 15 minutes Iris Villalta PCU RN-GLASS BLOWING INSTRUCTOR Work Phone: [facility] Comment on above: Saloni infection of flexural skin (Primary Dx) Start: 03-29-2023 Refill Iris Nugent Cast lena PCU RN-GLASS BLOWING INSTRUCTOR Work Phone: [facility] Comment on above: Type 2 diabetes hunter itus with hyperglycemia, without long-term current use of insulin ([facility]); Current mild episode of major depressive disorder without prior episode ([facility]); Benign essential HTN; Migraine 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, not intractable Start: 03-19-2023 End: 03-19-2023 ambulatory ANGEL BAHENA Not Available Start: 03-18-2023 End: 03-18-2023 ambulatory [facility] Start: 03-18-2023 End: 03-18-2023 ambulatory [facility] Start: 03-18-2023 End: 03-18-2023 Office outpatient visit 25 minutes Iris Jovanna Pawan PCU RN-GLASS BLOWING INSTRUCTOR Work Phone: [facility] Comment on above: Type 2 diabetes hunter itus with hyperglycemia, without long-term current use of insulin ([facility]) (Primary Dx); Current mild episode of major depressive disorder without prior episode ([facility]); Gastroesophageal reflux disease without esophagitis; Benign essential HTN; Migraine 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, not intractable; Seasonal allergic rhinitis due to pollen Start: 03-13-2023 Orders Only Iris Jovanna Connors jonio PCU RN-GLASS BLOWING INSTRUCTOR Work Phone: [facility] Start: 01-14-2023 End: 01-14-2023 ambulatory Francia Carlos Other [employer] Other Start: 01-14-2023 Telephone encounter Francia Carlos [facility] Start: 01-12-2023 End: 01-12-2023 ambulatory Francia Carlos Other [employer] Other Start: 01-12-2023 Office outpatient ne w [...] Adult depression scr eening assessment Iris Villalta APRN-GLASS BLOWING INSTRUCTOR Work Phone: Start: 07-22-2023 Follow-up visit Follow-up IRIS VILLALTA Start: 05-29-2023 Urnls dip stick/tabl et rgnt non-auto w/o micrscp Iris Jovanna ConnorsVillalta PCU RN-GLASS BLOWING INSTRUCTOR Work Phone: Start: 05-19-2023 Adult depression scr eening assessment Iris Villalta PCU RN-GLASS BLOWING INSTRUCTOR Work Phone: Start: 03-18-2023 Hemoglobin glycosyla moshe a1c Iris Jovanna ConnorsVillalta PCU RN-GLASS BLOWING INSTRUCTOR Work Phone: Start: 03-18-2023 Adult depression scr eening assessment Iris Villalta PCU RN-GLASS BLOWING INSTRUCTOR Work Phone: Start: 03-18-2023 Microalbumin [Mass/v olume] in Urine by Test strip Iris Villalta PCU RN-GLASS BLOWING INSTRUCTOR Work Phone: Start: 02-13-2023 Diabetic retinal eye exam Iris Villalta PCU RN-GLASS BLOWING INSTRUCTOR Work Phone: Start: 09-10-2022 Adult depression scr eening assessment Iirs Villalta APRN-GLASS BLOWING INSTRUCTOR Work Phone: Start: 07-13-2020 Adult depression scr eening assessment Nabor Pichardo MD Work Phone: Start: 03-14-2015 Mammography Marlene MADDOX Work Phone: Start: 07-03-2013 Microscopic observat ion [Identifier] in Cervix by Cyto stain Iris Villalta PCU RN-GLASS BLOWING INSTRUCTOR Work Phone: Plan of Treatment Date Care Activity Detail Author Start: 11-17-2024 Adult BMI Follow Up Plan Adult BMI Follow Up Plan [facility] Start: 11-17-2024 Adult BMI Screening Adult BMI Screen ing [facility] Start: 11-17-2024 Depression Screening Depression Scre ening [facility] Start: 11-17-2024 Tobacco Screening Tobacco Screening [facility] Start: 05-18-2024 Adult BMI Follow Up Plan Adult BMI Follow Up Plan [facility] Start: 05-18-2024 Adult BMI Screening Adult BMI Screen ing [facility] Start: 05-18-2024 Depression Screening Depression Scre ening [facility] Start: 05-18-2024 Tobacco Screening Tobacco Screening [facility] Start: 03-18-2024 Adult BMI Follow Up Plan Adult BMI Follow Up Plan [facility] Start: 03-18-2024 Adult BMI Screening Adult BMI Screen ing [facility] Start: 03-18-2024 Depression Screening Depression Scre ening [facility] Start: 03-18-2024 Tobacco Screening Tobacco Screening [facility] Start: 03-18-2024 Urine screening for protein Urine Microalbumin [facility] Start: 02-14-2024 Glaucoma screening Diabetic Op hthalmology Exam [facility] Start: 01-28-2024 End: 01-28-2024 Patient encounter procedure 01/28/2024 1:00 PM EST Office Visit [facility] Internal Medicine - Family Medicine [address] [place] [address] Iris Villalta, PCU RN-GLASS BLOWING INSTRUCTOR [address] [place] [address] [facility] Start: 12-22-2023 End: 12-22-2023 Patient encounter procedure 12/22/2023 1:00 PM EDT Office Visit [facility] [address] [place] [id number] Marlene Murrieta PA [address] [place] [address] Arrived [facility] Comment on above: Arrived Start: 10-26-2023 COVID-19 Vaccine ( season) COVID-19 Vaccine ( season) [facility] Start: 10-26-2023 Influenza vaccination [facility] Start: 09-22-2023 End: 09-22-2023 Patient encounter procedure 09/22/2023 11:00 AM EDT Office Visit [facility] [address] [place] [address] Iris Villalta, PCU RN-GLASS BLOWING INSTRUCTOR [address] [place] [address] [facility] Internal Medicine - Family Medicine Start: 09-11-2023 Adult BMI Follow Up Plan Adult BMI Follow Up Plan [facility] Start: 09-11-2023 Adult BMI Screening Adult BMI Screen ing [facility] Start: 09-11-2023 Depression Screening Depression Scre ening [facility] Start: 09-11-2023 Tobacco Screening Tobacco Screening [facility] Start: 07-21-2023 DIABETES SCREEN DIABETES SCREEN [facility] Start: 03-18-2023 End: 03-18-2023 Patient encounter procedure 03/18/2023 8:00 AM EST Office Visit [facility] [address] [place] [address] Iris Villalta, PCU RN-GLASS BLOWING INSTRUCTOR [address] [place] [address] [facility] Start: 10-25-2022 COVID-19 Vaccine ( season) COVID-19 Vaccine ( season) [facility] Start: 10-25-2022 Influenza vaccination Influenza Vacc ine [facility] Start: 10-25-2021 Influenza vaccination INFLUENZA (#1) [facility] Start: 07-13-2021 Adult depression screening assessment DEPRESSION SCREENING [facility] Start: 03-01-2021 COVID-19 VACCINE (4 - Booster for Pfizer series) COVID-19 VACCINE (4 - Booster for Pfizer series) [facility] Start: 2016 Administration of varicella zoster vaccine Zoster (Shingles) Vaccine (1 of 2) [facility] Start: 07-03-2016 Screening for malign ant neoplasm of cervix [facility] Start: 03-14-2016 Screening for malign ant neoplasm of breast Mammogram [facility] Start: 09-14-2011 COLOGUARD (FIT-DNA) COLOGUARD (FIT-D NA) [facility] Start: 09-14-2011 Colonoscopy COLONOSCOPY [facility] Start: 09-14-2011 COLORECTAL CANCER SCREENING COLORECTAL CANCER SCREENING [facility] Start: 09-14-[address] COLONOGRAPHY [facility] Start: 09-14-2011 FECAL OCCULT BLOOD FECAL OCCULT BLOO D [facility] Start: 09-14-2011 LIPID SCREEN LIPID SCREEN [facility] Start: 09-14-[address] [facility] Start: 2006 Mammography MAMMOGRAM [facility] Start: 1996 HPV TESTING HPV TESTING [facility] Start: 1996 Screening for malign ant neoplasm of cervix HPV/Cotest [facility] Start: 09-14-1987 PAP TESTING PAP TESTING [facility] Start: 1985 SHINGRIX VACCINE (1 of 2) SHINGRIX VACCINE (1 of 2) [facility] Start: 1985 Urine microalbumin profile DTAP,TDAP,TD (1 - Tdap) [facility] Start: 1984 Diabetic foot examination Diabetic Foot Exam [facility] Start: 1984 HIV SCREENING HIV SCREENING [facility] Start: 12-17-1983 DTaP,Tdap and Td Vaccines (3 - Tdap) DTaP,Tdap and Td Vaccines (3 - Tdap) [facility] Start: 1972 PNEUMOCOCCAL (1 - PCV) PNEUMOCOCCAL (1 - PCV) [facility] Start: 1966 Screening for malign ant neoplasm of colon [facility] Start: 1966 Urine screening for protein Urine Microalbumin [facility] End: 05-28-2024 Bacteria identified in Urine [...] hyperglycemia, without long-term current use of insulin ([facility]) 1 Occurrences starting 03/18/2023 until 03/17/2024 [facility] Work Phone: Comment on above: 1 Occurrences starti ng 03/18/2023 until 03/17/2024 [facility] Immunizations Immunization Date Immunization Notes Care Provider [facility] 12-10-2023 influenza virus vaccine, unspecified formulation Marlene MADDOX Work Phone: [facility] 12-05-2022 influenza, injectabl e, quadrivalent, preservative free Iris Villalta PCU RN-GLASS BLOWING INSTRUCTOR Work Phone: [facility] 12-05-2022 influenza virus vaccine, unspecified formulation Iris Villalta PCU RN-GLASS BLOWING INSTRUCTOR Work Phone: [facility] 10-27-2021 influenza, injectabl e, quadrivalent, preservative free Iris Villalta PCU RN-GLASS BLOWING INSTRUCTOR Work Phone: [facility] 10-27-2021 influenza virus vaccine, unspecified formulation Iris Villalta PCU RN-GLASS BLOWING INSTRUCTOR Work Phone: [facility] 11-02-2020 influenza, injectabl e, quadrivalent, preservative free Iris Villalta PCU RN-GLASS BLOWING INSTRUCTOR Work Phone: [facility] 10-27-2019 influenza, injectabl e, quadrivalent, preservative free Iris Villalta PCU RN-GLASS BLOWING INSTRUCTOR Work Phone: [facility] 12-16-1983 mumps virus vaccine Iris Villalta PCU RN-GLASS BLOWING INSTRUCTOR Work Phone: [facility] 12-16-1983 TD(adult) unspecifie d formulation Iris Villalta PCU RN-GLASS BLOWING INSTRUCTOR Work Phone: [facility] 12-05-1970 poliovirus vaccine, unspecified formulation Iris Villalta PCU RN-GLASS BLOWING INSTRUCTOR Work Phone: [facility] 11-07-1970 diphtheria, tetanus toxoids and pertussis vaccine Iris Villalta PCU RN-GLASS BLOWING INSTRUCTOR Work Phone: [facility] 11-07-1970 measles, mumps and rubella virus vaccine Iris Villalta PCU RN-GLASS BLOWING INSTRUCTOR Work Phone: [facility] 11-04-1967 poliovirus vaccine, unspecified formulation Iris Villalta PCU RN-GLASS BLOWING INSTRUCTOR Work Phone: [facility] 08-30-1967 measles virus vaccine Jenni soto Villalta PCU RN-GLASS BLOWING INSTRUCTOR Work Phone: [facility] 08-05-1967 poliovirus vaccine, unspecified formulation Iris Villalta PCU RN-GLASS BLOWING INSTRUCTOR Work Phone: [facility] Payers Date Payer Category Payer Self-pay 2021 Medicaid [employer] [employer] [place] [employer] [place] [id number] 2021- [phone] [place] [id number] 2021 Medicaid (Managed Care) RAFIA LARRYID [id number] 2021 Unknown [facility] [place] [id number] 2021-Present [phone] [address] [address] [place] [address] [id number]. [id number] 2020 Unknown MMO MMO [employer] [id number] 2020-Present [phone] [address] [place] [address] PPO [id number] [id number]. [id number] 1966 Unknown [id number] 2.16.840.1.803128.3.579.2. 593 1966 Unknown [id number] 2.16.840.1.981081.3.579.2. 593 1966 Unknown [id number] 2.16.840.1.143946.3.579.2. 593 1966 Unknown [id number] 2.16.840.1.307948.3.579.2. 1259 1966 Unknown [id number] 2.16.840.1.040409.3.579.2. 1259 1966 Unknown [id number] 2.16.840.1.511559.3.579.2. 1259 1966 Unknown [id number] 2.16.840.1.811778.3.579.2. 1286 1966 Unknown [id number] 2.16.840.1.607863.3.579.2. 1286 1966 Unknown [id number] 2.16.840.1.350695.3.579.2. 1286 1966 Unknown [id number] 2.16.840.1.189964.3.579.2. 1286 1966 Unknown [id number] 2.16.840.1.321681.3.579.2. 1285 1966 Unknown [id number] 2.16.840.1.545870.3.579.2. 6 1966 Unknown [id number] 2.16.840.1.860309.3.579.2. 1285 1966 Unknown [id number] 2.16.840.1.516129.3.579.2. 1285 1966 Unknown [id number] 2.16.840.1.306043.3.579.2. 1285 1966 Unknown [id number] 2.16840.1.317164.3.579.2. 1285 1966 Unknown [id number] 2.840.1.715446.3.579.2. 1285 1966 Unknown [id number] 2.16840.1.370479.3.579.2. 1285 1966 Unknown [id number] 2.16840.1.740666.3.579.2. 1286 1959 Unknown [id number] 1959 Unknown [id number] Unknown [id number] 2.16840.1.386357.3.579.2. 531 Social History Date Type Detail Facility Start: 07-20-2020 End: 10-02-2022 Tobacco smoking status SCIS Never smoked tobacco [facility] Start: 07-20-2020 End: 10-02-2022 Tobacco use and exposure Smokeless tobacco non-user [facility] Start: 02-08-2021 End: 08-11-2023 Alcohol intake Ex-drinker (finding) [facility] Start: 1965 Sex Assigned At Female [facility] Start: 09-10-2022 End: 08-11-2023 Sex Assigned At [facility] [id number] Other Start: 09-10-2022 End: 11-18-2023 Alcohol intake Lifetime non-drinker (finding) [facility] Start: 09-10-2022 End: 08-11-2023 History of Social function [facility] Adolescent depressio n screening assessment 8 [facility] Start: 1965 Sex Assigned At Not on file [facility] Clinical Notes 02-08-2021 to 11-24-2023 [...] more weeks. Notified documented in this encounter [facility] 11-24-2023 Telephone encount er Note She called about a cough she thinks is from her lisinopril, an you please advise [facility] 11-24-2023 Telephone encount er Note I would like her to continue lisinopril. She just started less than 2 weeks ago.We are in allergy season. I would like her to continue to monitor for several more weeks. [facility] 11-24-2023 Telephone encount er Note Notified [facility] 05-29-2023 History of Presen t illness Narrative New orders for Bactrim DS oral twice daily for 7 days. Send urine for culture. RIMA Gamez 05/29/23 1451 documented in this encounter [facility] 05-29-2023 Miscellaneous Notes Addended by: FIDENCIO DEGROOT on: 05/29/2023 03:03 PM Modules accepted: Orders documented in this encounter [facility] 05-29-2023 Note Addended by: FIDENCIO DEGROOT on: 05/29/2023 03:03 PM Modules accepted: Orders [facility] 05-26-2023 Miscellaneous Notes Formattin g of [...] 1:30okay per shereen documented in this encounter [facility] 05-26-2023 Telephone encount er Note Patient called ans said that she is still having some pressure and burning, the rash is starting to clear up. She was wondering if you could send in estrogen cream for her [facility] 05-26-2023 Telephone encount er Note Please inform patient I do not order estrogen cream for her current complaint. I am concerned she may have a UTI. [facility] 05-26-2023 Telephone encount er Note Patient will be dropping a UA arounf 1:30okay per shereen [facility] 05-19-2023 History of Presen t illness Narrative Images from the original note were not included. [address] [facility] [address] SUBJECTIVE: Patient ID: Judy Roca [...] Medical History: Diagnosis Date Allergic Diabetes mellitus ([facility]) Hypertension Immunization History Administered Date(s) [...] Gamez 05/19/23 1412 [facility] History of Presen t illness Narrative Images from the original note were not included. [address] [place] [address] SUBJECTIVE: Patient ID: Judy Roca is a 57 y.o. female. Chief Complaint Patient presents with Diabetes Presents for follow up States her allergies have been bothering her more lately. Is taking cetirizine but is not effective. Has tried loratadine as well. Flonase causes nose bleeds. Blood sugars average in the 130s. Uses [employer] system for blood glucose monitoring. Diabetes She [...] 130-140 mg/dl. She does not see a controller repairer and tester.Eye exam is current. Hypertension This is a [...] Medical History: Diagnosis Date Allergic Diabetes mellitus ([facility]) Hypertension Immunization History Administered Date(s) [...] of major depressive disorder without prior episode ([facility]) - venlafaxine XR (EFFEXOR-XR) 150 mg 24 [...] Gamez 03/18/23 0935 documented in this encounter [facility] 01-12-2023 Evaluation note Encounter Date Diagnosis [...] and rest, Tylenol/Motrin as directed, rx of [place], OTC Flonase, cool mist humidifier, throat lozenges. [...] treatment plan. Patient left in stable condition [employer] Other 07-21-2022 Miscellaneous Notes* Telephone Encounter - Nabor Pichardo MD - 2021 5:59 AM EDT For chart eye exam 08/22/21 Dr.Mark Alonso, OD Blurry vision , diabetes making her vision fluctuate. Plaquenil 2years. No toxicity. [facility] NoteHNO ID: [id number] Author: Nabor Pichardo MD Service: ? Author [...] Biking several times a week. COVID vaccine [employer] 03/07/20, 04/17/20, 11/29/20. Feels safe at home. 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 Ulnar positive sarah (more content not included)...[facility] noteNo InformationNortSt. [facility] [employer] Other Evaluation note* Diagnosis Type 2 diabetes mellitus with hyperglycemia, without long-term current use of insulin ([facility])- Primary Current mild episode of major depressive disorder without prior episode ([facility]) Gastroesophageal reflux disease without esophagitis Esophageal reflux Benign essential HTN Migraine 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, not intractable Seasonal allergic rhinitis due to pollen [facility] Diagnosis Type 2 diabetes mellitus with hyperglycemia, without long-term current use of insulin ([facility]) Current mild episode of major depressive disorder without prior episode ([facility]) Benign essential HTN Migraine 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, not intractable documented in this encounter [facility]* Diagnosis Saloni infection of flexural skin- Primary Candidiasis of skin and nails documented in this encounter [facility] [employer] SystemEvaluation note* Diagnosis Dysuria- Primary Acute cystitis without hematuria documented [facility] System[facility] general Narrative - Reported* Type Description Date Medical History depression Medical History hypertension Medical History menopause Surgical History hysterectomy Surgical History back surgery Surgical History elbow surgery Surgical History carpal tunnel release [facility] [employer] Other InstructionsNot on filedocumented in this encounter [facility] SystemInstructions* Attachments The following attachments cannot be sent through Care Everywhere. * High blood pressure in adults ([place]icar[place]) documented in this encounterCl[facility] SystemInstructionsNot on file documented in this encounterProMemorial [facility] SystemInstructionsNot on file documented in this encounterProMemorial [facility] SystemInstructionsNot on file documented in this encounterProMemorial [facility] SystemInstructionsNot on file documented in this encounterProMemorial Health [facility] SystemInstructionsNot on file documented in this [facility]Cl[facility] Summary Purpose Family History No [...] allergic rhinitis due to pollen Iris Villalta, PCU RN-GLASS BLOWING INSTRUCTOR [address] [place] [address] Referral ID Status Reason Start Date Expiration Date V isits Requested Visits Authorized [id number] Pending Review 1 1 Additional Source Comments Source Comments (unrecognize d section and content) In the event this informatio n is protected by the Federal Confidentiality of Alcohol and Drug Abuse Patient Records regulations: The Federal rules restrict any use of the information to criminally investigate or prosecute any alcohol or drug abuse patient.[facility] Reason for Visit (unrecogniz ed section and content) Reason Comments Results Reason Comments Diabetes Reason Comments Med Refill Reason Comments Rash Right groin Reason Comments Urinary Tract Infection Care Teams (unrecognized sec tion and content) Associate Vice President Relationship Specialty Start Date End Date Robin Ma Sr. [address] [facility] [place] [address] PCP - General Family Practice 07/20/20 Associate Vice President Relationship Specialty Start Date End Date Iris Villalta APRN-[facility] [address] [place] [address] PCP - General Family Medicine 08/28/22 Associate Vice President Relationship Specialty Start Date End Date Iris Villalta PCU RN-[facility] [address] [place] [address] PCP - General Family Medicine 08/28/22 Associate Vice President Relationship Specialty Start Date End Date [facility] [address] [place] [address] PCP - General Family Medicine 08/28/22 Associate Vice President Relationship Specialty Start Date End Date Iris Villalta APRN-[facility] [address] [place] [address] PCP - General Family Medicine 08/28/22 Associate Vice President Relationship Specialty Start Date End Date Iris Villalta APRN-[facility] [address] [place] [address] PCP - General Family Medicine 08/28/22 Associate Vice President Relationship Specialty Start Date End Date Iris Villalta APRN-[facility] [address] [place] [address] PCP - General Family Medicine 08/28/22 Associate Vice President Relationship Specialty Start Date End Date Iris Villalta, PCU RN-GLASS BLOWING INSTRUCTOR [address] [place] [address] PCP - General Family Medicine 08/28/22 Associate Vice President Relationship Specialty Start Date End Date Luis Felipe Obando MD [address] [place] [address] PCP - General Family Medicine 10/02/22 Iris Villalta CRNP [address] [place] [address] Referring Physician Nurse Practitioner 10/02/22 INFORMATION SOURCE (unrecogn ized section and content) DATE CREATED AUTHOR 09/15/2021 [facility] DATE CREATED AUTHOR AUTHOR'S ORGANIZ ATION 02/26/2022 [facility] DATE CREATED AUTHOR AUTHOR'S ORGANIZ ATION 07/20/2023 [facility] DATE CREATED AUTHOR AUTHOR'S ORGANIZ ATION 08/16/2023 [facility] DATE CREATED AUTHOR AUTHOR'S ORGANIZ ATION 10/24/2023 [facility] DATE CREATED AUTHOR AUTHOR'S ORGANIZ ATION 11/21/2023 [facility] FOR RECORDS PERTAINING TO [...] BE BASED ON THE PRIMARY CLINICAL RECORDS. [employer] [facility]. provides no warranty or guarantee of the accuracy or completeness of information in this document.
== END 2023-12-22 21:19 | disposition home or self-care (01) ==
LOC: LAB 21:18
PROVIDERS: PCP Nurse Practitioner; Visit Provider Physician Assistant
DX: Z01.419 Encounter for gynecological examination (general) (routine) without abnormal findings (principal)
CPT/HCPCS: 87624; 88175

== ENCOUNTER 2024-02-22 14:54 | Emergency (ER) | payer MEDICAID, SELFPAY ==
[2024-02-22 14:59] VITALS: BP 164/94; PULSE 74; TEMP 36.9; O2SAT 98; BMI 45.7
--- OUTSIDE RECORDS SUMMARY | 2024-02-22 15:00 | XMS_ITS | CCD ---
Author Organization [facility] Care Team Providers Care Programs Assistant Name Role Phone Anil Candelaria, Robin Bray Primary Care Provider ANIL, DR LORD Primary Care Unavailable AKANKSHA, DR DEWITT Admitting Unavailable HAY, DR DEWITT Attending Unavailable AKANKSHA, DR DEWITT [...] STACIE, BRY Consulting Unavailable Terrance, Francia Unavailable Villalta SENIOR QUALITY METHODS SPECIALIST-PATTERN SCRATCHER, Iris J Primary Care Provid er IRIS VILLALTA J Referring Unavailable VILLALTA, IRIS J Primary Care Unavailable VILLALTA, IRIS J Referring Unavailable VILLALTA, IRIS J Primary Care Unavailable VILLALTA, IRIS J Referring [...] Care Unavailable VILLALTA, IRIS J Attending Unavailable IRIS VILLALTA Referring Unavailable IRIS VILLALTA Primary Care Unavailable IRIS VILLALTA Attending Unavailable IRIS VILLALTA Referring Unavailable IRIS VILLALTA Primary Care Unavailable IRIS VILLALTA Attending Unavailable IRIS VILLALTA Referring Unavailable IRIS VILLALTA Primary Care Unavailable IRIS VILLALTA Attending Unavailable IRIS VILLATLA Referring Unavailable IRIS VILLALAT Primary Care Unavailable Iris Logan Unavailable [phone] Luis Felipe Obando MD Primary Care Provider [phone] JR. JAZMÍN, ANGEL Tong Attending Unavailnini NOYOLA JR., ANGEL Tong Attending Unavailnini NOYOLA JR., ANGEL Tong Referring Unavaila MARLENE Kevin Attending Unavailable Ronan Delcid Attending Unavailable Ronan Delcid Admitting Unavailable Iris Villalta Primary Care Unavailable Medications Current Medications Medication Drug Class(es) Dates Sig (Normalized) Sig (Original) acetaminophen 325 mg / HYDROcodone bitartrate 5 mg oral tablet (2 sources) Opioid Agonist Start: 12-16-2023 take 1 tablet by mouth every six hours as needed for pain HYDROcodone-acetam inophen (NORCO) 5-325 mg per tablet TAKE 1 TABLET BY MOUTH EVERY 6 HOURS NEEDED FOR PAIN up to 3 (THREE) days 12/16/2023 Active [id number] 200 actuat albuterol 0.09 mg/actuat metered dose [...] sensor (FREESTYLE JAYNE 3 SENSOR PLUS) device (4 sources) Start: 11-18-2023 blood-glucose sensor (FREESTYLE JAYNE 3 SENSOR PLUS) device Indications: Type 2 diabetes mellitus with hyperglycemia, without long-term current use of insulin (CMS-HCC) 1 Device by miscellaneous route See Admin [...] hyperglycemia, without long-term current use of insulin ([facility]) USE DIRECTED; change EVERY 2 (TWO) weeks 2 each 5 09/25/2022 Active cariprazine 1.5 mg oral capsule (4 sources) Atypical Antipsychotic Start: 11-18-2023 take 1 capsule by mouth in the morning cariprazine (VRAYLAR) 1.5 mg capsule Indications: Major depression, chronic Take 1 capsule (1.5 mg total) by mouth in the morning. 90 capsule 1 11/18/2023 Active Continuous Blood Gluc Sensor (FreeStyle Jayne 3 Sensor) misc (4 sources) Start: 11-12-2022 Continuous Blood Gluc Sensor (FreeStyle Jayne 3 Sensor) misc USE DIRECTED; change EVERY 2 (TWO) weeks 11/12/2022 Active dextromethorphan hydrobromide 1.5 mg/ml / pyrilamine maleate 1.5 mg/ml oral solution (2 sources) Uncompetitive S-wbvxig-D-aspartat e Receptor Antagonist, Sigma-1 Agonist Start: 01-12-2023 take 10 mL by mouth every eight hours [place] DM 7.5-7.5 MG/5ML 10 mL Orally every 8 hours for 5 days Dec, Active diclofenac sodium 50 mg delayed release oral tablet (5 sources) Nonsteroidal Anti-inflammatory Drug Start: 11-18-2023 take [...] 32gm/day dicyclomine hydrochloride 20 mg oral tablet (4 sources) Anticholinergic Start: 10-21-19 take 1 tablet by mouth every eight hours as needed dicyclomine (BENTYL) 20 mg tablet Indications: Generalized abdominal pain Take 1 tablet (20 mg total) by mouth every 8 (eight) hours as needed (abdominal cramping). 90 tablet 10/21/2023 Active estradiol 0.5 mg oral tablet (4 sources) Estrogen estradioL (ESTRA CE) 0.5 mg tablet Take 1 tablet (0.5 mg total) by mouth. Active Estradiol Not-Ta rob famotidine 40 mg oral tablet (18 sources) Histamine-2 Receptor Antagonist Start: 08-19-2023 take 1 tablet by mouth once famotidine [...] Take 40 mg by mouth twice daily. Fezolinetant (Veozah) 45 MG tablet (3 sources) Start: 12-22-19 take 1 tablet by mouth once daily Fezolinetant (Veozah) 45 MG tablet Indications: Hot flash, menopausal Take 45 mg by mouth Daily 30 tablet 3 12/22/2023 Active flash glucose scanning reader (FREESTYLE JAYNE 2 READER) [facility] (4 sources) Start: 11-11-19 flash glucose scanning reader (FREESTYLE JAYNE 2 READER) [facility] Indications: Non-insulin dependent type 2 diabetes mellitus (CMS-HCC) 1 each by miscellaneous route in the morning. 1 each 11/11/2023 Active flash glucose sensor (FREESTYLE JAYNE 2 SENSOR) kit (4 sources) Start: 11-11-19 24 flash glucose sensor (FREESTYLE JAYNE 2 SENSOR) kit Indications: Non-insulin dependent type 2 diabetes mellitus (CMS-HCC) 1 Device by miscellaneous route every 14 (fourteen) days. 3 kit 3 11/11/2023 Active fluconazole 150 mg oral tablet (1 source) Azole Antifungal Start: 05-19-19 End: 05-22-19 24 take 1 tablet by mouth in the morning fluconazole (DIFLUCAN) 150 mg tablet Indications: Saloni infection of flexural skin Take 1 tablet (150 mg total) by mouth in the morning for 3 doses. 3 tablet 0 05/19/2023 05/22/2023 Active glimepiride 4 mg oral tablet (19 sources) Sulfonylurea Start: 08-19-19 End: 12-24-19 take 1 tablet by mouth twice daily at bedtime glimepiride (AMARYL) 4 mg tablet Indications: Type 2 diabetes mellitus with hyperglycemia, without long-term current use of insulin ([facility]) TAKE 1 TABLET BY MOUTH TWICE DAILY (IN THE MORNING and AT BEDTIME) 90 tablet 1 12/24/2023 Active Start: 09-10-2022 End: 03-18-2023 take 1 tablet by mouth at bedtime glimepiride (AMARYL) 4 mg tablet Indications: Type 2 diabetes mellitus with hyperglycemia, without long-term current use of insulin ([facility]) Take 1 tablet (4 mg total) by mouth in the morning and at bedtime. 90 tablet 1 03/18/2023 Active Comment on above: 1 tablet with breakf ast or the first main meal of the day hydrOXYzine hydrochloride 25 mg oral tablet (4 sources) Antihistamine Start: take 1 tablet by mouth once daily as needed hydrOXYzine (ATARAX) 25 mg tablet Indications: Other insomnia Take 1 tablet (25 mg total) by mouth nightly as needed for itching. 30 tablet 2 11/12/2023 Active ketorolac tromethamine 10 mg oral tablet (2 sources) Nonsteroidal Anti-inflammatory Drug, Cyclooxygenase Inhibitor Start: take 1 tablet by mouth three times daily as needed for pain ketorolac (TORADOL) 10 mg tablet Take 1 tablet (10 mg total) by mouth 3 (three) times a day as needed for pain. 12/16/2023 Active levocetirizine dihydrochloride 5 mg oral tablet (9 sources) Histamine-1 Receptor Antagonist Start: take 1 tablet by mouth once daily levocetirizine (XYZAL) 5 mg tablet Indications: Seasonal allergic rhinitis due to pollen Take 1 tablet (5 mg total) by mouth nightly. 90 tablet 1 03/18/2023 Active lisinopril 10 mg oral tablet (4 sources) Angiotensin Converting Enzyme Inhibitor Start: take 1 tablet by mouth in the morning lisinopriL (PRINIVIL,ZESTRIL) 10 mg tablet Indications: Benign essential HTN Take 1 tablet (10 mg total) by mouth in the morning. 90 tablet 1 11/18/2023 Active omeprazole 20 mg delayed release oral capsule (15 sources) Proton Pump Inhibitor Start: take 1 [...] 03/18/2023 Active pioglitazone 30 mg oral tablet (20 sources) Peroxisome Proliferator Receptor alpha Agonist, Peroxisome Proliferator Receptor gamma Agonist, Thiazolidinedione Start: 08-19-2023 take 1 tablet by mouth in the morning pioglitazone (ACTOS) 30 mg tablet Indications: Type 2 diabetes mellitus with hyperglycemia, without long-term current use of insulin ([facility]) Take 1 tablet (30 mg total) by mouth in the morning. 90 tablet 1 08/19/2023 Active Start: 09-10-2022 End: 03-30-2023 take 1 tablet by mouth in the morning pioglitazone (ACTOS) 30 mg tablet Indications: Type 2 diabetes mellitus with hyperglycemia, without long-term current use of insulin (CMS-HCC) TAKE 1 TABLET BY MOUTH IN THE MORNING 90 tablet 1 03/30/2023 Active take 1 tablet by angie th once daily pioglitazone (Actos) 45 MG tablet Take 45 mg by mouth Daily Active pioglitazone (Ac tos) 15 MG tablet Pioglitazone HCl Active 24 hr propranolol hydrochloride 80 mg extended release oral capsule (19 sources) beta-Adrenergic Nikko Start: 08-19-2023 take 1 [...] Take 80 mg by mouth once daily. rosuvastatin calcium 20 mg oral tablet (1 source) HMG-CoA Reductase Inhibitor Start: take 1 tablet by mouth in the morning rosuvastatin (CRESTOR) 20 mg tablet Indications: DM type 2 with diabetic mixed hyperlipidemia (CMS-HCC) Take 1 tablet (20 mg total) by mouth in the morning. 90 tablet 1 01/29/2024 Active Start: 01-29-2024 take 1 tablet by angie th in the morning rosuvastatin (CRESTOR) 20 mg tablet Indications: DM type 2 with diabetic mixed hyperlipidemia (CMS-HCC) Take 1 tablet (20 mg total) by mouth in the morning. 90 tablet 1 01/29/2024 Active sulfamethoxazole 800 mg / trimethoprim 160 mg oral tablet (1 source) Dihydrofolate Reductase Inhibitor Antibacterial, Sulfonamide Antimicrobial Start: 05-29-2023 End: 06-05-2023 take 1 tablet by mouth once in the morning sulfamethoxazole-trimethoprim (BACTRIM DS) 800-160 mg per tablet Indications: Acute cystitis without hematuria Take 1 tablet by mouth in the morning and 1 tablet before bedtime. Do all this for 7 days. Take with food. Increase fluids. 14 tablet 0 05/29/2023 06/05/2023 Active tirzepatide (MOUNJARO) 5 mg/0.5 mL pen injector (4 sources) Start: 01-28-2024 tirzepatide (MOUNJARO) 5 mg/0.5 mL pen injector Indications: Type 2 diabetes mellitus with hyperglycemia, without long-term current use of insulin (CMS-HCC) Inject 5 mg under the skin every 7 days. 2 mL 3 01/28/2024 Active Start: 09-10-2022 End: 03-18-2023 tirzepatide (MOUNJARO) 5 mg/ 0.5 mL pen injector Indications: Type 2 diabetes mellitus with hyperglycemia, without long-term current use of insulin (CMS-HCC) Inject 5 mg under the skin every 7 days. 2 mL 0 09/10/2022 03/18/2023 Discontinued (Cost of medication) Start: 09-10-2022 tirzepatide (M OUNJARO) 5 mg/0.5 mL pen injector Indications: Type 2 diabetes mellitus with hyperglycemia, without long-term current use of insulin ([facility]) Inject 5 mg under the skin every 7 days. 2 mL 0 09/10/2022 Active 24 hr venlafaxine 150 mg extended release oral capsule (18 sources) Serotonin and Norepinephrine Reuptake Inhibitor Start: 08-19-2023 take 1 capsule by mouth every twenty-four hours in the morning venlafaxine XR (EFFEXOR-XR) 150 mg 24 hr capsule Indications: Current mild episode of major depressive disorder without prior episode (CMS-HCC) Take 1 capsule (150 mg total) by mouth in the morning. 90 capsule 1 08/19/2023 Active Start: 03-30-2023 take 1 capsule by mo [facility] once daily venlafaxine XR (EFFEXOR-XR) 150 mg [...] ER (PRISTIQ) 100 mg 24 hr tablet hydroxychloroquine sulfate 200 mg oral tablet (1 [...] Comment on above: Take 1 tablet by mouth twice daily as ne eded. QUEtiapine (2 sources) Atypical Antipsychotic SEROquel Not-Taking Problems Active Problems Problem Classification Problem Date Documented Da te Episodic/Chronic Anxiety disorders (1 source) Anxiety Onset: 11-12-2023 Chronic Bacterial infection; unspecified site (1 source) Other specified bacterial agents as the cause of diseases classified elsewhere; Translations: [Other specified bacterial agents as the cause of diseases classified elsewhere] Onset: 09-16-2023 Episodic Diabetes mellitus with complications (8 sources) Type 2 diabetes mellitus; Translations: [Type [...] 09-16-2023 Episodic Joint disorders and dislocations; trauma-related (13 sources) Articular cartilage disorder of shoulder region; Translations: [Other articular cartilage disorders, left shoulder] Onset: 12-22-2020 03-18-2023 Chronic Menopausal disorders (4 sources) Menopausal flushing; Translations: [Menopausal and female climacteric states] 12-22-2023 Chronic Mood disorders (4 sources) Mild major depression, single episode; Translations: [Major depressive disorder, single episode, mild] Onset: 08-19-2023 03-18-2023 Chronic Mycoses (1 source) Candidal intertrigo; Translations: [Candidiasis of skin and nail] 05-19-2023 Episodic Nutritional deficiencies (2 sources) Vitamin D deficiency; Translations: [Vitamin D deficiency, unspecified] 12-22-2023 Chronic Osteoarthritis (20 sources) Degenerative joint disease involving multiple joints; 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] Onset: 07-20-2020 07-20-2020 Chronic Other aftercare (1 source) Other assisted (current) drug therapy; Translations: [OTH CUSTODIAL CURRENT DRUG THERAPY] Onset: 02-26-2022 Episodic Other gastrointestinal disorders (1 source) Diarrhea Onset: 10-21-2023 Episodic Other non-traumatic joint disorders (4 sources) Other specific joint derangements of right shoulder, not elsewhere classified; Translations: [OTH SPEC JOINT DERANG RT SHLDR NEC] Onset: 05-03-2021 Chronic Other non-traumatic joint disorders (14 sources) Derangement of right shoulder joint; Translations: [Other specific joint derangements of right shoulder, not elsewhere classified] Onset: 04-02-2021 09-10-2022 Chronic Other non-traumatic joint disorders (1 source) Arthropathy, unspecified; Translations: [Arthropathy, unspecified] Onset: 11-18-2023 Chronic Other screening for suspected conditions (not mental disorders or infectious disease) (4 sources) Elevated C-reactive protein; Translations: [Elevated C-reactive protein (CRP)] Onset: 07-21-2020 07-21-2020 Episodic Other skin disorders (1 source) Acne vulgaris; [...] insomnia; Translations: [Other insomnia] Onset: 11-12-2023 Chronic Residual codes; unclassified (2 sources) Postmenopausal state; Translations: [Asymptomatic menopausal state] 12-22-2023 Episodic Unclassified (2 sources) COUGH, UNSPECIFIED; Translations: [...] Problem Classification Problem Date Documented Date Episodic/Chronic Abdominal pain (3 sources) Generalized abdominal pain; Translations: [Abdominal pain] Onset: 07-09-2023 Episodic E Codes: Natural/environment (1 source) Overexertion from strenuous movement or load, initial encounter; Translations: [OVEREXERT STRENUOUS MVMT/LOAD INIT] Onset: 05-09-2021 Episodic Genitourinary symptoms and ill-defined conditions (2 sources) Dysuria; Translations: [Dysuria] Onset: 05-29-2023 05-29-2023 Episodic Mood disorders (10 sources) Mood disorders Onset: 09-10-2022 Resolved: 01-28-2024 09-10-2022 Other acquired deformities (11 sources) Ulnar drift; Translations: [Other deformity of right finger(s)] Onset: 07-21-2020 07-21-2020 Episodic Other aftercare (1 source) Drug therapy finding; Translations: [Other termite control servicer (current) drug therapy] Onset: 02-08-2021 02-08-2021 Episodic [...] 07-20-2020 07-20-2020 Episodic Other non-traumatic joint disorders (11 sources) Pain in right knee; Translations: [Pain in joint, lower leg] Onset: 07-20-2020 07-20-2020 Episodic Other non-traumatic joint disorders (10 sources) Chronic pain of right upper limb; Translations: [Pain in right elbow] Onset: 07-20-2020 07-20-2020 Episodic Other non-traumatic joint disorders (1 source) Bilateral chronic pain of upper limbs; Translations: [Pain in right shoulder] Onset: 02-08-2021 02-08-2021 Episodic Other non-traumatic joint disorders (3 sources) Pain in right hip; Translations: [PAIN IN RIGHT HIP] Onset: 05-08-2021 Episodic Other non-traumatic joint disorders (10 sources) Arthralgia of the upper arm; Translations: [Pain in unspecified elbow] Onset: 02-11-2020 09-10-2022 Episodic Other non-traumatic joint disorders (4 sources) Pain in elbow; Translations: [Pain in right elbow] Onset: 07-11-2022 07-11-2022 Episodic Residual codes; unclassified (1 source) Acquired [...] source) Suspected COVID-19 virus infection Z20.822 Unclassified (10 sources) Onset: 09-10-2022 Resolved: 01-28-2024 09-10-2022 Urinary tract infections (4 sources) Acute cystitis; Translations: [Acute cystitis without hematuria] Onset: 05-29-2023 05-29-2023 Episodic Results Test Name Value Interpretation Reference Range Facility IGP,APTIMA HPV,AGE GDLNon AGE GDLN ACOG TESTING Note . [facility] Comment on above: TESTS RESULT FLAG UN ITS REF RANGE LAB Clinician Provided Cytology Information Source.............Cervix;Endocervix No. of containers..01 ThinPrep Vial Age Algo ACOG Moni... 30-65 01 FLAG LEGEND: L-Low Normal,H-High Normal,LL-Alert Low,HH-Alert High <-Panic Low,>-Panic High,A-Abnormal,AA-Critical Abnormal Performed at: 01 [facility] [place] [address] Maribel Soto MD, HPV APTIMA Negative Negative [facility] e Comment on above: This nucleic acid am plification test detects fourteen high- risk HPV types (16,18,31,33,35,39,45,51,52,56,58,59,66,68) without differentiation. Performed at: = - [address], [place] [id number] Recovery Collector: Maribel Soto MD, Phone: [phone] Performed at: - [address], [place] [id number] Recovery Collector: Maribel Soto MD, Phone: [phone] IGP, APTIMA HPV, RFX 16/18,45 Note . [facility] Comment on above: TESTS RESULT FLAG U NITS REF RANGE LAB DIAGNOSIS: 02 NEGATIVE FOR INTRAEPITHELIAL LESION OR MALIGNANCY. Specimen adequacy: 02 Satisfactory for evaluation. Endocervical and/or squamous metaplastic cells (endocervical component) are present. Performed by: Herlinda Alonzo, Tool Turret Lathe Set Up Operator (ASCP) . 02 Note: Note 02 The Pap smear is a screening test designed to aid in the detection of premalignant and malignant conditions of the uterine cervix. It is not a diagnostic procedure and should not be used as the sole means of detecting cervical cancer. Both false-positive and false-negative reports do occur. Test Methodology: Note 02 This liquid based ThinPrep(R) pap test was screened with the use of an image guided system. HPV Genotype Reflex Note 02 Criteria not met, HPV Genotype not performed. FLAG LEGEND: L-Low Normal,H-High Normal,LL-Alert Low,HH-Alert High <-Panic Low,>-Panic High,A-Abnormal,AA-Critical Abnormal Performed at: 02 [facility] [place] [address] Maribel Soto MD, BRUSH-SPATULA CERVIX ENDOCERVIX [facility] URINE CULTUREon 10-21-2023 Bacteria identified Cx Nom (U) CULTURE RESULTS <10,000 ORGANISMS/ML NORMAL URO GENITAL ABHILASH Normal [facility] Comment on above: Performed By: #### 6 30-4 #### [facility] ([id number]) [address] [place] [address] CT abdomen pelvis w conon CT abdomen pelvis w con [facility] [place] [address] [place] [address] CT Scan Report Signed Patient: Judy Roca MR#: [id number] 18 : 1965 Acct:[id number] Age/Sex: 57 / F ADM Date: 07/09/23 Loc: ER Room: Type: [facility] ER Attending Dr: Copies to: Ronan Delcid [...] Elia Weiss M.D.07/09/2023 6:06 PM Dictation Location: [place] [address] Transcribed By: [facility] 07/09/231805 Dictated By: Elia Weiss DO 07/09/23 1800 Signed By: 07/09/231805 Normal [facility] Complete Blood Count Auto Di ffon 07-09-2023 Basophils (Bld) [#/Vol] 0.0 10*3/uL Normal 0.0-0.2 [facility] Comment on above: Result Comment: PERF ORMED BY: [place] [address] PATHOLOGIST LETTER STAMPING MACHINE OPERATOR ATIF JOHNSON M.D. Performed By: #### C MP, CBC #### [address] Basophils/100 WBC (Bld) 0.4 % Normal . [facility] Comment on above: Performed By: #### C MP, CBC #### [address] Eosinophils (Bld) [#/Vol] 0.1 10*3/uL Normal 0.0-0.45 [facility] Comment on above: Performed By: #### C MP, CBC #### [place] [address] [place] Eosinophils/100 WBC (Bld) 0.8 % Normal . [facility] Comment on above: Performed By: #### C MP, CBC #### [address] Erythrocyte distribution width (RBC) [Ratio] 14.3 % Normal 11.9-15.3 [facility] Comment on above: Performed By: #### C MP, CBC #### [address] Hematocrit (Bld) [Volume fraction] 40.5 % Normal 34.0-46.4 [facility] Comment on above: Performed By: #### C MP, CBC #### [address] Hemoglobin (Bld) [Mass/Vol] 13.6 g/dL Normal 11.8-15.4 [facility] Comment on above: Performed By: #### C MP, CBC #### [address] Lymphocytes (Bld) [#/Vol] 1.0 10*3/uL Normal 1.00-4.8 [facility] Comment on above: Performed By: #### C MP, CBC #### [address] Lymphocytes/100 WBC (Bld) 11.9 % Normal . [facility] Comment on above: Performed By: #### C MP, CBC #### [address] MCH (RBC) [Entitic mass] 27.3 pg Normal 24.7-34.3 [facility] Comment on above: Performed By: #### C MP, CBC #### [address] MCV (RBC) [Entitic vol] 81.2 fL Normal 80-100 [facility] Comment on above: Performed By: #### C MP, CBC #### [address] Mean Corpuscular HGB Conc 33.6 g/dL Normal 32.0-35.0 [facility] Comment on above: Performed By: #### C MP, CBC #### [address] Monocytes (Bld) [#/Vol] 0.9 10*3/uL High 0.0-0.8 [facility] Comment on above: Performed By: #### C MP, CBC #### [place] [address] [place] Monocytes/100 WBC (Bld) 28.39 % High 0.00-20.00 [facility] Comment on above: Result Comment: For adults in ED, MDW > 20.0 may be associated with a higher risk of sepsis during the first 12 hrs of hospital admission Performed By: #### C MP, CBC #### [address] Monocytes/100 WBC (Bld) 10.3 % Normal . [facility] Comment on above: Performed By: #### C MP, CBC #### [address] Neutrophils (Bld) [#/Vol] 6.6 10*3/uL Normal 1.8-7.7 [facility] Comment on above: Performed By: #### C MP, CBC #### [address] Neutrophils/100 WBC (Bld) 76.6 % Normal . [facility] Comment on above: Performed By: #### C MP, CBC #### [place] [address] [place] NRBC% 0.1 /100{WBC} Normal 0-0.5 [facility] Comment on above: Performed By: #### C MP, CBC #### [place] [address] [place] Platelet mean volume (Bld) [Entitic vol] 8.9 fL Normal 6.3-10.7 [facility] Comment on above: Performed By: #### C MP, CBC #### [place] [address] [place] Platelets (Bld) [#/Vol] 293 10*3/uL Normal 150-450 [facility] Comment on above: Performed By: #### C MP, CBC #### [place] [address] [place] RBC (Bld) [#/Vol] 4.99 10*6/uL Normal 3.60-5.00 [facility] Comment on above: Performed By: #### C MP, CBC #### [address] WBC (Bld) [#/Vol] 8.7 10*3/uL Normal 3.8-11.6 [facility] Comment on above: Performed By: #### C MP, CBC #### [address] Comprehensive Metabolic Pane jazzmine 07-09-2023 Albumin [Mass/Vol] 3.1 g/dL Low 3.5-5.7 [facility] Comment on above: Performed By: #### C MP, CBC #### [address] Albumin/Globulin [Mass ratio] 0.8 {ratio} Normal [facility] Comment on above: Performed By: #### C MP, CBC #### [address] Performed By: #### H EPATIC #### [address] ALP [Catalytic activity/Vol] 222 U/L High 34-104 [facility] Comment on above: Performed By: #### C MP, CBC #### [address] ALT [Catalytic activity/Vol] 105 U/L High 7-52 [facility] Comment on above: Performed By: #### C MP, CBC #### [address] Anion gap [Moles/Vol] 14.3 mmol/L Normal 6.0-15.0 [facility] Comment on above: Performed By: #### C MP, CBC #### [address] AST [Catalytic activity/Vol] 54 U/L High 13-39 [facility] Group Comment on above: Performed By: #### C MP, CBC #### [address] Bilirubin [Mass/Vol] 0.6 mg/dL Normal 0.3-1.0 [facility] Comment on above: Performed By: #### C MP, CBC #### [address] Performed By: #### H EPATIC #### [address] Calcium [Mass/Vol] 8.1 mg/dL Low 8.6-10.3 [facility] Comment on above: Performed By: #### C MP, CBC #### [address] Chloride [Moles/Vol] 95 mmol/L Low 98-107 [facility] Comment on above: Performed By: #### C MP, CBC #### [address] CO2 [Moles/Vol] 23.7 mmol/L Normal 21.0-31.0 [facility] Comment on above: Performed By: #### C MP, CBC #### [address] Creatinine [Mass/Vol] 0.64 mg/dL Normal 0.60-1.20 [facility] Comment on above: Performed By: #### C MP, CBC #### [address] Creatinine Clr Calc Pharmacy 111.97 Normal [facility] Comment on above: Result Comment: PERF ORMED BY: [place] [address] PATHOLOGIST LETTER STAMPING MACHINE OPERATOR ATIF JOHNSON M.D. Performed By: #### C MP, CBC #### [place] [address] [place] GFR/1.73 sq M.predicted MDRD (S/P/Bld) [Vol rate/Area] mL/min/{1.73_m2} Normal [facility] Comment on above: Performed By: #### C MP, CBC #### [address] Globulin (S) [Mass/Vol] 4.0 g/dL Normal [facility] Comment on above: Performed By: #### C MP, CBC #### [address] Glucose [Mass/Vol] 155 mg/dL High 70-100 [facility] Comment on above: Result Comment: [facility] Glucose Reference Range is dependent on time and content of last meal. Glucose of more than 200 mg/dL in a nonstressed, ambulatory subject supports the diagnosis of Diabetes Mellitus. ADA recommended reference range Performed By: #### C MP, CBC #### [address] Potassium [Moles/Vol] 3.0 mmol/L Low 3.5-5.1 [facility] Comment on above: Performed By: #### C MP, CBC #### [address] Protein [Mass/Vol] 7.1 g/dL Normal 6.4-8.9 [facility] Comment on above: Performed By: #### C MP, CBC #### [address] Performed By: #### H EPATIC #### [address] Sodium [Moles/Vol] 130 mmol/L Low 136-145 [facility] Comment on above: Performed By: #### C MP, CBC #### [address] Urea nitrogen [Mass/Vol] 17 mg/dL Normal 7-25 [facility] Comment on above: Performed By: #### C MP, CBC #### [place] [address] [place] Dipstick and Microscopicon 0 07-09-2023 Appearance (U) Cloudy Critically abnormal Clear [facility] Comment on above: Order Comment: Name Collection Type:: Clean-Voided Midstream Performed By: #### C UU, ADDONUAPLUS #### [place] [address] [place] Bacteria,Urine 2+ High None Seen [facility] Comment on above: Order Comment: Name Collection Type:: Clean-Voided Midstream Performed By: #### C UU, ADDONUAPLUS #### [place] [address] [place] Bilirubin,Urine 2+ High Negative The Counts include 234 beds at the [facility] Comment on above: Order Comment: Name Collection Type:: Clean-Voided Midstream Performed By: #### C UU, ADDONUAPLUS #### [address] Color (U) Dark Yellow Critically abnormal Yellow [facility] Comment on above: Order Comment: Name Collection Type:: Clean-Voided Midstream Performed By: #### C UU, ADDONUAPLUS #### [address] Glucose Ql (U) Normal Normal Normal [facility] Comment on above: Order Comment: Name Collection Type:: Clean-Voided Midstream Performed By: #### C UU, ADDONUAPLUS #### [place] [address] [place] Hyaline Casts,Urine 9-19 High 0-8 [facility] Comment on above: Order Comment: Name Collection Type:: Clean-Voided Midstream Result Comment: PERF ORMED BY: [place] [address] PATHOLOGIST LETTER STAMPING MACHINE OPERATOR ATIF JOHNSON M.D. Performed By: #### C UU, ADDONUAPLUS #### [place] [address] [place] Ketones Ql (U) 3+ High Negative [facility] Comment on above: Order Comment: Name Collection Type:: Clean-Voided Midstream Performed By: #### C UU, ADDONUAPLUS #### [place] [address] [place] Leukocyte esterase Test strip Ql (U) 2+ High Negative [facility] Comment on above: Order Comment: Name Collection Type:: Clean-Voided Midstream Performed By: #### C UU, ADDONUAPLUS #### [address] Nitrite,Urine Negative Normal Negative [facility] Comment on above: Order Comment: Name Collection Type:: Clean-Voided Midstream Performed By: #### C UU, ADDONUAPLUS #### [address] Occult Blood,Urine 2+ High Negative [facility] Comment on above: Order Comment: Name Collection Type:: Clean-Voided Midstream Result Comment: PERF ORMED BY: [place] [address] PATHOLOGIST LETTER STAMPING MACHINE OPERATOR ATIF JOHNSON M.D. Performed By: #### C UU, ADDONUAPLUS #### [address] pH (U) 6.0 [pH] Normal 5.0-9.0 [facility] Comment on above: Order Comment: Name Collection Type:: Clean-Voided Midstream Performed By: #### C UU, ADDONUAPLUS #### [address] Protein (U) [Mass/Vol] 100 mg/dL High Negative [facility] Comment on above: Order Comment: Name Collection Type:: Clean-Voided Midstream Performed By: #### C UU, ADDONUAPLUS #### [address] RBC,Urine 10-19 High 0-4 [facility] Comment on above: Order Comment: Name Collection Type:: Clean-Voided Midstream Performed By: #### C UU, ADDONUAPLUS #### [address] Specificy [place],Urine 1.023 Normal 1.001-1.030 [facility] Comment on above: Order Comment: Name Collection Type:: Clean-Voided Midstream Performed By: #### C UU, ADDONUAPLUS #### [address] Squamous Epithelial Cell,Urine 5-9 High 0-2 [facility] Comment on above: Order Comment: Name Collection Type:: Clean-Voided Midstream Performed By: #### C UU, ADDONUAPLUS #### [address] Urobilinogen,Urin e Normal Normal Normal [facility] Comment on above: Order Comment: Name Collection Type:: Clean-Voided Midstream Performed By: #### C UU, ADDONUAPLUS #### [address] WBC,Urine 5-9 High 0-4 [facility] Comment on above: Order Comment: Name Collection Type:: Clean-Voided Midstream Performed By: #### C UU, ADDONUAPLUS #### [address] Glucose Poct Glucometerson 0 07-09-2023 Glucose [Mass/Vol] 160 mg/dL Normal [facility] Comment on above: Result Comment: [place] Glucose Reference Range is dependent on time and content of last meal. Glucose of more than 200 mg/dL in a nonstressed, ambulatory subject supports the diagnosis of Diabetes Mellitus. PERFORMED BY: [place] [address] PATHOLOGIST LETTER STAMPING MACHINE OPERATOR ATIF JOHNSON M.D. Performed By: #### G LULS #### Point of Care testing , Hepatic Panelon 07-09-2023 Albumin [Mass/Vol] 3.2 g/dL Low 3.5-5.7 [facility] Comment on above: Performed By: #### H EPATIC #### [address] ALP [Catalytic activity/Vol] 241 U/L High 34-104 [facility] Comment on above: Result Comment: PERF ORMED BY: [place] [address] PATHOLOGIST LETTER STAMPING MACHINE OPERATOR ATIF JOHNSON M.D. Performed By: #### H EPATIC #### [address] ALT [Catalytic activity/Vol] 104 U/L High 7-52 [facility] Comment on above: Performed By: #### H EPATIC #### [address] AST [Catalytic activity/Vol] 53 U/L High 13-39 [facility] Comment on above: Performed By: #### H EPATIC #### [address] Bilirubin,Indirec t 0.5 mg/dL Normal [facility] Comment on above: Performed By: #### H EPATIC #### [address] Bilirubin.indirec t [Mass/Vol] 0.10 mg/dL Normal 0.03-0.18 [facility] Comment on above: Performed By: #### H EPATIC #### [address] Globulin (S) [Mass/Vol] 3.9 g/dL Normal [facility] Comment on above: Performed By: #### H EPATIC #### [address] Lipaseon 07-09-2023 Lipase [Catalytic activity/Vol] 74.0 U/L Normal 11.0-82.0 [facility] Comment on above: Result Comment: PERF ORMED BY: [place] [address] PATHOLOGIST LETTER STAMPING MACHINE OPERATOR ATIF JOHNSON M.D. Performed By: #### L IPASE #### [address] Urine Cultureon 07-09-2023 Bacteria identified Cx Nom (U) 30,000 colonies/ml mixed bacterial skin contaminants including mixed gram negative bacilli - 2 Days PERFORMED BY: [place] [address] PATHOLOGIST LETTER STAMPING MACHINE OPERATOR ATIF JOHNSON M.D. Normal [facility] Comment on above: Performed By: #### C UU, ADDONUAPLUS #### [facility] [address] POCT urinalysis dipstick onl yon 05-29-2023 [...] [facility] External Poct Urine Specific [place] 1.025 [facility] External Poct Urine Urobilinogen 0.2 [facility] URINE CULTUREon 05-29-2023 Bacteria identified Cx Nom (U) CULTURE RESULTS 50-100,000 ORGANISMS/ML NORMAL UROGENITAL ABHILASH Normal [facility] Comment on above: Performed By: #### 6 30-4 #### [facility] ([id number]) [address] [place] [address] MICROALBUMIN - ALBUMIN:CREAT ININE URINE RATIOon 03-18-2023 ALB/CREAT RATIO 5.5 mg/g creat Normal 0.0-30.0 [facility] Comment on above: Performed By: #### M ALBU #### [facility] ([id number]) [address], [address] [place] [address] Albumin DL <= 20 mg/L (U) [Mass/Vol] 1.0 mg/dL Normal 0.0-1.[address] [facility] Comment on above: Performed By: #### M ALBU #### [facility] ([id number]) [address], [address] [place] [address] URINE CREAT 180.91 mg/dL Normal [facility] Comment on above: Performed By: #### M ALBU #### [facility] ([id number]) [address], [address] [place] [address] POCT Hemoglobin A1con 2023 HbA1c (Bld) [Mass fraction] 6.5 g/dL 4 - 7 g/dL [facility] COVID + FLU Quick Testingon 01-12-2023 SARS-CoV-2 (COVID-19) RNA MONICO+probe Ql (Unsp spec) Negative [employer] [facility] [employer] Other COVID + FLU Quick Testing Negative [employer] Other Covid-19 PCR ([facility])on 01-25 SARS-CoV-2 (COVID-19) RNA MONICO+probe Ql (Unsp spec) Not detected Normal NOT DETECTED [facility] Comment on above: Result Comment: This test is not yet approved or cleared by the [place] FDA. When there are no FDA-approved or cleared tests available, and other criteria are met, FDA can make tests available under an emergency access mechanism called an Emergency Use Authorization (EUA). The EUA for this test is supported by the Certified Composites Technician of Health and Human Service's (HHS's) declaration [...] SARS-CoV-2. Performed By: #### C VDTB #### [facility] [address] [place] [address] Dr. Robert Barragan INFLUENZA A AND B AGon 02-21 INFLUANEGH SEE BELOW Normal [facility] Comment on above: Result Comment: Nega tive for Flu A protein angiten. Infection due to Flu A cannot be ruled out. Flu A angiten in the sample may be below the detection limit of the test. Performed By: #### I NFLUAB #### [facility] [address] [place] [address] Dr. Robert Barragan [facility] SEE BELOW Normal [facility] Comment on above: Result Comment: Nega tive for Flu B protein antigen. Infection due to Flu B cannot be ruled out. Flu B antigen in the sample may be below the detection limit of the test. Performed By: #### I NFLUAB #### [facility] [address] [place] [address] Dr. Robert Barragan INFLUENZA A AG Negative Normal NEGATIVE SEE COMMENT [facility] Comment on above: Performed By: #### I NFLUAB #### [facility] [address] [place] [address] Dr. Robert Barragan INFLUENZA B AG Negative Normal NEGATIVE SEE COMMENT [facility] Comment on above: Performed By: #### I NFLUAB #### [facility] [address] [place] [address] Dr. Robert Hadley 2021 CNPN Telephone (inDegreeCHARANJITN) JUDY ROCA ([id number]) 1965 F Date Time Provider Department 09/13/21 [...] Encounter Status:Closed by NABOR PICHARDO on 09/13/21 [facility] XR HIP RT 2 3V W PELVISon [...] by: Benny QUINONES Date: 2021-05-08 03:14 Normal [facility] MRI SHOULDER RT WO CONon MRI [...] by: XENIA LO Date: 2021-05-04 07:53 Normal [facility] CNPNon 02-12-2021 CNPN Telephone (INTMAL) EDWARDJUDY ([id number]) 1965 F Date Time Provider Department 02/12/21 [...] Encounter Status:Closed by OCTAVIA BELLE on 02/13/21 Normal [facility] CNOVon 02-08-2021 CNOV Office Visit (SOHAM ) EDWARDJUDY M ([id number]) 1965 F Date Time Provider Department 02/08/21 [...] Biking several times a week. COVID vaccine [facility] 03/07/20, 04/17/20, 11/29/20. Feels safe at home. 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 Normal [facility] OBSOLETEon 11-14-2020 OBSOLETE Refill (SOHAM) JUDY ROCA ([id number]) 1965 F Date Time Provider Department 11/14/20 [...] Status:Closed by NABOR PICHARDO on 11/16/20 Normal [facility] Vital Signs Date Time Vital Sign Value Performing Clinician Facility 01-28-2024 12:54-0500 Body height 160 cm Iris Pawan TAIDashbid Work Phone: [employer] 01-28-2024 12:54-0500 Body mass index (BMI) [Ratio] 44.89 kg/m2 Iris Villalta APRNDashbid Work Phone: [employer] [facility] 01-28-2024 12:54-0500 Body temperature 97.3 [degF] Iris Villalta APRNDashbid [facility] 01-28-2024 12:54-0500 Body weight 114.94 kg Iris Villalta APRNDashbid [facility] 01-28-2024 12:54-0500 Diastolic blood pressure 70 mm[Hg] Iris Villalta APRN-PATTERN SCRATCHER Work Phone: [facility] [employer] [facility] 01-28-2024 12:54-0500 Heart rate 70 /min Iris Villalta APRN-PATTERN SCRATCHER Work Phone: [facility] 01-28-2024 12:54-0500 Respiratory rate 18 /min Iris Villalta APRN-PATTERN SCRATCHER Work Phone: [facility] 01-28-2024 12:54-0500 SaO2% (BldA) [Mass fraction] 96 % Iris Villalta APRN-PATTERN SCRATCHER Work Phone: [facility] 01-28-2024 12:54-0500 Systolic blood pressure 138 mm[Hg] Iris Villalta APRN-PATTERN SCRATCHER Work Phone: [facility] 05-19-2023 13:54-0400 Body height 160 cm Iris Villalta APRN-PATTERN SCRATCHER Work Phone: [facility] 05-19-2023 13:54-0400 Body mass index (BMI) [Ratio] 45.6 kg/m2 Iris Villalta APRN-PATTERN SCRATCHER Work Phone: [facility] 05-19-2023 13:54-0400 Body temperature 98.1 [degF] Iris Villalta APRN-PATTERN SCRATCHER Work Phone: [facility] 05-19-2023 13:54-0400 Body weight 116.76 kg Iris Villalta APRN-PATTERN SCRATCHER Work Phone: [facility] [employer] [facility] 05-19-2023 13:54-0400 Diastolic blood pressure 78 mm[Hg] Iris Villalta APRN-PATTERN SCRATCHER Work Phone: [facility] 05-19-2023 13:54-0400 Heart rate 74 /min Iriserich Villalta APRN-PATTERN SCRATCHER Work Phone: [facility] 05-19-2023 13:54-0400 SaO2% (BldA) [Mass fraction] 97 % Iris Villalta APRN-PATTERN SCRATCHER Work Phone: [facility] [employer] [facility] 05-19-2023 13:54-0400 Systolic blood pressure 120 mm[Hg] Iris Villalta SENIOR QUALITY METHODS SPECIALIST-PATTERN SCRATCHER Work Phone: [facility] [employer] 03-18-2023 08:17-0500 Body height 160 cm Iris Villalta SENIOR QUALITY METHODS SPECIALIST-PATTERN SCRATCHER Work Phone: [facility] [employer] 03-18-2023 08:17-0500 Body mass index (BMI) [Ratio] 45.19 kg/m2 Iris Villalta APRN-PATTERN SCRATCHER Work Phone: [facility] [employer] 03-18-2023 08:17-0500 Body temperature 97.7 [degF] Iris Villalta APRN-PATTERN SCRATCHER Work Phone: [facility] [employer] 03-18-2023 08:17-0500 Body weight 115.71 kg Iris Villalta SENIOR QUALITY METHODS SPECIALIST-PATTERN SCRATCHER [facility] Phone[facility] 03-18-2023 08:17-0500 Diastolic blood pressure 80 mm[Hg] Iris Villalta APRN-PATTERN SCRATCHER Work Phone: [facility] [employer] 03-18-2023 08:17-0500 Heart rate 67 /min Iris Villalta APRN-PATTERN SCRATCHER Work Phone: [facility] [employer] 03-18-2023 08:17-0500 SaO2% (BldA) [Mass fraction] 95 % Iris Villalta SENIOR QUALITY METHODS SPECIALIST-PATTERN SCRATCHER [facility] Phone[facility] 03-18-2023 08:17-0500 Systolic blood pressure 120 mm[Hg] Iris Villalta SENIOR QUALITY METHODS SPECIALIST-PATTERN SCRATCHER [facility] Phone[facility] 01-12-2023 14:10-0500 Body height 160.02 cm Francia Carlos Other [employer] Other 01-12-2023 14:10-0500 Body mass index (BMI) [Ratio] 43.78 kg/m2 Francia Carlso Other [employer] Other 01-12-2023 14:10-0500 Body temperature 97.4 [degF] Francia Carlos Other [employer] Other 01-12-2023 14:10-0500 Body weight 112.13 kg Francia Carlos Other [employer] Other 01-12-2023 14:10-0500 Respiratory rate 18 /min Francia Carlos Other [employer] Other 01-12-2023 14:10-0500 SaO2% (BldA) [Mass fraction] 97 % Francia Carlos Other [employer] Other Encounters Encounter Date Encounter Type Care Provider Facility Start: 01-29-2024 End: 01-29-2024 Orders Only Iris ABARCA Work Phone: [facility] Comment on above: DM type 2 with diabe tic mixed hyperlipidemia ([facility]) (Primary Dx) Start: 01-28-2024 End: 01-28-2024 Patient encounter procedure Iris ABARCA Work Phone: [employer] [facility] Start: 01-28-2024 End: 01-28-2024 Periodic preventive med est patient 40-64yrs Iris ABARCA Work Phone: [facility] Comment on above: Annual physical exam (Primary Dx); Type 2 diabetes mellitus with hyperglycemia, without long-term current use of insulin ([facility]); Blood tests for routine general physical examination; Special screening for malignant neoplasm of colon Start: 01-28-2024 End: 01-28-2024 Physical examination Iris Villalta SENIOR QUALITY METHODS SPECIALIST-PATTERN SCRATCHER Work Phone: [facility] Start: 12-24-2023 End: 12-24-2023 Refill Iris Jovanna Villalta SENIOR QUALITY METHODS SPECIALIST-PATTERN SCRATCHER Work Phone: [facility] Comment on above: Type 2 diabetes hunter itus with hyperglycemia, without long-term current use of insulin ([facility]) Start: 12-22-2023 End: 12-22-2023 Bamboo flowsheet Marlene MADDOX Work Phone: [facility] Start: 12-22-2023 End: 12-30-2023 Bamboo flowsheet Marlene MADDOX Work Phone: [facility] Start: 12-22-2023 End: 12-30-2023 Clinisync Result Encounter Marlene MADDOX Work Phone: [facility] External Department Unsolicited Start: 12-22-2023 End: 12-22-2023 Patient encounter procedure Marlene MADDOX Work Phone: [facility] Healthcare Work Phone: Start: 12-22-2023 End: 12-22-2023 Periodic preventive med est patient 40-64yrs Marlene MADDOX Work Phone: [facility] Comment on above: Well woman exam with routine gynecological exam; Breast cancer screening by mammogram; Postmenopausal state; Vitamin D deficiency; Hot flash, menopausal Start: 12-22-2023 End: 12-22-2023 ambulatory MARLENE LORD Not Available Start: 11-24-2023 End: 11-25-2023 Telephone encounter Iris Villalta SENIOR QUALITY METHODS SPECIALIST-PATTERN SCRATCHER Work Phone: [facility] - [facility] Start: 11-18-2023 End: 11-18-2023 ambulatory [facility] Start: 11-12-2023 End: 11-12-2023 ambulatory [facility] Start: 10-21-2023 End: 10-21-2023 ambulatory [facility] Start: 10-21-2023 End: 10-21-2023 ambulatory [facility] Start: 09-16-2023 End: 09-16-2023 ambulatory [facility] Start: 08-19-2023 End: 08-19-2023 ambulatory [facility] Start: 08-11-2023 End: 08-11-2023 ambulatory ANGEL BAHENA Not Available Start: 07-22-2023 End: 07-22-2023 ambulatory [facility] Start: 07-09-2023 End: 07-09-2023 Emergency department patient visit Ronan Delcid Facility:[facility] Start: 07-09-2023 End: 07-09-2023 ambulatory [facility] Start: 05-29-2023 End: 05-29-2023 ambulatory [facility] Start: 05-29-2023 End: 05-29-2023 Clinical Support Iris Villalta SENIOR QUALITY METHODS SPECIALIST-PATTERN SCRATCHER Work Phone: [facility] Comment on above: Dysuria (Primary Dx) ; Acute cystitis without hematuria Start: 05-26-2023 Telephone encounter Iris Villalta SENIOR QUALITY METHODS SPECIALIST-PATTERN SCRATCHER [facility] Start: 05-19-2023 End: 05-19-2023 ambulatory [facility] Start: 05-19-2023 End: 05-19-2023 Office outpatient visit 15 minutes Iris Villalta SENIOR QUALITY METHODS SPECIALIST-PATTERN SCRATCHER [facility] Comment on above: Saloni infection of flexural skin (Primary Dx) Start: 03-29-2023 Refill Iris paredes SENIOR QUALITY METHODS SPECIALIST-PATTERN SCRATCHER [facility] Comment on above: Type 2 diabetes hunter itus with hyperglycemia, without long-term current use of insulin ([facility]); Current mild episode of major depressive disorder without prior episode ([facility]); Benign essential HTN; Migraine 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, not intractable Start: 03-19-2023 End: 03-19-2023 ambulatory ANGEL BAHENA Not Available Start: 03-18-2023 End: 03-18-2023 ambulatory [facility] Start: 03-18-2023 End: 03-18-2023 ambulatory [facility] Start: 03-18-2023 End: 03-18-2023 Office outpatient visit 25 minutes Iris J Villalta SENIOR QUALITY METHODS SPECIALIST-PATTERN SCRATCHER Work Phone: [facility]icians Internal Medicine - Family Medicine Comment on above: Type 2 diabetes hunter itus with hyperglycemia, without long-term current use of insulin ([facility]) (Primary Dx); Current mild episode of major depressive disorder without prior episode ([facility]); Gastroesophageal reflux disease without esophagitis; Benign essential HTN; Migraine 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, not intractable; Seasonal allergic rhinitis due to pollen Start: 03-13-2023 Orders Only [employer] SENIOR QUALITY METHODS SPECIALIST-PATTERN SCRATCHER Work Phone: [facility] Phys[facility] Internal Medicine - Family Medicine Start: 01-14-2023 End: 01-14-2023 ambulatory Francia Carlos Other [employer] Other Start: 01-14-2023 Telephone encounter Francia Carlos [facility] Start: 01-12-2023 End: 01-12-2023 ambulatory Franica Carlos Other [employer] Other Start: 01-12-2023 Office outpatient ne w [...] Date Procedure Procedure Detail Performing Clinician Start: 01-28-2024 Adult depression scr eening assessment Iris Villalta SENIOR QUALITY METHODS SPECIALIST-PATTERN SCRATCHER Work Phone: Start: 01-28-2024 Microalbumin [Mass/v olume] in Urine by Test strip Iris Villalta SENIOR QUALITY METHODS SPECIALIST-PATTERN SCRATCHER Work Phone: Start: 12-22-2023 IGP,APTIMA HPV,AGE GDLN Marlene MADDOX Work Phone: Start: 12-22-2023 Microscopic observat ion [Identifier] in Cervix by Cyto stain Iris Villalta SENIOR QUALITY METHODS SPECIALIST-PATTERN SCRATCHER Work Phone: Start: 11-18-2023 Adult depression scr eening assessment Iris Villalta SENIOR QUALITY METHODS SPECIALIST-PATTERN SCRATCHER Work Phone: Start: 07-22-2023 Follow-up visit Follow-up IRIS VILLALTA Start: 05-29-2023 Urnls dip stick/tabl et rgnt non-auto w/o micrscp Iris Nugent Villalta SENIOR QUALITY METHODS SPECIALIST-PATTERN SCRATCHER Work Phone: Start: 05-19-2023 Adult depression scr eening assessment Iris Villalta SENIOR QUALITY METHODS SPECIALIST-PATTERN SCRATCHER Work Phone: Start: 03-18-2023 Hemoglobin glycosyla moshe a1c Iris Villalta SENIOR QUALITY METHODS SPECIALIST-PATTERN SCRATCHER Work Phone: Start: 03-18-2023 Adult depression scr eening assessment Iris Villalta SENIOR QUALITY METHODS SPECIALIST-PATTERN SCRATCHER Work Phone: Start: 03-18-2023 Microalbumin [Mass/v olume] in Urine by Test strip Iris Villalta APRN-PATTERN SCRATCHER Work Phone: Start: 02-13-2023 Diabetic retinal eye exam Iris Villalta APRN-PATTERN SCRATCHER Work Phone: Start: 09-10-2022 Adult depression scr eening assessment Iris Villalta SENIOR QUALITY METHODS SPECIALIST-PATTERN SCRATCHER Work Phone: Start: 07-13-2020 Adult depression scr eening assessment Nabor Pichardo MD Work Phone: Start: 03-14-2015 Mammography Marlene MADDOX Work Phone: Start: 07-03-2013 Microscopic observat ion [Identifier] in Cervix by Cyto stain Iris Pawan SENIOR QUALITY METHODS SPECIALIST-PATTERN SCRATCHER Work Phone: Plan of Treatment Date Care Activity Detail Author Start: 12-21-2026 Screening for malign ant neoplasm of cervix Pap Smear [facility] Start: 01-27-2025 Adult BMI Follow Up Plan Adult BMI F ollow Up Plan [facility] Start: 01-27-2025 Adult BMI Screening Adult BMI Screen ing [facility] Start: 01-27-2025 Depression Screening Depression Scre ening [facility] Start: 01-27-2025 Tobacco Screening Tobacco Screening [facility] Start: 01-27-2025 Urine screening for protein Urine Microalbumin [facility] Start: 11-17-2024 Adult BMI Follow Up Plan Adult BMI F ollow Up Plan [facility] Start: 11-17-2024 Adult BMI Screening Adult BMI Screen ing [facility] Start: 11-17-2024 Depression Screening Depression Scre ening [facility] Start: 11-17-2024 Tobacco Screening Tobacco Screening [facility] Start: 05-18-2024 Adult BMI Follow Up Plan Adult BMI F ollow Up Plan [facility] Start: 05-18-2024 Adult BMI Screening Adult BMI Screen ing [facility] Start: 05-18-2024 Depression Screening Depression Scre ening [facility] Start: 05-18-2024 Tobacco Screening Tobacco Screening [facility] Start: 03-18-2024 Adult BMI Follow Up Plan Adult BMI F ollow Up Plan [facility] Start: 03-18-2024 Adult BMI Screening Adult BMI Screen ing [facility] Start: 03-18-2024 Depression Screening Depression Scre ening [facility] Start: 03-18-2024 Tobacco Screening Tobacco Screening [facility] Start: 03-18-2024 Urine screening for protein Urine Microalbumin [facility] Start: 02-14-2024 Glaucoma screening Diabetic Op hthalmology Exam [facility] Start: 01-28-2024 End: 01-28-2024 Patient encounter procedure 01/28/2024 1:00 PM EST Office Visit [facility] Phys[facility] Internal Medicine - Family Medicine [address] [place] [address] Iris Villalta, SENIOR QUALITY METHODS SPECIALIST-PATTERN SCRATCHER [address] [place] [address] [facility] Internal Medicine - Family Medicine Start: 12-22-2023 End: 12-21-2024 DXA Skeletal system Views for bone density DEXA bone density Imaging Routine Postmenopausal state Expected: 12/22/2023 (Approximate), Expires: 12/21/2024 [facility] Comment on above: Expected: 12/22/2023 (Approximate), Expires: 12/21/2024 Start: 12-22-2023 End: 02-20-2025 MG Breast - bilateral Screening Bilateral screening mammogram Imaging Routine Breast cancer screening by mammogram Expected: 12/22/2023, Expires: 02/20/2025 [facility] Work Phone: Comment on above: Expected: 12/22/2023 , Expires: 02/20/2025 Start: 12-22-2023 End: 12-22-2023 Patient encounter procedure 12/22/2023 1:00 PM EDT Office Visit [facility] [address] [place] [address] Marlene Lord PA [address] [place], [place] [id number] Arrived [facility] Comment on above: Arrived Start: 10-26-2023 COVID-19 Vaccine ( season) COVID-19 Vaccine () [facility] Start: 10-26-2023 COVID-19 Vaccine ( season) COVID-19 Vaccine ( season) [facility] Start: 10-26-2023 Influenza vaccination P [facility] Start: 09-22-2023 End: 09-22-2023 Patient encounter procedure 09/22/2023 11:00 AM EDT [facility] [address] [place] [address] Iris Villalta, SENIOR QUALITY METHODS SPECIALIST-PATTERN SCRATCHER [address] [place] [address] [facility] - [facility] Start: 09-11-2023 Adult BMI Follow Up Plan Adult BMI F ollow Up Plan [facility] Start: 09-11-2023 Adult BMI Screening Adult BMI Screen ing [facility] Start: 09-11-2023 Depression Screening Depression Scre ening [facility] Start: 09-11-2023 Tobacco Screening Tobacco Screening [facility] Start: 07-21-2023 DIABETES SCREEN DIABETES SCREEN [facility] Start: 03-18-2023 End: 03-18-2023 Patient encounter procedure 03/18/2023 8:00 AM EST [facility] [address] [place] [address] Iris Villalta, SENIOR QUALITY METHODS SPECIALIST-PATTERN SCRATCHER [address] [place] [address] [facility] - [facility] Start: 10-25-2022 COVID-19 Vaccine ( season) COVID-19 Vaccine ( season) [facility] Start: 10-25-2022 Influenza vaccination Influenza Vacc ine [facility] Start: 10-25-2021 Influenza vaccination INFLUENZA (#1) [facility] Start: 07-13-2021 Adult depression screening assessment DEPRESSION SCREENING [facility] Start: 03-01-2021 COVID-19 VACCINE (4 - Booster for Pfizer series) COVID-19 VACCINE (4 - Booster for Pfizer series) [facility] Start: 2016 Administration of varicella zoster vaccine Zoster (Shingles) Vaccine (1 of 2) [facility] Start: 07-03-2016 Screening for malign ant neoplasm of cervix [facility] Start: 03-14-2016 Screening for malign ant neoplasm of breast Mammogram [facility] Start: 09-14-2011 COLOGUARD (FIT-DNA) COLOGUARD (FIT-D NA) [facility] Start: 09-14-2011 Colonoscopy COLONOSCOPY [facility] Start: 09-14-2011 COLORECTAL CANCER SCREENING COLORECTAL CANCER SCREENING [facility] Start: 09-14-[address] COLONOGRAPHY [facility] Start: 09-14-2011 FECAL OCCULT BLOOD FECAL OCCULT BLOO D [facility] Start: 09-14-2011 LIPID SCREEN LIPID SCREEN [facility] Start: 09-14-[address] [facility] Start: 2006 Mammography MAMMOGRAM [facility] Start: 1996 HPV TESTING HPV TESTING [facility] Start: 1996 Screening for malign ant neoplasm of cervix HPV/Cotest [facility] Start: 09-14-1987 PAP TESTING PAP TESTING [facility] Start: 1985 SHINGRIX VACCINE (1 of 2) SHINGRIX VACCINE (1 of 2) [facility] Start: 1985 Urine microalbumin profile DTAP,TDAP,TD (1 - Tdap) [facility] Start: 1984 Diabetic foot examination Diabetic Foot Exam [facility] Start: 1984 HIV SCREENING HIV SCREENING [facility] Start: 12-17-1983 DTaP,Tdap and Td Vaccines (3 - Tdap) DTaP,Tdap and Td Vaccines (3 - Tdap) [facility] Start: 1972 PNEUMOCOCCAL (1 - PCV) PNEUMOCOCCAL (1 - PCV) [facility] Start: 1966 Screening for malign ant neoplasm of colon [facility] Start: 1966 Urine screening for protein Urine Microalbumin [facility] End: 05-28-2024 Bacteria identified in Urine by Culture Urine culture (clean catch) Microbiology Routine Acute cystitis without hematuria 1 Occurrences starting 05/29/2023 until 05/28/2024 [facility] Phone: Comment on above: 1 Occurrences starti ng 05/29/2023 until 05/28/2024 End: 01-27-2025 CBC W Auto Differential panel - Blood CBC auto differential Lab Routine Blood tests for routine general physical examination 1 Occurrences starting 01/28/2024 until 01/27/2025 [employer] Comment on above: 1 Occurrences starti ng 01/28/2024 until 01/27/2025 CBC W Auto Different ial panel - Blood CBC auto differential Lab Routine Blood tests for routine general physical examination 01/28/2024 7:55 PM EST [employer] Cologuard [facility] C[facility] d [facility] Lab Routine Special screening for malignant neoplasm of colon Ordered: 01/28/2024 [employer] Comment on above: Ordered: 01/28/2024 End: 01-27-2025 Comprehensive metabolic 2000 panel - Serum or Plasma Comprehensive metabolic panel Lab Routine Blood tests for routine general physical examination 1 Occurrences starting 01/28/2024 until 01/27/2025 [facility] Phone: Comment on above: 1 Occurrences starti ng 01/28/2024 until 01/27/2025 Comprehensive metabo lic 2000 panel - Serum or Plasma Comprehensive metabolic panel Lab Routine Blood tests for routine general physical examination 01/28/2024 7:55 PM EST [employer] End: 01-27-2025 Hemoglobin A1c/Hemoglobin.total in Blood Hemoglobin A1c Lab Routine Blood tests for routine general physical examination 1 Occurrences starting 01/28/2024 until 01/27/2025 [employer] Comment on above: 1 Occurrences starti ng 01/28/2024 until 01/27/2025 Hemoglobin A1c/Hemoglobin.total in Blood Hemoglobin A1c Lab Routine Blood tests for routine general physical examination 01/28/2024 7:55 PM EST [employer] End: 01-27-2025 Lipid 1996 panel - Serum or Plasma Lipid profile Lab Routine Blood tests for routine general physical examination 1 Occurrences starting 01/28/2024 until 01/27/2025 [employer] Comment on above: 1 Occurrences starti ng 01/28/2024 until 01/27/2025 Lipid 1996 panel - S zee or Plasma Lipid profile Lab Routine Blood tests for routine general physical examination 01/28/2024 7:55 PM EST [employer] End: 03-17-2024 Microalbumin - Albumin: Creatinine Urine Ratio Microalbumin - Albumin: Creatinine Urine Ratio Lab Routine Type 2 diabetes mellitus with hyperglycemia, without long-term current use of insulin ([facility]) 1 Occurrences starting 03/18/2023 until 03/17/2024 [employer] Work Phone: Comment on above: 1 Occurrences starti ng 03/18/2023 until 03/17/2024 End: 01-27-2025 Microalbumin - Albumin: Creatinine Urine Ratio Microalbumin - Albumin: Creatinine Urine Ratio Lab Routine Type 2 diabetes mellitus with hyperglycemia, without long-term current use of insulin ([facility]) 1 Occurrences starting 01/28/2024 until 01/27/2025 [employer] Comment on above: 1 Occurrences starti ng 01/28/2024 until 01/27/2025 Microalbumin - Album in: Creatinine Urine Ratio Microalbumin - Albumin: Creatinine Urine Ratio Lab Routine Type 2 diabetes mellitus with hyperglycemia, without long-term current use of insulin ([facility]) 01/28/2024 7:55 PM EST [employer] THIN PREP TIS PAP AN D HR HPV DNA THIN PREP TIS PAP AND HR HPV DNA Pathology and Cytology Routine Well woman exam with routine gynecological exam Ordered: 12/22/2023 [facility] Comment on above: Ordered: 12/22/2023 End: 01-27-2025 Thyrotropin [Units/volume] in Serum or Plasma TSH Lab Routine Type 2 diabetes mellitus with hyperglycemia, without long-term current use of insulin ([facility]) 1 Occurrences starting 01/28/2024 until 01/27/2025 [employer] Comment on above: 1 Occurrences starti ng 01/28/2024 until 01/27/2025 Thyrotropin [Units/volume] in Serum or Plasma TSH Lab Routine Type 2 diabetes mellitus with hyperglycemia, without long-term current use of insulin ([facility]) 01/28/2024 7:55 PM EST [employer] Vitamin D 1,25 dihydroxy Vitamin D 1,25 dihydroxy Lab Routine Vitamin D deficiency Ordered: 12/22/2023 [employer] Work Phone: Comment on above: Ordered: 12/22/2023 [place] [facility] Immunizations Immunization Date Immunization Notes Care Provider Torito [facility] 12-10-2023 influenza, seasonal, injectable, preservative free Iris Villalta SENIOR QUALITY METHODS SPECIALIST-PATTERN SCRATCHER Work Phone: [facility] 12-10-2023 influenza virus vaccine, unspecified formulation Marlene MADDOX Work Phone: [facility] 12-05-2022 influenza, injectabl e, quadrivalent, preservative free Iris Villalta SENIOR QUALITY METHODS SPECIALIST-PATTERN SCRATCHER Work Phone: [facility] 12-05-2022 influenza virus vaccine, unspecified formulation Iris Villalta SENIOR QUALITY METHODS SPECIALIST-PATTERN SCRATCHER Work Phone: [facility] 10-27-2021 influenza, injectabl e, quadrivalent, preservative free Iris Vilallta SENIOR QUALITY METHODS SPECIALIST-PATTERN SCRATCHER Work Phone: [facility] 10-27-2021 influenza virus vaccine, unspecified formulation Iris Villalta SENIOR QUALITY METHODS SPECIALIST-PATTERN SCRATCHER Work Phone: [facility] 11-02-2020 influenza, injectabl e, quadrivalent, preservative free Iris Villalta SENIOR QUALITY METHODS SPECIALIST-PATTERN SCRATCHER Work Phone: [facility] 10-27-2019 influenza, injectabl e, quadrivalent, preservative free Iris Villalta SENIOR QUALITY METHODS SPECIALIST-PATTERN SCRATCHER Work Phone: [facility] 12-16-1983 mumps virus vaccine Iris Villalta SENIOR QUALITY METHODS SPECIALIST-PATTERN SCRATCHER Work Phone: [facility] 12-16-1983 TD(adult) unspecifie d formulation Iris Villalta SENIOR QUALITY METHODS SPECIALIST-PATTERN SCRATCHER Work Phone: [facility] 12-05-1970 poliovirus vaccine, unspecified formulation Iris Villalta SENIOR QUALITY METHODS SPECIALIST-PATTERN SCRATCHER Work Phone: [facility] 11-07-1970 diphtheria, tetanus toxoids and pertussis vaccine Iris Villalta SENIOR QUALITY METHODS SPECIALIST-PATTERN SCRATCHER Work Phone: [facility] 11-07-1970 measles, mumps and rubella virus vaccine Iris Villalta SENIOR QUALITY METHODS SPECIALIST-PATTERN SCRATCHER Work Phone: [facility] 11-04-1967 poliovirus vaccine, unspecified formulation Iris Villalta SENIOR QUALITY METHODS SPECIALIST-PATTERN SCRATCHER Work Phone: [facility] 08-30-1967 measles virus vaccine Jenni Villalta SENIOR QUALITY METHODS SPECIALIST-PATTERN SCRATCHER Work Phone: [facility] 08-05-1967 poliovirus vaccine, unspecified formulation Iris Villalta SENIOR QUALITY METHODS SPECIALIST-PATTERN SCRATCHER Work Phone: [facility] Payers Date Payer Category Payer Private Health Insurance [id number] 2023 Self-pay 2021 Medicaid [id number] 2021 Medicaid (Managed Care) RAFIA HARRIS [id number] 2021 Unknown [facility] [id number] 2021-Present [phone] [address] [address] [place] [address] [id number] 2020 Unknown MMO MMO [employer] [id number] 2020-Present [phone] [address] [place] [address] PPO [id number] 1966 Unknown [id number] 2.16840.1.795409.3.579.2. 593 1966 Unknown [id number] 2.16840.1.703588.3.579.2. 593 1966 Unknown [id number] 2.840.1.756100.3.579.2. 593 1966 Unknown [id number] 2.840.1.199039.3.579.2. 1285 1966 Unknown [id number] 2.840.1.362872.3.579.2. 1285 1966 Unknown [id number] 2.840.1.754151.3.579.2. 1285 1966 Unknown [id number] 2.840.1.077083.3.579.2. 1285 1966 Unknown [id number] 2.840.1.497939.3.579.2. 1285 1966 Unknown [id number] 2.840.1.049151.3.579.2. 1285 1966 Unknown [id number] 2.840.1.244666.3.579.2. 1285 1966 Unknown [id number] .840.1.050166.3.579.2. 1285 1966 Unknown [id number] .840.1.934412.3.579.2. 1285 1966 Unknown [id number] .840.1.679841.3.579.2. 1285 1966 Unknown [id number] 2.16840.1.361237.3.579.2. 1285 1966 Unknown [id number] 2.16840.1.965368.3.579.2. 1286 1966 Unknown [id number] 2.16.840.1.515233.3.579.2. 1286 1966 Unknown [id number] 2.16.840.1.521446.3.579.2. 1259 1966 Unknown [id number] 2.16.840.1.725908.3.579.2. 9 1966 Unknown [id number] 2.16.840.1.981544.3.579.2. 1259 1966 Unknown [id number] 2.16.840.1.393840.3.579.2. 1259 1959 Unknown [id number] 1959 Unknown [id number] Unknown [id number] 2.16.840.1.530094.3.579.2. 531 Social History Date Type Detail Facility Start: 07-20-2020 End: 09-10-2022 Tobacco smoking status NHIS Never smoked tobacco [facility] Start: 07-20-2020 End: 09-10-2022 Tobacco use and exposure Smokeless tobacco non-user [facility] Start: 02-08-2021 End: 08-11-2023 Alcohol intake Ex-drinker (finding) [facility] Start: 1965 Sex Assigned At Female [facility] Start: 09-10-2022 End: 01-28-2024 Sex Assigned At [facility] [employer] [facility] Start: 09-10-2022 End: 01-28-2024 Alcohol intake Lifetime non-drinker (finding) [facility] Start: 09-10-2022 End: 01-28-2024 History of Social function [facility] Adolescent depressio n screening assessment 8 [facility] Start: 1965 Sex Assigned At Not on file P [facility] Start: 09-27-2014 Sex Female (finding) [facility] Clinical Notes 02-08-2021 to 01-28-2024 Iris Villalta, ABIDA-PATTERN SCRATCHER - 01/28/2024 1:00 PM VARSHA Luong - 12/22/2023 1:00 PM EDTTelephone Encounter - Otilia Munoz - 11/24/2023 3:41 PM EDT Note Date & Type Note Facility 01-28-2024 History of Presen t illness Narrative Images from the original note were not included. [address] [place] [address] SUBJECTIVE: Patient ID: Judy Roca is a 58 y.o. female. Chief Complaint Patient presents with Annual Exam Presents for annual physical exam States she was recently seen by her [employer] CONSULT[employer], Dr. Barlow for her yearly exam. She was ordered mammogram and DEXA screening by [employer] provider. She does not smoke. Works full-time at [employer]. 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 She is Type 2 DM and is requesting to start injectable, Moujaro today. Annual Exam Pertinent negatives include no chest pain, chills or fever. The following portions of the patient's history were reviewed and updated as appropriate: allergies, current medications, past family history, past medical history, past social history, past surgical history and problem list. Past Surgical History: Procedure Laterality Date ROTATOR CUFF REPAIR Right 05/2021 Past Medical History: Diagnosis Date Allergic Diabetes mellitus ([facility]) Hypertension Recurrent UTI Immunization History Administered Date(s) Administered COVID-19, mRNA, [...] problem and pelvic pain. Musculoskeletal: Negative. Skin: Negative. Allergic/Immunologic: Negative. Neurological: Negative for syncope and facial asymmetry. Hematological: Does not bruise/bleed easily. Psychiatric/Behavioral: Negative. PHYSICAL EXAMINATION: Vitals: 01/28/24 1254 BP: 138/70 BP Site: Left Arm BP Postition: Sitting BP CUFF SIZE: L (13-17 inches) Pulse: 70 Resp: 18 Temp: 36.3 C (97.3 F) TempSrc: Tympanic SpO2: 96% Weight: 114.9 kg (253 lb 6.4 oz) Height: 160 cm (5' [...] normal. ASSESSMENT/PLAN: Judy was seen today for annual exam. Diagnoses and all orders for this visit: Annual physical exam Type 2 diabetes mellitus with hyperglycemia, without long-term current use of insulin ([facility]) - TSH; Future - Microalbumin - Albumin: Creatinine Urine Ratio; Future - tirzepatide (MOUNJARO) 5 mg/0.5 mL pen injector; Inject 5 mg under the skin every 7 days. Blood tests for routine general physical examination - Comprehensive metabolic panel; Future - CBC auto differential; Future - Lipid profile; Future - Hemoglobin A1c; Future Special screening for malignant neoplasm of colon - Cologuard [facility] Colonoscopy screening discussed today. Risk and benefits of procedure explained. Patient declines colonoscopy. She is agreeable to complete Cologuard. Wellness labs drawn in office. Mammogram and DEXA screening was ordered by her [employer] provider. Has received influenza vaccine through her employer Body mass index is 44.89 kg/m . Patient noted to have elevated BMI and the following intervention(s) were applied: Discussed current weight today. Consider healthy food choices, portion control. Avoid sugary beverages and high concentrated sweets. Routine exercise regimen encouraged. Type 2 DM Last A1c 6.6%. A1c lab draw today Encourage routine home blood sugar monitoring, diet modification, and exercise regimen. Continue pioglitazone and glimepiride. New orders for Mounjaro 5 mg subcutaneous weekly per patient request. Pending prior authorization from her insurance ALL QUESTIONS ANSWERED Total time spent was 30 minutes: Preparing to see the patient (e.g., review of tests) Obtaining and/or reviewing separately obtained history Performing a medically appropriate examination and/or evaluation Counseling and educating the patient/family/caregiver Ordering medications, tests, or procedures Follow-up: 4 months DM HTN RIMA [facility]z 01/28/24 1334 documented in this encounter [employer] 12-22-2023 History of Presen t illness Narrative Reason for Appointment: Patient ID: Judy Roca is a 58 y.o. female who presents for Well Women Visit Patient presents today for Annual Exam. MEDICATIONS Current Outpatient Medications Medication Instructions Continuous Blood Gluc Sensor (FreeStyle Jayne 3 Sensor) misc USE DIRECTED; change EVERY 2 (TWO) weeks famotidine (Pepcid) 40 MG tablet Every 12 hours glimepiride (Amaryl) 4 MG tablet Every 24 hours omeprazole (PriLOSEC) [address] capsule TAKE 1 CAPSULE BY MOUTH IN THE MORNING pioglitazone (Actos) 15 MG tablet Pioglitazone HCl pioglitazone (ACTOS) 45 mg, Oral, Daily propranolol (Inderal) 80 MG tablet Every 24 hours venlafaxine (EFFEXOR) 100 mg, Oral, 2 times daily ALLERGIES No Known Allergies PROBLEMS Active Ambulatory Problems Diagnosis Date Noted Arthritis of carpometacarpal (CMC) joint of left thumb 07/11/2022 CMC arthritis, thumb, degenerative 07/11/2022 Other articular cartilage disorders, left shoulder 07/11/2022 Other specific joint derangements of right shoulder, not elsewhere classified 07/11/2022 Pain in right elbow 07/11/2022 Resolved Ambulatory Problems Diagnosis Date Noted No Resolved Ambulatory Problems Past Medical History: Diagnosis Date 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 (CMS/HCC) HTN (hypertension) (CMS/HCC) HISTORY PAST MEDICAL HISTORY SOCIAL HISTORY Past Medical History: Diagnosis Date 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 (CMS/HCC) DENIES HX OF BLOOD BORNE DISEASES HTN (hypertension) (CMS/HCC) Social History Tobacco Use Smoking status: Never Smokeless tobacco: Never Substance Use Topics Alcohol use: Not Currently Drug use: Not on file FAMILY HISTORY Family History Problem Relation Name Age of Onset Hypertension Mother Diabetes Father Hypertension Father SURGICAL HISTORY Past Surgical History: Procedure Laterality Date BACK SURGERY 2002 ELBOW SURGERY 04/2005 RT TENNIS ELBOW/CTR PER DR YEUNG ELBOW SURGERY 07/04/2020 RT LATERAL EPICONDYLECTOMY PER DR NOYOLA HYSTERECTOMY 02/2009 SHOULDER ARTHROSCOPY 06/21/2021 RT SHOULDER SCOPE PER DR NOYOLA REVIEW OF SYSTEMS Review of Systems: Review of Systems Constitutional: Negative. HENT: Negative. Eyes: Negative. Respiratory: Negative. Cardiovascular: Negative. Gastrointestinal: Negative. Genitourinary: Negative. Musculoskeletal: Negative. Skin: Negative. Neurological: Negative. All other systems reviewed and are negative. Hematological: Negative. Endocrine: Negative. Allergic/Immunologic: Negative. OBJECTIVE Objective: Physical Exam Constitutional: Appearance: Normal appearance. She is well-developed. Genitourinary: Vulva normal. Right Adnexa: not tender and no mass present. Left Adnexa: not tender and no mass present. Cervix is absent. No cervical discharge. Uterus is absent. Breasts: Breasts are soft. Right: Normal. Left: Normal. HENT: Head: Normocephalic. Nose: Nose normal. Mouth/Throat: Mouth: Mucous membranes are moist. Cardiovascular: Rate and Rhythm: Normal rate and regular rhythm. Pulmonary: Effort: Pulmonary effort is normal. Breath sounds: Normal breath sounds. Abdominal: General: Bowel sounds are normal. There is no distension. Palpations: Abdomen is soft. Tenderness: There is no abdominal tenderness. There is no guarding or rebound. Musculoskeletal: General: No swelling. Normal range of motion. Cervical back: Normal range of motion. Right lower leg: No edema. Left lower leg: No edema. Neurological: General: No focal deficit present. Mental Status: She is alert and oriented to person, place, and time. Skin: General: Skin is warm and dry. Psychiatric: Mood and Affect: Mood normal. Behavior: Behavior normal. Vitals and nursing note reviewed. Exam conducted with a public welfare worker present. Vitals: Estimated body mass index is 42.51 kg/m as calculated from the following: Height as of 10/02/22: 5' 3 . Weight as of 10/02/22: 240 lb. BP: No LMP recorded. ASSESSMENT & PLAN ICD-10-CM 1. Well woman exam with routine gynecological exam Z01.419 THIN PREP TIS PAP AND HR HPV DNA 2. Breast cancer screening by mammogram Z12.31 Bilateral screening mammogram Bilateral screening mammogram 3. Postmenopausal state Z78.0 DEXA bone density Annual Exam: Patient presents today for an annual exam. Patient states she is doing well and has complaints of hot flashes. Patient wishes to try veozah. Pap was obtained without difficulty. Orders Placed This Encounter Procedures Bilateral screening mammogram DEXA bone density Follow Up: Patient is to return in one year for annual unless needed otherwise. Documented by Brandy Cosby LPN on behalf of: VARSHA Muse documented in this encounter [facility] 11-24-2023 Miscellaneous Notes Formattin g of this [...] more weeks. Notified documented in this encounter [facility] 11-24-2023 Telephone encount er Note She called about a cough she thinks is from her lisinopril, an you please advise [facility] 11-24-2023 Telephone encount er Note I would like her to continue lisinopril. She just started less than 2 weeks ago.We are in allergy season. I would like her to continue to monitor for several more weeks. [facility] 11-24-2023 Telephone encount er Note Notified [facility] 05-29-2023 History of Presen t illness Narrative New orders for Bactrim DS oral twice daily for 7 days. Send urine for culture. RIMA Gamez 05/29/23 1431 documented in this encounter [facility] [...] am concerned she may have a UTI. [facility] encount er Note Patient will be dropping a UA arounf 1:30okay per shereen [facility]-2023 History of Presen t illness Narrative Images from the original note were not included. [address] [place] [id number] SUBJECTIVE: Patient ID: Judy Roca is a [...] Medical History: Diagnosis Date Allergic Diabetes mellitus ([facility]) Hypertension Immunization History Administered Date(s) Administered COVID-19, [...] Gamez 05/19/23 1412 documented in this encounter [facility] [employer] 03-18-2023 History of Presen t illness Narrative Images from the original note were not included. [address] [facility] [address] SUBJECTIVE: Patient ID: Judy Roca is a 57 y.o. female. Chief Complaint Patient presents with Diabetes Presents for follow up States her allergies have been bothering her more lately. Is taking cetirizine but is not effective. Has tried loratadine as well. Flonase causes nose bleeds. Blood sugars average in the 130s. Uses [employer] system for blood glucose monitoring. Diabetes She [...] 130-140 mg/dl. She does not see a project construction assistant manager.Eye exam is current. Hypertension This is [...] Medical History: Diagnosis Date Allergic Diabetes mellitus ([facility]) Hypertension Immunization History Administered Date(s) Administered COVID-19, [...] hyperglycemia, without long-term current use of insulin ([facility]) - POCT Hemoglobin A1c - blood-glucose sensor [...] of major depressive disorder without prior episode ([facility]) - venlafaxine XR (EFFEXOR-XR) 150 mg 24 [...] 6.5% in office today. Was 6.3% Using [employer] 3 testing system Previously ordered Jihan but [...] and rest, Tylenol/Motrin as directed, rx of [place], OTC Flonase, cool mist humidifier, throat lozenges. [...] treatment plan. Patient left in stable condition [employer] Other 07-21-2022 Miscellaneous Notes* Telephone Encounter - Nabor Pichardo MD - 2021 5:59 AM EDT For chart eye exam 08/22/21 Dr.Mark Alonso, OD Blurry vision , diabetes making her vision fluctuate. Plaquenil 2years. No toxicity. [facility] NoteHNO ID: [id number] Author: Nabor Pichardo MD Service: ? Author [...] Biking several times a week. COVID vaccine [facility] 03/07/20, 04/17/20, 11/29/20. Feels safe at home. [...] stiffness: yes 30minutes Low back pain: yes Enthesopathy/[place]'s/heel/plantar tenderness: s/p R CTS release with R [...] shot yes Tetanus yes Had both Pfizer [place] vaccines 03/2020 Last PPD: negative years ago PAST MEDICAL HISTORY: PMH gerd, anxiety, s/p R CTS release with R cubital release 2007, S/p lumbar surgery 2000,2009 s/p hysterectomy/uterine prolapse PAST SURGICAL HISTORY: s/p R CTS release with R cubital release 2007, S/p lumbar surgery 2000,2009 s/p hysterectomy/uterine prolapse FAMILY HISTORY: mother-osteoarthritis, htn;father-DM, CAD, htn;children/siblings-healthy; 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 Smoking no etoh no No gout MEDICATIONS: [...] sarah (more content not included)...[facility] [place] Other Evaluation note* Diagnosis Type 2 diabetes mellitus with hyperglycemia, without long-term current use of insulin ([facility])- Primary Current mild episode of major depressive disorder without prior episode ([facility]) Gastroesophageal reflux disease without esophagitis Esophageal reflux Benign essential HTN Migraine 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, not intractable Seasonal allergic rhinitis due to pollen [facility] Diagnosis Type 2 diabetes mellitus with hyperglycemia, without long-term current use of insulin ([facility]) Current mild episode of major depressive disorder without prior episode ([facility]) Benign essential HTN Migraine 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, not intractable documented [facility] encounter [facility]* Diagnosis Saloni infection of flexural skin- Primary Candidiasis of skin and nails documented [facility] encounter [facility]* Diagnosis Dysuria- Primary Acute cystitis without hematuria documented [facility]* Diagnosis Well woman exam with routine gynecological exam Routine gynecological examination Breast cancer screening by mammogram Postmenopausal state Asymptomatic postmenopausal status (age-related) (natural) Vitamin D deficiency Hot flash, menopausal Symptomatic menopausal or female climacteric states documented in this encounter [facility]* Diagnosis Type 2 diabetes mellitus with hyperglycemia, without long-term current use of insulin ([facility]) documented in this encounter [facility]* Diagnosis Annual physical exam- Primary Routine general medical examination at a health care facility Type 2 diabetes mellitus with hyperglycemia, without long-term current use of insulin ([facility]) Blood tests for routine general physical examination Laboratory examination ordered as part of a routine general medical examination Special screening for malignant neoplasm of colon Special screening for malignant neoplasms, colon documented in this encounter [facility]* Diagnosis DM type 2 with diabetic mixed hyperlipidemia ([facility] Primary documented in this encounter [facility] Write[employer] SystemHistory general Narrative - Reported* Type Description Date Medical History depression Medical History hypertension Medical History menopause Surgical History hysterectomy Surgical History back surgery Surgical History elbow surgery Surgical History carpal tunnel release [employer] Other InstructionsNot on filedocumented in this encounter [facility] [employer] SystemInstructions* Attachments The following attachments cannot be sent through Care Everywhere. * High blood pressure in adults (Congolese) documented in this encounterProOhio[facility] HospitalCareFlash SystemInstructionsNot on file documented in this encounterSamaritan North Health CenterCareFlash SystemInstructionsNot on file documented in this encounterProOhiohealth [facility] HospitalCareFlash SystemInstructionsNot on file documented in this encounterProOhiohealth [facility] HospitalCareFlash SystemInstructionsNot on file documented in this encounterSamaritan North Health CenterCareFlash SystemInstructionsNot on file documented in this encounterProOhiohealth [facility] HospitalCareFlash SystemInstructionsNot on file documented in this encounterSamaritan North [facility] CenterCareFlash SystemInstructions* Attachments The following attachments cannot be sent through Care Everywhere. * Yearly Physical for Adults (Congolese) documented in this encounterSamaritan [facility] CenterCareFlash SystemInstructionsNot on file [facility] [employer] Summary Purpose Family History No Family [...] allergic rhinitis due to pollen Iris Villalta, SENIOR QUALITY METHODS SPECIALIST-PATTERN SCRATCHER [address] [place] [address] Referral ID Status Reason Start Date Expiration Date V isits Requested Visits Authorized [id number] Pending Review 1 1 Additional Source Comments Source Comments (unrecognize d section and content) In the event this informatio n is protected by the Federal Confidentiality of Alcohol and Drug Abuse Patient Records regulations: The Federal rules restrict any use of the information to criminally investigate or prosecute any alcohol or drug abuse patient.[facility] Reason for Visit (unrecogniz ed section and content) Reason Comments Results Reason Comments Diabetes Reason Comments Med Refill Reason Comments Rash Right groin Reason Comments Urinary Tract Infection Reason Comments Well Women Visit Reason Comments Annual Exam Care Teams (unrecognized sec tion and content) Programs Assistant Relationship Specialty Start Date End Date Robin Ma . [address] [facility] [place] [address] PCP - General Family Practice 07/20/20 Programs Assistant Relationship Specialty Start Date End Date Iris Villalta APRNJORDIN [address] [place] [address] PCP - General Family Medicine 08/28/22 Programs Assistant Relationship Specialty Start Date End Date Iris Villalta APRN-CNP [address] [place] [address] PCP - General Family Medicine 08/28/22 Programs Assistant Relationship Specialty Start Date End Date Iris Villalta APRN-CNP [address] [place] [address] PCP - General Family Medicine 08/28/22 Programs Assistant Relationship Specialty Start Date End Date Iris Villalta APRN-CNP [address] [place] [address] PCP - General Family Medicine 08/28/22 Programs Assistant Relationship Specialty Start Date End Date Iris Villalta APRN-CNP [address] [place] [address] PCP - General Family Medicine 08/28/22 Programs Assistant Relationship Specialty Start Date End Date Iris Villalta APRN-PATTERN SCRATCHER [address] [place] [address] PCP - General Family Medicine 08/28/22 Programs Assistant Relationship Specialty Start Date End Date Iris Villalta SENIOR QUALITY METHODS SPECIALIST-PATTERN SCRATCHER [address] [place] [address] PCP - General Family Medicine 08/28/22 Programs Assistant Relationship Specialty Start Date End Date Luis Felipe Obando MD [address] [place] [address] PCP - General Family Medicine 10/02/22 Iris Villalta CRNP [address] [place] [address] Referring Physician Nurse Practitioner 10/02/22 Programs Assistant Relationship Specialty Start Date End Date Luis Felipe Obando MD [address] [place] [address] PCP - General Family Medicine 10/02/22 Iris Villalta CRNP [address] [place] [address] Referring Physician Nurse Practitioner 10/02/22 Programs Assistant Relationship Specialty Start Date End Date Iris Villalta SENIOR QUALITY METHODS SPECIALIST-PATTERN SCRATCHER [address] [place] [address] PCP - General Family Medicine 08/28/22 Programs Assistant Relationship Specialty Start Date End Date Luis Felipe Obando MD [address] [place] [address] PCP - General Family Medicine 10/02/22 Iris Villalta CRNP [address] [place] [address] Referring Physician Nurse Practitioner 10/02/22 Programs Assistant Relationship Specialty Start Date End Date Iris Villalta APRN-[facility] [address] [place] [address] PCP - General Family Medicine 08/28/22 Programs Assistant Relationship Specialty Start Date End Date Iris Villalta APRN-PATTERN SCRATCHER [address] [place] [address] PCP - General Family Medicine 08/28/22 INFORMATION SOURCE (unrecogn ized section and content) DATE CREATED AUTHOR 09/15/2021 [facility] DATE CREATED AUTHOR AUTHOR'S ORGANIZ ATION 02/26/2022 [facility] DATE CREATED AUTHOR AUTHOR'S ORGANIZ ATION 10/24/[address] [facility] DATE CREATED AUTHOR AUTHOR'S ORGANIZ ATION 11/21/2023 [facility] DATE CREATED AUTHOR AUTHOR'S ORGANIZ ATION 12/23/2023 [facility] DATE CREATED AUTHOR AUTHOR'S ORGANIZ ATION 02/14/[address] [facility] FOR RECORDS PERTAINING TO PATIENTS WHO ARE [...] BE BASED ON THE PRIMARY CLINICAL RECORDS. [facility] [employer] [facility]. provides no warranty or guarantee of the accuracy or completeness of information in this document.
--- NOTE | 2024-02-22 15:25 | XR_ITS ---
The [address] [address] Patient Name: VERONICA LEON MRN: [id number] date: 1965 Sex: F Assigned Patient Location: ER Current Patient Location: Accession/Order Number: [id number] Exam Date: 02/22/2024 15:32 Report Date: 02/22/2024 17:10 At the request of: EVA LORD Procedure: XR chest 2V EXAM: CHEST 2 VIEWS HISTORY: cough TECHNIQUE: PA and lateral views chest. COMPARISON: 07/29/2022 FINDINGS: The lungs are clear. There is no focal lung consolidation, pleural effusion or pneumothorax. Pulmonary vasculature is within normal limits. The cardiomediastinal silhouette is normal. XR/XR chest 2V IMPRESSION: 1. No acute cardiopulmonary disease. Recommend followup imaging if symptoms worsen or persist. Electronically authenticated by: CHRISTIE RUSSO Date: 02/22/2024 17:10
--- NOTE | 2024-02-22 15:31 | ED_ITS ---
HPI HPI - General Adult General Chief complaint: Upper Respiratory Infection Stated complaint: COUGH, SORE THROAT, BILAT EAR PAIN, RUNNY NOSE Time Seen by Provider: 02/22/24 15:25 Source: patient Mode of arrival: walk-in Limitations: no limitations History of Present Illness HPI narrative: 58-year-old female presents here with chief complaint upper respiratory cough and congestion. She states she has had the symptoms for the past 2 days. She states she had a history of asthma in the past but no recent infections or problems with asthma. She does not have an inhaler at home. She does work in the public and works at [employer]. She denies any known sick contacts at home. Breath sounds are diminished with scattered expiratory wheezing clearing with cough upon initial examination. Not hypoxic. Related Data Home Medications ?Medication ?Instructions ?Recorded ?Confirmed cetirizine 10 mg tablet 10 mg PO DAILY 07/28/22 11/14/22 famotidine 40 mg tablet 40 mg PO Q12H 07/28/22 11/14/22 glimepiride 4 mg tablet 4 mg PO .TWICE 07/28/22 11/14/22 pioglitazone 30 mg tablet 30 mg PO DAILY 07/28/22 11/14/22 propranolol 80 mg capsule,24 80 mg PO Q24H 07/28/22 11/14/22 hr,extended release venlafaxine 150 mg 150 mg PO DAILY 07/28/22 11/14/22 capsule,extended release 24 hr Previous Rx's ?Medication ?Instructions ?Recorded ondansetron 4 mg disintegrating 4 mg PO Q6H PRN nausea and 07/04/23 tablet vomiting #20 tabs cephalexin 500 mg capsule 500 mg PO TID 7 days #21 caps 08/05/23 phenazopyridine 200 mg tablet 200 mg PO Q8H PRN pain #15 tabs 08/05/23 (Pyridium) nitrofurantoin 100 mg PO BID 7 days #14 caps 10/12/23 monohydrate/macrocrystals 100 mg capsule (Macrobid) sulfacetamide sodium 10 % eye drops 2 drp ophthalmic (eye) Q4H #15 mL 10/12/23 mnlarcwkyxtckua-heyrytijwqkjzmw-ZU 10 ml PO Q6H PRN cold symptoms 12/15/23 2 mg-30 mg-10 mg/5 mL oral syrup #200 mL (Bromfed DM) hydrocodone 5 mg-acetaminophen 325 1 tab PO Q6H PRN pain 3 days #8 12/15/23 mg tablet tabs ketorolac 10 mg tablet 10 mg PO TID PRN pain #10 tabs 12/15/23 albuterol sulfate 90 mcg/actuation 2 inh inhalation Q6H PRN shortness 02/22/24 breath activated powder of breath #1 ea inhaler,sensor (Proair Digihaler) azithromycin 250 mg tablet See Rx Instructions PO .COMPLEX #6 02/22/24 (Zithromax Z-Thai) tabs prednisone 20 mg tablet 20 mg PO DAILY #7 tabs 02/22/24 Allergies Allergy/AdvReac Type Severity Reaction Status Date / Time No Known Drug Allergies Allergy Verified 02/22/24 15:02 Opioid HPI Opioid Management Most Recent Opioid Data: Last Pain Scale 8 12/15/23 21:26 12/15/23 Review of Systems ROS Narrative All Systems are negative except as noted/marked.All systems reviewed and otherwise negative PFSH PFSH Social History Smoking status: Never smoker Little interest or pleasure in doing things: not at all Feeling down, depressed, or hopeless: not at all Exam Narrative Exam Narrative: Nurses note and vital signs reviewed and patient is not hypoxic. General: The patient appears well and in no apparent distress. Patient is resting comfortably on cart. Skin: Warm, dry, no pallor noted. There is no rash noted. Head: Normocephalic, atraumatic Eye: Normal conjunctiva, no drainage, EOMI. PERRL Ears, Nose, Mouth, and Throat: oral mucosa is moist. Nares patent. Mouth without vesicles. Ear canals patent. Tm's without Erythema Cardiovascular: Regular Rate and Rhythm Respiratory: dry nonproductivie Cough with scattered expiratory wheezing patient is in no distress, no accessory muscle use, lungs are diminished without rales or rhonchi Back: non-tender, no CVA tenderness bilaterally to percussion. GI: Normal bowel sounds, no tenderness to palpation, no masses appreciated. No rebound, guarding, or rigidity noted. Musculoskeletal: The patient has no evidence of calf tenderness, no pitting edema, symmetrical pulses noted bilaterally Neurological: A&O x4, normal speech Psychiatric: Cooperative Constitutional Vital Signs, click to edit/add: Last Vital Signs Temp 98.4 F 02/22/24 14:59 Pulse 77 02/22/24 15:40 Resp 16 02/22/24 14:59 BP 164/94 H 02/22/24 14:59 Pulse Ox 95 02/22/24 15:40 O2 Del Method Room Air 02/22/24 15:40 Course Vital Signs Vital signs: Vital Signs Temperature 98.4 F 02/22/24 14:59 Pulse Rate 74 02/22/24 14:59 Respiratory Rate 16 02/22/24 14:59 Blood Pressure 164/94 H 02/22/24 14:59 Pulse Oximetry 98 02/22/24 14:59 Oxygen Delivery Method Room Air 02/22/24 14:59 Temperature 98.4 F 02/22/24 14:59 Pulse Rate 77 02/22/24 15:40 Respiratory Rate 16 02/22/24 14:59 Blood Pressure 164/94 H 02/22/24 14:59 Pulse Oximetry 95 02/22/24 15:40 Oxygen Delivery Method Room Air 02/22/24 15:40 Medical Decision Making MDM Narrative Medical decision making narrative: 58-year-old female presents here with chief complaint upper respiratory cough and congestion. She states she has had the symptoms for the past 2 days. She states she had a history of asthma in the past but no recent infections or problems with asthma. She does not have an inhaler at home. She does work in the public and works at [employer]. She denies any known sick contacts at home. Breath sounds are diminished with scattered expiratory wheezing clearing with cough upon initial examination. Not hypoxic. Presented here with chief complaint of cough and congestion. X-ray showed no acute abnormality. Patient had diminished breath sounds which did improve with DuoNeb breathing treatment and wheezes declare. Patient does have a history of asthma. She will be placed on a Z-Thai, prednisone and also an albuterol inhaler. Patient agrees with plan of care. Discharged home diagnosis of URI Differential Diagnosis Differential Diagnosis: Pneumonia, COVID, flu Medical Records Medical records reviewed: Yes I reviewed the patient's medical records Lab Data Lab results reviewed: Yes I reviewed the patient's lab results Labs: Lab Results 02/22/24 Range/Units 15:03 Influenza Type A Ag Negative Influenza Type B Ag Negative SARS-CoV-2 Ag (CV2AG) Negative (NEGATIVE) Streptococcus Screen Negative Imaging Data Chest x-ray: My impression: no active disease Discharge Plan Discharge Chief Complaint: Upper Respiratory Infection Clinical Impression: URI (upper respiratory infection) Patient Disposition: Home, Self-Care Time of Disposition Decision: 16:45 Condition: Good Prescriptions / Home Meds: New azithromycin [Zithromax Z-Thai] 250 mg tablet See Rx Instructions .ROUTE .COMPLEX Qty: 6 0RF Rx Instructions: For 250 mg dose pack: take 500 mg today (day 1), then 250 mg for 4 days (days 2-5) Proair Digihaler 90 mcg/actuation aero powdr breath act w/sensor 2 inh inhalation Q6H PRN (Reason: shortness of breath) Qty: 1 0RF prednisone 20 mg tablet 20 mg PO DAILY Qty: 7 0RF No Action cephalexin 500 mg capsule 500 mg PO TID 7 Days Qty: 21 0RF phenazopyridine [Pyridium] 200 mg tablet 200 mg PO Q8H PRN (Reason: pain) Qty: 15 0RF hydrocodone-acetaminophen 5-325 mg tablet 1 tab PO Q6H PRN (Reason: pain) 3 Days Qty: 8 0RF Rx Instructions: DX: M54.5 ketorolac 10 mg tablet 10 mg PO TID PRN (Reason: pain) Qty: 10 0RF isbmnpnhawsmpht-ljznqqnlp-GH [Bromfed DM] 2-30-10 mg/5 mL syrup 10 ml PO Q6H PRN (Reason: cold symptoms) Qty: 200 0RF cetirizine 10 mg tablet 10 mg PO DAILY famotidine 40 mg tablet 40 mg PO Q12H glimepiride 4 mg tablet 4 mg PO .TWICE pioglitazone 30 mg tablet 30 mg PO DAILY propranolol 80 mg capsule,extended release 24 hr 80 mg PO Q24H venlafaxine 150 mg capsule,extended release 24hr 150 mg PO DAILY ondansetron 4 mg tablet,disintegrating 4 mg PO Q6H PRN (Reason: nausea and vomiting) Qty: 20 0RF sulfacetamide sodium 10 % drops 2 drp ophthalmic (eye) Q4H Qty: 15 0RF nitrofurantoin monohyd/m-cryst [Macrobid] 100 mg capsule 100 mg PO BID 7 Days Qty: 14 0RF Rx Instructions: must administer with a meal/food Print Language: Serbian Instructions: Upper Respiratory Infection (ED) Referrals: IRIS KENNEDY [Primary Care Provider] - 1 week
[2024-02-22] MEDS: IPRATROPIUM/ALBUTEROL SULFATE 3 ML AMPUL.NEB IH (15:38)
[2024-02-22 15:40] VITALS: PULSE 77; O2SAT 95
[2024-02-22 15:51] LABS: Influenza Virus A Antigen Negative; Influenza Virus B Antigen Negative; Internal Control Within Normal Limits; SARS-CoV-2 Ag NEGATIVE (NEGATIVE)
[2024-02-22 16:43] LABS: Internal Control Within Normal Limits; Strep A Antigen Screen Negative
[2024-02-24 09:42] LABS: BOX Test Reference Lab FIRELANDS
== END 2024-02-22 16:54 | disposition home or self-care (01) ==
PROVIDERS: Emergency Provider Emergency Medicine Emergency Medical Services; PCP Nurse Practitioner
DX: J06.9 Acute upper respiratory infection, unspecified (principal); J45.909 Unspecified asthma, uncomplicated
CPT/HCPCS: 36415; 71046; 87070; 87081; 87804; 87811; 87880; 94640; 99285

== ENCOUNTER 2024-05-11 14:43 | Emergency (ER) | payer MEDICAID, SELFPAY ==
[2024-05-11 14:46] VITALS: BP 129/75; PULSE 69; TEMP 37; O2SAT 99; BMI 42.5
[2024-05-11 15:05] LABS: Bilirubin Urine NEGATIVE (NEGATIVE); Blood Urine MODERATE (NEGATIVE); Color Urine YELLOW (YELLOW); Glucose Urine UA NEGATIVE (NEGATIVE); Ketones Urine NEGATIVE (NEGATIVE); Leukocyte Esterase Urine NEGATIVE (NEGATIVE); Nitrite Urine POSITIVE (NEGATIVE); Protein Urine NEGATIVE (NEG/TRACE); Specific Gravity Urine >=1.030 (1.005-1.025); Urobilinogen Urine 0.2 EU/dL (0.2-1.0); pH Urine 5.5 (5.0-9.0)
[2024-05-11 15:08] LABS: Clarity Urine SLIGHTLY CLOUDY (CLEAR)
[2024-05-11 15:19] LABS: Bacteria Urine MODERATE #/HPF (NONE SEEN); Cast Seen? NONE SEEN #/LPF (NONE SEEN); Crystals Seen? None Seen #/HPF (None Seen); Mucus Urine TRACE (NONE SEEN); Squamous Epithelial Cell Urine MANY #/LPF (NONE/RARE); Urine Culture Indicated YES-FRMC; WBC Urine 0-2 #/HPF (NONE SEEN)
--- NOTE | 2024-05-11 15:44 | ED.GENADUL1 ---
HPI HPI - General Adult General Chief complaint: Urogenital-Female Stated complaint: POSSIBLE UTI Time Seen by Provider: 05/11/24 15:24 Source: patient Mode of arrival: walk-in Limitations: no limitations History of Present Illness HPI narrative: Patient is a 58-year-old female who presents to the emergency department for a 1 week history of burning with urination. She has had UTIs in the past. She has no flank, back pain. No fevers or vomiting. She reports urinary frequency. No hematuria. Related Data Home Medications ?Medication ?Instructions ?Recorded ?Confirmed cetirizine 10 mg tablet 10 mg PO DAILY 07/28/22 11/14/22 famotidine 40 mg tablet 40 mg PO Q12H 07/28/22 11/14/22 glimepiride 4 mg tablet 4 mg PO .TWICE 07/28/22 11/14/22 pioglitazone 30 mg tablet 30 mg PO DAILY 07/28/22 11/14/22 propranolol 80 mg capsule,24 80 mg PO Q24H 07/28/22 11/14/22 hr,extended release venlafaxine 150 mg 150 mg PO DAILY 07/28/22 11/14/22 capsule,extended release 24 hr Previous Rx's ?Medication ?Instructions ?Recorded ondansetron 4 mg disintegrating 4 mg PO Q6H PRN nausea and 07/04/23 tablet vomiting #20 tabs cephalexin 500 mg capsule 500 mg PO TID 7 days #21 caps 08/05/23 phenazopyridine 200 mg tablet 200 mg PO Q8H PRN pain #15 tabs 08/05/23 (Pyridium) nitrofurantoin 100 mg PO BID 7 days #14 caps 10/12/23 monohydrate/macrocrystals 100 mg capsule (Macrobid) sulfacetamide sodium 10 % eye drops 2 drp ophthalmic (eye) Q4H #15 mL 10/12/23 txoxhovcwiuoobk-ipryugzvailanxz-VD 10 ml PO Q6H PRN cold symptoms 12/15/23 2 mg-30 mg-10 mg/5 mL oral syrup #200 mL (Bromfed DM) hydrocodone 5 mg-acetaminophen 325 1 tab PO Q6H PRN pain 3 days #8 12/15/23 mg tablet tabs ketorolac 10 mg tablet 10 mg PO TID PRN pain #10 tabs 12/15/23 albuterol sulfate 90 mcg/actuation 2 inh inhalation Q6H PRN shortness 02/22/24 breath activated powder of breath #1 ea inhaler,sensor (Proair Digihaler) azithromycin 250 mg tablet See Rx Instructions PO .COMPLEX #6 02/22/24 (Zithromax Z-Thai) tabs prednisone 20 mg tablet 20 mg PO DAILY #7 tabs 02/22/24 cephalexin 500 mg capsule 500 mg PO Q8H 7 days #21 caps 05/11/24 fluconazole 150 mg tablet 150 mg PO QWEEK #2 tabs 05/11/24 ondansetron 4 mg disintegrating 4 mg PO Q6H PRN nausea and 05/11/24 tablet vomiting #12 tabs phenazopyridine 200 mg tablet 200 mg PO Q8H 2 days #6 tabs 05/11/24 (Pyridium) Allergies Allergy/AdvReac Type Severity Reaction Status Date / Time No Known Drug Allergies Allergy Verified 05/11/24 14:46 Opioid HPI Opioid Management Most Recent Opioid Data: Last Pain Scale 8 12/15/23 21:26 12/15/23 Review of Systems ROS Constitutional Denies: fever or chills Ears, nose, mouth, and throat Denies: throat pain or nasal congestion Respiratory Denies: shortness of breath Gastrointestinal Denies: abdominal pain, nausea, vomiting or diarrhea Genitourinary Reports: painful urination, urinary frequency and urinary urgency Musculoskeletal Denies: back pain or neck pain Integumentary/Breast Denies: rash Hematologic/Lymphatic Denies: easy bruising or easy bleeding PFSH PFSH Social History Smoking status: Never smoker Little interest or pleasure in doing things: not at all Feeling down, depressed, or hopeless: not at all Exam Narrative Exam Narrative: Gen.: Awake, alert, in no distress Head: Normocephalic, atraumatic ENT: Moist mucous membranes Respiratory: No respiratory distress Gastrointestinal: Abdomen is soft, nondistended and nontender to palpation Extremities: Moves extremities equally Psych: Normal mood and affect Neuro: No focal neuro deficit Skin: Warm, dry, intact Constitutional Vital Signs, click to edit/add: Last Vital Signs Temp 98.6 F 05/11/24 14:46 Pulse 69 05/11/24 14:46 Resp 20 03/18/25 14:46 BP 129/75 05/11/24 14:46 Pulse Ox 99 05/11/24 14:46 O2 Del Method Room Air 05/11/24 14:46 Course Vital Signs Vital signs: Vital Signs Temperature 98.6 F 05/11/24 14:46 Pulse Rate 69 05/11/24 14:46 Respiratory Rate 20 05/11/24 14:46 Blood Pressure 129/75 05/11/24 14:46 Pulse Oximetry 99 05/11/24 14:46 Oxygen Delivery Method Room Air 05/11/24 14:46 Temperature 98.6 F 05/11/24 14:46 Pulse Rate 69 05/11/24 14:46 Respiratory Rate 20 05/11/24 14:46 Blood Pressure 129/75 05/11/24 14:46 Pulse Oximetry 99 05/11/24 14:46 Oxygen Delivery Method Room Air 05/11/24 14:46 Medical Decision Making MDM Narrative Medical decision making narrative: Urine specimen shows UTI. Patient with stable vital signs, no complaints of abdominal pain or flank pain. She is started on Keflex, Zofran, Pyridium and Diflucan at her request. She is discharged home to follow-up with PCP. Return to the ER if symptoms change or worsen SUPERVISED APC VISIT, PHYSICIAN ATTESTATION: Based on the medical record the care appears appropriate. ? Medical Records Medical records reviewed: Yes I reviewed the patient's medical records Lab Data Lab results reviewed: Yes I reviewed the patient's lab results Labs: Lab Results 05/11/24 Range/Units 14:53 Urine Color Yellow (YELLOW) Urine Clarity Slightly cloudy A (CLEAR) Urine pH 5.5 (5.0-9.0) Ur Specific [place] >=1.030 A (1.005-1.025) Urine Protein Negative (NEG/TRACE) mg/dL Urine Glucose (UA) Negative (NEGATIVE) mg/dL Urine Ketones Negative (NEGATIVE) mg/dL Urine Occult Blood Moderate A (NEGATIVE) Urine Nitrite Positive A (NEGATIVE) Urine Bilirubin Negative (NEGATIVE) Urine Urobilinogen 0.2 (0.2-1.0) EU/dL Ur Leukocyte Esterase Negative (NEGATIVE) Urine RBC 5-10 A (0-2) #/HPF Urine WBC 0-2 A (NONE SEEN) #/HPF Ur Squamous Epith Cells Many A (NONE/RARE) #/LPF Urine Crystals None seen (None Seen) #/HPF Urine Bacteria Moderate A (NONE SEEN) #/HPF Urine Casts None seen (NONE SEEN) #/LPF Urine Mucus Trace A (NONE SEEN) Ur Culture Indicated? Yes-[facility] [place] Discharge Plan Discharge Chief Complaint: Urogenital-Female Clinical Impression: Urinary tract infection Patient Disposition: Home, Self-Care Time of Disposition Decision: 15:42 Condition: Good Prescriptions / Home Meds: New phenazopyridine [Pyridium] 200 mg tablet 200 mg PO Q8H 2 Days Qty: 6 0RF cephalexin 500 mg capsule 500 mg PO Q8H 7 Days Qty: 21 0RF ondansetron 4 mg tablet,disintegrating 4 mg PO Q6H PRN (Reason: nausea and vomiting) Qty: 12 0RF fluconazole 150 mg tablet 150 mg PO QWEEK Qty: 2 0RF Rx Instructions: 1 tab to be taken at the beginning and the end of antibiotic course No Action cephalexin 500 mg capsule 500 mg PO TID 7 Days Qty: 21 0RF phenazopyridine [Pyridium] 200 mg tablet 200 mg PO Q8H PRN (Reason: pain) Qty: 15 0RF hydrocodone-acetaminophen 5-325 mg tablet 1 tab PO Q6H PRN (Reason: pain) 3 Days Qty: 8 0RF Rx Instructions: DX: M54.5 ketorolac 10 mg tablet 10 mg PO TID PRN (Reason: pain) Qty: 10 0RF hjefllzhtxzkpwc-rkftuvmig-YZ [Bromfed DM] 2-30-10 mg/5 mL syrup 10 ml PO Q6H PRN (Reason: cold symptoms) Qty: 200 0RF cetirizine 10 mg tablet 10 mg PO DAILY famotidine 40 mg tablet 40 mg PO Q12H glimepiride 4 mg tablet 4 mg PO .TWICE pioglitazone 30 mg tablet 30 mg PO DAILY propranolol 80 mg capsule,extended release 24 hr 80 mg PO Q24H venlafaxine 150 mg capsule,extended release 24hr 150 mg PO DAILY ondansetron 4 mg tablet,disintegrating 4 mg PO Q6H PRN (Reason: nausea and vomiting) Qty: 20 0RF sulfacetamide sodium 10 % drops 2 drp ophthalmic (eye) Q4H Qty: 15 0RF nitrofurantoin monohyd/m-cryst [Macrobid] 100 mg capsule 100 mg PO BID 7 Days Qty: 14 0RF Rx Instructions: must administer with a meal/food azithromycin [Zithromax Z-Thai] 250 mg tablet See Rx Instructions .ROUTE .COMPLEX Qty: 6 0RF Rx Instructions: For 250 mg dose pack: take 500 mg today (day 1), then 250 mg for 4 days (days 2-5) Proair Digihaler 90 mcg/actuation aero powdr breath act w/sensor 2 inh inhalation Q6H PRN (Reason: shortness of breath) Qty: 1 0RF prednisone 20 mg tablet 20 mg PO DAILY Qty: 7 0RF Print Language: Belarusian Instructions: Urinary Tract Infection in Women (ED) Referrals: IRIS KENNEDY [Primary Care Provider] - 1 week
== END 2024-05-11 15:48 | disposition home or self-care (01) ==
PROVIDERS: Emergency Provider Emergency Medicine; PCP Nurse Practitioner
DX: N39.0 Urinary tract infection, site not specified (principal); Z87.440 Personal history of urinary (tract) infections
CPT/HCPCS: 81001; 87086; 87150; 87186; 99283

== ENCOUNTER 2024-08-05 16:11 | Emergency (ER) | payer MEDICAID, SELFPAY ==
[2024-08-05 16:14] VITALS: BP 150/71; PULSE 61; TEMP 36.7; O2SAT 99; BMI 44.3
--- OUTSIDE RECORDS SUMMARY | 2024-08-05 16:16 | XMS_ITS | Clinical Summary ---
Author Organization [facility] Address [address] [place], [place] [id number] Care Team Providers Care Field Assistant Name Role Phone House Sr., Robin Alexander Primary Care Provider + Allergies No known active allergies Medications desvenlafaxine ER (PRISTIQ) 100 mg 24 hr tablet 05/08/19 19 Active famotidine (PEPCID) 40 mg tablet Take 40 mg by mouth twice daily. 07/11/19 21 Active propranolol ER (INDERAL LA) 80 mg 24 hr capsule Take 80 mg by mouth once daily. 06/28/19 21 Active glimepiride (AMARYL) 4 mg tablet 1 tablet with breakfast or the first main meal of the day Active ARIPiprazole (ABILIFY) 5 mg tablet 02/07/20 21 Active pioglitazone (ACTOS) 30 mg tablet Active diclofenac (VOLTAREN) 1 % topical gelIndications:Sec ondary osteoarthritis of multiple sites apply 2gms to areas of joint pain up to four times a day. Avoid contact with eyes. 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 use sunscreen when outdoors. see ophthalmology EVERY 6-12 months on this med 90 tablet 3 02/09/20 21 Active nabumetone (RELAFEN) 500 mg tabletIndications: Secondary osteoarthritis of multiple sites Take 1 tablet by mouth twice daily as needed. 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 021 Elevated C-reactive protein (CRP) 07/21/2020 Elevated sed rate 07/20/2020 Bilateral hand pain 07/20/2020 Chronic pain of both knees 07/20/2020 Chronic elbow pain, right 07/20/2020 Secondary osteoarthritis of multiple sites 07/20 Social History Tobacco Use Types Packs/Day Years Used Date Smoking Tobacco: Never Smokeless Tobacco: Never Tobacco Cessation:Counseling Given: Yes Alcohol Use Standard Drinks/Week Comments Not Currently 0 (1 standard drink = 0.6 oz pur e alcohol) PHQ-2 Answer Date Recorded PHQ-2 score 2 07/13/2020 Area Deprivation Index Answer Date Samir rded National Score (1-100), lower number is lower ri sk Not on file 07/20/2020 State Score (1-10), lower number is lower risk N ot on file 07/20/2020 Data from: https://www.neighborhoodatlas.medicine.[facility]/. Last address used for calculation Not on file 07/20/2020 Comments No Sex and Gender Information Value Date Recorded Sex Assigned at Female 07/13/2020 10:21 PM EDT Legal Sex Female 12:24 PM EST Gender Identity Female 07/13/2020 10:21 PM EDT Sexual Orientation Straight 07/13/2020 10 :21 PM EDT Last Filed Vital Signs Vital Sign Reading Time Taken Comments Blood Pressure 122/62 02/08/2021 7:15 AM EST Pulse 72 02/08/2021 7:15 AM EST Temperature - - Respiratory Rate - - Oxygen Saturation - - Inhaled Oxygen Concentration - - Weight 94.3 kg (208 lb) 02/08/2021 7:15 AM EST Height 160 cm (5' 3 ) 07/20/2020 1:36 PM EDT Body Mass Index 36.85 07/20/2020 1:36 PM EDT Plan of Treatment Health Maintenance Due Date Last Done Comments DTaP,Tdap,Td Vaccine (3 - Tdap) 12/17/1983 4, 11/07/1970 Anxiety Screening 1984 Depression Screening 1984 HIV Screening 1984 Hepatitis B Vaccine (1 of 3 - 19+ 3-dose series) 1985 Cervical Cancer Screening 09/14/[address] Colonography 09/14/2011 Cologuard (FIT-DNA) 09/14/2011 Colonoscopy 09/14/2011 Colorectal Cancer Screening 09/14/2011 Fecal Occult Blood 09/14/2011 Lipid Screening 09/14/2011 Sigmoidoscopy 09/14/2011 Pneumococcal Vaccine: 50+ (1 of 1 - PCV) 2016 Shingrix Vaccine (1 of 2) 2016 Diabetes Screening 07/21/2023 07/20/2020 Covid-19 Vaccine ( season) 2023 11/29/2020, 04/07/2020, 03/17/2020 Influenza Vaccine (Season Ended) 2024 11/03/19, 10/27/2019 Hepatitis C Screening Completed 07/20/2020 Procedures Procedure Name Priority Date/Time Associated Diagnosis Comments *HEP C AB Routine 07/20/2020 2:56 PM EDT Elevated LFTs COMPREHENSIVE METABOLIC PANEL Routine 07/20/2020 2:56 PM EDT Elevated LFTs from Last 3 Months or Most Recently Relevant to Health Maintenance Results * HEP REMOTE PANEL BL (07/20/2020 2:56 PM EDT) Hep B Core Ab, Total Negative Negative 07/21/2020 10:30 AM EDT [facility] Hep C Antibody IA Negative Negative 07/21/2020 10:31 AM EDT [facility] HBsAg Negative Negative 07/21/2020 10:31 AM EDT [facility] Hep B Surface Ab, Qual Negative Negative 07/21/2020 10:31 AM EDT [facility] Comment:NEGATIVE Blood BLOOD SPECIMEN / Unknown 07/20/2020 2:56 PM EDT 07/20/2020 2:58 PM EDT Susan Sin MD LABORATORY Final Result [facility] [address] [place] [address] [facility] [address] [place] [address] * (ABNORMAL) COMP METABOLIC PANEL (07/20/2020 2:56 PM EDT) Protein, Total 7.4 6.3 - 8.0 g/dL 07/21/2020 12:30 AM EDT [facility] Albumin 4.0 3.9 - 4.9 g/dL 07/21/2020 12:30 AM EDT [facility] Calcium 9.4 8.5 - 10.2 mg/dL 07/21/2020 12:30 AM EDT [facility] Bilirubin, Total 0.2 0.2 - 1.3 mg/dL 07/21/2020 12:30 AM EDT [facility] Alkaline Phosphatase 184(H) 34 - 123 U/L 07/21/2020 12:30 AM EDT [facility] AST 18 13 - 35 U/L 07/21/2020 12:30 AM EDT [facility] Glucose 497(H) 74 - 99 mg/dL 07/21/2020 12:30 AM EDT [facility] Comment: The [place] Diabetes [employer] (ADA) provides guidance for cutoff values for fasting glucose and random glucose. The ADA defines fasting as no caloric intake for at least 8 hours. Fasting plasma glucose results between 100 to 125 mg/dL indicate increased risk for diabetes (prediabetes). Fasting plasma glucose results greater than or equal to 126 mg/dL meet the criteria for diagnosis of diabetes. In the absence of unequivocal hyperglycemia, results should be confirmed by repeat testing. In a patient with classic symptoms of hyperglycemia or hyperglycemic crisis, random plasma glucose results greater than or equal to 200 mg/dL meet the criteria for diagnosis of diabetes. Reference: Standards of Medical Care in Diabetes 2016, [place] [employer]. Diabetes Care. 2016.39(Suppl 1). BUN 13 7 - 21 mg/dL 07/21/2020 12:30 AM EDT [facility] Creatinine 0.60 0.58 - 0.96 mg/dL 07/21/2020 12:30 AM EDT [facility] Sodium 138 136 - 144 mmol/L 07/21/2020 12:30 AM EDT [facility] Potassium 4.5 3.7 - 5.1 mmol/L 07/21/2020 12:30 AM EDT [facility] Chloride 101 97 - 105 mmol/L 07/21/2020 12:30 AM EDT [facility] CO2 22 22 - 30 mmol/L 07/21/2020 12:30 AM EDT [facility] Anion Gap 15 9 - 18 mmol/L 07/21/2020 12:30 AM EDT [facility] ALT 18 7 - 38 U/L 07/21/2020 12:30 AM EDT [facility] eGFR- >60 07/21/2020 12:30 AM EDT [facility] eGFR-All Other Races >60 . 07/21/2020 12:30 AM EDT [facility] Comment: eGFR (Estimated GFR) Units of measure: mL/min/1.73 meters squared eGFR is derived from the reexpressed MDRD Study equation using the following parameters: serum creatinine, age, gender and race. The creatinine assay has been calibrated to be traceable to IDMS. An eGFR <60 mL/min/1.73m2 for >3 months is consistent with chronic kidney disease. Refer to KDOQI guidelines for clinical interpretation. In patients with unstable renal function, e.g. those with acute kidney injury, the eGFR may not accurately reflect actual GFR. Blood BLOOD SPECIMEN / Unknown 07/20/2020 2:56 PM EDT 07/20/2020 2:58 PM EDT Susan Sin MD LABORATORY Final Result [facility] [address] [place] [address] [facility] [address] [place] [address] from Last 3 Months or Most Recently Relevant to Health Maintenance Insurance [employer] P[employer] Care Teams Field Assistant Relationship Specialty Start Date End Date Robin Villanueva Sr., PCP - General Family Medicine 07/20/20
--- OUTSIDE RECORDS SUMMARY | 2024-08-05 16:16 | XMS_ITS | Encounter Summary ---
Author Organization [employer] Sy [facility] Address [id number] [place] [address] Care Team Providers Care Section Housekeeper Name Role Phone Enedina Villalta FEDERAL MEDIATION COMMISSIONER-UNPAID INTERN Primary Care Provid er Encounter Details Date Type Department Care Team (Late st Contact Info) Description 11/15/2022 Orders Only [facility] Internal Medicine - Family Medicine [address] [place] [phone] Enedina Villalta [facility] [address] [facility] [place] [address] Social History Tobacco Use Types Packs/Day Years Used Date Smoking Tobacco: Never Smokeless Tobacco: Never Alcohol Use Standard Drinks/Week Comments Never 0 (1 standard drink = 0.6 oz pur e alcohol) PHQ-2 Answer Date Recorded Total Score 8 09/10/2022 Childcare Answer Date Recorded Childcare Unknown 08/03/2018 Employment Answer Date Recorded Employment Unknown 08/03/2018 Hunger Screening Answer Date Recorded Within the past 12 months we worried whether our food would run out before we got money to buy more. Never True 09/10/2022 Within the past 12 months th e food we bought just didn't last and we didn't have money to get more. Never True 09/10/2022 Comments Unknown Sex and Gender Information Value Date Recorded Sex Assigned at Not on file Legal Sex Female 1:59 PM EDT Gender Identity Not on file Sexual Orientation Not on file documented as of this encounter Plan of Treatment Not on file documented as of this encounter Procedures Procedure Name Priority Date/Time Associated Diagnosis Comments XR FOOT LT MIN 3 VWS Routine 11/14/2022 12:04 PM EDT documented in this encounter Results * X-ray foot left minimum 3 views (11/14/2022 12:04 PM EDT) Anatomical Region Laterality Modality Lower Extremities, MSK, Foot Left Com puted Radiography us Scanning Provider External IMG DIAGNOSTIC IMAGIN G ORDERABLES Final Result documented in this encounter Visit Diagnoses Not on filedocumented in this encounter Additional Health Concerns Assessment Noted Time PHQ-9 Depression Total Score: 8 09/11/19 2:11 PM EDT A Body Mass Index follow-up plan has been documented for the patient 09/10/2022 6:41 PM EDT documented as of this encounter Care Teams Section Housekeeper Relationship Specialty Start Date End Date Enedina Villalta, ABIDA-UNPAID INTERN [address] [place] [address] PCP - General Family Medicine 08/28/22 documented as of this encounter
--- OUTSIDE RECORDS SUMMARY | 2024-08-05 16:16 | XMS_ITS | Encounter Summary ---
Author Organization [facility] Address [address] [place] [address] Care Team Providers Care Collar Worker Name Role Phone House Sr., Robin MONTE Primary Care Provider + Source Comments In the event this information is protected by the Federal Confidentiality of Alcohol and Drug AbusePatient Records regulations: The Federal rules restrict any use of the information to criminally investigate or prosecute any alcohol or drug abuse patient.[facility] Encounter Details Date Type Department Care Team (Late st Contact Info) Description 07/21/2020 Patient Msg Rheumatology [address] [place] [address] Susan Sin MD [address] [place] [address] results Social History Tobacco Use Types Packs/Day Years Used Date Smoking Tobacco: Never Smokeless Tobacco: Never Alcohol Use Standard Drinks/Week Comments Not Currently 0 (1 standard drink = 0.6 oz pur e alcohol) PHQ-2 Answer Date Recorded PHQ-2 score 2 07/13/2020 Area Deprivation Index Answer Date Samir rded National Score (1-100), lower number is lower ri sk Not on file 07/20/2020 State Score (1-10), lower number is lower risk N ot on file 07/20/2020 Data from: https://www.neighborhoodatlas.[facility]/. Last address used for calculation Not on file 07/20/2020 Comments No Sex and Gender Information Value Date Recorded Sex Assigned at Female 07/13/2020 10:21 PM EDT Legal Sex Female 12:24 PM EST Gender Identity Female 07/13/2020 10:21 PM EDT Sexual Orientation Straight 07/13/2020 10 :21 PM EDT COVID-19 Exposure Response Date Recorded In the last month, have you been in contact with someone who was confirmed or suspected to have Coronavirus / COVID-19? No / Unsure 07/20/2020 2:24 PM EDT documented as of this encounter Plan of Treatment Not on file documented as of this encounter Visit Diagnoses Not on filedocumented in this encounter Care Teams Collar Worker Relationship Specialty Start Date End Date Robin Villanueva Sr., PCP - General Family Medicine 07/20/20 documented as of this encounter
--- OUTSIDE RECORDS SUMMARY | 2024-08-05 16:16 | XMS_ITS | Encounter Summary ---
Author Organization [employer] [facility] [employer] Address [id number] [place] [address] Care Team Providers Care Power Plant Engineer Name Role Phone Enedina Villalta Jovanna TAI-EXTENSION EDGER Primary Care Provid er Encounter Details Date Type Department Care Team (Late st Contact Info) Description 09/01/2023 Orders Only [facility] - Family Medicine [address] [facility] [place] [phone] External, Scanning Provider Social History Tobacco Use Types Packs/Day Years Used Date Smoking Tobacco: Never Smokeless Tobacco: Never Alcohol Use Standard Drinks/Week Comments Never 0 (1 standard drink = 0.6 oz pur e alcohol) PHQ-2 Answer Date Recorded Total Score 0 08/19/2023 Childcare Answer Date Recorded Childcare Unknown 08/03/2018 Employment Answer Date Recorded Employment Unknown 08/03/2018 Hunger Screening Answer Date Recorded Within the past 12 months we worried whether our food would run out before we got money to buy more. Never True 08/19/2023 Within the past 12 months th e food we bought just didn't last and we didn't have money to get more. Never True 08/19/2023 Comments Unknown Sex and Gender Information Value Date Recorded Sex Assigned at Not on file Legal Sex Female 1:59 PM EDT Gender Identity Not on file Sexual Orientation Not on file documented as of this encounter Plan of Treatment Not on file documented as of this encounter Procedures Procedure Name Priority Date/Time Associated Diagnosis Comments CT BRAIN WO CONT Routine 08/31/2023 2:25 PM EDT documented in this encounter Results * CT brain without contrast (08/31/2023 2:25 PM EDT) Anatomical Region Laterality Modality Neuro, Head, Head and Neck, Neuro Covera N/A Computed Tomography us Scanning Provider External IMG CT ORDERABLES Fin al Result documented in this encounter Visit Diagnoses Not on filedocumented in this encounter Additional Health Concerns Assessment Noted Time PHQ-9 Depression Total Score: 0 08/19/19 24 1:20 PM EDT A Body Mass Index follow-up plan has been documented for the patient 08/19/2023 2:11 PM EDT documented as of this encounter Care Teams Power Plant Engineer Relationship Specialty Start Date End Date Enedina Villalta, TAX COMMISSIONER-EXTENSION EDGER [address] [place] [address] PCP - General Family Medicine 08/28/22 documented as of this encounter
--- OUTSIDE RECORDS SUMMARY | 2024-08-05 16:16 | XMS_ITS | Encounter Summary ---
Author Organization [employer] Sy [employer] Address [id number] [place] [address] Care Team Providers Care Over The Horizon Targeting Supervisor Name Role Phone Enedina Villalta ABRASIVE GRADER-BRAKE OPERATOR HELPER Primary Care Provid er Encounter Details Date Type Department Care Team (Late st Contact Info) Description 02/23/2024 Orders Only [facility] Medicine - Family Medicine [address] [place] [phone] Enedina Villalta [facility] [address] [place] [address] Social History Tobacco Use Types Packs/Day Years Used Date Smoking Tobacco: Never Smokeless Tobacco: Never Alcohol Use Standard Drinks/Week Comments Never 0 (1 standard drink = 0.6 oz pur e alcohol) PHQ-2 Answer Date Recorded Total Score 0 01/28/2024 Childcare Answer Date Recorded Childcare Unknown 08/03/2018 Employment Answer Date Recorded Employment Unknown 08/03/2018 Hunger Screening Answer Date Recorded Within the past 12 months we worried whether our food would run out before we got money to buy more. Never True 01/28/2024 Within the past 12 months th e food we bought just didn't last and we didn't have money to get more. Never True 01/28/2024 Comments Unknown Sex and Gender Information Value [...] Noted Time PHQ-9 Depression Total Score: 0 01/28/20 24 12:54 PM EST A Body Mass Index follow-up plan has been documented for the patient 01/28/2024 1:34 PM EST documented as of this encounter Care Teams Over The Horizon Targeting Supervisor Relationship Specialty Start Date End Date Enedina Villalta APRN-BRAKE OPERATOR HELPER [address] [facility] [place] [address] PCP - General Family Medicine 08/28/22 documented as of this encounter
--- OUTSIDE RECORDS SUMMARY | 2024-08-05 16:16 | XMS_ITS | Encounter Summary ---
Author Organization [employer] Address [id number] [place] [address] Care Team Providers Care Assistant Offset Press Operator Name Role Phone Enedina Villalta Primary Care Provid er Encounter Details Date Type Department Care Team (Late st Contact Info) Description 01/29/2024 Telephone [facility] Internal Medicine - Family Medicine [address] [place] [phone] Marybeth Velazquez CMA Social History Tobacco Use Types Packs/Day Years [...] on file documented as of this encounter Miscellaneous Notes * Telephone Encounter - Marybeth Velazquez CMA - 01/29/2024 8:24 AM EST ----- Message from RIMA Samson sent at 01/29/2024 8:01 AM EST ----- Reviewed. Inform patient lipid panel is significantly elevated. I sent over a cholesterol medication (statin) to her pharmacy. Rosuvastatin 20 mg oral daily. * Telephone Encounter - Marybeth Velazquez CMA - 01/29/2024 8:24 AM EST Pt informed documented in this encounter Plan of Treatment Not on file documented as of this encounter Visit Diagnoses Not on filedocumented in this encounter Additional Health Concerns Assessment Noted Time PHQ-9 Depression Total Score: 0 01/28/20 12:54 PM EST A Body Mass Index follow-up plan has been documented for the patient 01/28/2024 1:34 PM EST documented as of this encounter Care Teams Assistant Offset Press Operator Relationship Specialty Start Date End Date Enedina Villalta APRN-COMPETENCY EVALUATED NURSE AIDE [address] [place] [address] PCP - General Family Medicine 08/28/22 documented as of this encounter
--- OUTSIDE RECORDS SUMMARY | 2024-08-05 16:16 | XMS_ITS | Encounter Summary ---
Author Organization [employer] Address [id number] [place] [address] Care Team Providers Care Timing Machine Operator Name Role Phone Enedina Villalta Jovanna TAI-DIRECTOR MARKETING ANALYTICS Primary Care Provid er Encounter Details Date Type Department Care Team (Late st Contact Info) Description 02/13/2023 Orders Only [facility] - Family Medicine [address] [place] [phone] External, Scanning Provider Social History Tobacco Use [...] Procedure Name Priority Date/Time Associated Diagnosis Comments HM DIABETES EYE EXAM Routine 02/13/2023 2:03 PM EST documented in this encounter Results * HM DIABETES EYE EXAM (02/13/2023 2:03 PM EST) us Scanning Provider External HEALTH MAINTENANCE Fi nal Result MANUALLY TRANSCRIBED RESULTS documented in this encounter Visit Diagnoses Not on filedocumented in this encounter Additional Health Concerns Assessment Noted Time PHQ-9 Depression Total Score: 8 09/11/19 2:11 PM EDT A Body Mass Index follow-up plan has been documented for the patient 09/10/2022 6:41 PM EDT documented as of this encounter Care Teams Timing Machine Operator Relationship Specialty Start Date End Date Enedina Villalta, WELDER JOURNEYMAN-DIRECTOR MARKETING ANALYTICS [address] [place] [address] PCP - General Family Medicine 08/28/22 documented as of this encounter
--- OUTSIDE RECORDS SUMMARY | 2024-08-05 16:16 | XMS_ITS | Encounter Summary ---
Author Organization [employer] [facility] [employer] Address [id number] [address] [place] [address] Care Team Providers Care Broadcast Field Supervisor Name Role Phone Enedina Villalta Jovanna TAI-ACCOUNTANT CERTIFIED PUBLIC Primary Care Provid er Encounter Details Date Type Department Care Team (Late st Contact Info) Description 07/07/2023 Orders Only [facility] - Family Medicine [address] [place] [phone] External, Scanning Provider Social History Tobacco Use Types Packs/Day Years Used Date Smoking Tobacco: Never Smokeless Tobacco: Never Alcohol Use Standard Drinks/Week Comments Never 0 (1 standard drink = 0.6 oz pur e alcohol) PHQ-2 Answer Date Recorded Total Score 0 07/09/2023 Childcare Answer Date Recorded Childcare Unknown 08/03/2018 Employment Answer Date Recorded Employment Unknown 08/03/2018 Hunger Screening Answer Date Recorded Within the past 12 months we worried whether our food would run out before we got money to buy more. Never True 07/09/2023 Within the past 12 months th e food we bought just didn't last and we didn't have money to get more. Never True 07/09/2023 Comments Unknown Sex and Gender Information Value Date Recorded Sex Assigned at Not on file Legal Sex Female 1:59 PM EDT Gender Identity Not on file Sexual Orientation Not on file documented as of this encounter Plan of Treatment Not on file documented as of this encounter Procedures Procedure Name Priority Date/Time Associated Diagnosis Comments XR CHEST 1 VW Routine 07/04/2023 4:27 PM EDT documented in this encounter Results * X-ray chest 1 view (07/04/2023 4:27 PM EDT) Anatomical Region Laterality Modality Body, Chest N/A Computed Radiogr aphy us Scanning Provider External IMG DIAGNOSTIC IMAGIN G ORDERABLES Final Result documented in this encounter Visit Diagnoses Not on filedocumented in this encounter Additional Health Concerns Assessment Noted Time PHQ-9 Depression Total Score: 0 05/19/19 24 1:54 PM EDT A Body Mass Index follow-up plan has been documented for the patient 05/19/2023 2:12 PM EDT documented as of this encounter Care Teams Broadcast Field Supervisor Relationship Specialty Start Date End Date Enedina Villalta, NAILHEAD OPERATOR-ACCOUNTANT CERTIFIED PUBLIC [address] [place] [address] PCP - General Family Medicine 08/28/22 documented as of this encounter
--- OUTSIDE RECORDS SUMMARY | 2024-08-05 16:16 | XMS_ITS | Encounter Summary ---
Author Organization [facility] Address [address] [place] [address] Care Team Providers Care Activities Concierge Name Role Phone Musa Ben Nugent PA Unavailable [phone] Rich Candelaria DO, Charles P Primary Care Provider + Source Comments In the event this information is protected by the Federal Confidentiality of Alcohol and Drug AbusePatient Records regulations: The Federal rules restrict any use of the information to criminally investigate or prosecute any alcohol or drug abuse patient.[facility] Encounter Details Date Type Department Care Team (Late st Contact Info) Description 06/01/2020 Patient Msg Rheumatology [address] [place] [address] Provider, Ccf Please review that your upcoming appointment with Dr. Sin has been rescheduled Social History Tobacco Use Types Packs/Day Years Used Date Smoking Tobacco: Never Assessed Comments Unknown Sex and Gender Information Value Date Recorded Sex Assigned at Female 07/13/2020 10:21 PM EDT Legal Sex Female 12:24 PM EST Gender Identity Female 07/13/2020 10:21 PM EDT Sexual Orientation Straight 07/13/2020 10 :21 PM EDT documented as of this encounter Plan of Treatment Not on file documented as of this encounter Visit Diagnoses Not on filedocumented in this encounter Care Teams Activities Concierge Relationship Specialty Start Date End Date Robin Villanueva Sr., [address] [facility] [address] [place] [address] PCP - General Family Medicine 07/20/20 Ben Vigil PA [address] [facility] [address] [place] [address] Referring Family Medicine 03/15/20 07/19/20 documented as of this encounter
--- OUTSIDE RECORDS SUMMARY | 2024-08-05 16:16 | XMS_ITS | Encounter Summary ---
Author Organization [facility] Address [address] [place] [address] Care Team Providers Care Dogger Name Role Phone Enedina Villalta Unavailable [phone] Luis Felipe Obando MD Primary Care Provider [phone] Encounter Details Date Type Department Care Team (Late st Contact Info) Description 07/11/2022 Abstract [facility] [address] [place] [phone] Hardeep Barlow, DO [address] [place], [place] [id number] Social History Tobacco Use Types Packs/Day Years Used Date Smoking Tobacco: Never Alcohol Use Standard Drinks/Week Comments Not Currently 0 (1 standard drink = 0.6 oz pur e alcohol) Comments Unknown Sex and Gender Information Value Date Recorded Sex Assigned at Not on file Legal Sex Female 7:20 PM EDT Gender Identity Not on file Sexual Orientation Not on file documented as of this encounter Plan of Treatment Not on file documented as of this encounter Visit Diagnoses Not on filedocumented in this encounter Care Teams Dogger Relationship Specialty Start Date End Date Luis Felipe Obando MD PCP - General Family Medicine 10/02/22 Enedina Villalta CRNP Referring Physician Nurse Practitioner 10/02/22 documented as of this encounter
--- OUTSIDE RECORDS SUMMARY | 2024-08-05 16:16 | XMS_ITS | Clinical Summary ---
Author Organization [employer] Address [id number] [place] [address] Care Team Providers Care Flux Tube Attendant Name Role Phone Enedina Villalta Jovanna TAI-NETBACKUP ADMIN Primary Care Provid er Allergies No known active allergies Medications levocetirizine (XYZAL) 5 mg tabletIndications :Seasonal allergic rhinitis due to pollen Take 1 tablet (5 mg total) by mouth nightly. 90 tablet 1 024 Active omeprazole (PriLOSEC) 20 mg capsuleIndication s:Gastroesophagea l reflux disease without esophagitis Take 1 capsule (20 mg total) by mouth in the morning. 90 capsule 1 024 Active dicyclomine (BENTYL) 20 mg tabletIndications :Generalized abdominal pain Take 1 tablet (20 mg total) by mouth every 8 (eight) hours as needed (abdominal cramping). 90 tablet 024 Active flash glucose sensor (FREESTYLE JAYNE 2 SENSOR) kitIndications:No n-insulin dependent type 2 diabetes mellitus ([facility]) 1 Device by miscellaneous route every 14 (fourteen) days. 3 kit 3 024 Active flash glucose scanning reader (FREESTYLE JAYNE 2 READER) miscIndications:N on-insulin dependent type 2 diabetes mellitus (CMS-HCC) 1 each by miscellaneous route in the morning. 1 each 024 Active hydrOXYzine (ATARAX) 25 mg tabletIndications :Other insomnia Take 1 tablet (25 mg total) by mouth nightly as needed for itching. 30 tablet 2 024 Active glimepiride (AMARYL) 4 mg tabletIndications :Type 2 diabetes mellitus with hyperglycemia, without long-term current use of insulin (CMS-HCC) TAKE 1 TABLET BY MOUTH TWICE DAILY (IN THE MORNING and AT BEDTIME) 90 tablet 1 024 Active estradioL (ESTRACE) 0.5 mg tablet Take 1 tablet (0.5 mg total) by mouth. Active HYDROcodone-aceta minophen (NORCO) 5-325 mg per tablet TAKE 1 TABLET BY MOUTH EVERY 6 HOURS NEEDED FOR PAIN up to 3 (THREE) days 024 Active tirzepatide (MOUNJARO) 5 mg/0.5 mL pen injectorIndicatio ns:Type 2 diabetes mellitus with hyperglycemia, without long-term current use of insulin ([facility]) Inject 5 mg under the skin every 7 days. 2 mL 3 024 Active diclofenac (VOLTAREN) 50 mg EC tabletIndications :Arthritis, multiple joint involvement TAKE 1 TABLET BY MOUTH TWICE DAILY (IN THE MORNING and BEFORE bedtime) 180 tablet 1 025 Active lisinopriL (PRINIVIL,ZESTRIL ) 10 mg tabletIndications :Benign essential HTN TAKE 1 TABLET BY MOUTH IN THE MORNING 90 tablet 025 Active propranolol LA (INDERAL LA) 80 mg 24 hr capsuleIndication s:Benign essential HTN,Migraine 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, not intractable TAKE 1 CAPSULE BY MOUTH IN THE MORNING 90 capsule 025 Active pioglitazone (ACTOS) 30 mg tabletIndications :Type 2 diabetes mellitus with hyperglycemia, without long-term current use of insulin ([facility]) TAKE 1 TABLET BY MOUTH IN THE MORNING 90 tablet 025 Active venlafaxine XR (EFFEXOR-XR) 150 mg 24 hr capsuleIndication s:Current mild episode of major depressive disorder without prior episode TAKE 1 CAPSULE BY MOUTH IN THE MORNING 90 capsule 025 Active famotidine (PEPCID) 40 mg tabletIndications :Gastroesophageal reflux disease without esophagitis TAKE 1 TABLET BY MOUTH EVERY 12 HOURS 180 tablet 1 025 Active blood-glucose sensor (FREESTYLE JAYNE 3 PLUS SENSOR) deviceIndications :Type 2 diabetes mellitus with hyperglycemia, without long-term current use of insulin ([facility]) USE DIRECTED * change EVERY 15 days * 2 each 025 Active rosuvastatin (CRESTOR) 20 mg tabletIndications :DM type 2 with diabetic mixed hyperlipidemia ([facility]) TAKE 1 TABLET BY MOUTH ONCE DAILY IN THE MORNING 90 tablet 1 025 Active VRAYLAR 1.5 mg capsuleIndication s:Major depression, chronic TAKE 1 CAPSULE BY MOUTH IN THE MORNING 90 capsule 1 025 Active cariprazine (VRAYLAR) 1.5 mg capsuleIndication s:Major depression, chronic Take 1 capsule (1.5 mg total) by mouth in the morning. 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 021 Chronic pain of both knees 07/20/2020 Secondary osteoarthritis of multiple sites 07/20 Chronic elbow pain, right 07/20/2020 Arthralgia of upper arm 02/11/2020 Encounters Date Type Department Care Team Description 07/22/2024 Refill [facility] [address] [place] [address] Enedina Villalta APRN-CNP Major depression, chronic 06/20/2024 Refill [facility] [address] [place] [address] Enedina Villalta APRN-CNP DM type 2 with diabetic mixed hyperlipidemia ([facility]) 06/19/2024 Refill [facility] [address] [place] [address] Enedina Villalta APRN-CNP Type 2 diabetes mellitus with hyperglycemia, without long-term current use of insulin ([facility]) from Last 3 Months Immunizations Immunization Administration Dates Next Due DTP 11/07/1970 Influenza (IM) Preservative Free 12/10/2023 Influenza, Injectable, quadr ivalent (PF) 12/05/2022,10/27/2021,11/02/2020,2019 MMR 11/07/1970 Measles 08/30/1967 Mumps 12/16/1983 Polio, Unspecified 12/05/1970,11/04/1967, 968 Td, Unspecified 12/16/1983 Family History Medical History Relation Name Comments Diabetes Father Heart disease Father Hypertension Mother Osteoporosis Mother Relation Name Status Comments Brother Alive Daughter Alive Father Mother Alive Sister Alive Son 1 Alive Son 2 Alive Social History Tobacco Use Types Packs/Day Years Used Date Smoking Tobacco: Never Smokeless Tobacco: Never Tobacco Cessation:Counseling Given: Not Answered Alcohol Use Standard Drinks/Week Comments Never 0 [...] on file Sexual Orientation Not on file Last Filed Vital Signs Vital Sign Reading Time Taken Comments Blood Pressure 138/70 01/28/2024 12:54 PM EST Pulse 70 01/28/2024 12:54 PM EST Temperature 36.3 C (97.3 F) 01/28/2024 12:54 PM EST Respiratory Rate 18 01/28/2024 12:5 4 PM EST Oxygen Saturation 96% 01/28/2024 12: 54 PM EST Inhaled Oxygen Concentration - - Weight 114.9 kg (253 lb 6.4 oz) 024 12:54 PM EST Height 160 cm (5' 3 ) 01/28/2024 12:54 PM EST Body Mass Index 44.89 01/28/2024 12:54 PM EST Plan of Treatment Health Maintenance Due Date Last Done Comments DTaP,Tdap and Td Vaccines (3 - Tdap) 12/17/1983 12/16/1983, 11/07/1970 Diabetic Foot Exam 1984 Zoster (Shingles) Vaccine (1 of 2) 2016 COVID-19 Vaccine (2023-2 5 season) 2023 11/09/2021, 06/07/2021, 11/29/2020, Additional history exists Diabetic Ophthalmology Exam 02/14/2024 02/13/2023 Influenza Vaccine 10/25/2024 12/10/2023, , 10/27/2021, Additional history exists Adult BMI Follow Up Plan 01/27/2025 01/28/2024 Adult BMI Screening 01/27/2025 01/28/2024 Depression Screening 01/27/2025 01/28/2024 Tobacco Screening 01/27/2025 01/28/2024 Pap Smear 12/21/2026 12/22/2023, 07/03/2013 Medical Devices Not on file Procedures Procedure Name Priority Date/Time Associated Diagnosis Comments DIABETES EYE EXAM Routine 02/13/2023 2:03 PM EST from Last 3 Months or Most Recently Relevant to Health Maintenance Results * DIABETES EYE EXAM (02/13/2023 2:03 PM EST) us Scanning Provider External HEALTH MAINTENANCE Fi nal Result MANUALLY TRANSCRIBED RESULTS from Last 3 Months or Most Recently Relevant to Health Maintenance Insurance [id number] [place] [address] [facility] MEDICAID Care Teams Flux Tube Attendant Relationship Specialty Start Date End Date Enedina Villalta, OPTICAL MECHANIC APPRENTICE-NETBACKUP ADMIN [address] [place] [address] PCP - General Family Medicine 08/28/22
--- OUTSIDE RECORDS SUMMARY | 2024-08-05 16:16 | XMS_ITS | Encounter Summary ---
Author Organization [employer] Address [id number] [place] [address] Care Team Providers Care Bi Specialist Name Role Phone Enedina Villalta Jovanna TAI-COMMUNITY HEALTH ADVISOR Primary Care Provid er Encounter Details Date Type Department Care Team (Late st Contact Info) Description 06/04/2023 Telephone [facility] [address] [place] [phone] Gayle Chavez CMA Social History Tobacco Use Types Packs/Day Years Used Date Smoking Tobacco: Never Smokeless Tobacco: Never Alcohol Use Standard Drinks/Week Comments Never 0 (1 standard drink = 0.6 oz pur e alcohol) PHQ-2 Answer Date Recorded Total Score 0 05/19/2023 Childcare Answer Date Recorded Childcare Unknown 08/03/2018 Employment Answer Date Recorded Employment Unknown 08/03/2018 Hunger Screening Answer Date Recorded Within the past 12 months we worried whether our food would run out before we got money to buy more. Never True 05/19/2023 Within the past 12 months th e food we bought just didn't last and we didn't have money to get more. Never True 05/19/2023 Comments Unknown Sex and Gender Information Value Date Recorded Sex Assigned at Not on file Legal Sex Female 1:59 PM EDT Gender Identity Not on file Sexual Orientation Not on file documented as of this encounter Miscellaneous Notes * Telephone Encounter - Gayle Chavez CMA - 06/04/2023 11:37 AM EDT Patient states she is getting the itchy feeling and wanted to know can you get a yeast infection from bactrium? If so can you send something in for her? * Telephone Encounter - RIMA Gamez - 06/04/2023 11:37 AM EDT Done * Telephone Encounter - Gayle Chavez CMA - 06/04/2023 11:37 AM EDT notified documented in this encounter Plan of Treatment Not on file documented as of this encounter Visit Diagnoses Not on filedocumented in this encounter Additional Health Concerns Assessment Noted Time PHQ-9 Depression Total Score: 0 05/19/19 24 1:54 PM EDT A Body Mass Index follow-up plan has been documented for the patient 05/19/2023 2:12 PM EDT documented as of this encounter Care Teams Bi Specialist Relationship Specialty Start Date End Date Enedina Villalta APRN-CNP [address] [place] [address] PCP - General Family Medicine 08/28/22 documented as of this encounter
--- OUTSIDE RECORDS SUMMARY | 2024-08-05 16:16 | XMS_ITS | Continuity of Care Document ---
Author Name Veronica Cabrera Address [address] [place] [address] Organization Unknown Address [address] [place] [address] Medications No known medications Problems No known problems
--- OUTSIDE RECORDS SUMMARY | 2024-08-05 16:16 | XMS_ITS | Encounter Summary ---
Author Organization [facility] Address [address] [place] [address] Care Team Providers Care Research Investigator Name Role Phone Enedina Villalta JOSE LUIS Unavailable [phone] Luis Felipe Obando MD Primary Care Provider [phone] Encounter Details Date Type Department Care Team (Late st Contact Info) Description 12/31/2023 Orders Only [facility] [address] [place] [address] Brandy Cosby LPN [address] [place] [address] Social History Tobacco Use Types Packs/Day Years [...] Procedure Name Priority Date/Time Associated Diagnosis Comments PAP SMEAR Routine 12/22/2023 12:00 AM EDT documented in this encounter Results * Pap Smear (12/22/2023 12:00 AM EDT) Swab Cervical swab / Unknown us Hardeep Cain DO LAB CYTOLOGY ORDERABLES Final Re sult EXTERNAL LAB documented in this encounter Visit Diagnoses Not on filedocumented in this encounter Care Teams Research Investigator Relationship Specialty Start Date End Date Luis Felipe Obando MD PCP - General Family Medicine 10/02/22 Enedina Villalta CRNP Referring Physician Nurse Practitioner 10/02/22 documented as of this encounter
--- OUTSIDE RECORDS SUMMARY | 2024-08-05 16:16 | XMS_ITS | Encounter Summary ---
Author Organization [employer] Address [id number] [address] [place] [address] Care Team Providers Care Dandy Tender Name Role Phone Enedina Villalta ENGINEERING SECRETARY-DIRECTOR UNIVERSITY Primary Care Provid er Reason for Visit * Reason Comments Med Refill Encounter Details Date Type Department Care Team (Late st Contact Info) Description 07/22/2024 Refill [facility] [address] [place] [phone] Enedina Villalta, [facility] [address] [place] [phone] Major depression, chronic Social History Tobacco Use Types Packs/Day Years [...] documented as of this encounter Visit Diagnoses Diagnosis Major depression, chronic documented in this encounter Additional Health Concerns Assessment Noted Time PHQ-9 Depression Total Score: 0 01/28/20 12:54 PM EST A Body Mass Index follow-up plan has been documented for the patient 01/28/2024 1:34 PM EST documented as of this encounter Care Teams Dandy Tender Relationship Specialty Start Date End Date Enedina Villalta, ABIDA-DIRECTOR UNIVERSITY [address] [facility] [place] [address] PCP - General Family Medicine 08/28/22 documented as of this encounter
--- NOTE | 2024-08-05 16:24 | ED.FEMALEGU1 ---
HPI - Female Genitourinary General Chief complaint: Urogenital-Female Stated complaint: UTI Time Seen by Provider: 08/05/24 16:24 Source: patient Mode of arrival: walk-in Limitations: no limitations History of Present Illness HPI Narrative: 58 year old female presents to the ED for dysuria, urinary frequency/urgency, low abd discomfort. Onset was one week ago. Denies fever, chills, flank pain. Reports nausea. She reports hx UTIs. Related Data Home Medications ?Medication ?Instructions ?Recorded ?Confirmed cetirizine 10 mg tablet 10 mg PO DAILY 07/28/22 11/14/22 famotidine 40 mg tablet 40 mg PO Q12H 07/28/22 11/14/22 glimepiride 4 mg tablet 4 mg PO .TWICE 07/28/22 11/14/22 pioglitazone 30 mg tablet 30 mg PO DAILY 07/28/22 11/14/22 propranolol 80 mg capsule,24 80 mg PO Q24H 07/28/22 11/14/22 hr,extended release venlafaxine 150 mg 150 mg PO DAILY 07/28/22 11/14/22 capsule,extended release 24 hr Previous Rx's ?Medication ?Instructions ?Recorded ondansetron 4 mg disintegrating 4 mg PO Q6H PRN nausea and 07/04/23 tablet vomiting #20 tabs cephalexin 500 mg capsule 500 mg PO TID 7 days #21 caps 08/05/23 phenazopyridine 200 mg tablet 200 mg PO Q8H PRN pain #15 tabs 08/05/23 (Pyridium) nitrofurantoin 100 mg PO BID 7 days #14 caps 10/12/23 monohydrate/macrocrystals 100 mg capsule (Macrobid) sulfacetamide sodium 10 % eye drops 2 drp ophthalmic (eye) Q4H #15 mL 10/12/23 rfxeuardtvwoszh-qlljtyupspfayir-EI 10 ml PO Q6H PRN cold symptoms 12/15/23 2 mg-30 mg-10 mg/5 mL oral syrup #200 mL (Bromfed DM) hydrocodone 5 mg-acetaminophen 325 1 tab PO Q6H PRN pain 3 days #8 12/15/23 mg tablet tabs ketorolac 10 mg tablet 10 mg PO TID PRN pain #10 tabs 12/15/23 albuterol sulfate 90 mcg/actuation 2 inh inhalation Q6H PRN shortness 02/22/24 breath activated powder of breath #1 ea inhaler,sensor (Proair Digihaler) azithromycin 250 mg tablet See Rx Instructions PO .COMPLEX #6 02/22/24 (Zithromax Z-Thai) tabs prednisone 20 mg tablet 20 mg PO DAILY #7 tabs 02/22/24 cephalexin 500 mg capsule 500 mg PO Q8H 7 days #21 caps 05/11/24 fluconazole 150 mg tablet 150 mg PO QWEEK #2 tabs 05/11/24 ondansetron 4 mg disintegrating 4 mg PO Q6H PRN nausea and 05/11/24 tablet vomiting #12 tabs phenazopyridine 200 mg tablet 200 mg PO Q8H 2 days #6 tabs 05/11/24 (Pyridium) cephalexin 500 mg capsule 500 mg PO BID 5 days #10 caps 08/05/24 fluconazole 150 mg tablet 150 mg PO ONCE #1 tab 08/05/24 phenazopyridine 100 mg tablet 100 mg PO Q8H PRN pain 6 doses #6 08/05/24 (Pyridium) tabs Allergies Allergy/AdvReac Type Severity Reaction Status Date / Time No Known Drug Allergies Allergy Verified 08/05/24 16:14 Review of Systems ROS Constitutional Denies: fever, chills or fatigue Cardiovascular Denies: chest pain Respiratory Denies: shortness of breath Gastrointestinal Reports: abdominal pain and nausea; Denies: vomiting or diarrhea Genitourinary Reports: painful urination, urinary frequency and urinary urgency; Denies: urinary incontinence or blood in urine Musculoskeletal Denies: back pain or neck pain Integumentary/Breast Denies: rash Neurological Denies: headache PFSH PFSH Social History Smoking status: Never smoker Little interest or pleasure in doing things: not at all Feeling down, depressed, or hopeless: not at all Exam Constitutional Vital Signs, click to edit/add: Last Vital Signs Temp 98.1 F 08/05/24 16:14 Pulse 61 08/05/24 16:14 Resp 16 08/05/24 16:14 BP 150/71 H 08/05/24 16:14 Pulse Ox 99 08/05/24 16:14 Common normals: no apparent distress and oriented x3 General appearance: cooperative [facility] Common normals: moist oral mucous membranes Mouth: oral and palatal mucosa normal Eye Common normals: conjunctivae normal and no scleral icterus Neck & C-Spine Common normals: supple Chest Chest: symmetrical chest wall rise Cardio Common normals: regular rate GI Common normals: soft to palpation and non-tender Palpation: soft and tender Details: suprapubic Common normals: no CVA tenderness Neuro Common normals: oriented x3 and moves all extremities Course Vital Signs Vital signs: Vital Signs Temperature 98.1 F 08/05/24 16:14 Pulse Rate 61 08/05/24 16:14 Respiratory Rate 16 08/05/24 16:14 Blood Pressure 150/71 H 08/05/24 16:14 Pulse Oximetry 99 08/05/24 16:14 Temperature 98.1 F 08/05/24 16:14 Pulse Rate 61 08/05/24 16:14 Respiratory Rate 16 08/05/24 16:14 Blood Pressure 150/71 H 08/05/24 16:14 Pulse Oximetry 99 08/05/24 16:14 MDM - Female Genitourinary MDM Narrative Medical decision making narrative: Urinalysis showed infection; culture was pending. She also requested Diflucan. Follow up with pcp for a recheck, further evaluation and treatment. Differential Diagnosis Differential diagnosis: Likely urinary tract infection Medical Records Attestation: I reviewed the patient's medical records. Lab Data Attestation: I reviewed the patient's lab results. Labs: Lab Results 08/05/24 Range/Units 16:24 Urine Color Yellow (YELLOW) Urine Clarity Slightly cloudy A (CLEAR) Urine pH 5.5 (5.0-9.0) Ur Specific [place] >=1.030 A (1.005-1.025) Urine Protein Trace (NEG/TRACE) mg/dL Urine Glucose (UA) Negative (NEGATIVE) mg/dL Urine Ketones Trace A (NEGATIVE) mg/dL Urine Occult Blood Small A (NEGATIVE) Urine Nitrite Positive A (NEGATIVE) Urine Bilirubin Small A (NEGATIVE) Urine Urobilinogen 0.2 (0.2-1.0) EU/dL Ur Leukocyte Esterase Trace A (NEGATIVE) Urine RBC 5-10 A (0-2) #/HPF Urine WBC 2-5 A (NONE SEEN) #/HPF Ur Squamous Epith Cells Few A (NONE/RARE) #/LPF Urine Crystals None seen (None Seen) #/HPF Urine Bacteria Large A (NONE SEEN) #/HPF Urine Casts None seen (NONE SEEN) #/LPF Urine Mucus Small A (NONE SEEN) Ur Culture Indicated? [place] [place] Plan Discharge Chief Complaint: Urogenital-Female Clinical Impression: UTI (urinary tract infection) Patient Disposition: Home, Self-Care Time of Disposition Decision: 16:33 Condition: Good Mode of Transportation: Private Vehicle Prescriptions / Home Meds: New cephalexin 500 mg capsule 500 mg PO BID 5 Days Qty: 10 0RF fluconazole 150 mg tablet 150 mg PO ONCE Qty: 1 1RF phenazopyridine [Pyridium] 100 mg tablet 100 mg PO Q8H PRN (Reason: pain) Qty: 6 0RF No Action cephalexin 500 mg capsule 500 mg PO TID 7 Days Qty: 21 0RF phenazopyridine [Pyridium] 200 mg tablet 200 mg PO Q8H PRN (Reason: pain) Qty: 15 0RF hydrocodone-acetaminophen 5-325 mg tablet 1 tab PO Q6H PRN (Reason: pain) 3 Days Qty: 8 0RF Rx Instructions: DX: M54.5 ketorolac 10 mg tablet 10 mg PO TID PRN (Reason: pain) Qty: 10 0RF [id number]-[id number]-VM [Bromfed DM] 2-30-10 mg/5 mL syrup 10 ml PO Q6H PRN (Reason: cold symptoms) Qty: 200 0RF phenazopyridine [Pyridium] 200 mg tablet 200 mg PO Q8H 2 Days Qty: 6 0RF cephalexin 500 mg capsule 500 mg PO Q8H 7 Days Qty: 21 0RF ondansetron 4 mg tablet,disintegrating 4 mg PO Q6H PRN (Reason: nausea and vomiting) Qty: 12 0RF fluconazole 150 mg tablet 150 mg PO QWEEK Qty: 2 0RF Rx Instructions: 1 tab to be taken at the beginning and the end of antibiotic course cetirizine 10 mg tablet 10 mg PO DAILY famotidine 40 mg tablet 40 mg PO Q12H glimepiride 4 mg tablet 4 mg PO .TWICE pioglitazone 30 mg tablet 30 mg PO DAILY propranolol 80 mg capsule,extended release 24 hr 80 mg PO Q24H venlafaxine 150 mg capsule,extended release 24hr 150 mg PO DAILY ondansetron 4 mg tablet,disintegrating 4 mg PO Q6H PRN (Reason: nausea and vomiting) Qty: 20 0RF sulfacetamide sodium 10 % drops 2 drp ophthalmic (eye) Q4H Qty: 15 0RF nitrofurantoin monohyd/m-cryst [Macrobid] 100 mg capsule 100 mg PO BID 7 Days Qty: 14 0RF Rx Instructions: must administer with a meal/food azithromycin [Zithromax Z-Thai] 250 mg tablet See Rx Instructions .ROUTE .COMPLEX Qty: 6 0RF Rx Instructions: For 250 mg dose pack: take 500 mg today (day 1), then 250 mg for 4 days (days 2-5) Proair Digihaler 90 mcg/actuation aero powdr breath act w/sensor 2 inh inhalation Q6H PRN (Reason: shortness of breath) Qty: 1 0RF prednisone 20 mg tablet 20 mg PO DAILY Qty: 7 0RF Print Language: Serbian Instructions: Urinary Tract Infection in Women (ED) Additional Instructions: Return to the ER for worsening symptoms. Referrals: IRIS KENNEDY [Primary Care Provider, Unknown] - 1 week Discharge Date/Time: 08/05/24 16:48
[2024-08-05 16:29] LABS: Bilirubin Urine SMALL (NEGATIVE); Blood Urine SMALL (NEGATIVE); Clarity Urine SLIGHTLY CLOUDY (CLEAR); Color Urine YELLOW (YELLOW); Glucose Urine UA NEGATIVE (NEGATIVE); Ketones Urine TRACE mg/dL (NEGATIVE); Leukocyte Esterase Urine TRACE (NEGATIVE); Nitrite Urine POSITIVE (NEGATIVE); Protein Urine TRACE mg/dL (NEG/TRACE); Specific Gravity Urine >=1.030 (1.005-1.025); Urine Microscopic Indicated YES; Urobilinogen Urine 0.2 EU/dL (0.2-1.0); pH Urine 5.5 (5.0-9.0)
[2024-08-05 16:36] LABS: Bacteria Urine LARGE #/HPF (NONE SEEN); Cast Seen? NONE SEEN #/LPF (NONE SEEN); Crystals Seen? None Seen #/HPF (None Seen); Mucus Urine SMALL (NONE SEEN); Squamous Epithelial Cell Urine FEW #/LPF (NONE/RARE); Urine Culture Indicated YES-FRMC
[2024-08-05] MEDS: CEPHALEXIN 500 MG CAPSULE PO (16:40)
== END 2024-08-05 16:48 | disposition home or self-care (01) ==
PROVIDERS: Nurse Practitioner Family; Emergency Provider Emergency Medicine; PCP Nurse Practitioner
DX: N39.0 Urinary tract infection, site not specified (principal); Z87.440 Personal history of urinary (tract) infections
CPT/HCPCS: 81001; 87086; 87088; 87186; 99283

== ENCOUNTER 2024-09-20 16:50 | Emergency (ER) | payer MEDICAID, SELFPAY ==
--- OUTSIDE RECORDS SUMMARY | 2024-09-20 16:56 | XMS_ITS | Clinical Summary ---
Author Organization [facility] Address [address] [place], [place] [id number] Care Team Providers Care Nursing Home Physician Name Role Phone House Sr., Robin Alexander [...] N ot on file 07/20/2020 Data from: https://www.neighborhoodatlas.medicine.[facility]/. Last address used for calculation Not [...] of 2) 2016 Diabetes Screening 07/21/2023 07/20/2020 Influenza Vaccine (#1) 2024 11/02/2020, 2019 Hepatitis C Screening Completed 07/20/2020 Procedures Procedure [...] Total Negative Negative 07/21/2020 10:30 AM EDT [facility] Hep C Antibody IA Negative Negative 07/21/2020 10:31 AM EDT [facility] HBsAg Negative Negative 07/21/2020 10:31 AM EDT [facility] Hep B Surface Ab, Qual Negative Negative 07/21/2020 10:31 AM EDT [facility] Comment:NEGATIVE Blood BLOOD SPECIMEN / Unknown 07/20/2020 2:56 PM EDT 07/20/2020 2:58 PM EDT Susan Sin MD LABORATORY Final Result [facility] [address] [place] [address] [facility] [address] [place] [address] * (ABNORMAL) COMP METABOLIC PANEL (07/20/2020 2:56 PM EDT) Pathologist [facility] Protein, Total 7.4 6.3 - 8.0 g/dL 07/21/2020 12:30 AM [facility] Albumin 4.0 3.9 - 4.9 g/dL 07/21/2020 12:30 AM [facility] Calcium 9.4 8.5 - 10.2 mg/dL 07/21/2020 12:30 AM [facility] Bilirubin, Total 0.2 0.2 - 1.3 mg/dL 07/21/2020 12:30 AM [facility] Alkaline Phosphatase 184(H) 34 - 123 U/L 07/21/2020 12:30 AM [facility] AST 18 13 - 35 U/L 07/21/2020 12:30 AM [facility] Glucose 497(H) 74 - 99 mg/dL 07/21/2020 12:30 AM [facility] Comment: The [place] Diabetes Association (ADA) provides guidance for cutoff [...] Standards of Medical Care in Diabetes 2016, [place] Diabetes Association. Diabetes Care. 2016.39(Suppl 1). BUN 13 7 - 21 mg/dL 07/21/2020 12:30 AM [facility] Creatinine 0.60 0.58 - 0.96 mg/dL 07/21/2020 12:30 AM [facility] Sodium 138 136 - 144 mmol/L 07/21/2020 12:30 AM [facility] Potassium 4.5 3.7 - 5.1 mmol/L 07/21/2020 12:30 AM [facility] Chloride 101 97 - 105 mmol/L 07/21/2020 12:30 AM EDT [facility] CO2 22 22 - 30 mmol/L 07/21/2020 12:30 AM EDT [facility] Anion Gap 15 9 - 18 mmol/L 07/21/2020 12:30 AM EDT [facility] ALT 18 7 - 38 U/L 07/21/2020 12:30 AM EDT [facility] eGFR- >60 07/21/2020 12:30 AM EDT [facility] eGFR-All Other Races >60 . 07/21/2020 12:30 AM EDT [facility] Comment: eGFR (Estimated GFR) Units of measure: [...] EDT Susan Sin MD LABORATORY Final Result [facility] [address] [place] [address] [facility] [address] [place] [address] from Last 3 Months or Most Recently Relevant to Health Maintenance Insurance [facility] [employer] PPO Care Teams Nursing Home Physician Relationship Specialty Start Date End Date Robin Villanueva Sr., DO PCP - General Family Medicine 07/20/20
--- OUTSIDE RECORDS SUMMARY | 2024-09-20 16:56 | XMS_ITS | Encounter Summary ---
Author Organization [employer] Address [id number] [address] [place] [address] Care Team Providers Care Training And Development Rep Name Role Phone Luis Felipe Obando Primary Care Provider Encounter Details Date Type Department Care Team (Late st Contact Info) Description 02/23/2024 Orders Only [facility] - Family Medicine [address] [place] [phone] Enedina Villalta, ENGINEERING PATTERNMAKER-HYDRAULIC CONTROLS TECHNICIAN [address] 08/23/24 [place] [address] Social History Tobacco Use Types [...] Noted Time PHQ-9 Depression Total Score: 0 12/04/20 24 12:54 PM EST A Body Mass Index follow-up plan has been documented for the patient 01/28/2024 1:34 PM EST documented as of this encounter Care Teams Training And Development Rep Relationship Specialty Start Date End Date Luis Felipe Obando DO [address] [facility], [facility] [place] [address] PCP - General Family Medicine 09/14/24 documented as of this encounter
--- OUTSIDE RECORDS SUMMARY | 2024-09-20 16:56 | XMS_ITS | Encounter Summary ---
Author Organization [employer] Address [facility] [id number] [address] [place] [address] Care Team Providers Care Camp Maintenance Supervisor Name Role Phone Luis Felipe Obando Primary Care Provider [phone] Encounter Details Date Type Department Care Team (Late st Contact Info) Description 01/29/2024 Telephone [facility] - Family Medicine [address] [place] [phone] Marybeth Velazquez CMA Social History Tobacco Use [...] documented as of this encounter Care Teams Camp Maintenance Supervisor Relationship Specialty Start Date End Date Luis Felipe Obando DO [address] [facility], [facility] [address] PCP - General Family Medicine 09/14/24 documented as of this encounter
--- OUTSIDE RECORDS SUMMARY | 2024-09-20 16:56 | XMS_ITS | Encounter Summary ---
Author Organization [facility] Address [address] [place] [address] Care Team Providers Care Production Solderer Name Role Phone Enedina Villalta Unavailable [phone] Luis Felipe Obando MD Primary Care Provider [phone] Encounter Details Date Type Department Care Team (Late st Contact Info) Description 07/11/2022 Abstract [facility] [address] [place] [phone] Hardeep Barlow DO [address] [facility] [address] [place], [place] [id number] Social History Tobacco Use Types Packs/Day Years [...] on filedocumented in this encounter Care Teams Production Solderer Relationship Specialty Start Date End Date Luis Felipe Obando MD PCP - General Family Medicine 10/02/22 Enedina Villalta CRNP Referring Physician Nurse Practitioner 10/02/22 documented as of this encounter
--- OUTSIDE RECORDS SUMMARY | 2024-09-20 16:56 | XMS_ITS | Encounter Summary ---
Author Organization [employer] Address [id number] [address] [place] [address] Care Team Providers Care Prepress Manager Name Role Phone Luis Felipe Obando Primary Care Provider [phone] Encounter Details Date Type Department Care Team (Late st Contact Info) Description 06/04/2023 Telephone [facility] - Family Medicine [address] [place] [phone] Gayle Chavez CMA Social History Tobacco Use [...] Time PHQ-9 Depression Total Score: 0 05/19/19 1:54 PM EDT A Body Mass Index follow-up plan has been documented for the patient 05/19/2023 2:12 PM EDT documented as of this encounter Care Teams Prepress Manager Relationship Specialty Start Date End Date Luis Felipe Obando DO [address], [facility] [place] [address] PCP - General Family Medicine 09/14/24 documented as of this encounter
--- OUTSIDE RECORDS SUMMARY | 2024-09-20 16:56 | XMS_ITS | Encounter Summary ---
Author [facility] [employer] Address [facility]-[id number] [address] [place] [address] Care Team Providers Care Natural Foods Clerk Name Role Phone Luis Felipe Obando Primary Care Provider Encounter Details Date Type Department Care Team (Late st Contact Info) Description 02/13/2023 Orders Only [facility] - Family Medicine [address] [place] [phone] External, Scanning Provider Social History Tobacco Use [...] Time PHQ-9 Depression Total Score: 8 09/11/19 23 2:11 PM EDT A Body Mass Index follow-up plan has been documented for the patient 09/10/2022 6:41 PM EDT documented as of this encounter Care Teams Natural Foods Clerk Relationship Specialty Start Date End Date Luis Felipe Obando DO [address], [place] [address] PCP - General Family Medicine 09/14/24 documented as of this encounter
--- OUTSIDE RECORDS SUMMARY | 2024-09-20 16:56 | XMS_ITS | Encounter Summary ---
Author Organization [employer] Address [id number] [address] [place] [address] Care Team Providers Care Radiology Administrator Name Role Phone Luis Felipe Obando DO Primary Care Provider [phone] Reason for Visit * Reason Onset Date Comments Med Refill 09/14/2024 Encounter Details Date Type Department Care Team (Late st Contact Info) Description 09/14/2024 Refill [facility] - Family Medicine [address] [place] [address] Elizabeth Velasquez CMA Type 2 diabetes mellitus with hyperglycemia, without long-term current use of insulin ([facility]); Benign essential HTN; Migraine 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, not intractable; Gastroesophageal reflux disease without esophagitis Social History Tobacco Use Types Packs/Day Years [...] encounter Miscellaneous Notes * Telephone Encounter - Luis Felipe Obando DO - 09/14/2024 1:28 PM EDT Rx sent in. She is overdue for DM recheck documented in this encounter Plan of Treatment Not on file documented as of this encounter Visit Diagnoses Diagnosis Type 2 diabetes mellitus with hyperglycemia, without long-term current use of insulin ([facility]) Benign essential HTN Migraine 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, not intractable Gastroesophageal reflux disease without esophagitis Esophageal reflux documented in this encounter Additional Health Concerns Assessment Noted Time PHQ-9 Depression Total Score: 0 01/28/20 24 12:54 PM EST A Body Mass Index follow-up plan has been documented for the patient 01/28/2024 1:34 PM EST documented as of this encounter Care Teams Radiology Administrator Relationship Specialty Start Date End Date Luis Felipe Obando DO [address] [facility], [place] [address] PCP - General Family Medicine 09/14/24 documented as of this encounter
--- OUTSIDE RECORDS SUMMARY | 2024-09-20 16:56 | XMS_ITS | Encounter Summary ---
Author [facility] Address [id number] [address] [place] [address] Care Team Providers Care Cable Television Access Coordinator Name Role Phone Luis Felipe Obando Primary Care Provider [phone] Encounter Details Date Type Department Care Team (Late st Contact Info) Description 09/01/2023 Orders Only [facility] - Family Medicine [address] [place] [phone] External, Scanning Provider Social History Tobacco Use [...] documented as of this encounter Care Teams Cable Television Access Coordinator Relationship Specialty Start Date End Date Luis Felipe Obando DO [address] [facility] [place] [address] PCP - General Family Medicine 09/14/24 documented as of this encounter
--- OUTSIDE RECORDS SUMMARY | 2024-09-20 16:56 | XMS_ITS | Encounter Summary ---
Author Organization [facility] Address [address] [place] [address] Care Team Providers Care Construction Code Administrator Name Role Phone Enedina Villalta JOSE LUIS Unavailable [phone] Luis Felipe Obando MD Primary Care Provider [phone] Encounter Details Date Type Department Care Team (Late st Contact Info) Description 12/31/2023 Orders Only [facility] [address] [facility] [address] [facility] [place] [address] Brandy Cosby LPN [address] [place] [address] Social History Tobacco Use Types [...] on filedocumented in this encounter Care Teams Construction Code Administrator Relationship Specialty Start Date End Date Luis Felipe Obando MD PCP - General Family Medicine 10/02/22 Enedina Villalta CRNP Referring Physician Nurse Practitioner 10/02/22 documented as of this encounter
--- OUTSIDE RECORDS SUMMARY | 2024-09-20 16:56 | XMS_ITS | Encounter Summary ---
Author Organization [facility] Address [address] [place] [address] Care Team Providers Care Chemotherapist Name Role Phone House Sr., Robin MONTE Primary Care Provider + Source Comments In the event this information is protected by the Federal Confidentiality of Alcohol and Drug AbusePatient Records regulations: The Federal rules restrict any use of the information to criminally investigate or prosecute any alcohol or drug abuse patient.[facility] Encounter Details Date Type Department Care Team (Late st Contact Info) Description 07/21/2020 Patient Msg Rheumatology [address] [place] [address] Susan Sin MD [address] [place] [address] results Social History Tobacco Use [...] N ot on file 07/20/2020 Data from: https://www.neighborhoodatlas.[facility]/. Last address used for calculation Not on [...] on filedocumented in this encounter Care Teams Chemotherapist Relationship Specialty Start Date End Date Robin Villanueva Sr., PCP - General Family Medicine 07/20/20 documented as of this encounter
--- OUTSIDE RECORDS SUMMARY | 2024-09-20 16:56 | XMS_ITS | Encounter Summary ---
Author Organization [employer] Address [id number] [address] [place] [address] Care Team Providers Care Starch Mangle Tender Name Role Phone Luis Felipe Obando Primary Care Provider [phone] Reason for Visit * Reason Comments Med Refill Encounter Details Date Type Department Care Team (Late st Contact Info) Description 09/15/2024 Refill [facility] - Family Medicine [address] [place] [phone] Enedina Villalta, EXPORT SPECIALIST-ADA ACCOMMODATION CONSULTANT [address] PM 08/23/24 [place] [address] Current mild episode of major depressive disorder without prior episode; Type 2 diabetes mellitus with hyperglycemia, without long-term current use of insulin ([facility]); Gastroesophageal reflux disease without esophagitis; Benign essential HTN; Migraine 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, not intractable Social History Tobacco Use Types Packs/Day Years [...] as of this encounter Visit Diagnoses Diagnosis Current mild episode of major depressive disorder without prior episode Type 2 diabetes mellitus with hyperglycemia, without long-term current use of insulin ([facility]) Gastroesophageal reflux disease without esophagitis Esophageal reflux Benign essential HTN Migraine 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, not intractable documented in this encounter Additional Health Concerns Assessment Noted Time PHQ-9 Depression Total Score: 0 01/28/20 24 12:54 PM EST A Body Mass Index follow-up plan has been documented for the patient 01/28/2024 1:34 PM EST documented as of this encounter Care Teams Starch Mangle Tender Relationship Specialty Start Date End Date Luis Felipe Obando DO [address] [facility], [place] [address] PCP - General Family Medicine 09/14/24 documented as of this encounter
--- OUTSIDE RECORDS SUMMARY | 2024-09-20 16:56 | XMS_ITS | Encounter Summary ---
Author Organization [employer] Address [id number] [address] [place] [address] Care Team Providers Care Scrapper Name Role Phone Luis Felipe Obando Primary Care Provider Encounter Details Date Type Department Care Team (Late st Contact Info) Description 11/15/2022 Orders Only [facility] - Family Medicine [address] [place] [phone] Enedina Villalta, ELECTRO MECHANICAL SOLAR TECHNICIAN-TAKE OUT WAITER [address] [facility] 08/23/24 [place] [phone] Social History Tobacco Use Types Packs/Day Years [...] documented as of this encounter Care Teams Scrapper Relationship Specialty Start Date End Date Luis Felipe Obando DO [address] [facility], [place] [address] PCP - General Family Medicine 09/14/24 documented as of this encounter
--- OUTSIDE RECORDS SUMMARY | 2024-09-20 16:56 | XMS_ITS | Encounter Summary ---
Author Organization [facility] Address [address] [place] [address] Care Team Providers Care Cabin Cleaner Name Role Phone Musa Ben Nugent PA Unavailable [phone] Rich Candelaria DO, Charles P Primary Care Provider + Source Comments In the event this information is protected by the Federal Confidentiality of Alcohol and Drug AbusePatient Records regulations: The Federal rules restrict any use of the information to criminally investigate or prosecute any alcohol or drug abuse patient.[facility] Encounter Details Date Type Department Care Team (Late st Contact Info) Description 06/01/2020 Patient Msg Rheumatology [address] [place] [address] Provider, Ccf Please review that [...] on filedocumented in this encounter Care Teams Cabin Cleaner Relationship Specialty Start Date End Date Robin Villanueva Sr., [address] [facility] [address] [place] [address] PCP - General Family Medicine 07/20/20 Ben Vigil PA [address] [facility] [address] [place] [address] Referring Family Medicine 03/15/20 07/19/20 documented as of this encounter
--- OUTSIDE RECORDS SUMMARY | 2024-09-20 16:56 | XMS_ITS | Encounter Summary ---
Author Organization [facility] Address [id number] [address] [place] [address] Care Team Providers Care Tank Pumper Name Role Phone Luis Felipe Obando DO Primary Care Provider Encounter Details Date Type Department Care Team (Late st Contact Info) Description 07/07/2023 Orders Only [facility] - Family Medicine [address] [place] [phone] External, Scanning Provider Social History Tobacco Use [...] documented as of this encounter Care Teams Tank Pumper Relationship Specialty Start Date End Date Luis Felipe Obando DO [address] [facility], [place] [address] PCP - General Family Medicine 09/14/24 documented as of this encounter
--- OUTSIDE RECORDS SUMMARY | 2024-09-20 16:56 | XMS_ITS | Clinical Summary ---
Author Organization [employer] tem Address [id number] [place] [address] Care Team Providers Care Youth Probation Officer Name Role Phone FranLuis Felipe myrick Primary Care Provider Allergies No known active allergies Medications levocetirizine (XYZAL) 5 mg tabletIndications :Seasonal allergic rhinitis due to pollen Take 1 tablet (5 mg total) by mouth nightly. 90 tablet 1 03/18/19 24 Active dicyclomine (BENTYL) 20 mg tabletIndications :Generalized abdominal pain Take 1 tablet (20 mg total) by mouth every 8 (eight) hours as needed (abdominal cramping). 90 tablet 10/21/19 24 Active flash glucose sensor (FREESTYLE JAYNE 2 SENSOR) kitIndications:No n-insulin dependent type 2 diabetes mellitus ([facility]) 1 Device by miscellaneous route every 14 (fourteen) days. 3 kit 3 11/11/19 24 Active flash glucose scanning reader (FREESTYLE JAYNE 2 READER) miscIndications:N on-insulin dependent type 2 diabetes mellitus ([facility]) 1 each by miscellaneous route in the morning. 1 each 11/11/19 24 Active hydrOXYzine (ATARAX) 25 mg tabletIndications :Other insomnia Take 1 tablet (25 mg total) by mouth nightly as needed for itching. 30 tablet 2 11/12/19 24 Active glimepiride (AMARYL) 4 mg tabletIndications :Type 2 diabetes mellitus with hyperglycemia, without long-term current use of insulin ([facility]) TAKE 1 TABLET BY MOUTH TWICE DAILY (IN THE MORNING and AT BEDTIME) 90 tablet 1 12/24/19 24 Active estradioL (ESTRACE) 0.5 mg tablet Take 1 tablet (0.5 mg total) by mouth. Active HYDROcodone-aceta minophen (NORCO) 5-325 mg per tablet TAKE 1 TABLET BY MOUTH EVERY 6 HOURS NEEDED FOR PAIN up to 3 (THREE) days 12/16/19 24 Active tirzepatide (MOUNJARO) 5 mg/0.5 mL pen injectorIndicatio ns:Type 2 diabetes mellitus with hyperglycemia, without long-term current use of insulin ([facility]) Inject 5 mg under the skin every 7 days. 2 mL 3 01/28/20 24 Active diclofenac (VOLTAREN) 50 mg EC tabletIndications :Arthritis, multiple joint involvement TAKE 1 TABLET BY MOUTH TWICE DAILY (IN THE MORNING and BEFORE bedtime) 180 tablet 1 03/15/19 25 Active venlafaxine XR (EFFEXOR-XR) 150 mg 24 hr capsuleIndication s:Current mild episode of major depressive disorder without prior episode TAKE 1 CAPSULE BY MOUTH IN THE MORNING 90 capsule 1 03/23/19 25 Active blood-glucose sensor (FREESTYLE JAYNE 3 PLUS SENSOR) deviceIndications :Type 2 diabetes mellitus with hyperglycemia, without long-term current use of insulin ([facility]) USE DIRECTED * change EVERY 15 days * 2 each 6 06/22/19 25 Active rosuvastatin (CRESTOR) 20 mg tabletIndications :DM type 2 with diabetic mixed hyperlipidemia ([facility]) TAKE 1 TABLET BY MOUTH ONCE DAILY IN THE MORNING 90 tablet 1 06/22/19 25 Active VRAYLAR 1.5 mg capsuleIndication s:Major depression, chronic TAKE 1 CAPSULE BY MOUTH IN THE MORNING 90 capsule 1 07/27/19 25 Active pioglitazone (ACTOS) 30 mg tabletIndications :Type 2 diabetes mellitus with hyperglycemia, without long-term current use of insulin ([facility]) Take 1 tablet (30 mg total) by mouth in the morning. 90 tablet 09/16/19 25 Active lisinopriL (PRINIVIL,ZESTRIL ) 10 mg tabletIndications :Benign essential HTN Take 1 tablet (10 mg total) by mouth in the morning. 90 tablet 09/16/19 25 Active propranolol LA (INDERAL LA) 80 mg 24 hr capsuleIndication s:Benign essential HTN,Migraine 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, not intractable Take 1 capsule (80 mg total) by mouth every morning. TAKE 1 CAPSULE BY MOUTH IN THE MORNING 90 capsule 1 09/16/19 25 Active famotidine (PEPCID) 40 mg tabletIndications :Gastroesophageal reflux disease without esophagitis Take 1 tablet (40 mg total) by mouth every 12 (twelve) hours. 180 tablet 1 09/16/19 25 Active omeprazole (PriLOSEC) 20 mg capsuleIndication s:Gastroesophagea l reflux disease without esophagitis Take 1 capsule (20 mg total) by mouth in the morning. 90 capsule 1 08/19/19 24 025 Discontin ued(Thera py completed ) lisinopriL (PRINIVIL,ZESTRIL ) 10 mg tabletIndications :Benign essential HTN TAKE 1 TABLET BY MOUTH IN THE MORNING 90 tablet 1 03/15/19 25 025 Discontin ued(Reord er) propranolol LA (INDERAL LA) 80 mg 24 hr capsuleIndication s:Benign essential HTN,Migraine 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, not intractable TAKE 1 CAPSULE BY MOUTH IN THE MORNING 90 capsule 1 03/23/19 25 025 Discontin ued(Reord er) pioglitazone (ACTOS) 30 mg tabletIndications :Type 2 diabetes mellitus with hyperglycemia, without long-term current use of insulin ([facility]) TAKE 1 TABLET BY MOUTH IN THE MORNING 90 tablet 1 03/23/19 25 025 Discontin ued(Reord er) famotidine (PEPCID) 40 mg tabletIndications :Gastroesophageal reflux disease without esophagitis TAKE 1 TABLET BY MOUTH EVERY 12 HOURS 180 tablet 1 04/02/19 025 Discontin ued(Reord er) Active Problems Problem Noted Date Diagnosed Date [...] Encounters Date Type Department Care Team Description 09/15/2024 Refill [facility] [address] [place] [address] Enedina Villalta APRN-AWNING ERECTOR Current mild episode of major depressive disorder without prior episode; Type 2 diabetes mellitus with hyperglycemia, without long-term current use of insulin ([facility]); Gastroesophageal reflux disease without esophagitis; Benign essential HTN; Migraine 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, not intractable 09/14/2024 Refill [facility] [address] [place] [address] Elizabeth Velasquez CMA Type 2 diabetes mellitus with hyperglycemia, without long-term current use of insulin ([facility]); Benign essential HTN; Migraine 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, not intractable; Gastroesophageal reflux disease without esophagitis 07/22/2024 Refill [facility] [address] [place] [address] Enedina Villalta REIMBURSEMENT ANALYST-AWNING ERECTOR Major depression, chronic from Last 3 Months Immunizations Immunization Administration [...] Vaccine (1 of 2) 2016 COVID-19 Vaccine (6 - 2023-2 5 season) 2023 11/09/2021, 06/07/2021, 11/29/2020, Additional [...] Most Recently Relevant to Health Maintenance Insurance [facility] Care Teams Youth Probation Officer Relationship Specialty Start Date End Date Luis Felipe Obando DO [address] [place] [address] PCP - General Family Medicine 09/14/24
[2024-09-20 17:00] VITALS: BP 160/86; PULSE 87; TEMP 36.9; O2SAT 99; BMI 44.3
[2024-09-20 17:15] LABS: Glucose Urine UA NEGATIVE (NEGATIVE)
[2024-09-20] MEDS: PHENAZOPYRIDINE 100 MG TABLET PO (17:20)
[2024-09-20 17:32] LABS: Cast Seen? NONE SEEN #/LPF (NONE SEEN); Crystals Seen? None Seen #/HPF (None Seen); Urine Culture Indicated YES-FRMC
--- NOTE | 2024-09-20 17:37 | ED.GENADUL1 ---
HPI HPI - General Adult General Chief complaint: Urogenital-Female Stated complaint: UTI Time Seen by Provider: 09/20/24 17:05 Source: patient Mode of arrival: walk-in History of Present Illness HPI narrative: 59-year-old female presents here with chief complaint of increased urinary frequency and burning with urination. She denies any vaginal discharge. Denies any concern for STDs. Patient states symptoms began yesterday. She has not followed up with her primary care physician. She is afebrile nontoxic-appearing Related Data Home Medications ?Medication ?Instructions ?Recorded ?Confirmed cetirizine 10 mg tablet 10 mg PO DAILY 07/28/22 09/20/24 famotidine 40 mg tablet 40 mg PO Q12H 07/28/22 09/20/24 glimepiride 4 mg tablet 4 mg PO .TWICE 07/28/22 09/20/24 pioglitazone 30 mg tablet 30 mg PO DAILY 07/28/22 09/20/24 propranolol 80 mg capsule,24 80 mg PO Q24H 07/28/22 09/20/24 hr,extended release venlafaxine 150 mg 150 mg PO DAILY 07/28/22 09/20/24 capsule,extended release 24 hr Previous Rx's ?Medication ?Instructions ?Recorded cephalexin 500 mg capsule 500 mg PO BID 7 days #14 caps 09/20/24 fluconazole 150 mg tablet 150 mg PO QWEEK 14 days #2 tabs 09/20/24 phenazopyridine 200 mg tablet 200 mg PO Q8H 6 doses #6 tabs 09/20/24 (Pyridium) Allergies Allergy/AdvReac Type Severity Reaction Status Date / Time No Known Drug Allergies Allergy Verified 09/20/24 16:58 Opioid HPI Opioid Management Most Recent Opioid Data: Last Pain Scale 4 08/05/24, 16:14 Review of Systems ROS Status of ROS 10 or more systems reviewed and unremarkable except as noted in history and below PFSH PFSH Social History Smoking status: Never smoker Little interest or pleasure in doing things: not at all Feeling down, depressed, or hopeless: not at all Exam Narrative Exam Narrative: All Systems are negative except as noted/marked.All systems reviewed and otherwise negative Nurses note and vital signs reviewed and patient is not hypoxic. General: The patient appears well and in no apparent distress. Patient is resting comfortably on cart. Skin: Warm, dry, no pallor noted. There is no rash noted. Head: Normocephalic, atraumatic Eye: Normal conjunctiva, no drainage, EOMI. PERRL Ears, Nose, Mouth, and Throat: oral mucosa is moist. Nares patent. Mouth without vesicles. Ear canals patent. Tm's without Erythema Cardiovascular: Regular Rate and Rhythm Respiratory: Patient is in no distress, no accessory muscle use, lungs are clear to auscultation, no wheezing, rales or rhonchi Back: non-tender, no CVA tenderness bilaterally to percussion. GI: Normal bowel sounds, no tenderness to palpation, no masses appreciated. No rebound, guarding, or rigidity noted. Musculoskeletal: The patient has no evidence of calf tenderness, no pitting edema, symmetrical pulses noted bilaterally Constitutional Vital Signs, click to edit/add: Last Vital Signs Temp 98.4 F 09/20/24 17:00 Pulse 87 09/20/24 17:00 Resp 16 09/20/24 17:00 BP 160/86 H 09/20/24 17:00 Pulse Ox 99 09/20/24 17:00 O2 Del Method Room Air 09/20/24 17:00 Course Vital Signs Vital signs: Vital Signs Temperature 98.4 F 09/20/24 17:00 Pulse Rate 87 09/20/24 17:00 Respiratory Rate 16 09/20/24 17:00 Blood Pressure 160/86 H 09/20/24 17:00 Pulse Oximetry 99 09/20/24 17:00 Oxygen Delivery Method Room Air 09/20/24 17:00 Temperature 98.4 F 09/20/24 17:00 Pulse Rate 87 09/20/24 17:00 Respiratory Rate 16 09/20/24 17:00 Blood Pressure 160/86 H 09/20/24 17:00 Pulse Oximetry 99 09/20/24 17:00 Oxygen Delivery Method Room Air 09/20/24 17:00 Medical Decision Making [facility] Narrative Medical decision making narrative: 59-year-old female presents here with chief complaint of increased urinary frequency and burning with urination. She denies any vaginal discharge. Denies any concern for STDs. Patient states symptoms began yesterday. She has not followed up with her primary care physician. She is afebrile nontoxic-appearing Urinalysis obtained shows a moderate amount of bacteria and blood in her urine. She will be placed on Keflex, Pyridium. Also requested a prescription of Diflucan due to being on antibiotics. Patient will follow-up primary care physician. Differential Diagnosis Differential Diagnosis: dysuria, uti Lab Data Lab results reviewed: Yes I reviewed the patient's lab results Labs: Lab Results 09/20/24 Range/Units 16:55 Urine Color Yellow (YELLOW) Urine Clarity Sl cloudy (CLEAR) Urine pH 5.5 (5.0-9.0) Ur Specific Todd >=1.030 A (1.005-1.025) Urine Protein Negative (NEG/TRACE) mg/dL Urine Glucose (UA) Negative (NEGATIVE) mg/dL Urine Ketones Negative (NEGATIVE) mg/dL Urine Occult Blood Moderate A (NEGATIVE) Urine Nitrite Negative (NEGATIVE) Urine Bilirubin Negative (NEGATIVE) Urine Urobilinogen 0.2 (0.2-1.0) EU/dL Ur Leukocyte Esterase Negative (NEGATIVE) Urine RBC 0-2 (0-2) #/HPF Urine WBC 2-5 A (NONE SEEN) #/HPF Ur Squamous Epith Cells Many A (NONE/RARE) #/LPF Urine Crystals None seen (None Seen) #/HPF Urine Bacteria Large A (NONE SEEN) #/HPF Urine Casts None seen (NONE SEEN) #/LPF Urine Mucus Small A (NONE SEEN) Ur Culture Indicated? Yes-[facility] [place] Discharge Chief Complaint: Urogenital-Female Clinical Impression: Urinary tract infection Patient Disposition: Home, Self-Care Condition: Good Prescriptions / Home Meds: New cephalexin 500 mg capsule 500 mg PO BID 7 Days Qty: 14 0RF phenazopyridine [Pyridium] 200 mg tablet 200 mg PO Q8H Qty: 6 0RF fluconazole 150 mg tablet 150 mg PO QWEEK 14 Days Qty: 2 0RF No Action cetirizine 10 mg tablet 10 mg PO DAILY famotidine 40 mg tablet 40 mg PO Q12H glimepiride 4 mg tablet 4 mg PO .TWICE pioglitazone 30 mg tablet 30 mg PO DAILY propranolol 80 mg capsule,extended release 24 hr 80 mg PO Q24H venlafaxine 150 mg capsule,extended release 24hr 150 mg PO DAILY Print Language: Egyptian Instructions: Urinary Tract Infection in Women (DC) Referrals: IRIS KENNEDY [Primary Care Provider, Unknown] - 1 week
== END 2024-09-20 18:12 | disposition home or self-care (01) ==
PROVIDERS: Emergency Provider Emergency Medicine; PCP Nurse Practitioner
DX: N39.0 Urinary tract infection, site not specified (principal)
CPT/HCPCS: 81001; 87086; 87088; 87186; 99283

== ENCOUNTER 2024-10-28 17:12 | Emergency (ER) | payer MEDICAID, SELFPAY ==
[2024-10-28 17:15] VITALS: BP 146/92; PULSE 67; TEMP 36.8; O2SAT 100; BMI 46.4
--- OUTSIDE RECORDS SUMMARY | 2024-10-28 17:28 | XMS_ITS | CCD ---
Author Organization [facility] Care Team Providers Care Speed Belt Sander Name Role Phone Anil Candelaria, Robin Bray [...] STACIE, BRY Consulting Unavailable Francia Carlos Unavailable VILLALTA, IRIS J Referring Unavailable VILLALTA, [...] Referring Unavailable IRIS VILLALTA Primary Care Unavailable Iris Logan Unavailable Luis Felipe Obando MD Primary Care Provider JR. JAZMÍN, ANGEL Tong Attending Unavaila kellen NOYOLA JR., ANGEL Tong Attending Unavaila kellen NOYOLA JR., ANGEL Tong Referring Unavaila MARLENE Kevin Attending Unavailable Pawan ASSISTANT DEAN-CUSTOMER OPERATIONS REPRESENTATIVE, Iris Nugent Primary Care Provid er Iris Duvall Primary Care Provider Franck Hercules Attending Provider Hortencia Plaza MD Attending Provider Pawan ASSISTANT DEAN-Iris BRENNER Primary Care Provid er Luis Felipe Obando DO Primary Care Provider Yael Rhodes Attending Provider Elia Jensen DO Attending Provider [phone] Elia Jensen Attending Unavailable Elia Jensen Admitting Unavailable Yael Rhodes Attending Unavailable Yael Rhodes Admitting Unavailable Hortencia Plaza Attending Unavailable Hortencia Plaza Admitting Unavailable Franck Hercules Attending Unavailable Franck Hercules Admitting Unavailable Iris Villalta Primary Care Unavailable Medications Current Medications Medication Drug Class(es) Dates Sig (Normalized) Sig (Original) acetaminophen 325 mg / HYDROcodone bitartrate 5 mg oral tablet (11 sources) Opioid Agonist Start: 12-16-2023 take 1 tablet by mouth every six hours as needed for pain HYDROcodone-acetam inophen (NORCO) 5-325 mg per tablet TAKE 1 TABLET BY MOUTH EVERY 6 HOURS NEEDED FOR PAIN up to 3 (THREE) days 12/16/2023 Active amoxicillin 875 mg / clavulanate 125 mg oral tablet (6 sources) Penicillin-class Antibacterial Start: 07-09-2023 End: 08-19-2023 take 1 tablet by mouth twice daily azithromycin 250 mg oral tablet (2 sources) Macrolide Antimicrobial Start: 01-14-2023 Azithromycin 250 MG 2 tablet on the first day, then 1 tablet daily for 4 days Orally Once a day for 5 day(s) Dec, Active blood-glucose sensor (FREESTYLE WALDO 3 PLUS SENSOR) device (5 sources) Start: 06-21-2024 blood-glucose sensor (FREESTYLE WALDO 3 PLUS SENSOR) device Indications: Type 2 diabetes mellitus with hyperglycemia, without long-term current use of insulin ([facility] [place]) USE DIRECTED * change EVERY 15 days * 2 each 06/21/2024 Active blood-glucose sensor (FREESTYLE WALDO 3 SENSOR PLUS) device (10 sources) Start: 11-18-2023 End: 06-21-2024 blood-glucose sensor (FREESTYLE WALDO 3 SENSOR PLUS) device Indications: Type 2 diabetes mellitus with hyperglycemia, without long-term current use of insulin ([facility]) 1 Device by miscellaneous route See Admin Instructions. Change every 15 days 2 each 6 11/18/2023 06/21/2024 Discontinued Start: 11-18-2023 blood-glucose sensor (FREESTYLE WALDO 3 SENSOR PLUS) device Indications: Type 2 diabetes mellitus with hyperglycemia, without long-term current use of insulin ([facility]) 1 Device by miscellaneous route See Admin Instructions. Change every 15 days 2 each 6 11/18/2023 Active cariprazine 1.5 mg oral capsule (20 sources) Atypical Antipsychotic Start: 10-21-2023 End: 07-26-2024 take 1 capsule by mouth in the morning VRAYLAR 1.5 mg capsule Indications: Major depression, chronic TAKE 1 CAPSULE BY MOUTH IN THE MORNING 90 capsule 1 07/26/2024 Active Continuous Blood Gluc Sensor (FreeStyle Waldo 3 Sensor) misc (4 sources) Start: 11-12-2022 Continuous Blood Gluc Sensor (FreeStyle Waldo 3 Sensor) misc USE DIRECTED; change EVERY 2 (TWO) weeks 11/12/2022 Active dextromethorphan hydrobromide 1.5 mg/ml / pyrilamine maleate 1.5 mg/ml oral solution (2 sources) Uncompetitive Q-wujfns-C-aspartat e Receptor Antagonist, Sigma-1 Agonist Start: 01-12-2023 take 10 mL by mouth every eight hours [place] DM 7.5-7.5 MG/5ML 10 mL Orally every 8 hours for 5 days Dec, Active diclofenac sodium 50 mg delayed release oral tablet (16 sources) Nonsteroidal Anti-inflammatory Drug Start: 11-18-2023 End: 03-15-2024 take 1 tablet by mouth twice daily at bedtime diclofenac (VOLTAREN) 50 mg EC tablet Indications: Arthritis, multiple joint involvement TAKE 1 TABLET BY MOUTH TWICE DAILY (IN THE MORNING and BEFORE bedtime) 180 tablet 1 03/15/2024 Active Start: 02-08-2021 diclofenac (VO LTAREN) 1 [...] 32gm/day dicyclomine hydrochloride 20 mg oral tablet (20 sources) Anticholinergic Start: 10-21-19 take 1 tablet by mouth every eight hours as needed dicyclomine (BENTYL) 20 mg tablet Indications: Generalized abdominal pain Take 1 tablet (20 mg total) by mouth every 8 (eight) hours as needed (abdominal cramping). 90 tablet 10/21/2023 Active estradiol 0.5 mg oral tablet (13 sources) Estrogen estradioL (ESTRA CE) 0.5 mg tablet Take 1 tablet (0.5 mg total) by mouth. Active Estradiol Not-Ta rob famotidine 40 mg oral tablet (20 sources) Histamine-2 Receptor Antagonist Start: 09-22-2024 take 1 tablet by mouth every twelve hours famotidine (PEPCID) 40 mg tablet Indications: Gastroesophageal reflux disease without esophagitis TAKE 1 TABLET BY MOUTH EVERY 12 HOURS 180 tablet 1 09/22/2024 Active Start: 09-15-2024 End: 09-22-2024 take 1 tablet by mouth once famotidine (PEPCID) 40 mg tablet Indications: Gastroesophageal reflux disease without esophagitis Take 1 tablet (40 mg total) by mouth every 12 (twelve) hours. 180 tablet 1 09/15/2024 09/22/2024 Discontinued Start: 04-02-2024 End: 09-14-2024 take 1 tablet by mouth every twelve hours famotidine (PEPCID) 40 mg tablet Indications: Gastroesophageal reflux disease without esophagitis TAKE 1 TABLET BY MOUTH EVERY 12 HOURS 180 tablet 1 04/02/2024 09/14/2024 Discontinued (Reorder) Start: 09-10-2022 End: 04-02-2024 take 1 tablet by mouth once famotidine (PEPCID) 40 mg tablet Indications: Gastroesophageal reflux disease without esophagitis Take 1 tablet (40 mg total) by mouth every 12 (twelve) hours. 180 tablet 1 08/19/2023 Active Start: 07-10-2020 take 1 tablet by angie th twice daily famotidine (PEPCID) 40 mg tablet Take 40 mg by mouth twice daily. 0 07/10/2020 Active famotidine (Pepc id) 40 MG tablet every 12 (twelve) hours. Active Comment on above: Take 40 mg by mouth twice daily. Fezolinetant (Veozah) 45 MG tablet (3 sources) Start: 4 take 1 tablet by mouth once daily Fezolinetant (Veozah) 45 MG tablet Indications: Hot flash, menopausal Take 45 mg by mouth Daily 30 tablet 3 12/22/2023 Active flash glucose scanning reader (FREESTYLE WALDO 2 READER) [facility] (18 sources) Start: 4 flash glucose scanning reader (FREESTYLE WALDO 2 READER) [facility] Indications: Non-insulin dependent type 2 diabetes mellitus (CMS-HCC) 1 each by miscellaneous route in the morning. 1 each 11/11/2023 Active flash glucose sensor (FREESTYLE WALDO 2 SENSOR) kit (18 sources) Start: 4 flash glucose sensor (FREESTYLE WALDO 2 SENSOR) kit Indications: Non-insulin dependent type 2 diabetes mellitus (CMS-HCC) 1 Device by miscellaneous route every 14 (fourteen) days. 3 kit 3 11/11/2023 Active fluconazole 150 mg oral tablet (7 sources) Azole Antifungal Start: 4 End: 4 take 1 tablet by mouth in the morning fluconazole (DIFLUCAN) 150 mg tablet Indications: Vaginal kirit Take 1 tablet (150 mg total) by mouth in the morning for 2 doses. 2 tablet 11/04/2023 11/06/2023 Active Start: 11-04-2023 End: 11-04-2023 take 1 tablet by mouth once fluconazole (DIFLUCAN) 150 mg tablet Indications: Vaginal kirit Take 1 tablet (150 mg total) by mouth once for 1 dose. 1 tablet 11/04/2023 11/04/2023 Discontinued (Reorder) Start: 09-16-2023 End: 09-16-2023 take 1 tablet by mouth once fluconazole (DIFLUCAN) 150 mg tablet Indications: Vaginal kirit Take 1 tablet (150 mg total) by mouth once for 1 dose. 1 tablet 09/16/2023 09/16/2023 Active Start: 07-24-2023 End: 07-26-2023 take 1 tablet by mouth in the morning fluconazole (DIFLUCAN) 150 mg tablet Indications: Vaginal kirit Take 1 tablet (150 mg total) by mouth in the morning for 2 doses. 2 tablet 07/24/2023 07/26/2023 Active Start: 06-04-2023 End: 06-06-2023 take 1 tablet by mouth in the morning fluconazole (DIFLUCAN) 150 mg tablet Indications: Vaginal kirit Take 1 tablet (150 mg total) by mouth in the morning for 2 days. 2 tablet 06/04/2023 06/06/2023 Active Start: 05-19-2023 End: 05-22-2023 take 1 tablet by mouth in the morning fluconazole (DIFLUCAN) 150 mg tablet Indications: Kirit infection of flexural skin Take 1 tablet (150 mg total) by mouth in the morning for 3 doses. 3 tablet 0 05/19/2023 05/22/2023 Active glimepiride 4 mg oral tablet (20 sources) Sulfonylurea Start: 09-10-2022 End: 12-24-2023 take 1 tablet by mouth twice daily at bedtime glimepiride (AMARYL) 4 mg tablet Indications: Type 2 diabetes mellitus with hyperglycemia, without long-term current use of insulin ([facility]) TAKE 1 TABLET BY MOUTH TWICE DAILY (IN THE MORNING and AT BEDTIME) 90 tablet 1 12/24/2023 Active glimepiride ([facility]) 4 MG tablet 1 (one) time each day at the same time. Active Comment on above: 1 tablet with breakf ast or the first main meal of the day hydrOXYzine hydrochloride 25 mg oral tablet (15 sources) Antihistamine Start: take 1 tablet by mouth once daily as needed hydrOXYzine (ATARAX) 25 mg tablet Indications: Other insomnia Take 1 tablet (25 mg total) by mouth nightly as needed for itching. 30 tablet 2 11/12/2023 Active ketorolac tromethamine 10 mg oral tablet (3 sources) Nonsteroidal Anti-inflammatory Drug, Cyclooxygenase Inhibitor Start: End: take 1 tablet by mouth three times daily as needed for pain ketorolac (TORADOL) 10 mg tablet Take 1 tablet (10 mg total) by mouth 3 (three) times a day as needed for pain. 12/16/2023 03/15/2024 Discontinued (Therapy completed) levocetirizine dihydrochloride 5 mg oral tablet (20 sources) Histamine-1 Receptor Antagonist Start: take 1 tablet by mouth once daily levocetirizine (XYZAL) 5 mg tablet Indications: Seasonal allergic rhinitis due to pollen Take 1 tablet (5 mg total) by mouth nightly. 90 tablet 1 03/18/2023 Active lisinopril 10 mg oral tablet (18 sources) Angiotensin Converting Enzyme Inhibitor Start: take 1 tablet by mouth in the morning lisinopriL (PRINIVIL,ZESTRIL) 10 mg tablet Indications: Benign essential HTN Take 1 tablet (10 mg total) by mouth in the morning. 90 tablet 09/15/2024 Active Start: 11-12-2023 End: 09-14-2024 take 1 tablet by mouth in the morning lisinopriL (PRINIVIL,ZESTRIL) 10 mg tablet Indications: Benign essential HTN TAKE 1 TABLET BY MOUTH IN THE MORNING 90 tablet 1 03/15/2024 09/14/2024 Discontinued (Reorder) metroNIDAZOLE 500 mg oral tablet (1 source) Nitroimidazole Antimicrobial Start: 09-16-2023 End: 09-23-2023 take 1 tablet by mouth at bedtime metroNIDAZOLE (FlagyL) 500 mg tablet Indications: Bacterial vaginosis Take 1 tablet (500 mg total) by mouth in the morning and at bedtime for 7 days. 14 tablet 09/16/2023 09/23/2023 Active omeprazole 20 mg delayed release oral capsule (20 sources) Proton Pump Inhibitor Start: 09-10-2022 End: 09-15-2024 take 1 capsule by mouth in the morning omeprazole (PriLOSEC) 20 mg capsule Indications: Gastroesophageal reflux disease without esophagitis Take 1 capsule (20 mg total) by mouth in the morning. 90 capsule 1 08/19/2023 09/15/2024 Discontinued (Therapy completed) pioglitazone 30 mg oral tablet (20 sources) Peroxisome Proliferator Receptor alpha Agonist, Peroxisome Proliferator Receptor gamma Agonist, Thiazolidinedione Start: 09-15-2024 End: 09-22-2024 take 1 tablet by mouth in the morning pioglitazone (ACTOS) 30 mg tablet Indications: Type 2 diabetes mellitus with hyperglycemia, without long-term current use of insulin ([facility]) TAKE 1 TABLET BY MOUTH IN THE MORNING 90 tablet 09/22/2024 Active Start: 09-10-2022 End: 09-14-2024 take 1 tablet by mouth in the morning pioglitazone (ACTOS) 30 mg tablet Indications: Type 2 diabetes mellitus with hyperglycemia, without long-term current use of insulin (CMS-HCC) TAKE 1 TABLET BY MOUTH IN THE MORNING 90 tablet 1 03/23/2024 09/14/2024 Discontinued (Reorder) take 1 tablet by th once daily pioglitazone (Actos) 45 MG tablet Take 45 mg by mouth Daily Active pioglitazone (Ac tos) 15 MG tablet Pioglitazone HCl Active 24 hr propranolol hydrochloride 80 mg extended release oral capsule (20 sources) beta-Adrenergic Nikko Start: 09-22-2024 take 1 capsule by mouth every twenty-four hours in the morning propranolol LA (INDERAL LA) 80 mg 24 hr capsule Indications: Benign essential HTN , Migraine 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, not intractable TAKE 1 CAPSULE BY MOUTH IN THE MORNING 90 capsule 1 09/22/2024 Active Start: 09-15-2024 End: 09-22-2024 take 1 capsule by mouth once daily in the morning propranolol LA (INDERAL LA) 80 mg 24 hr capsule Indications: Benign essential HTN , Migraine 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, not intractable Take 1 capsule (80 mg total) by mouth every morning. TAKE 1 CAPSULE BY MOUTH IN THE MORNING 90 capsule 1 09/15/2024 09/22/2024 Discontinued Start: 08-19-2023 End: 09-14-2024 take 1 capsule by mouth every twenty-four hours in the morning propranolol LA (INDERAL LA) 80 mg 24 hr capsule Indications: Benign essential HTN , Migraine 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, not intractable TAKE 1 CAPSULE BY MOUTH IN THE MORNING 90 capsule 1 03/23/2024 09/14/2024 Discontinued (Reorder) Start: 03-30-2023 End: 08-19-2023 take 1 capsule by mouth once daily propranolol LA (INDERAL LA) 80 mg 24 hr capsule Indications: Benign essential HTN , Migraine 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, not intractable TAKE 1 CAPSULE BY MOUTH DAILY 30 capsule 1 03/30/2023 08/19/2023 Discontinued (Reorder) Start: 03-18-2023 End: 03-30-2023 take 1 capsule [...] (Reorder) Start: 06-27-2020 take 1 capsule by [facility] once daily propranolol ER (INDERAL LA) 80 mg 24 hr capsule Take 80 mg by mouth once daily. 0 06/27/2020 Active propranolol (Ind eral) 80 MG tablet 1 (one) time each day at the same time. Active Propranolol HCl Active Comment on above: Take 80 mg by mouth once daily. rosuvastatin calcium 20 mg oral tablet (11 sources) HMG-CoA Reductase Inhibitor Start: End: take 1 tablet by mouth once daily in the morning rosuvastatin (CRESTOR) 20 mg tablet Indications: DM type 2 with diabetic mixed hyperlipidemia (CMS-HCC) TAKE 1 TABLET BY MOUTH ONCE DAILY IN THE MORNING 90 tablet 1 06/21/2024 Active sulfamethoxazole 800 mg / trimethoprim 160 mg oral tablet (2 sources) Dihydrofolate Reductase Inhibitor Antibacterial, Sulfonamide Antimicrobial Start: End: take 1 tablet by mouth once in the morning sulfamethoxazole-trim ethoprim (BACTRIM DS) 800-160 mg per tablet Indications: Acute cystitis without hematuria Take 1 tablet by mouth in the morning and 1 tablet before bedtime. Do all this for 7 days. Take with food. Increase fluids. 14 tablet 05/29/2023 06/05/2023 Active tirzepatide (MOUNJARO) 5 mg/0.5 mL pen injector (13 sources) Start: tirzepatide (MOUNJARO) 5 mg/0.5 mL pen injector Indications: Type 2 diabetes mellitus with hyperglycemia, without long-term current use of insulin ([facility] [place]) Inject 5 mg under the skin every 7 days. 2 mL 3 01/28/2024 Active Start: 09-10-2022 End: 03-18-2023 tirzepatide (MOUNJARO) 5 mg/ 0.5 mL pen injector Indications: Type 2 diabetes mellitus with hyperglycemia, without long-term current use of insulin ([facility]) Inject 5 mg under the skin every 7 days. 2 mL 0 09/10/2022 03/18/2023 Discontinued (Cost of medication) Start: 09-10-2022 tirzepatide (M OUNJARO) 5 mg/0.5 mL pen injector Indications: Type 2 diabetes mellitus with hyperglycemia, without long-term current use of insulin ([facility] [place]) Inject 5 mg under the skin every 7 days. 2 mL 0 09/10/2022 Active 24 hr venlafaxine 150 mg extended release oral capsule (20 sources) Serotonin and Norepinephrine Reuptake Inhibitor Start: 08-19-2023 End: 09-22-2024 take 1 capsule by mouth every twenty-four hours in the morning venlafaxine XR (EFFEXOR-XR) 150 mg 24 hr capsule Indications: Current mild episode of major depressive disorder without prior episode TAKE 1 CAPSULE BY MOUTH IN THE MORNING 90 capsule 1 09/22/2024 Active Start: 03-30-2023 End: 08-19-2023 take 1 capsule by mouth once daily venlafaxine XR (EFFEXOR-XR) 150 mg 24 hr capsule Indications: Current mild episode of major depressive disorder without prior episode (CMS-HCC) TAKE 1 CAPSULE BY MOUTH DAILY 30 capsule 1 03/30/2023 08/19/2023 Discontinued (Reorder) Start: 03-18-2023 End: 03-30-2023 take 1 capsule [...] Drug Class(es) Dates Sig (Normalized) Sig (Original) [id number] 200 actuat albuterol 0.09 mg/actuat metered dose inhaler (8 sources) beta2-Adrenergic Agonist Start: 08-28-2022 End: 07-09-2023 take 2 puff(s) by inhalation every six hours as needed VENTOLIN HFA 90 mcg/actuation inhaler Inhale 2 puffs every 6 (six) hours as needed. 08/28/2022 07/09/2023 Discontinued (Therapy completed) ARIPiprazole 5 mg oral tablet (1 source) Atypical Antipsychotic Start: 02-06-2021 ARIPiprazole (ABILIFY) 5 mg tablet betamethasone 0.5 mg/ml / clotrimazole 10 mg/ml topical cream (5 sources) Azole Antifungal, Corticosteroid Start: 05-19-2023 End: 07-09-2023 clotrimazole-beta methasone (LOTRISONE) cream Indications: Kirit infection of flexural skin Apply 1 Application topically in the morning and 1 Application before bedtime. 15 g 05/19/2023 07/09/2023 Discontinued (Therapy completed) blood-glucose sensor (FREESTYLE WALDO 3 SENSOR) device (20 sources) Start: 11-11-2023 End: 11-18-2023 blood-glucose sensor (FREESTYLE WALDO 3 SENSOR) device Indications: Type 2 diabetes mellitus with hyperglycemia, without long-term current use of insulin (CMS-HCC) USE DIRECTED, change EVERY 2 (TWO) weeks 3 each 6 11/11/2023 11/18/2023 Discontinued Start: 11-11-2023 blood-glucose sensor (FREESTYLE WALDO 3 SENSOR) device Indications: Type 2 diabetes mellitus with hyperglycemia, without long-term current use of insulin (CMS-HCC) USE DIRECTED, change EVERY 2 (TWO) weeks 3 each 6 11/11/2023 Active Start: 03-18-2023 End: 11-11-2023 blood-glucose sensor (FREEST YLE WALDO 3 SENSOR) device Indications: Type 2 diabetes mellitus with hyperglycemia, without long-term current use of insulin (CMS-HCC) USE DIRECTED; change EVERY 2 (TWO) weeks 6 each 2 03/18/2023 11/11/2023 Discontinued Start: 03-18-2023 blood-glucose sensor (FREESTYLE WALDO 3 SENSOR) device Indications: Type 2 diabetes mellitus with hyperglycemia, without long-term current use of insulin (CMS-HCC) USE DIRECTED; change EVERY 2 (TWO) weeks 6 each 2 03/18/2023 Active Start: 09-25-2022 End: 03-18-2023 blood-glucose sensor (FREEST YLE WALDO 3 SENSOR) device Indications: Type 2 diabetes mellitus with hyperglycemia, without long-term current use of insulin (CMS-HCC) USE DIRECTED; change EVERY 2 (TWO) weeks 2 each 09/25/2022 03/18/2023 Discontinued (Reorder) Start: 09-25-2022 blood-glucose sensor (FREESTYLE WALDO 3 SENSOR) device Indications: Type 2 diabetes mellitus with hyperglycemia, without long-term current use of insulin (CMS-HCC) USE DIRECTED; change EVERY 2 (TWO) weeks 2 each 5 09/25/2022 Active cetirizine hydrochloride 10 mg oral tablet (2 sources) Histamine-1 Receptor Antagonist Start: 09-10-2022 End: 03-18-2023 take 1 tablet by mouth in the morning cetirizine (ZyrTEC) 10 mg tablet Indications: Seasonal allergic rhinitis due to pollen Take 1 tablet (10 mg total) by mouth in the morning. 90 tablet 1 09/10/2022 03/18/2023 Discontinued (Therapy completed) codeine phosphate 2 mg/ml / guaiFENesin 20 mg/ml oral solution (2 sources) Opioid Agonist Start: 03-20-2017 take 5 mL by mouth every four hours as needed guaiFENesin-Codeine 100-10 MG/5ML 5 ml as needed Orally every [address] OR OPERATE MACHINERY Feb, Not-Taking 24 hr desvenlafaxine succinate 100 mg extended release oral tablet (1 source) Serotonin and Norepinephrine Reuptake Inhibitor Start: 05-07-2018 desvenlafaxine ER (PRISTIQ) 100 mg 24 hr tablet hydroxychloroquine sulfate 200 mg oral tablet (1 source) Antimalarial, Antirheumatic Agent Start: 02-08-2021 hydrOXYchloroQUINE (PLAQUENIL) 200 mg tablet Indications: Ulnar [...] sources) Serotonin and Norepinephrine Reuptake Inhibitor Start: 09-10-2022 End: 03-18-2023 take 2 capsules by mouth every twenty-four [...] tablet (1 source) Nonsteroidal Anti-inflammatory Drug Start: 12-20-2021 take 1 tablet by mouth twice daily as needed nabumetone (RELAFEN) 500 mg tablet Indications: Secondary osteoarthritis of multiple sites Take 1 tablet by mouth twice daily as needed. 60 tablet 3 02/12/2021 Active Comment on above: Take 1 tablet by angie twice daily as needed. ondansetron 4 mg disintegrating oral tablet (5 sources) Serotonin-3 Receptor Antagonist Start: 07-05-2023 End: 07-24-2023 ondansetron ODT (ZOFRAN ODT) 4 mg disintegrating tablet 07/05/2023 07/24/2023 Discontinued QUEtiapine (2 sources) Atypical Antipsychotic SEROquel Not-Taking Problems Active Problems Problem Classification Problem Date Documented Da te Episodic/Chronic Abdominal pain (4 sources) Generalized abdominal pain; Translations: [Abdominal pain] Onset: 10-21-2023 07-09-2023 Episodic Anxiety disorders (1 source) Anxiety Onset: 11-12-2023 Chronic Bacterial infection; unspecified site (1 source) Other specified bacterial agents as the cause of diseases classified elsewhere; Translations: [Other specified bacterial agents as the cause of diseases classified elsewhere] Onset: 09-16-2023 Episodic Diabetes mellitus with complications (16 sources) Type 2 diabetes mellitus with hyperglycemia; Translations: [Hyperglycemia due to type 2 diabetes mellitus] Onset: 03-18-2023 03-23-2024 Chronic Diabetes mellitus without complication (2 sources) Diabetes mellitus; Translations: [Type 2 diabetes mellitus] Onset: 03-18-2023 11-11-2023 Chronic Esophageal disorders (7 sources) Gastro-esophageal reflux disease without esophagitis; Translations: [Gastroesophageal reflux disease without esophagitis] Onset: 05-09-2021 04-01-2024 Chronic Essential hypertension (10 sources) Essential (primary) hypertension; Translations: [Benign essential hypertension] Onset: 08-19-2023 03-15-2024 Chronic Headache; including migraine (7 sources) Migraine without aura, not intractable, without status migrainosus; Translations: [Migraine without aura, not refractory ] Onset: 08-19-2023 03-23-2024 Chronic Headache; including migraine (1 source) Headache Onset: 11-12-2023 Episodic Inflammatory diseases of female pelvic organs (2 sources) Acute vaginitis; Translations: [Bacterial vaginosis] Onset: 09-16-2023 09-16-2023 Episodic Joint disorders and dislocations; trauma-related (20 sources) Articular cartilage disorder of shoulder region; Translations: [Other articular cartilage disorders, left shoulder] Onset: 12-22-2020 07-11-2022 Chronic Menopausal disorders (4 sources) Menopausal flushing; Translations: [Menopausal and female climacteric states] 12-22-2023 Chronic Mood disorders (11 sources) Major depressive disorder, single episode, unspecified; Translations: [Major depressive disorder, single episode, mild] Onset: 08-19-2023 03-23-2024 Chronic Nutritional deficiencies (2 sources) Vitamin D deficiency; Translations: [Vitamin D deficiency, unspecified] 12-22-2023 Chronic Osteoarthritis (20 sources) Degenerative joint disease involving multiple joints; 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] Onset: 07-20-2020 07-20-2020 Chronic Other aftercare (1 source) Other assisted (current) drug therapy; Translations: [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] Onset: 02-26-2022 Episodic Other gastrointestinal disorders (1 source) Diarrhea Onset: 10-21-2023 Episodic Other non-traumatic joint disorders (4 sources) Other specific joint derangements of right shoulder, not elsewhere classified; Translations: [OTH SPEC JOINT DERANG RT SHLDR NEC] Onset: 05-03-2021 Chronic Other non-traumatic joint disorders (1 source) Arthropathy, unspecified; Translations: [Arthropathy, unspecified] Onset: 11-18-2023 Chronic Other non-traumatic joint disorders (20 sources) Derangement of right shoulder joint; Translations: [Other specific joint derangements of right shoulder, not elsewhere classified] Onset: 04-02-2021 07-11-2022 Chronic Other non-traumatic joint disorders (2 sources) Arthropathy of multiple joints; Translations: [Arthropathy, unspecified] 03-15-2024 Chronic Other screening for suspected conditions (not mental disorders or infectious disease) (4 sources) Elevated C-reactive protein; Translations: [Elevated C-reactive protein (CRP)] Onset: 07-21-2020 07-21-2020 Episodic Other skin disorders (1 source) Acne vulgaris; Translations: [Acne vulgaris] Onset: 09-16-2023 Episodic Other upper respiratory disease (1 source) Allergic rhinitis due to pollen; Translations: [Allergic rhinitis due to pollen] Onset: 03-18-2023 Chronic Other upper respiratory disease (1 source) Allergic rhinitis due to pollen; Translations: [Allergic rhinitis due to pollen] 03-18-2023 Chronic Other upper respiratory infections (2 sources) Acute upper respiratory infection, unspecified; Translations: [ACUTE UP RESPIRATORY INFECTION UNS] Onset: 02-26-2022 Episodic Pneumonia (except that caused by tuberculosis or sexually transmitted disease) (3 sources) Infective pneumonia; Translations: [Pneumonia, unspecified organism] 07-22-2023 Episodic Residual codes; unclassified (1 source) Other insomnia; Translations: [Other insomnia] Onset: 11-12-2023 Chronic Residual codes; unclassified (1 source) Insomnia; Translations: [Other insomnia] 11-12-2023 Chronic Residual codes; unclassified (2 sources) [...] source) Rash Onset: 05-19-2023 Urinary tract infections (9 sources) Acute cystitis without hematuria; Translations: [Urinary tract infectious disease] Onset: 05-29-2023 08-19-2023 Episodic Past or Other Problems Problem Classification Problem Date Documented Date Episodic/Chronic E Codes: Natural/environment (1 source) Overexertion from strenuous movement or load, initial encounter; Translations: [OVEREXERT STRENUOUS MVMT/LOAD INIT] Onset: 05-09-2021 Episodic Fluid and electrolyte disorders (1 source) Dehydration; Translations: [Dehydration] 07-09-2023 Episodic Genitourinary symptoms and ill-defined conditions (3 sources) Dysuria; Translations: [Dysuria] Onset: 05-29-2023 09-16-2023 Episodic Mood disorders (20 sources) Mood disorders Onset: 11-18-2023 Resolved: 01-28-2024 01-28-2024 Mycoses (7 sources) Candidiasis of vagina; Translations: [Vaginal kirit] 07-24-2023 Episodic Nausea and vomiting (1 source) Bilious vomiting; Translations: [Bilious vomiting] 07-09-2023 Episodic Other acquired deformities (20 sources) Ulnar drift; Translations: [Other deformity of right finger(s)] Onset: 07-21-2020 07-21-2020 Episodic Other aftercare (1 source) Drug therapy finding; Translations: [Other ocean transportation intermediary (current) drug therapy] Onset: 02-08-2021 02-08-2021 Episodic [...] 07-20-2020 07-20-2020 Episodic Other non-traumatic joint disorders (20 sources) Pain in right knee; Translations: [Pain in joint, lower leg] Onset: 07-20-2020 07-20-2020 Episodic Other non-traumatic joint disorders (20 sources) Chronic pain of right upper limb; Translations: [Pain in right elbow] Onset: 07-20-2020 07-20-2020 Episodic Other non-traumatic joint disorders (1 source) Bilateral chronic pain of upper limbs; Translations: [Pain in right shoulder] Onset: 02-08-2021 02-08-2021 Episodic Other non-traumatic joint disorders (3 sources) Pain in right hip; Translations: [PAIN IN RIGHT HIP] Onset: 05-08-2021 Episodic Other non-traumatic joint disorders (4 sources) Pain in elbow; Translations: [Pain in right elbow] Onset: 07-11-2022 07-11-2022 Episodic Other non-traumatic joint disorders (20 sources) Arthralgia of the upper arm; Translations: [Pain in unspecified elbow] Onset: 02-11-2020 09-10-2022 Episodic Other non-traumatic joint disorders (5 sources) Pain in upper arm; Translations: [Pain in unspecified elbow] Onset: 02-11-2020 09-10-2022 Episodic Other nutritional; endocrine; and metabolic disorders (1 source) Unintentional weight loss; Translations: [Abnormal weight loss] 07-09-2023 Episodic Residual codes; unclassified (1 source) Acquired [...] source) Suspected COVID-19 virus infection Z20.822 Unclassified (20 sources) Onset: 11-18-2023 Resolved: 01-28-2024 01-28-2024 Results Test Name Value Interpretation Reference Range Facility Urine Cultureon 09-20-2024 Bacteria identified Cx Nom (U) ORGANISM: Klebsiella pneumoniae (O:KLEPNE) [place] Count >100,000 Aerobic DENZEL Charge (NMIC56) --- SUSCEPTIBILITY -- ORGANISM: O:KLEPNE ANTIBIOTIC INTERPRETATION DENZEL Amikacin S <16 Amoxacillin/K Clavulanate S <8 Ampicillin/Sulbactam S <4 Aztreonam S <4 Cefazolin S <2 Cefepime S <2 Ceftazidime S <1 Ceftazidime/Avibactam S <4 Ceftolozane/Tazobactam S <2 Ceftriaxone S <1 Cefuroxime S 8 Ciprofloxacin S <0.25 Ertapenem S <0.5 Gentamicin S <2 Levofloxacin S <0.5 Meropenem S <1 Meropenem/Vaborbactam S <2 Nitrofurantoin I 64 Piperacillin/Tazobacta m S <8 Tetracycline S <4 Tigecycline S <2 Tobramycin S <2 Trimethoprim/Sulfameth oxazole S <0.5 S = SUSCEPTIBLE I = INTERMEDIATE R = RESISTANT BLANK = DATA NOT AVAILABLE, OR DRUG NOT ADVISABLE OR TESTED R* = RESISTANCE DUE TO EXTENDED SPECTRUM BETA-LACTAMASES ESBL = EXTENDED SPECTRUM BETA-LACTAMASE TFG = THYMIDINE-DEPENDENT STRAIN MANPREET = BETA-LACTAMASE POSITIVE IB = INDUCIBLE BETA-LACTAMASE. APPEARS IN PLACE OF 'S' WITH SPECIES KNOWN TO POSSESS INDUCIBLE BETA-LACTAMASES. POTENTIALLY THEY MAY BECOME RESISTANT TO ALL B-LACTAM DRUGS. PERFORMED BY: [facility] [address] [place] [address] PATHOLOGIST COMPUTER PROJECT MANAGER GABRIELLE SORIANO M.D. Normal [facility] Comment on above: Performed By: #### C UU #### [facility] [address] Urine Cultureon 08-05-2024 Bacteria identified Cx Nom (U) ORGANISM: Klebsiella pneumoniae (O:KLEPNE) [place] Count >100,000 Aerobic DENZEL Charge (NMIC56) --- SUSCEPTIBILITY -- ORGANISM: O:KLEPNE ANTIBIOTIC INTERPRETATION DENZEL Amikacin S <16 Amoxacillin/K Clavulanate S <8 Ampicillin/Sulbactam S <4 Aztreonam S <4 Cefazolin S <2 Cefepime S <2 Ceftazidime S <1 Ceftazidime/Avibactam S <4 Ceftolozane/Tazobactam S <2 Ceftriaxone S <1 Cefuroxime S <4 Ciprofloxacin S <0.25 Ertapenem S <0.5 Gentamicin S <2 Levofloxacin S <0.5 Meropenem S <1 Meropenem/Vaborbactam S <2 Nitrofurantoin I 64 Piperacillin/Tazobacta m S <8 Tetracycline S <4 Tigecycline S <2 Tobramycin S <2 Trimethoprim/Sulfameth oxazole S <0.5 S = SUSCEPTIBLE I = INTERMEDIATE R = RESISTANT BLANK = DATA NOT AVAILABLE, OR DRUG NOT ADVISABLE OR TESTED R* = RESISTANCE DUE TO EXTENDED SPECTRUM BETA-LACTAMASES ESBL = EXTENDED SPECTRUM BETA-LACTAMASE TFG = THYMIDINE-DEPENDENT STRAIN MANPREET = BETA-LACTAMASE POSITIVE IB = INDUCIBLE BETA-LACTAMASE. APPEARS IN PLACE OF 'S' WITH SPECIES KNOWN TO POSSESS INDUCIBLE BETA-LACTAMASES. POTENTIALLY THEY MAY BECOME RESISTANT TO ALL B-LACTAM DRUGS. PERFORMED BY: [facility] [address] [place] [address] PATHOLOGIST COMPUTER PROJECT MANAGER GABRIELLE SORIANO M.D. Normal [facility] Comment on above: Performed By: #### C UU #### [address] Urine cultureOrdered By: Nikki Rhodes on 08-05-2024 Bacteria identified Cx Nom (U) Klebsiella pneumoniae Abnormal [facility] Urine Cultureon 05-11-2024 Bacteria identified Cx Nom (U) ORGANISM: Escherichia coli (O:ESCCOL) [place] Count >100,000 Aerobic DENZEL Charge (NMIC56) --- SUSCEPTIBILITY -- ORGANISM: O:ESCCOL ANTIBIOTIC INTERPRETATION DENZEL Amikacin S <16 Amoxacillin/K Clavulanate S <8 Ampicillin R >16 Ampicillin/Sulbactam I 1616/8 Aztreonam S <4 Cefazolin S <2 Cefepime S <2 Ceftazidime S <1 Ceftazidime/Avibactam S <4 Ceftolozane/Tazobactam S <2 Ceftriaxone S <1 Cefuroxime S <4 Ciprofloxacin S <0.25 Ertapenem S <0.5 Gentamicin S <2 Levofloxacin S <0.5 Meropenem S <1 Meropenem/Vaborbactam S <2 Nitrofurantoin S <32 Piperacillin/Tazobacta m S <8 Tetracycline S <4 Tigecycline S <2 Tobramycin S <2 Trimethoprim/Sulfameth oxazole S <0.5 S = SUSCEPTIBLE I = INTERMEDIATE R = RESISTANT BLANK = DATA NOT AVAILABLE, OR DRUG NOT ADVISABLE OR TESTED R* = RESISTANCE DUE TO EXTENDED SPECTRUM BETA-LACTAMASES ESBL = EXTENDED SPECTRUM BETA-LACTAMASE TFG = THYMIDINE-DEPENDENT STRAIN MANPREET = BETA-LACTAMASE POSITIVE IB = INDUCIBLE BETA-LACTAMASE. APPEARS IN PLACE OF 'S' WITH SPECIES KNOWN TO POSSESS INDUCIBLE BETA-LACTAMASES. POTENTIALLY THEY MAY BECOME RESISTANT TO ALL B-LACTAM DRUGS. PERFORMED BY: [place] [address] PATHOLOGIST COMPUTER PROJECT MANAGER SHANICE HAYWOOD M.D. Normal [facility] Comment on above: Performed By: #### C UU #### [facility] [address] [place] [address] Strep A Culture Onlyon 02-21 Strep A Culture Only No Group A Beta Streptococcus Isolated 2 Days PERFORMED BY: [place] [address] PATHOLOGIST COMPUTER PROJECT MANAGER SHANICE HAYWOOD M.D. Normal [facility] Comment on above: Performed By: #### C USTA #### [facility] [address] [place] [address] Streptococcus pyogenes cultu reOrdered By: FRANCK HERCULES on 02-22-2024 S. pyogenes Org specific cx Ql (Unsp spec) Streptococcus pyogenes culture [facility] IGP,APTIMA HPV,AGE GDLNon AGE GDLN ACOG TESTING Note . [facility] Comment on above: TESTS RESULT FLAG UN ITS REF RANGE LAB Clinician Provided Cytology Information Source.............Cervix;Endocervix No. of containers..01 ThinPrep Vial Age Algo ACOG Moni... FLAG LEGEND: L-Low Normal,H-High Normal,LL-Alert Low,HH-Alert High <-Panic Low,>-Panic High,A-Abnormal,AA-Critical Abnormal Performed at: 01 =[address] [address] Maribel Soto MD, HPV APTIMA Negative Negative [facility] Comment on above: This nucleic acid am plification test detects fourteen high- risk HPV types (16,18,31,33,35,39,45,51,52,56,58,59,66,68) without differentiation. Performed at: =[address] [id number] Tax Analyst: Maribel Soto MD, Phone: [phone] Performed at: [address] [id number] Tax Analyst: Maribel Soto MD, Phone: [phone] IGP, APTIMA HPV, RFX 16/18,45 Note . [facility] Comment on above: TESTS RESULT FLAG UN ITS REF RANGE LAB DIAGNOSIS: 02 NEGATIVE FOR INTRAEPITHELIAL LESION OR MALIGNANCY. Specimen adequacy: 02 Satisfactory for evaluation. Endocervical and/or squamous metaplastic cells (endocervical component) are present. Performed by: Herlinda Alonzo, Hat Liner (ASCP) . 02 Note: Note 02 The [...] <-Panic Low,>-Panic High,A-Abnormal,AA-Critical Abnormal Performed at: [address] [address] Maribel Soto MD, BRUSH-SPATULA CERVIX ENDOCERVIX [facility] POCT urinalysis dipstick onl yon 10-21-2023 Appearance (U) clear [facility] External Poct Urine Bilirubin Negative [facility] External Poct Urine Blood Trace [facility] External Poct Urine Color yellow [facility] External Poct Urine Glucose Negative [facility] External Poct Urine Ketones Negative [facility] External Poct Urine Leukocyte Esterase 3+ [facility] External Poct Urine Nitrite Negative [facility] External Poct Urine Ph 5.5 [facility] External Poct Urine Protein Negative [facility] External Poct Urine Specific [place] 1.030 [place] [facility] System External Poct Urine Urobilinogen 0.2 [facility] URINE CULTUREon 10-21-2023 Bacteria identified Cx Nom (U) CULTURE RESULTS <10,000 ORGANISMS/ML NORMAL URO GENITAL ABHILASH Normal [facility] Comment on above: Performed By: #### 6 30-4 #### [facility] ([id number]) [address], [address] [place] [address] POCT urinalysis dipstick onl yon 09-16-2023 Appearance (U) Clear [facility] External Poct Urine Bilirubin Negative [facility] External Poct Urine Blood Trace [facility] External Poct Urine Color Yellow [facility] External Poct Urine Glucose Negative [facility] External Poct Urine Ketones Negative [facility] External Poct Urine Leukocyte Esterase Negative [facility] External Poct Urine Nitrite Negative [facility] External Poct Urine Ph 5.5 [facility] External Poct Urine Protein Negative [facility] External Poct Urine Specific [facility] External Poct Urine Urobilinogen 0.2 [facility] POCT Hemoglobin A1con 2023 HbA1c (Bld) [Mass fraction] 6.6 g/dL 4 - 7 g/dL [facility] POCT urinalysis dipstick onl yon 08-19-2023 Appearance (U) coudy [facility] External Poct Urine Bilirubin Negative [facility] External Poct Urine Blood 1+ [facility] External Poct Urine Color yellow [facility] External Poct Urine Glucose Negative [facility] External Poct Urine Ketones Negative [facility] External Poct Urine Leukocyte Esterase Negative [facility] External Poct Urine Nitrite Negative [facility] External Poct Urine Ph 5.5 [facility] External Poct Urine Protein Negative [facility] External Poct Urine Specific [place] 1.030 [facility] External Poct Urine Urobilinogen 0.2 [facility] POCT urinalysis dipstick onl yon 05-29-2023 Appearance (U) clear [facility] External Poct Urine Bilirubin Negative [facility] External Poct Urine Blood Trace [facility] External Poct Urine Color yellow [facility] External Poct Urine Glucose Negative [facility] External Poct Urine Ketones Negative [facility] External Poct Urine Leukocyte Esterase Trace [facility] External Poct Urine Nitrite Negative [facility] External Poct Urine Ph 5.5 [facility] External Poct Urine Protein Negative [facility] External Poct Urine Specific [place] 1.025 [facility] External Poct Urine Urobilinogen 0.2 [facility] URINE CULTUREon 05-29-2023 Bacteria identified Cx Nom (U) CULTURE RESULTS 50-100,000 ORGANISMS/ML NORMAL UROGENITAL ABHILASH Normal [facility] Comment on above: Performed By: #### 6 30-4 #### [facility] ([id number]) [address], [address] [place] [address] MICROALBUMIN - ALBUMIN:CREAT ININE URINE RATIOon 03-18-2023 ALB/CREAT RATIO 5.5 mg/g creat Normal 0.0-30.0 [facility] Comment on above: Performed By: #### M ALBU #### [facility] ([id number]) [address] [place] [address] Albumin DL <= 20 mg/L (U) [Mass/Vol] 1.0 mg/dL Normal 0.0-1.[address] [facility] Comment on above: Performed By: #### M ALBU #### [facility] ([id number]) [address], [address] [place] [address] URINE CREAT 180.91 mg/dL Normal [facility] Comment on above: Performed By: #### M ALBU #### [facility] ([id number]) [address], [address] [place] [address] POCT Hemoglobin A1con 2023 HbA1c (Bld) [Mass fraction] 6.5 g/dL 4 - 7 g/dL [facility] COVID + FLU Quick Testingon 01-12-2023 SARS-CoV-2 (COVID-19) RNA MONICO+probe Ql (Unsp spec) Negative [employer] [facility] Other COVID + FLU Quick Testing Negative [facility] Other Covid-19 PCR ([facility])on 01-25 SARS-CoV-2 (COVID-19) RNA MONICO+probe Ql (Unsp spec) Not detected Normal NOT DETECTED [facility] Comment on above: Result Comment: This test is not yet approved or cleared by the [place] FDA. When there are no FDA-approved or cleared tests available, and other criteria are met, FDA can make tests available under an emergency access mechanism called an Emergency Use Authorization (EUA). The EUA for this test is supported by the [place] of Health and Human Service's (HHS's) declaration [...] SARS-CoV-2. Performed By: #### C VDTBH #### [facility] [address] [place] [address] Dr. Robert Barragan INFLUENZA A AND B AGon 02-21 [facility] SEE BELOW Normal [facility] Comment on above: Result Comment: Nega tive for Flu A protein angiten. Infection due to Flu A cannot be ruled out. Flu A angiten in the sample may be below the detection limit of the test. Performed By: #### I NFLUAB #### [facility] [address] [place] [address] Dr. [facility] Normal [facility] Comment on above: Result Comment: Nega tive for Flu B protein antigen. Infection due to Flu B cannot be ruled out. Flu B antigen in the sample may be below the detection limit of the test. Performed By: #### I NFLUAB #### [facility] [address] [address] [address] Robert Barragan INFLUENZA A AG Negative Normal NEGATIVE SEE COMMENT [facility] Comment on above: Performed By: #### I NFLUAB #### [facility] [address] [address] [address] Robert Barragan INFLUENZA B AG Negative Normal NEGATIVE SEE COMMENT [facility] Comment on above: Performed By: #### I NFLUAB #### [facility] [address] [address] [address] Robert Hadley 2021 CNPN Telephone ([employer]) JUDY LEON ([id number]) 1965 F Date Time Provider Department 09/13/21 [...] Status:Closed by NABOR PICHARDO on 09/13/21 Normal [facility] XR HIP RT 2 3V W [...] by: XENIA LO Date: 2021-05-04 07:53 Normal [facility] 02-12-2021 CNPN Telephone (INTMAL) JUDY LEON ([id number]) 1965 F Date Time Provider Department 02/12/21 [...] Encounter Status:Closed by OCTAVIA BELLE on 02/13/21 [facility] 02-08-2021 CNOV Office Visit (SOHAM ) JUDY LEON ([id number]) 1965 F Date Time Provider Department 02/08/21 [...] 06/2020, better with diabetic medications. Reports pain 2-10. minimal AM stiffness. Had flu vaccine. Taking 1tab daily Plaquenil. Saw eye exam no medication toxicity. R elbow better after surgery 06/2020. Biking several times a week. COVID vaccine INPHI 03/07/20, 04/17/20, 11/29/20. Feels safe at home. [...] aggravating triggers, July 20, 2020 SUBJECTIVE Ms. Leon is a 54 year old female who [...] stiffness: yes 30minutes Low back pain: yes Enthesopathy/[place]'s /heel/plantar tenderness: s/p R CTS release with [...] Flu shot yes Tetanus yes Had both [employer] vaccines 03/2020 Last PPD: negative years ago PAST MEDICAL HISTORY: PMH gerd, anxiety, s/p R CTS release with R cubital release 2007, S/p lumbar surgery 2000,2009 s/p hysterectomy/uterine prolapse PAST SURGICAL HISTORY: s/p R CTS release with R cubital release 2007, S/p lumbar surgery 2000,2009 s/p hysterectomy/uterine prolapse FAMILY HISTORY: mother-osteoarthritis, htn;father-DM, CAD, htn;children/siblings- healthy; 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 Normal [facility] OBSOLETEon 11-14-2020 OBSOLETE Refill (RHEULN) JUDY LEON ([id number]) 1965 F Date Time Provider Department 11/14/20 NABOR PICHARDO During your visit today, we recorded the following information about you: Marshall Mcguire MA 11/15/2020 7:34 AM Signed Pending Prescriptions Disp Refills HYDROXYCHLOROQUINE 200 MG TABLET 30 tablet 3 Sig: TAKE 1 TABLET BY MOUTH DAILY WITH FOOD. use sunscreen when outdoors. see ophthalmology EVERY 6-12 months on this med ANGIE: No aNbor Pichardo MD 11/16/2020 6:22 AM Signed Notify [...] Status:Closed by NABOR PICHARDO on 11/16/20 Normal [facility] Vital Signs Date Time Vital Sign Value Performing Clinician Facility 01-28-2024 12:54-0500 Body height 160 cm Iris [facility]altalena [facility] [place] [facility] [employer] [facility] 01-28-2024 12:54-0500 Body mass index (BMI) [Ratio] 44.89 kg/m2 Iris Villalta ASSISTANT [facility] [place] Work [facility]: [facility] [employer] [facility] 01-28-2024 12:54-0500 Body temperature 97.3 [degF] Iris Villalta [facility] [place] [facility] 01-28-2024 12:54-0500 Body weight 114.94 kg Iris Villaltalena [facility] [place] Work Phone: [facility] [employer] [facility] 01-28-2024 12:54-0500 Diastolic blood pressure 70 mm[Hg] Iris [facility]altalena [facility] [place] [facility] 01-28-2024 12:54-0500 Heart rate 70 /min Iris [facility]altalena [facility] [place] [facility] 01-28-2024 12:54-0500 Respiratory rate 18 /min Iris Villaltalena [facility] [place] Work Phone: [facility] [employer] [facility] 01-28-2024 12:54-0500 SaO2% (BldA) [Mass fraction] 96 % Iris Villalta APRN-CUSTOMER OPERATIONS REPRESENTATIVE Work Phone: [facility] [employer] [facility] 01-28-2024 12:54-0500 Systolic blood pressure 138 mm[Hg] Iris Villalta APRN-CUSTOMER OPERATIONS REPRESENTATIVE Work Phone: [facility] 11-18-2023 14:39-0400 Diastolic blood pressure 64 mm[Hg] Iris Villalta APRN-CUSTOMER OPERATIONS REPRESENTATIVE Work Phone: [facility] 11-18-2023 14:39-0400 Systolic blood pressure 122 mm[Hg] Iris Villalta APRN-JORDIN Work Phone: [facility] 11-18-2023 14:37-0400 Body height 160 cm Iris Villalta APRN-CUSTOMER OPERATIONS REPRESENTATIVE Work Phone: [facility] 11-18-2023 14:37-0400 Body mass index (BMI) [Ratio] 44.18 kg/m2 Iris Villalta APRN-CUSTOMER OPERATIONS REPRESENTATIVE Work Phone: [facility] 11-18-2023 14:37-0400 Body temperature 98.1 [degF] Iris Villalta APRN-JORDIN Work Phone: [facility] 11-18-2023 14:37-0400 Body weight 113.13 kg Iris Villalta APRN-CUSTOMER OPERATIONS REPRESENTATIVE Work Phone: [facility] 11-18-2023 14:37-0400 Heart rate 67 /min Iris Villalta APRN-CUSTOMER OPERATIONS REPRESENTATIVE Work Phone: [facility] 11-18-2023 14:37-0400 Respiratory rate 18 /min Iris Villalta APRN-CUSTOMER OPERATIONS REPRESENTATIVE Work Phone: [facility] 11-18-2023 14:37-0400 SaO2% (BldA) [Mass fraction] 97 % Iris Villalta APRN-CUSTOMER OPERATIONS REPRESENTATIVE Work Phone: [facility] 11-12-2023 16:39-0400 Body height 160 cm Iris Villalta APRN-CUSTOMER OPERATIONS REPRESENTATIVE Work Phone: [facility] 11-12-2023 16:39-0400 Body mass index (BMI) [Ratio] 45.38 kg/m2 Iris Villalta ASSISTANT DEAN-CUSTOMER OPERATIONS REPRESENTATIVE Work Phone: [facility] [employer] [facility] 11-12-2023 16:39-0400 Body temperature 97.3 [degF] Iris Villalta APRN-CUSTOMER OPERATIONS REPRESENTATIVE Work Phone: [facility] [employer] [facility] 11-12-2023 16:39-0400 Body weight 116.21 kg Iris Villalta APRN-CUSTOMER OPERATIONS REPRESENTATIVE Work Phone: [facility] 11-12-2023 16:39-0400 Diastolic blood pressure 80 mm[Hg] Iris Villalta ASSISTANT DEAN-CUSTOMER OPERATIONS REPRESENTATIVE Work Phone: [facility] 11-12-2023 16:39-0400 Heart rate 72 /min Iris Villalta APRN-CUSTOMER OPERATIONS REPRESENTATIVE Work Phone: [facility] [employer] [facility] 11-12-2023 16:39-0400 Respiratory rate 18 /min Iris Villalta APRN-CUSTOMER OPERATIONS REPRESENTATIVE Work Phone: [facility] 11-12-2023 16:39-0400 SaO2% (BldA) [Mass fraction] 97 % Iris Villalta APRN-CUSTOMER OPERATIONS REPRESENTATIVE Work Phone: [facility] 11-12-2023 16:39-0400 Systolic blood pressure 160 mm[Hg] Iris Villalta ASSISTANT DEAN-CUSTOMER OPERATIONS REPRESENTATIVE Work Phone: [facility] [employer] [facility] 10-21-2023 10:56-0400 Body height 160 cm Iris Villalta ASSISTANT DEAN-CUSTOMER OPERATIONS REPRESENTATIVE Work Phone: [facility] 10-21-2023 10:56-0400 Body mass index (BMI) [Ratio] 44.78 kg/m2 Iris Villalta ASSISTANT DEAN-CUSTOMER OPERATIONS REPRESENTATIVE Work Phone: [facility] 10-21-2023 10:56-0400 Body temperature 98.49 [degF] Iris Villalta APRN-CUSTOMER OPERATIONS REPRESENTATIVE Work Phone: [facility] 10-21-2023 10:56-0400 Body weight 114.67 kg Iris Villalta APRN-CUSTOMER OPERATIONS REPRESENTATIVE Work Phone: [facility] 10-21-2023 10:56-0400 Diastolic blood pressure 64 mm[Hg] Iris Villalta APRN-CUSTOMER OPERATIONS REPRESENTATIVE Work Phone: [facility] 10-21-2023 10:56-0400 Heart rate 74 /min Iris Villalta APRN-CUSTOMER OPERATIONS REPRESENTATIVE Work Phone: [facility] 10-21-2023 10:56-0400 Respiratory rate 20 /min Iris Villalta APRN-CUSTOMER OPERATIONS REPRESENTATIVE Work Phone: [facility] 10-21-2023 10:56-0400 SaO2% (BldA) [Mass fraction] 98 % Iris Villalta APRN-CUSTOMER OPERATIONS REPRESENTATIVE Work Phone: [facility] 10-21-2023 10:56-0400 Systolic blood pressure 128 mm[Hg] Iris Villalta APRN-CUSTOMER OPERATIONS REPRESENTATIVE Work Phone: [facility] 09-16-2023 14:43-0400 Body height 160 cm Iris Villalta APRN-CUSTOMER OPERATIONS REPRESENTATIVE Work Phone: [facility] 09-16-2023 14:43-0400 Body mass index (BMI) [Ratio] 45.1 kg/m2 Iris Villalta APRN-CUSTOMER OPERATIONS REPRESENTATIVE Work Phone: [facility] 09-16-2023 14:43-0400 Body temperature 98.01 [degF] Iris Villalta APRN-CUSTOMER OPERATIONS REPRESENTATIVE Work Phone: [facility] 09-16-2023 14:43-0400 Body weight 115.49 kg Iris Villalta ASSISTANT DEAN-CUSTOMER OPERATIONS REPRESENTATIVE Work Phone: [facility] 09-16-2023 14:43-0400 Diastolic blood pressure 68 mm[Hg] Iris Villalta APRN-CUSTOMER OPERATIONS REPRESENTATIVE Work Phone: [facility] 09-16-2023 14:43-0400 Heart rate 76 /min Iris Villalta APRN-CUSTOMER OPERATIONS REPRESENTATIVE Work Phone: [facility] 09-16-2023 14:43-0400 SaO2% (BldA) [Mass fraction] 97 % Iris Villalta APRN-CUSTOMER OPERATIONS REPRESENTATIVE Work Phone: [facility] 09-16-2023 14:43-0400 Systolic blood pressure 120 mm[Hg] Iris Villalta APRN-CUSTOMER OPERATIONS REPRESENTATIVE Work Phone: [facility] 08-19-2023 13:23-0400 Diastolic blood pressure 78 mm[Hg] Iris Villalta APRN-CUSTOMER OPERATIONS REPRESENTATIVE Work Phone: [facility] 08-19-2023 13:23-0400 Systolic blood pressure 140 mm[Hg] Iris Villalta APRN-CUSTOMER OPERATIONS REPRESENTATIVE Work Phone: [facility] 08-19-2023 13:20-0400 Body height 160 cm Iris Villalta APRN-CUSTOMER OPERATIONS REPRESENTATIVE Work Phone: [facility] 08-19-2023 13:20-0400 Body mass index (BMI) [Ratio] 44.13 kg/m2 Iris Villalta APRN-CUSTOMER OPERATIONS REPRESENTATIVE Work Phone: [facility] 08-19-2023 13:20-0400 Body temperature 98.6 [degF] Iris Villalta APRN-CUSTOMER OPERATIONS REPRESENTATIVE Work Phone: [facility] 08-19-2023 13:20-0400 Body weight 112.99 kg Iris Villalta APRN-CUSTOMER OPERATIONS REPRESENTATIVE Work Phone: [facility] 08-19-2023 13:20-0400 Heart rate 77 /min Iris Villalta APRN-JORDIN Work Phone: [facility] [employer] [facility] 08-19-2023 13:20-0400 Respiratory rate 20 /min Iris Villalta APRN-JORDIN Work Phone: [facility] 08-19-2023 13:20-0400 SaO2% (BldA) [Mass fraction] 97 % Iris Villalta APRN-JORDIN Work Phone: [facility] 07-22-2023 09:05-0400 Body height 160 cm Iris ABARCA Work Phone: [facility] [employer] [facility] 07-22-2023 09:05-0400 Body mass index (BMI) [Ratio] 43.59 kg/m2 Iris Villalta APRN-JORDIN Work Phone: [facility] [employer] [facility] 07-22-2023 09:05-0400 Body temperature 98.29 [degF] Iris Villalta APRN-JORDIN Work Phone: [facility] [employer] [facility] 07-22-2023 09:05-0400 Body weight 111.63 kg Iris ABARCA Work Phone: [facility] 07-22-2023 09:05-0400 Diastolic blood pressure 80 mm[Hg] Iris ABARCA Work Phone: [facility] 07-22-2023 09:05-0400 Heart rate 68 /min Iris Villalta APRN-JORDIN Work Phone: [facility] 07-22-2023 09:05-0400 Respiratory rate 18 /min Iris Villalta APRN-JORDIN Work Phone: [facility] 07-22-2023 09:05-0400 SaO2% (BldA) [Mass fraction] 96 % Iris Villalta APRN-JORDIN Work Phone: [facility] 07-22-2023 09:05-0400 Systolic blood pressure 100 mm[Hg] Iris Villalta APRN-CUSTOMER OPERATIONS REPRESENTATIVE Work Phone: [facility] 07-09-2023 13:36-0400 Body height 160 cm Iris Villalta APRN-CUSTOMER OPERATIONS REPRESENTATIVE Work Phone: [facility] 07-09-2023 13:36-0400 Body mass index (BMI) [Ratio] 40.02 kg/m2 Iris Villalta APRN-CUSTOMER OPERATIONS REPRESENTATIVE Work Phone: [facility] 07-09-2023 13:36-0400 Body temperature 97.59 [degF] Iris Villalta ASSISTANT DEAN-CUSTOMER OPERATIONS REPRESENTATIVE Work Phone: [facility] 07-09-2023 13:36-0400 Body weight 102.47 kg Iris Villalta APRN-CUSTOMER OPERATIONS REPRESENTATIVE Work Phone: [facility] 07-09-2023 13:36-0400 Diastolic blood pressure 90 mm[Hg] Iris Villalta APRN-CUSTOMER OPERATIONS REPRESENTATIVE Work Phone: [facility] 07-09-2023 13:36-0400 Heart rate 122 /min Iris Villalta APRN-CUSTOMER OPERATIONS REPRESENTATIVE Work Phone: [facility] 07-09-2023 13:36-0400 Respiratory rate 18 /min Iris Villalta APRN-CUSTOMER OPERATIONS REPRESENTATIVE Work Phone: [facility] 07-09-2023 13:36-0400 SaO2% (BldA) [Mass fraction] 92 % Iris Villalta APRN-CUSTOMER OPERATIONS REPRESENTATIVE Work Phone: [facility] 07-09-2023 13:36-0400 Systolic blood pressure 120 mm[Hg] Iris Villalta ASSISTANT DEAN-CUSTOMER OPERATIONS REPRESENTATIVE Work Phone: [facility] 05-19-2023 13:54-0400 Body height 160 cm Iris Villalta ASSISTANT DEAN-CUSTOMER OPERATIONS REPRESENTATIVE Work Phone: [facility] 05-19-2023 13:54-0400 Body mass index (BMI) [Ratio] 45.6 kg/m2 Iris Villalta APRN-CUSTOMER OPERATIONS REPRESENTATIVE Work Phone: [facility] [employer] [facility] 05-19-2023 13:54-0400 Body temperature 98.1 [degF] Iris Villalta APRN-CUSTOMER OPERATIONS REPRESENTATIVE Work Phone: [facility] [employer] [facility] 05-19-2023 13:54-0400 Body weight 116.76 kg Iris Villalta APRN-CUSTOMER OPERATIONS REPRESENTATIVE Work Phone: [facility] [employer] [facility] 05-19-2023 13:54-0400 Diastolic blood pressure 78 mm[Hg] Iris Villalta APRN-CUSTOMER OPERATIONS REPRESENTATIVE Work Phone: [facility] 05-19-2023 13:54-0400 Heart rate 74 /min Iris Villalta APRN-CUSTOMER OPERATIONS REPRESENTATIVE Work Phone: [facility] [employer] [facility] 05-19-2023 13:54-0400 SaO2% (BldA) [Mass fraction] 97 % Iris Villalta APRN-CUSTOMER OPERATIONS REPRESENTATIVE Work Phone: [facility] [employer] [facility] 05-19-2023 13:54-0400 Systolic blood pressure 120 mm[Hg] Iris Villalta APRN-CUSTOMER OPERATIONS REPRESENTATIVE Work Phone: [facility] [employer] [facility] 03-18-2023 08:17-0500 Body height 160 cm Iris Villalta APRN-CUSTOMER OPERATIONS REPRESENTATIVE Work Phone: [facility] [employer] [facility] 03-18-2023 08:17-0500 Body mass index (BMI) [Ratio] 45.19 kg/m2 Iris Villalta ASSISTANT DEAN-CUSTOMER OPERATIONS REPRESENTATIVE Work Phone: [facility] [employer] [facility] 03-18-2023 08:17-0500 Body temperature 97.7 [degF] Iris Villalta APRN-CUSTOMER OPERATIONS REPRESENTATIVE Work Phone: [facility] [employer] [facility] 03-18-2023 08:17-0500 Body weight 115.71 kg Iris Villalta ASSISTANT DEAN-CUSTOMER OPERATIONS REPRESENTATIVE Work Phone: [employer] 03-18-2023 08:17-0500 Diastolic blood pressure 80 mm[Hg] Iris Villalta ASSISTANT DEAN-CUSTOMER OPERATIONS REPRESENTATIVE Work Phone: [employer] 03-18-2023 08:17-0500 Heart rate 67 /min Iris Villalta ASSISTANT DEAN-CUSTOMER OPERATIONS REPRESENTATIVE Work Phone: [employer] 03-18-2023 08:17-0500 SaO2% (BldA) [Mass fraction] 95 % Iris Villalta ASSISTANT DEAN-CUSTOMER OPERATIONS REPRESENTATIVE Work Phone: [employer] 03-18-2023 08:17-0500 Systolic blood pressure 120 mm[Hg] Iris Villalta ASSISTANT DEAN-CUSTOMER OPERATIONS REPRESENTATIVE Work Phone: [employer] 01-12-2023 14:10-0500 Body height 160.02 cm Francia Carlos Other [employer] Other 01-12-2023 14:10-0500 Body mass index (BMI) [Ratio] 43.78 kg/m2 Francia Carlos Other [employer] Other 01-12-2023 14:10-0500 Body temperature 97.4 [degF] Francia Carlos Other [employer] Other 01-12-2023 14:10-0500 Body weight 112.13 kg Francia Carlos Other [employer] Other 01-12-2023 14:10-0500 Respiratory rate 18 /min Francia Carlos Other [employer] Other 01-12-2023 14:10-0500 SaO2% (BldA) [Mass fraction] 97 % Francia Carlos Other [employer] Other Encounters Encounter Date Encounter Type Care Provider Facility Start: 09-20-2024 End: 09-20-2024 ambulatory Elia Jensen [facility] Work Phone: Start: 09-20-2024 End: 09-20-2024 Departed Referred Elia Hernandez DO -[facility] Start: 09-15-2024 End: 09-22-2024 Refill Iris Villalta ASSISTANT DEAN-CUSTOMER OPERATIONS REPRESENTATIVE Work Phone: [facility] Comment on above: Current mild episode of major depressive disorder without prior episode; Type 2 diabetes mellitus with hyperglycemia, without long-term current use of insulin ([facility]); Gastroesophageal reflux disease without esophagitis; Benign essential HTN; Migraine 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, not intractable Start: 09-14-2024 End: 09-15-2024 Refill Fidencio Degroot CMA [facility] Comment on above: Type 2 diabetes hunter itus with hyperglycemia, without long-term current use of insulin ([facility]); Benign essential HTN; Migraine 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, not intractable; Gastroesophageal reflux disease without esophagitis Start: 08-05-2024 End: 08-05-2024 ambulatory Yael Rhodes Facility:[facility] Start: 08-05-2024 End: 08-05-2024 Departed Referred Yael Rhodes CORPORATE TUTOR-C -[facility] Start: 07-22-2024 End: 07-26-2024 Refill Iris Villalta ASSISTANT DEAN-CUSTOMER OPERATIONS REPRESENTATIVE Work Phone: [facility] Comment on above: Major depression, ch ronic Start: 06-20-2024 End: 06-21-2024 Refill Iris Jovanna Villalta ASSISTANT DEAN-CUSTOMER OPERATIONS REPRESENTATIVE Work Phone: [facility] Comment on above: DM type 2 with diabe tic mixed hyperlipidemia ([facility]) Start: 06-19-2024 End: 06-21-2024 Refill Iris Jovanna Villalta ASSISTANT DEAN-CUSTOMER OPERATIONS REPRESENTATIVE Work Phone: [facility] Comment on above: Type 2 diabetes hunter itus with hyperglycemia, without long-term current use of insulin ([facility]) Start: 05-11-2024 End: 05-11-2024 ambulatory Iris Villalta CORPORATE TUTOR-C Work Phone: [facility] Work Phone: Start: 05-11-2024 End: 05-11-2024 Departed Referred Iris Villalta CORPORATE TUTOR-C Work Phone: [facility] Start: 04-01-2024 End: 04-02-2024 Refill Iris Villalta ASSISTANT DEAN-CUSTOMER OPERATIONS REPRESENTATIVE [facility] Phone: [facility] Comment on above: Gastroesophageal ref lux disease without esophagitis Start: 03-30-2024 End: 03-30-2024 [facility] Comment on above: Preventative Screeni ng Start: 03-23-2024 End: 03-23-2024 Refill Iris Villalta ASSISTANT DEAN-CUSTOMER OPERATIONS REPRESENTATIVE Work Phone: [facility] Comment on above: Benign essential HTN ; Migraine 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, not intractable; Type 2 diabetes mellitus with hyperglycemia, without long-term current use of insulin ([facility]); Current mild episode of major depressive disorder without prior episode ([facility]) Start: 03-15-2024 End: 03-15-2024 Refill Iris Villalta ASSISTANT DEAN-CUSTOMER OPERATIONS REPRESENTATIVE Work Phone: [facility] Comment on above: Arthritis, multiple joint involvement; Benign essential HTN Start: 02-22-2024 End: 02-22-2024 ambulatory Franck Hercules Facility:[facility] Start: 02-22-2024 End: 02-22-2024 Departed Referred Iris Villalta CORPORATE TUTOR-C Work Phone: [facility] Start: 01-29-2024 End: 01-29-2024 Orders Only Iris Nugent Pawan ASSISTANT DEAN-CUSTOMER OPERATIONS REPRESENTATIVE Work Phone: [facility] Comment on above: DM type 2 with diabe tic mixed hyperlipidemia ([facility]) (Primary Dx) Start: 01-28-2024 End: 01-28-2024 Patient encounter procedure Iris Villalta ASSISTANT DEAN-CUSTOMER OPERATIONS REPRESENTATIVE Work Phone: [facility] Start: 01-28-2024 End: 01-28-2024 Periodic preventive med est patient 40-64yrs Iris Nugent Pawan ASSISTANT DEAN-CUSTOMER OPERATIONS REPRESENTATIVE Work Phone: [facility] Comment on above: Annual physical exam (Primary Dx); Type 2 diabetes mellitus with hyperglycemia, without long-term current use of insulin ([facility]); Blood tests for routine general physical examination; Special screening for malignant neoplasm of colon Start: 01-28-2024 End: 01-28-2024 Physical examination Iris Nugent Pawan ASSISTANT DEAN-CUSTOMER OPERATIONS REPRESENTATIVE Work Phone: [facility] Start: 12-24-2023 End: 12-24-2023 Refill Iris Jovanna Villalta ASSISTANT DEAN-CUSTOMER OPERATIONS REPRESENTATIVE Work Phone: [facility] Comment on above: Type 2 diabetes hunter itus with hyperglycemia, without long-term current use of insulin ([facility]) Start: 12-22-2023 End: 12-22-2023 Bamboo flowsheet Marlene MADDOX Work Phone: [facility] Start: 12-22-2023 End: 12-30-2023 Bamboo flowsheet Marlene MADDOX Work Phone: [facility] Start: 12-22-2023 End: 12-30-2023 Clinisync Result Encounter Marlene MADDOX Work Phone: [facility] Unsolicited Start: 12-22-2023 End: 12-22-2023 Patient encounter procedure Marlene MADDOX Work Phone: [facility] Work Phone: Start: 12-22-2023 End: 12-22-2023 Periodic preventive med est patient 40-64yrs Marlene MADDOX Work Phone: [facility] Comment on above: Well woman exam with routine gynecological exam; Breast cancer screening by mammogram; Postmenopausal state; Vitamin D deficiency; Hot flash, menopausal Start: 12-22-2023 End: 12-22-2023 ambulatory MARLENE MURRIETA Not Available Start: 11-24-2023 End: 11-25-2023 Telephone encounter Iris Villalta ASSISTANT DEAN-CUSTOMER OPERATIONS REPRESENTATIVE Work Phone: [facility] Start: 11-18-2023 End: 11-18-2023 Office outpatient visit 15 minutes Iris Villalta ASSISTANT DEAN-CUSTOMER OPERATIONS REPRESENTATIVE Work Phone: [facility] Comment on above: Benign essential HTN (Primary Dx); Major depression, chronic; Type 2 diabetes mellitus with hyperglycemia, without long-term current use of insulin ([facility]); Arthritis, multiple joint involvement Start: 11-18-2023 End: 11-18-2023 ambulatory [facility] Start: 11-12-2023 End: 11-12-2023 Office outpatient visit 25 minutes Iris Villalta ASSISTANT DEAN-CUSTOMER OPERATIONS REPRESENTATIVE Work Phone: [facility] Comment on above: Benign essential HTN (Primary Dx); Other insomnia; Major depression, chronic Start: 11-12-2023 End: 11-12-2023 ambulatory [facility] Start: 11-11-2023 End: 11-11-2023 Refill Iris Jovanna Villalta ASSISTANT DEAN-CUSTOMER OPERATIONS REPRESENTATIVE Work Phone: [facility] Comment on above: Type 2 diabetes hunter itus with hyperglycemia, without long-term current use of insulin ([facility]) Start: 11-11-2023 End: 11-12-2023 Telephone encounter Iris Villalta ASSISTANT DEAN-CUSTOMER OPERATIONS REPRESENTATIVE Work Phone: [facility] Start: 11-10-2023 End: 11-11-2023 ambulatory Carolina Pak [facility] Comment on above: Non-insulin dependen t type 2 diabetes mellitus (CMS-HCC) (Primary Dx) Start: 11-10-2023 End: 11-11-2023 Telephone encounter Iris Villalta ASSISTANT DEAN-CUSTOMER OPERATIONS REPRESENTATIVE Work Phone: [facility] Start: 11-04-2023 End: 11-04-2023 Telephone encounter Gayle Chavez CMA [facility] Start: 10-22-2023 End: 10-22-2023 Telephone encounter Iris Connorsillo ASSISTANT DEAN-CUSTOMER OPERATIONS REPRESENTATIVE Work Phone: [facility] Start: 10-21-2023 End: 10-21-2023 Office outpatient visit 25 minutes Iris Jovanna ConnorsVillalta ASSISTANT DEAN-CUSTOMER OPERATIONS REPRESENTATIVE Work Phone: [facility] Comment on above: Major depression, ch ronic (Primary Dx); Generalized abdominal pain; Acute cystitis without hematuria; Recurrent UTI Start: 10-21-2023 End: 10-21-2023 ambulatory [facility] Start: 10-21-2023 End: 10-21-2023 ambulatory [facility] Start: 10-07-2023 End: 10-07-2023 Refill Irisdana Connorsillo ASSISTANT DEAN-CUSTOMER OPERATIONS REPRESENTATIVE Work Phone: [facility] Start: 09-16-2023 End: 09-16-2023 Office outpatient visit 15 minutes Iris Jovanna ConnorsVillalta ASSISTANT DEAN-CUSTOMER OPERATIONS REPRESENTATIVE Work Phone: [facility] Comment on above: Bacterial vaginosis (Primary Dx); Dysuria; Vaginal kirit Start: 09-16-2023 End: 09-16-2023 ambulatory [facility] Start: 08-19-2023 End: 08-19-2023 Office outpatient visit 25 minutes Iris Jovanna ConnorsVillalta ASSISTANT DEAN-CUSTOMER OPERATIONS REPRESENTATIVE Work Phone: [facility] Comment on above: Type 2 diabetes hunter itus with hyperglycemia, without long-term current use of insulin ([facility]) (Primary Dx); Acute cystitis without hematuria; Gastroesophageal reflux disease without esophagitis; Benign essential HTN; Migraine 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, not intractable; Current mild episode of major depressive disorder without prior episode ([facility]) Start: 08-19-2023 End: 08-19-2023 ambulatory [facility] Start: 08-11-2023 End: 08-11-2023 ambulatory ANGEL BAHENA Not Available Start: 08-04-2023 End: 08-05-2023 Telephone encounter Gayle Chavez CMA [facility] Start: 07-24-2023 End: 07-24-2023 Telephone encounter Iris Villalta ASSISTANT DEAN-CUSTOMER OPERATIONS REPRESENTATIVE Work Phone: [facility] Start: 07-22-2023 End: 07-22-2023 Office outpatient visit 15 minutes Iris Villalta ASSISTANT DEAN-CUSTOMER OPERATIONS REPRESENTATIVE Work Phone: [facility] Comment on above: Pneumonia of left lo wer lobe due to infectious organism (Primary Dx) Start: 07-22-2023 End: 07-22-2023 ambulatory [facility] Start: 07-16-2023 End: 07-17-2023 Orders Only Iris Villalta ASSISTANT DEAN-CUSTOMER OPERATIONS REPRESENTATIVE Work Phone: [facility] Start: 07-09-2023 End: 07-09-2023 Office outpatient visit 25 minutes Iris Villalta ASSISTANT DEAN-CUSTOMER OPERATIONS REPRESENTATIVE Work Phone: [facility] Comment on above: Dehydration (Primary Dx); Epigastric pain; Bilious vomiting with nausea; Unintentional weight loss Start: 07-09-2023 End: 07-09-2023 ambulatory [facility] Start: 06-04-2023 End: 06-04-2023 Orders Only Iris Villalta ASSISTANT DEAN-CUSTOMER OPERATIONS REPRESENTATIVE Work Phone: [facility] Comment on above: Kirit infection of flexural skin (Primary Dx); Vaginal kirit Start: 05-29-2023 End: 05-29-2023 ambulatory [facility] Start: 05-29-2023 End: 05-29-2023 ambulatory [facility] Comment on above: Dysuria (Primary Dx) ; Acute cystitis without hematuria Start: 05-26-2023 Telephone encounter Iris J Villalta ASSISTANT DEAN-CUSTOMER OPERATIONS REPRESENTATIVE Work Phone: [facility] Start: 05-19-2023 End: 05-19-2023 ambulatory [facility] Start: 05-19-2023 End: 05-19-2023 Office outpatient visit 15 minutes Iris Jovanna ConnorsVillalta ASSISTANT DEAN-CUSTOMER OPERATIONS REPRESENTATIVE Work Phone: [facility] Comment on above: Kirit infection of flexural skin (Primary Dx) Start: 03-29-2023 Refill [facility] joni ASSISTANT DEAN-CUSTOMER OPERATIONS REPRESENTATIVE Work Phone: [facility] Comment on above: Type 2 diabetes hunter itus with hyperglycemia, without long-term current use of insulin ([facility]); Current mild episode of major depressive disorder without prior episode ([facility]); Benign essential HTN; Migraine 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, not intractable Start: 03-19-2023 End: 03-19-2023 ambulatory ANGEL BAHENA Not Available Start: 03-18-2023 End: 03-18-2023 ambulatory [facility] Start: 03-18-2023 End: 03-18-2023 ambulatory [facility] Start: 03-18-2023 End: 03-18-2023 Office outpatient visit 25 minutes Irisdana Connorsillo ASSISTANT DEAN-CUSTOMER OPERATIONS REPRESENTATIVE Work Phone: [facility] Comment on above: Type 2 diabetes hunter itus with hyperglycemia, without long-term current use of insulin ([facility]) (Primary Dx); Current mild episode of major depressive disorder without prior episode ([facility]); Gastroesophageal reflux disease without esophagitis; Benign essential HTN; Migraine 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, not intractable; Seasonal allergic rhinitis due to pollen Start: 03-13-2023 Orders Only Iris paredes ASSISTANT DEAN-CUSTOMER OPERATIONS REPRESENTATIVE Work Phone: [facility] Start: 01-14-2023 End: 01-14-2023 ambulatory Francia Carlos Other [employer] Other Start: 01-14-2023 Telephone encounter Francia Carlos [facility] Start: 01-12-2023 End: 01-12-2023 ambulatory Francia Carlos Other [employer] Other Start: 01-12-2023 Office outpatient ne w [...] Date Procedure Procedure Detail Performing Clinician Start: 08-05-2024 Urine culture Yael gaona Work Phone: Start: 02-22-2024 Streptococcus pyogen es culture Iris Villalta [employer] Work Phone: Start: 01-28-2024 Adult depression scr eening assessment Iris Villalta ASSISTANT DEAN-CUSTOMER OPERATIONS REPRESENTATIVE Work Phone: Start: 01-28-2024 Microalbumin [Mass/v olume] in Urine by Test strip Iris Villalta APRN-CUSTOMER OPERATIONS REPRESENTATIVE Work Phone: Start: 12-22-2023 IGP,APTIMA HPV,AGE GDLN Marlene Murrieta PA Work Phone: Start: 12-22-2023 Microscopic observat ion [Identifier] in Cervix by Cyto stain Iris Villalta ASSISTANT [facility] Work Phone: Start: 11-18-2023 Adult depression scr eening assessment Iris Villalta ASSISTANT [facility] Work Phone: Start: 10-21-2023 Urnls dip stick/tabl et rgnt non-auto w/o micrscp Iris Jovanna Villalta ASSISTANT [facility] Work Phone: Start: 10-21-2023 Adult depression scr eening assessment Iris Villalta ASSISTANT [facility] Work Phone: Start: 09-16-2023 Urnls dip stick/tabl et rgnt non-auto w/o micrscp Iris Nugent Villalta ASSISTANT [facility] Work Phone: Start: 09-16-2023 Adult depression scr eening assessment Iris Connorsillo ASSISTANT [facility] Work Phone: Start: 08-19-2023 Hemoglobin glycosylated a1c Iris Jovanna Villalta ASSISTANT [facility] Work Phone: Start: 08-19-2023 Urnls dip stick/tabl et rgnt non-auto w/o micrscp Iris Nugent Villalta ASSISTANT [facility] Work Phone: Start: 08-19-2023 Adult depression scr eening assessment Iris Villalta ASSISTANT [facility] Work Phone: Start: 07-22-2023 Follow-up visit Follow-up IRIS VILLALTA Start: 07-22-2023 Adult depression scr eening assessment Iris Villalta ASSISTANT [facility] Work Phone: Start: 07-09-2023 Adult depression scr eening assessment Iris Villalta ASSISTANT [facility] Work Phone: Start: 05-29-2023 Urnls dip stick/tabl et rgnt non-auto w/o micrscp [facility] Work Phone: Start: 05-19-2023 Adult depression scr eening assessment [facility] Work Phone: Start: 03-18-2023 Hemoglobin glycosylated a1c [facility] Work Phone: Start: 03-18-2023 Adult depression scr eening assessment Iris Vill[facility] Work Phone: Start: 03-18-2023 Microalbumin [Mass/v olume] in Urine by Test strip [facility] Work Phone: Start: 02-13-2023 Diabetic retinal eye exam [facility]ris [facility] Work Phone: Start: 09-10-2022 Adult depression scr eening assessment [facility]ris [facility] Work Phone: Start: 07-13-2020 Adult depression scr eening assessment Nabor Pcihardo MD Work Phone: Start: 03-14-2015 Mammography Marlene MADDOX Work Phone: Start: 07-03-2013 Microscopic observat ion [Identifier] in Cervix by Cyto stain Iris Villalta [facility] Work Phone: Plan of Treatment Date Care Activity Detail Author Start: 12-21-2026 Screening for malign ant neoplasm of cervix Pap Smear [facility] Start: 01-27-2025 Adult BMI Follow Up Plan Adult BMI F ollow Up Plan [facility] Start: 01-27-2025 Adult BMI Screening Adult BMI Screen ing [facility] Start: 01-27-2025 Depression Screening Depression Scre ening [facility] Start: 01-27-2025 Tobacco Screening Tobacco Screening [facility] Start: 01-27-2025 Urine screening for protein Urine Microalbumin [facility] [employer] [facility] Start: 11-17-2024 Adult BMI Follow Up Plan Adult BMI F ollow Up Plan [facility] Start: 11-17-2024 Adult BMI Screening Adult BMI Screen ing [facility] Start: 11-17-2024 Depression Screening Depression Scre ening [facility] Start: 11-17-2024 Tobacco Screening Tobacco Screening [facility] Start: 11-11-2024 Adult BMI Follow Up Plan Adult BMI F ollow Up Plan [facility] Start: 11-11-2024 Adult BMI Screening Adult BMI Screen ing [facility] Start: 11-11-2024 Tobacco Screening Tobacco Screening [facility] Start: 10-25-2024 Influenza vaccination Influenza Vacc ine [facility] Start: 10-20-2024 Adult BMI Follow Up Plan Adult BMI F ollow Up Plan [facility] Start: 10-20-2024 Adult BMI Screening Adult BMI Screen ing [facility] Start: 10-20-2024 Depression Screening Depression Scre ening [facility] Start: 10-20-2024 Tobacco Screening Tobacco Screening [facility] Start: 09-20-2024 Urine culture [facility] Start: 09-20-2024 Bacteria identified in Urine by Culture Urine Culture [facility] Start: 09-15-2024 Adult BMI Follow Up Plan Adult BMI F ollow Up Plan [facility] Start: 09-15-2024 Adult BMI Screening Adult BMI Screen ing [facility] Start: 09-15-2024 Depression Screening Depression Scre ening [facility] Start: 09-15-2024 Tobacco Screening Tobacco Screening [facility] Start: 08-18-2024 Adult BMI Screening Adult BMI Screen ing [facility] Start: 08-18-2024 Depression Screening Depression Scre ening [facility] Start: 08-18-2024 Tobacco Screening Tobacco Screening [facility] Start: 07-21-2024 Adult BMI Follow Up Plan Adult BMI F ollow Up Plan [facility] Start: 07-21-2024 Adult BMI Screening Adult BMI Screen ing [facility] Start: 07-21-2024 Depression Screening Depression Scre ening [facility] Start: 07-21-2024 Tobacco Screening Tobacco Screening [facility] Start: 07-08-2024 Adult BMI Follow Up Plan Adult BMI F ollow Up Plan [facility] Start: 07-08-2024 Adult BMI Screening Adult BMI Screen ing [facility] Start: 07-08-2024 Depression Screening Depression Scre ening [facility] Start: 07-08-2024 Tobacco Screening Tobacco Screening [facility] Start: 05-18-2024 Adult BMI Follow Up Plan Adult BMI F ollow Up Plan [facility] Start: 05-18-2024 Adult BMI Screening Adult BMI Screen ing [facility] Start: 05-18-2024 Depression Screening Depression Scre ening [facility] Start: 05-18-2024 Tobacco Screening Tobacco Screening [facility] Start: 05-11-2024 Urine culture [facility] Start: 05-11-2024 Bacteria identified in Urine by Culture Urine Culture [facility] Start: 03-18-2024 Adult BMI Follow Up Plan Adult BMI F ollow Up Plan [facility] Start: 03-18-2024 Adult BMI Screening Adult BMI Screen ing [facility] Start: 03-18-2024 Depression Screening Depression Scre ening [facility] Start: 03-18-2024 Tobacco Screening Tobacco Screening [facility] Start: 03-18-2024 Urine screening for protein Urine Microalbumin [facility] Start: 02-14-2024 Glaucoma screening Diabetic Op hthalmology Exam [facility] Start: 01-28-2024 End: 01-28-2024 Patient encounter procedure 01/28/2024 1:00 PM EST Office Visit [facility] Medicine - Family Medicine [address] [place] [address] Iirs Villalta, ASSISTANT DEAN-CUSTOMER OPERATIONS REPRESENTATIVE [address] [place] [address] [facility] Internal [facility] - Family Medicine Start: 12-22-2023 End: 12-21-2024 DXA Skeletal system Views for bone density DEXA bone density Imaging Routine Postmenopausal state Expected: 12/22/2023 (Approximate), Expires: 12/21/2024 [facility] Comment on above: Expected: 12/22/2023 (Approximate), Expires: 12/21/2024 Start: 12-22-2023 End: 02-20-2025 MG Breast - bilateral Screening Bilateral screening mammogram Imaging Routine Breast cancer screening by mammogram Expected: 12/22/2023, Expires: 02/20/2025 [facility] Work Phone: Comment on above: Expected: 12/22/2023 , Expires: 02/20/2025 Start: 12-22-2023 End: 12-22-2023 Patient encounter procedure 12/22/2023 1:00 PM EDT Office Visit [facility] [address] [place] [address] Marlene Murrieta PA [address] [place], [place] [id number] Arrived [facility] Comment on above: Arrived Start: 11-18-2023 End: 11-18-2023 Patient encounter procedure 11/18/2023 2:40 PM EDT Office Visit [facility] [address] [place] [id number] Iris Villalta, ASSISTANT DEAN-CUSTOMER OPERATIONS REPRESENTATIVE [address] [place] [address] [facility] Start: 11-12-2023 End: 11-12-2023 Patient encounter procedure [facility] Comment on above: Arrived Start: 10-26-2023 COVID-19 Vaccine ( season) COVID-19 Vaccine ( season) [facility] Start: 10-26-2023 COVID-19 Vaccine ( season) COVID-19 Vaccine ( season) [facility] Start: 10-26-2023 Influenza vaccination [facility] Start: 10-08-2023 End: 10-08-2023 Patient encounter procedure 10/08/2023 3:40 PM EDT Office Visit [facility] [address] [place] [address] Iris Villalta, ASSISTANT DEAN-CUSTOMER OPERATIONS REPRESENTATIVE [address] [place] [address] [facility] - Family Medicine Start: 09-22-2023 End: 09-22-2023 Patient encounter procedure [facility] Internal [facility] Start: 09-11-2023 Adult BMI Follow Up Plan Adult BMI F ollow Up Plan [facility] Start: 09-11-2023 Adult BMI Screening Adult BMI Screen ing [facility] Start: 09-11-2023 Depression Screening Depression Scre ening [facility] Start: 09-11-2023 Tobacco Screening Tobacco Screening [facility] Start: 07-22-2023 End: 07-22-2023 Patient encounter procedure 07/22/2023 9:00 AM EDT Office Visit [facility] Internal Medicine - Family Medicine [address] [place] [address] Iris Villalta, ASSISTANT DEAN-CUSTOMER OPERATIONS REPRESENTATIVE [address] [place] [address] [facility] Internal Medicine - Family Medicine Start: 07-21-2023 DIABETES SCREEN DIABETES SCREEN [facility] Start: 03-18-2023 End: 03-18-2023 Patient encounter procedure 03/18/2023 8:00 AM EST Office Visit [facility] Internal Medicine - Family Medicine [address] [place] [address] Iris Villalta, ASSISTANT DEAN-CUSTOMER OPERATIONS REPRESENTATIVE [address] [place] [address] [facility] - [facility] Start: 10-25-2022 COVID-19 Vaccine ( season) COVID-19 Vaccine () [facility] Start: 10-25-2022 Influenza vaccination Influenza Vacc ine [facility] Start: 10-25-2021 Influenza vaccination INFLUENZA (#1) [facility] Start: 07-13-2021 Adult depression screening assessment DEPRESSION SCREENING [facility] Start: 03-01-2021 COVID-19 VACCINE (4 - Booster for Pfizer series) COVID-19 VACCINE (4 - Booster for Pfizer series) [facility] Start: 2016 Administration of varicella zoster vaccine Zoster (Shingles) Vaccine (1 of 2) [facility] Start: 07-03-2016 Screening for malign ant neoplasm of cervix [facility] Start: 03-14-2016 Screening for malign ant neoplasm of breast Mammogram [facility] Start: 09-14-2011 COLOGUARD (FIT-DNA) COLOGUARD (FIT-D NA) [facility] Start: 09-14-2011 Colonoscopy COLONOSCOPY [facility] Start: 09-14-2011 COLORECTAL CANCER SCREENING COLORECTAL CANCER SCREENING [facility] Start: 09-14-[address] COLONOGRAPHY [facility] Start: 09-14-2011 FECAL OCCULT BLOOD FECAL OCCULT BLOO D [facility] Start: 09-14-2011 LIPID SCREEN LIPID SCREEN [facility] Start: 09-14-2011 SIGMOIDOSCOPY SIGMOIDOSCOPY [facility] Start: 2006 Mammography MAMMOGRAM [facility] Start: 1996 HPV TESTING HPV TESTING [facility] Start: 1996 Screening for malign ant neoplasm of cervix HPV/Cotest [facility] Start: 09-14-1987 PAP TESTING PAP TESTING [facility] Start: 1985 SHINGRIX VACCINE (1 of 2) SHINGRIX VACCINE (1 of 2) [facility] Start: 1985 Urine microalbumin profile DTAP,TDAP,TD (1 - Tdap) [facility] Start: 1984 Diabetic foot examination Diabetic Foot Exam [facility] Start: 1984 HIV SCREENING HIV SCREENING [facility] Start: 12-17-1983 DTaP,Tdap and Td Vaccines (3 - Tdap) DTaP,Tdap and Td Vaccines (3 - Tdap) [facility] Start: 1972 PNEUMOCOCCAL (1 - PCV) PNEUMOCOCCAL (1 - PCV) [facility] Start: 1966 Screening for malign ant neoplasm of colon [facility] Start: 1966 Urine screening for protein Urine Microalbumin [employer] End: 05-28-2024 Bacteria identified in Urine by Culture Urine culture (clean catch) Microbiology Routine Acute cystitis without hematuria 1 Occurrences starting 05/29/2023 until 05/28/2024 [employer] Work Phone: Comment on above: 1 Occurrences starti ng 05/29/2023 until 05/28/2024 End: 10-20-2024 Bacteria identified in Urine by Culture Urine culture (clean catch) Microbiology Routine Acute cystitis without hematuria 1 Occurrences starting 10/21/2023 until 10/20/2024 [employer] Work Phone: Comment on above: 1 Occurrences starti ng 10/21/2023 until 10/20/2024 End: 01-27-2025 CBC W Auto Differential panel - Blood CBC auto differential Lab Routine Blood tests for routine general physical examination 1 Occurrences starting 01/28/2024 until 01/27/2025 [employer] Comment on above: 1 Occurrences starti ng 01/28/2024 until 01/27/2025 CBC W Auto Different ial panel - Blood CBC auto differential Lab Routine Blood tests for routine general physical examination 01/28/2024 7:55 PM EST [employer] [facility] Routine Special screening for malignant neoplasm of colon Ordered: 01/28/2024 [employer] Comment on above: Ordered: 01/28/2024 End: 01-27-2025 Comprehensive metabolic 2000 panel - Serum or Plasma Comprehensive metabolic panel Lab Routine Blood tests for routine general physical examination 1 Occurrences starting 01/28/2024 until 01/27/2025 [employer] Work Phone: Comment on above: 1 Occurrences starti ng 01/28/2024 until 01/27/2025 Comprehensive metabo lic 2000 panel - Serum or Plasma Comprehensive metabolic panel Lab Routine Blood tests for routine general physical examination 01/28/2024 7:55 PM EST [employer] End: 01-27-2025 Hemoglobin A1c/Hemoglobin.total in Blood Hemoglobin A1c Lab Routine Blood tests for routine general physical examination 1 Occurrences starting 01/28/2024 until 01/27/2025 [employer] Comment on above: 1 Occurrences starti ng 01/28/2024 until 01/27/2025 Hemoglobin A1c/Hemoglobin.total in Blood Hemoglobin A1c Lab Routine Blood tests for routine general physical examination 01/28/2024 7:55 PM EST [employer] End: 01-27-2025 Lipid 1996 panel - Serum or Plasma Lipid profile Lab Routine Blood tests for routine general physical examination 1 Occurrences starting 01/28/2024 until 01/27/2025 [employer] Comment on above: 1 Occurrences starti ng 01/28/2024 until 01/27/2025 Lipid 1996 panel - S zee or Plasma Lipid profile Lab Routine Blood tests for routine general physical examination 01/28/2024 7:55 PM EST [employer] End: 03-17-2024 Microalbumin - Albumin: Creatinine Urine Ratio Microalbumin - Albumin: Creatinine Urine Ratio Lab Routine Type 2 diabetes mellitus with hyperglycemia, without long-term current use of insulin ([facility]) 1 Occurrences starting 03/18/2023 until 03/17/2024 [employer] Work Phone: Comment on above: 1 Occurrences starti ng 03/18/2023 until 03/17/2024 End: 01-27-2025 Microalbumin - Albumin: Creatinine Urine Ratio Microalbumin - Albumin: Creatinine Urine Ratio Lab Routine Type 2 diabetes mellitus with hyperglycemia, without long-term current use of insulin ([facility]) 1 Occurrences starting 01/28/2024 until 01/27/2025 [employer] Comment on above: 1 Occurrences starti ng 01/28/2024 until 01/27/2025 Microalbumin - Album in: Creatinine Urine Ratio Microalbumin - Albumin: Creatinine Urine Ratio Lab Routine Type 2 diabetes mellitus with hyperglycemia, without long-term current use of insulin ([facility]) 01/28/2024 7:55 PM EST [employer] THIN PREP TIS PAP AN D HR HPV DNA THIN PREP TIS PAP AND HR HPV DNA Pathology and Cytology Routine Well woman exam with routine gynecological exam Ordered: 12/22/2023 [facility] Comment on above: Ordered: 12/22/2023 End: 01-27-2025 Thyrotropin [Units/volume] in Serum or Plasma TSH Lab Routine Type 2 diabetes mellitus with hyperglycemia, without long-term current use of insulin ([facility]) 1 Occurrences starting 01/28/2024 until 01/27/2025 [facility] Comment on above: 1 Occurrences starti ng 01/28/2024 until 01/27/2025 Thyrotropin [Units/volume] in Serum or Plasma TSH Lab Routine Type 2 diabetes mellitus with hyperglycemia, without long-term current use of insulin ([facility]) 01/28/2024 7:55 PM EST [facility] Vitamin D 1,25 dihydroxy Vitamin D 1,25 dihydroxy Lab Routine Vitamin D deficiency Ordered: 12/22/2023 [facility] Work Phone: Comment on above: Ordered: 12/22/2023 [facility] Immunizations Immunization Date Immunization Notes Care Provider Torito jensen 12-10-2023 influenza, seasonal, injectable, preservative free Iris Villalta ASSISTANT DEAN-CUSTOMER OPERATIONS REPRESENTATIVE Work Phone: [facility] 12-10-2023 influenza virus vaccine, unspecified formulation Marlene MADDOX Work Phone: [facility] 12-05-2022 influenza, injectabl e, quadrivalent, preservative free Iris Villalta ASSISTANT DEAN-CUSTOMER OPERATIONS REPRESENTATIVE Work Phone: [facility] 12-05-2022 influenza virus vaccine, unspecified formulation Iris Villalta ASSISTANT DEAN-CUSTOMER OPERATIONS REPRESENTATIVE Work Phone: [facility] 10-27-2021 influenza, injectabl e, quadrivalent, preservative free Iris Villalta ASSISTANT DEAN-CUSTOMER OPERATIONS REPRESENTATIVE Work Phone: [facility] 10-27-2021 influenza virus vaccine, unspecified formulation Iris Villalta ASSISTANT DEAN-CUSTOMER OPERATIONS REPRESENTATIVE Work Phone: [facility] 11-02-2020 influenza, injectabl e, quadrivalent, preservative free Iris Villalta ASSISTANT DEAN-CUSTOMER OPERATIONS REPRESENTATIVE Work Phone: [facility] 10-27-2019 influenza, injectabl e, quadrivalent, preservative free Iris Villalta ASSISTANT DEAN-CUSTOMER OPERATIONS REPRESENTATIVE Work Phone: [facility] 12-16-1983 mumps virus vaccine Iris Villalta ASSISTANT DEAN-CUSTOMER OPERATIONS REPRESENTATIVE Work Phone: [facility] 12-16-1983 TD(adult) unspecifie d formulation Iris Villalta ASSISTANT DEAN-CUSTOMER OPERATIONS REPRESENTATIVE Work Phone: [facility] 12-05-1970 poliovirus vaccine, unspecified formulation Iris Villalta ASSISTANT DEAN-CUSTOMER OPERATIONS REPRESENTATIVE Work Phone: [facility] 11-07-1970 diphtheria, tetanus toxoids and pertussis vaccine Iris Villalta ASSISTANT DEAN-CUSTOMER OPERATIONS REPRESENTATIVE Work Phone: [facility] 11-07-1970 measles, mumps and rubella virus vaccine Iris Villalta ASSISTANT DEAN-CUSTOMER OPERATIONS REPRESENTATIVE Work Phone: [facility] 11-04-1967 poliovirus vaccine, unspecified formulation Iris Villalta ASSISTANT DEAN-CUSTOMER OPERATIONS REPRESENTATIVE Work Phone: [facility] 08-30-1967 measles virus vaccine Jenni dana ConnorsVillalta ASSISTANT DEAN-CUSTOMER OPERATIONS REPRESENTATIVE Work Phone: [facility] 08-05-1967 poliovirus vaccine, unspecified formulation Iris Villalta ASSISTANT DEAN-CUSTOMER OPERATIONS REPRESENTATIVE Work Phone: [facility] Payers Date Payer Category Payer Self-pay 2021 Medicaid [id number] 2021 Medicaid (Managed Care) RAFIA HARRIS [id number] 2021 Unknown [facility] [place] [id number] 2021-Present [phone] [address] [address] [place] [address] [id number] 2020 Unknown MMO MMO [employer] [id number] 2020-Present [phone] [address] [place] [address] PPO [id number]. [id number] 1966 Unknown [id number] 2.16.840.1.426781.3.579.2. 593 1966 Unknown [id number] 2.16.840.1.755992.3.579.2. 593 1966 Unknown [id number] 2.16.840.1.031991.3.579.2. 593 1966 Unknown [id number] 2.16.840.1.486799.3.579.2. 1286 1966 Unknown [id number] 2.16.840.1.099599.3.579.2. 128 1966 Unknown [id number] 2.16.840.1.954222.3.579.2. 1286 1966 Unknown [id number] 2.16.840.1.325666.3.579.2. 128 1966 Unknown [id number] 2.16.840.1.764749.3.579.2. 128 1966 Unknown [id number] 2.16.840.1.634964.3.579.2. 128 1966 Unknown [id number] 2.16.840.1.872539.3.579.2. 1286 1966 Unknown [id number] 2.16.840.1.297287.3.579.2. 1286 1966 Unknown [id number] 2.16.840.1.265374.3.579.2. 1286 1966 Unknown [id number] 2.16.840.1.056151.3.579.2. 1286 1966 Unknown [id number] 2.16.840.1.674772.3.579.2. 1285 1966 Unknown [id number] 2.16.840.1.363668.3.579.2. 128 1966 Unknown [id number] 2.16.840.1.924117.3.579.2. 128 1966 Unknown [id number] 2.16.840.1.839374.3.579.2. 9 1966 Unknown [id number] 2.16840.1.099788.3.579.2. 1258 1966 Unknown [id number] 2.16840.1.004348.3.579.2. 1258 1966 Unknown [id number] 2.16.840.1.086779.3.579.2. 1259 1959 Unknown [id number] 1959 Unknown [id number] Unknown [id number] Unknown [id number] 2.16840.1.361327.3.579.2. 531 Unknown [id number] 2.16840.1.021625.3.579.2. 531 Unknown [id number] 2.16.840.1.208980.3.579.2. 531 Unknown [id number] 2.16840.1.799194.3.579.2. 531 Social History Date Type Detail Facility Start: 07-20-2020 End: 09-10-2022 Tobacco smoking status NHIS Never smoked tobacco [facility] Start: 07-20-2020 End: 09-10-2022 Tobacco use and exposure Smokeless tobacco non-user [facility] Start: 02-08-2021 End: 08-11-2023 Alcohol intake Ex-drinker (finding) [facility] Start: 1965 Sex Assigned At Female [facility] Start: 08-11-2023 End: 01-28-2024 Sex Assigned At [facility] Start: 08-11-2023 End: 01-28-2024 History of Social function [facility] Start: 1965 Sex assigned at Not on file P [facility] Start: 11-18-2023 End: 01-28-2024 Alcoholic beverage intake Lifetime non-drinker (finding) [facility] Adolescent depressio n screening assessment 0 [facility] Start: 09-27-2014 End: 05-13-2024 Sex Female (finding) [facility] Clinical Notes 02-08-2021 to 09-15-2024 Telephone Encounter - Luis Felipe Obando DO - 09/15/2024 3:47 PM EDTTelephone Encounter - Luis Felipe Obando DO - 09/15/2024 3:47 PM EDTTelephone Encounter - Lissette Powell CMA - 03/30/2024 3:00 PM EST Note Date & Type Note Facility 09-15-2024 Miscellaneous Notes Formattin g of this note might be different from the original. Rx sent in. Due for recheck appt documented in this encounter [facility] 09-15-2024 Telephone encount er Note Rx sent in. Due for recheck appt [facility] 09-14-2024 Miscellaneous Notes Formattin g of this note might be different from the original. Rx sent in. She is overdue for DM recheck documented in this encounter [facility] 09-14-2024 Telephone encount er Note Rx sent in. She is overdue for DM recheck [facility] 03-30-2024 Miscellaneous Notes Formattin g of this note might be different from the original. Care Coordination Outreach performed to coordinate overdue appointments, testing, and/or follow-up care: Yes Audit/Outreach Date: March 30, 2024 Reason: Colorectal Cancer Screening Method: Telephone and MyChart Outreach Attempt: First Outcome: No Answer/Busy and Letter Sent Next PCP Appointment: N/A Tests/Referrals Pended: N/A Resources/Education Provided: Additional Comments: Patient is overdue with cologuard order. Will send letter to patient. documented in this encounter [facility] 03-30-2024 Telephone encount er Note Care Coordination Outreach performed to coordinate overdue appointments, testing, and/or follow-up care: Yes Audit/Outreach Date: March 30, 2024 Reason: Colorectal Cancer Screening Method: Telephone and MyChart Outreach Attempt: First Outcome: No Answer/Busy and Letter Sent Next PCP Appointment: N/A Tests/Referrals Pended: N/A Resources/Education Provided: Additional Comments: Patient is overdue with cologuard order. Will send letter to patient. [facility] 01-28-2024 History of Presen t illness Narrative Images from the original note were not included. [address] [facility] [address] SUBJECTIVE: Patient ID: Judy Leon is a 58 y.o. female. Chief Complaint Patient presents with Annual Exam Presents for annual physical exam States she was recently seen by her SUBMERSIBLE PILOT, Dr. Barlow for her yearly exam. She was ordered mammogram and DEXA screening by [facility] provider. She does not smoke. Works full-time at [employer]. 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 She is Type 2 DM and is [...] Medical History: Diagnosis Date Allergic Diabetes mellitus ([facility]) Hypertension Recurrent UTI Immunization History Administered Date(s) [...] hyperglycemia, without long-term current use of insulin ([facility]) - TSH; Future - Microalbumin - Albumin: [...] and DEXA screening was ordered by her [facility] provider. Has received influenza vaccine through her [...] [employer] 01/28/24 1334 documented in this encounter [facility] [employer] [facility] 12-22-2023 History of Presen t illness Narrative Reason for Appointment: Patient ID: Judy Leon is a 58 y.o. female who presents for Well Women Visit Patient presents today for Annual Exam. 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 Exam conducted with a segment producer present. Vitals: Estimated body mass index is [...] of: VARSHA Muse documented in this encounter [facility] 11-24-2023 Miscellaneous Notes Formattin g of this [...] more weeks. Notified documented [facility] this encounter [facility] 11-24-2023 Telephone encount er Note She called about a cough she thinks is from her lisinopril, an you please advise [facility] 11-24-2023 Telephone encount er Note I would like her to continue lisinopril. She just started less than 2 weeks ago.We are in allergy season. I would like her to continue to monitor for several more weeks. [facility] [employer] 11-24-2023 Telephone encount er Note Notified [facility] 11-18-2023 History of Presen t illness Narrative Images from the original note were not included. [address] [facility] [address] SUBJECTIVE: Patient ID: Judy Leon is a 58 y.o. female. Chief Complaint Patient presents with Hypertension At last visit, patient's blood pressure was 160/80. She was experiencing headaches. Lisinopril 10 mg oral daily was added to her treatment plan. BP today 118/80. She is feeling better. She was also voicing having sleeping difficulties. This has improved for her as well with hydroxyzine at . Additional concern today is multiple joint arthritis pain. Location is bilateral knees and hands. States she took Tylenol arthritis, which is not beneficial for her. She requests new orders for sensors. YOOWALK 3 plus system has been made available. She would like to switch to this. Hypertension This is a chronic problem. The current episode started more than 1 year ago. The problem is controlled. Pertinent negatives include no chest pain, palpitations or shortness of breath. There are no associated agents to hypertension. Risk factors for coronary artery disease include family history, diabetes mellitus, dyslipidemia and obesity. Past treatments include ROLLY inhibitors. The current treatment provides significant improvement. There are no compliance problems. The following portions of the patient's history were reviewed and updated as appropriate: allergies, current medications, past family history, past medical history, past social history, past surgical history and problem list. Past Surgical History: Procedure Laterality Date ROTATOR CUFF REPAIR Right 05/2021 Past Medical History: Diagnosis Date Allergic Diabetes mellitus ([facility]) Hypertension Recurrent UTI Immunization History Administered Date(s) [...] for menstrual problem and pelvic pain. Musculoskeletal: Positive for arthralgias. Bilateral knees and hands Skin: Negative. Allergic/Immunologic: Negative. Neurological: Negative for syncope and facial asymmetry. Hematological: Does not bruise/bleed easily. Psychiatric/Behavioral: Negative. PHYSICAL EXAMINATION: Vitals: 11/18/23 1437 11/18/23 1439 BP: 118/80 122/64 BP Site: Left Arm Left Arm BP Postition: Sitting Sitting Pulse: 67 Resp: 18 Temp: 36.7 C (98.1 F) TempSrc: Oral SpO2: 97% Weight: 113.1 kg (249 lb 6.4 oz) Height: 160 cm (5' [...] Vascular: No JVD. Cardiovascular: Rate and Rhythm: Regular rhythm. Heart sounds: Normal heart sounds. No [...] normal. ASSESSMENT/PLAN: Judy was seen today for hypertension. Diagnoses and all orders for this visit: Benign essential HTN - lisinopriL (PRINIVIL,ZESTRIL) 10 mg tablet; Take 1 tablet (10 mg total) by mouth in the morning. Major depression, chronic - cariprazine (VRAYLAR) 1.5 mg capsule; Take 1 capsule (1.5 mg total) by mouth in the morning. Type 2 diabetes mellitus with hyperglycemia, without long-term current use of insulin ([facility]) - blood-glucose sensor (FREESTYLE WALDO 3 SENSOR PLUS) device; 1 Device by miscellaneous route See Admin Instructions. Change every 15 days Arthritis, multiple joint involvement - diclofenac (VOLTAREN) 50 mg EC tablet; Take 1 tablet (50 mg total) by mouth in the morning and 1 tablet (50 mg total) before bedtime. HTN Better controlled. 118/80 Continue lisinopril 10 mg and propanolol LA 80 mg oral daily 2. Multiple joint arthritis pain Start diclofenac 50 mg oral twice daily 3. Depression Depression: Not at risk (11/18/2023) PHQ-2 PHQ-2 Score: 0 Recent Concern: Depression - At risk (10/21/2023) PHQ-2 PHQ-2 Score: 5 She is doing very well with adding Vraylar 1.5 mg oral daily with Effexor. Will continue. 4. Type 2 DM Start Waldo 3 plus monitoring system. Body mass index is 44.18 kg/m . Patient noted to have elevated [...] or procedures Follow-up: Next scheduled Sooner if needed RIMA Gamez 11/18/23 1514 RIMA Gamez 11/18/23 1515 documented in this encounter [facility] [employer] [facility] 11-12-2023 History of Presen t illness Narrative Images from the original note were not included. [address] [facility] [address] SUBJECTIVE: Patient ID: Judy Leon is a 58 y.o. female. Chief Complaint Patient presents with Headache trouble sleeping Presents with multiple concerns today. States she has been experiencing headaches over one month now. Noted to have elevated BP today in office, 160/80. She denies chest pain, shortness of breath, or dizziness. She was started on Vraylar 3 weeks ago. States her moods have improved significantly. She further states her family has noticed positive change in her mood. States she gets up out of bed feeling as if she has a purpose. Looking forward to doing things each day when before she did not. Additional complaints is insomnia. She states this has been off and on for several years. Has tried several sleep aids in the past with limited success. The following portions of the patient's history were reviewed and updated as appropriate: allergies, current medications, past family history, past medical history, past social history, past surgical history and problem list. Past Surgical History: Procedure Laterality Date ROTATOR CUFF REPAIR Right 05/2021 Past Medical History: Diagnosis Date Allergic Diabetes mellitus ([facility]) Hypertension Recurrent UTI Immunization History Administered Date(s) [...] menstrual problem and pelvic pain. Musculoskeletal: Negative. Allergic/Immunologic: Negative. Neurological: Negative for syncope and facial asymmetry. Hematological: Does not bruise/bleed easily. Psychiatric/Behavioral: Negative. PHYSICAL EXAMINATION: Vitals: 11/12/23 1639 BP: 160/80 BP Site: Left Arm BP Postition: Sitting Pulse: 72 Resp: 18 Temp: 36.3 C (97.3 F) TempSrc: Oral SpO2: 97% Weight: 116.2 kg (256 lb 3.2 oz) Height: 160 cm (5' 3 ) [...] Vascular: No JVD. Cardiovascular: Rate and Rhythm: Regular rhythm. Heart sounds: Normal heart sounds. No [...] normal. ASSESSMENT/PLAN: Judy was seen today for headache and trouble sleeping. Diagnoses and all orders for this visit: Benign essential HTN - lisinopriL (PRINIVIL,ZESTRIL) 10 mg tablet; Take 1 tablet (10 mg total) by mouth in the morning. Other insomnia - hydrOXYzine (ATARAX) 25 mg tablet; Take 1 tablet (25 mg total) by mouth nightly as needed for itching. HTN BP 160/80 in office today. States she has a headache. Denies chest pain, shortness of breath, or dizziness. Start lisinopril 10 mg oral daily Insomnia Previously has tried trazodone in the past and other sleep aids Start hydroxyzine 25 mg oral nightly PRN sleep. Depression Patient states her moods have improved since starting Vraylar 1.5 mg oral daily. Has more ambition and energy to do things she once enjoyed doing. Continue Vraylar 1.5 mg oral daily and Effexor XR 150 mg oral daily ALL QUESTIONS ANSWERED Total time spent was 30 minutes: Preparing to see the patient (e.g., review of tests) Obtaining and/or reviewing separately obtained history Performing a medically appropriate examination and/or evaluation Counseling and educating the patient/family/caregiver Ordering medications, tests, or procedures Follow-up: One week Blood pressure recheck. RIMA Gamze 11/12/23 175 documented in this encounter [facility] 11-11-2023 Miscellaneous Notes Formattin g of this note might be different from the original. Patient called, she think that she has bacteria vaginosis, she saod that she would not be able to come in until . Was not sure if you would see her for this so I wanted to ask before I put her in I have previously treated her for this. I did discuss with her at last visit, make an appointment with her [facility] for further evaluation. I am recommending her to call her [facility]. She said she schedule there in November and can't get in any sooner I did tell her to call them again to see if there is anything sooner documented in this encounter [facility] 11-11-2023 Telephone encount er Note Patient called, she think that she has bacteria vaginosis, she saod that she would not be able to come in until . Was not sure if you would see her for this so I wanted to ask before I put her in [facility] 11-11-2023 Telephone encount er Note I have previously treated her for this. I did discuss with her at last visit, make an appointment with her [facility] for further evaluation. I am recommending her to call her [facility] PIL[facility]. [facility] 11-11-2023 Telephone encount er Note She said she schedule there in November and can't get in any sooner I did tell her to call them again to see if there is anything sooner [facility] 11-10-2023 Miscellaneous Notes Formattin g of this note might be different from the original. ----- Message from Chely sent at 11/10/2023 6:28 PM EDT ----- Judy requesting freestyle waldo 2 be sent to drug [facility] Contract: 198 Pt requesting waldo 2 to be called into the pharmacy. 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 Patient called and her waldo 3 are on back order would you be able to send in waldo 2s please and thank you done Patient notified documented in this encounter [facility] 11-10-2023 Telephone encount er Note Patient called and her waldo 3 are on back order would you be able to send in waldo 2s please and thank you [facility] 11-10-2023 Telephone encount er Note done [facility] 11-10-2023 Telephone encount er Note Patient notified [facility] 11-04-2023 Miscellaneous Notes Formattin g of this note might be different from the original. Patient stated she would like a refill on the yeast infection medicine so she doesn't have to call back because the yeast infection is bad. Done documented in this encounter [facility] 11-04-2023 Telephone encount er Note Patient stated she would like a refill on the yeast infection medicine so she doesn't have to call back because the yeast infection is bad. [facility] 11-04-2023 Telephone encount er Note Done [facility] 11-04-2023 Miscellaneous Notes Formattin g of this note might be different from the original. Patient called she said that she has a yeast infection that's been going on for the last few days, she wanted to know if can you send her something in? Sent fluconazole notified documented in this encounter [facility] 11-04-2023 Telephone encount er Note Patient called she said that she has a yeast infection that's been going on for the last few days, she wanted to know if can you send her something in? [facility] 11-04-2023 Telephone encount er Note Sent fluconazole [facility] 11-04-2023 Telephone encount er Note notified [facility] 10-22-2023 Miscellaneous Notes Formattin g of this note might be different from the original. Patient called, she I still not feeling better she stayed home from work today. She was wondering if sh would be able to get a work not. Returning to work 10/23. 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 She was wondering if sh would be able to get a work not. Returning to work 10/23. 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 [address] [facility] [id number] SUBJECTIVE: Patient ID: Judy Leon is a 58 y.o. female. Chief Complaint Patient presents with Abdominal cramping. Bouts of loose stools several days ago. States she had loose stools for several days with lower abdominal cramping. Last episode of loose stools was Friday. States she took previously ordered Bentyl, which relieved her symptoms. She is requesting refill of Bentyl today Additional concerns include depression. She feels her symptoms have worsened. Is currently taking Effexor. Depression Visit: Follow-up Initial visit: Symptoms: no chest pain, no palpitations and no shortness of breath Follow-up visit: Symptoms: decreased concentration, depressed mood, malaise and muscle tension Frequency: Occasionally Severity: Moderate Current Treatment: Non-SSRI antidepressants Response to treatment: Worsening The following portions of the patient's history were reviewed and updated as appropriate: allergies, current medications, past family history, past medical history, past social history, past surgical history and problem list. Past Surgical History: Procedure Laterality Date ROTATOR CUFF REPAIR Right 05/2021 Past Medical History: Diagnosis Date Allergic Diabetes mellitus ([facility]) Hypertension Recurrent UTI Immunization History Administered Date(s) [...] bruise/bleed easily. Psychiatric/Behavioral: Negative. PHYSICAL EXAMINATION: Vitals: 10/21/23 1056 BP: 128/64 BP Site: Left Arm BP Postition: Sitting Pulse: 74 Resp: 20 Temp: 36.9 C (98.5 F) TempSrc: Oral SpO2: 98% Weight: 114.7 kg (252 lb 12.8 oz) Height: 160 cm (5' 3 ) [...] normal. ASSESSMENT/PLAN: Judy was seen today for abdominal cramping. bouts of loose stools several days ago.. Diagnoses and all orders for this visit: Generalized abdominal pain - POCT urinalysis dipstick only - dicyclomine (BENTYL) 20 mg tablet; Take 1 tablet (20 mg total) by mouth every 8 (eight) hours as needed (abdominal cramping). Major depression, chronic - cariprazine (VRAYLAR) 1.5 mg capsule; Take 1 capsule (1.5 mg total) by mouth in the morning. Acute cystitis without hematuria - Urine culture (clean catch); Future Recurrent UTI Depression Depression score 5 today Continue Effexor XR 150 mg oral daily Start Vraylar 1.5 mg oral daily pending insurance authorization Abdominal cramping Reorder Bentyl 20 mg oral TID PRN Symptoms has resolved at this time with previously ordered Bentyl UTI Reoccurrence Was treated with Macrobid 3 weeks ago by [facility] She has upcoming appointment with train planner to discuss further States she does have history of having bladder suspension done Urine dip reveals small leukocyte esterase. Will send urine for culture ALL QUESTIONS ANSWERED Total time spent was 30 minutes: Preparing to see the patient (e.g., review of tests) Obtaining and/or reviewing separately obtained history Performing a medically appropriate examination and/or evaluation Counseling and educating the patient/family/caregiver Ordering medications, tests, or procedures Follow-up: One month RIMA Gamez 10/21/23 1138 documented in this encounter [facility] 09-16-2023 History of Presen t illness Narrative Images from the original note were not included. [address] [place] [address] SUBJECTIVE: Patient ID: Judy Leon is a 58 y.o. female. Chief Complaint Patient presents with Urinary Tract Infection Presents today for dysuria and vaginal itching. She feels she may have a UTI. Onset of symptoms has been over the past week. Vaginal Discharge The patient's primary symptoms include genital itching and vaginal discharge. The patient's pertinent negatives include no pelvic pain. This is a new problem. The current episode started 1 to 4 weeks ago. The problem occurs daily. The problem has been waxing and waning. The patient is experiencing no pain. Associated symptoms include dysuria. Pertinent negatives include no fever. The vaginal discharge was thin. The following portions of the patient's history were reviewed and updated as appropriate: allergies, current medications, past family history, past medical history, past social history, past surgical history and problem list. 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 HENT: Negative. Eyes: Negative for visual disturbance. Respiratory: Negative for chest tightness and shortness of breath. Cardiovascular: Negative for chest pain and palpitations. Gastrointestinal: Negative. Endocrine: Negative. Genitourinary: Positive for dysuria and vaginal discharge. Negative for menstrual problem and pelvic pain. Vaginal itching Musculoskeletal: Negative. Skin: Negative. Allergic/Immunologic: Negative. Neurological: Negative for syncope and facial asymmetry. Hematological: Does not bruise/bleed easily. Psychiatric/Behavioral: Negative. PHYSICAL EXAMINATION: Vitals: 09/16/23 1443 BP: 120/68 BP Site: Left Arm BP Postition: Sitting Pulse: 76 Temp: 36.7 C (98 F) TempSrc: Tympanic SpO2: 97% Weight: 115.5 kg (254 lb 9.6 oz) Height: 160 cm (5' 3 ) [...] normal. ASSESSMENT/PLAN: Judy was seen today for urinary tract infection. Diagnoses and all orders for this visit: Bacterial vaginosis - metroNIDAZOLE (FlagyL) 500 mg tablet; Take 1 tablet (500 mg total) by mouth in the morning and at bedtime for 7 days. Dysuria - POCT urinalysis dipstick only Vaginal kirit - fluconazole (DIFLUCAN) 150 mg tablet; Take 1 tablet (150 mg total) by mouth once for 1 dose. Urine dip has trace blood, otherwise normal. Education today regarding BV and vaginal kirit. New orders for fluconazole and metronidazole. 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 Barlow. ALL QUESTIONS ANSWERED Total time spent was 25 minutes: Preparing to see the patient (e.g., review of tests) Obtaining and/or reviewing separately obtained history Performing a medically appropriate examination and/or evaluation Counseling and educating the patient/family/caregiver Ordering medications, tests, or procedures Follow-up: Next scheduled RIMA Gamez 09/16/23 1506 documented in this encounter [facility] 08-19-2023 History of Presen t illness Narrative Images from the original note were not included. [address] [facility] [id number] SUBJECTIVE: Patient ID: Judy Leon is a 57 y.o. female. Chief Complaint Patient presents with Urinary Tract Infection Ongoing since May Presents for follow up States she had a UTI while she had pneumonia, diagnosed at [facility]. UTI did not resolve. She went to [facility] recently for UTI symptoms and was prescribed Macrobid. She feels symptoms are now resolved. Is Type 2 DM, well controlled with oral medications. Heartburn She reports no chest pain. Diabetes Pertinent negatives for diabetes include no chest pain. Hypertension This is a chronic problem. Pertinent negatives include no chest pain, palpitations or shortness of breath. The following portions of the patient's history were reviewed and updated as appropriate: allergies, current medications, past family history, past medical history, past social history, past surgical history and problem list. 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 HENT: Negative. Eyes: Negative for visual disturbance. Respiratory: Negative for chest tightness and shortness of breath. Cardiovascular: Negative for chest pain and palpitations. Gastrointestinal: Negative. Endocrine: Negative. Genitourinary: Negative for menstrual problem and pelvic pain. Musculoskeletal: Negative. Skin: Negative. Allergic/Immunologic: Negative. Neurological: Negative for syncope and facial asymmetry. Hematological: Does not bruise/bleed easily. Psychiatric/Behavioral: Negative. PHYSICAL EXAMINATION: Vitals: 08/19/23 1320 08/19/23 1323 BP: 142/80 140/78 BP Site: Left Arm Right Arm BP Postition: Sitting Sitting Pulse: 77 Resp: 20 Temp: 37 C (98.6 F) TempSrc: Oral SpO2: 97% Weight: 113 kg (249 lb 1.6 oz) Height: 160 cm (5' [...] normal. ASSESSMENT/PLAN: Judy was seen today for urinary tract infection. Diagnoses and all orders for this visit: Acute cystitis without hematuria - POCT urinalysis dipstick only Type 2 diabetes mellitus with hyperglycemia, without long-term current use of insulin ([facility]) - POCT Hemoglobin A1c - glimepiride (AMARYL) 4 mg tablet; Take 1 tablet (4 mg total) by mouth in the morning and at bedtime. - pioglitazone (ACTOS) 30 mg tablet; Take 1 tablet (30 mg total) by mouth in the morning. Gastroesophageal reflux disease without esophagitis - famotidine (PEPCID) 40 mg tablet; Take 1 tablet (40 mg total) by mouth every 12 (twelve) hours. - omeprazole (PriLOSEC) 20 mg capsule; Take 1 capsule (20 mg total) by mouth in the morning. Benign essential HTN - propranolol LA (INDERAL LA) 80 mg 24 hr capsule; Take 1 capsule (80 mg total) by mouth in the morning. Migraine 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, not intractable - propranolol LA (INDERAL LA) 80 mg 24 hr capsule; Take 1 capsule (80 mg total) by mouth in the morning. Current mild episode of major depressive disorder without prior episode ([facility]) - venlafaxine XR (EFFEXOR-XR) 150 mg 24 hr capsule; Take 1 capsule (150 mg total) by mouth in the morning. Major depression Depression: Not at risk (08/19/2023) PHQ-2 PHQ-2 Score: 0 Stable Continue Effexor XR 150 mg oral daily 2. Type 2 Dm A1c today is 6.6% Continue pioglitazone and glimepiride Encourage routine home blood sugar monitoring, diet modification, and exercise regimen. Yearly eye exams. States she is due in the fall Daily self skin foot checks 3. HTN Controlled with propanolol LA 80 mg nightly 4. Migraines Controlled with propanolol 5. GERD Limit or avoid trigger foods and beverages. Consider weight loss. Reorder omeprazole, famotidine 6. UTI Urine dip is negative today, resolved Body mass index is 44.13 kg/m . Patient noted to have elevated [...] or procedures Follow-up: Annual physical RIMA Gamez 08/19/23 1411 documented in this encounter [facility] 08-04-2023 Miscellaneous Notes Formattin g of this note might be different from the original. Patient called and feels like she has a UTI She will need to be seen for symptoms of a UTI Patient wanted to know if she could drop off urine? She can come in and provide sample and we can enter in a nurse visit. Patient went to ER documented in this encounter [facility] 08-04-2023 Telephone encount er Note Patient called and feels like she has a UTI [facility] 08-04-2023 Telephone encount er Note She will need to be seen for symptoms of a UTI [facility] 08-04-2023 Telephone encount er Note Patient wanted to know if she could drop off urine? [facility] 08-04-2023 Telephone encount er Note She can come in and provide sample and we can enter in a nurse visit. [facility] [employer] 08-04-2023 Telephone encount er Note Patient went to ER [facility] 07-24-2023 Miscellaneous Notes Formattin g of this note might be different from the original. Patient called and was wondering if you could send in glucozone. She thinks that she has a yeast infection from all the antibiotics. Sent to [employer] Do you mean fluconazole? Yeah probably, it was hard to hear her Done documented in this encounter [facility] Telephone encount er Note Patient called and was wondering if you could send in glucozone. She thinks that she has a yeast infection from all the antibiotics. Sent to [employer] [facility]23 Telephone encount er Note Do you mean fluconazole? [facility] 07-24-2023 Telephone encount er Note Yeah probably, it was hard to hear her [facility] 07-24-2023 Telephone encoun er Note Done [facility] 07-22-2023 History of Presen t illness Narrative Images from the original note were not included. [address] [place] [id number] SUBJECTIVE: Patient ID: Judy Leon is a 57 y.o. female. Chief Complaint Patient presents with Follow-up Discharge [facility] pneumonia and uti Patient is accompanied by son today. Went to [facility] ER on July 09, 2023 for complaints of nausea, diarrhea, and overall malaise for over one week. She had lost 20 pounds in one week. Was diagnosed with left lower lobe pneumonia and UTI. Was prescribed Augmentin. Today, she reports all symptoms have resolved. Is eating and drinking. Has gained 21 pounds since last visit (her baseline). She is ready to return back to work. Follow-up Pertinent negatives include no chest pain, chills or fever. The following portions of the patient's history were reviewed and updated as appropriate: allergies, current medications, past family history, past medical history, past social history, past surgical history and problem list. Past Surgical History: Procedure Laterality Date ROTATOR CUFF REPAIR Right 05/2021 Past Medical History: Diagnosis Date Allergic Diabetes mellitus ([facility]) Hypertension Immunization History Administered Date(s) Administered COVID-19, [...] bruise/bleed easily. Psychiatric/Behavioral: Negative. PHYSICAL EXAMINATION: Vitals: 07/22/23 0905 BP: 100/80 BP Site: Left Arm BP Postition: Sitting Pulse: 68 Resp: 18 Temp: 36.8 C (98.3 F) TempSrc: Oral SpO2: 96% Weight: 111.6 kg (246 lb 1.6 oz) Height: 160 cm (5' [...] normal. ASSESSMENT/PLAN: Judy was seen today for follow-up. Diagnoses and all orders for this visit: Pneumonia of left lower lobe due to infectious organism Symptoms have resolved. She is currently taking Augmentin. Take all until gone. Note completes, may return back to work without restrictions. ALL QUESTIONS ANSWERED Total time spent was 25 minutes: Preparing to see the patient (e.g., review of tests) Obtaining and/or reviewing separately obtained history Performing a medically appropriate examination and/or evaluation Counseling and educating the patient/family/caregiver Ordering medications, tests, or procedures Follow-up: Next follow up Sooner if needed RIMA Gamez 07/22/23 0939 documented in this encounter [facility] 07-16-2023 Miscellaneous Notes Formattin g of this note might be different from the original. Pt called and stated that she is still not feeling well and the only opening I have is Friday and I am putting her in a New Patient slot. Would you be willing to keep her off of work till you see her on for her ER f/u? Note done. I gave you a copy and she received via [employer]. Faxed note documented in this encounter [facility] 07-16-2023 Telephone encount er Note Pt called and stated that she is still not feeling well and the only opening I have is Friday and I am putting her in a New Patient slot. Would you be willing to keep her off of work till you see her on for her ER f/u? [facility] 07-16-2023 Telephone encount er Note Note done. I gave you a copy and she received via [employer]. [facility] 07-16-2023 Telephone encount er Note Faxed note [facility] 07-09-2023 History of Presen t illness Narrative Images from the original note were not included. [address] [facility] [id number] SUBJECTIVE: Patient ID: Judy Leon is a 57 y.o. female. Chief Complaint Patient presents with er follow up not eating Not feeling good Onset of symptoms on . Symptoms include poor appetite, if she did eat, caused nausea and vomiting. + Diarrhea.Went to ER on at [facility]. Was given IV fluids, diagnosed with gastroenteritis. Today, she feels fatigued, still have difficulties eating. If she does eat, develops nausea. Still is having mucous diarrhea. Epigastric pain. Relates she actually feels worse than last week. Has lost approximately 20 pounds since . The following portions of the patient's history were reviewed and updated as appropriate: allergies, current medications, past family history, past medical history, past social history, past surgical history and problem list. Past Surgical History: Procedure Laterality Date ROTATOR CUFF REPAIR Right 05/2021 Past Medical History: Diagnosis Date Allergic Diabetes mellitus ([facility]) Hypertension Immunization History Administered Date(s) Administered COVID-19, [...] REVIEW OF SYSTEMS: Review of Systems Constitutional: Positive for activity change, appetite change, chills and fatigue. Negative for fever. HENT: Negative. Eyes: Negative for visual disturbance. Respiratory: Negative for chest tightness and shortness of breath. Cardiovascular: Negative for chest pain and palpitations. Gastrointestinal: Positive for abdominal pain, diarrhea, nausea and vomiting. Epigastric pain Endocrine: Negative. Genitourinary: Negative for menstrual problem and pelvic pain. Musculoskeletal: Negative. Skin: Negative. Allergic/Immunologic: Negative. Neurological: Negative for syncope and facial asymmetry. Hematological: Does not bruise/bleed easily. Psychiatric/Behavioral: Negative. PHYSICAL EXAMINATION: Vitals: 07/09/23 1336 BP: 120/90 BP Site: Left Arm BP Postition: Sitting Pulse: (!) 122 Resp: 18 Temp: 36.4 C (97.6 F) TempSrc: Oral SpO2: 92% Weight: 102.5 kg (225 lb 14.4 oz) Height: 160 cm (5' 3 ) Patient noted to have elevated BMI and the following intervention(s) were applied: encouragement to exercise. Physical Exam Vitals and nursing note reviewed. Constitutional: General: She is not in acute distress. Appearance: She is well-developed. She is ill-appearing. She is not diaphoretic. HENT: Head: Normocephalic [...] normal. ASSESSMENT/PLAN: Judy was seen today for er follow up not eating. Diagnoses and all orders for this visit: Dehydration Epigastric pain Bilious vomiting with nausea Unintentional weight loss Patient appears acutely ill today. Has lost 20 pounds since last . Unable to keep food and fluids down. Results in nausea and vomiting. + Epigastric pain Reviewed [facility] ER notes. No radiology testing done. Abnormal labs, sodium 130, WBC 13.1 with neutrophil 86.9 Due to presenting illness. I recommend ER visit due to dehydration, unable to keep fluids down. 20 pound weight loss. Feel there is acute process going on. Son will drive patient to [facility] ER. I personally called report to physician at [facility]. Total time spent today was 35 minutes. ALL QUESTIONS ANSWERED Total time spent was 35 minutes: Preparing to see the patient (e.g., review of tests) Obtaining and/or reviewing separately obtained history Performing a medically appropriate examination and/or evaluation Counseling and educating the patient/family/caregiver Referring and communicating with other health human services care specialist (not separately reported) Follow-up: Next scheduled. Sooner if needed, pending ER visit. RIMA Gamez 07/09/23 1552 documented in this encounter [facility] 05-29-2023 History of Presen t illness Narrative New orders for Bactrim DS oral twice daily for 7 days. Send urine for culture. RIMA Gamez 05/29/23 1451 documented in this encounter [facility] 05-29-2023 Miscellaneous Notes Addended by: FIDENCIO DEGROOT on: 05/29/2023 03:03 PM Modules accepted: Orders documented in this encounter [facility] 05-29-2023 Note Addended by: FIDENCIO DEGROOT on: 05/29/2023 03:03 PM Modules accepted: Orders [facility] 05-26-2023 Miscellaneous Notes Formattin g of [...] 1:30okay per shereen documented in this encounter [facility] 05-26-2023 Telephone encount er Note Patient called ans said that she is still having some pressure and burning, the rash is starting to clear up. She was wondering if you could send in estrogen cream for her [facility] 05-26-2023 Telephone encount er Note Please inform patient I do not order estrogen cream for her current complaint. I am concerned she may have a UTI. [facility] 05-26-2023 Telephone encount er Note Patient will be dropping a UA arounf 1:30okay per shereen [facility] 05-19-2023 History of Presen t illness Narrative Images from the original note were not included. [address] [place] [address] SUBJECTIVE: Patient ID: Judy Leon is a 57 y.o. female. Chief Complaint [...] Medical History: Diagnosis Date Allergic Diabetes mellitus ([facility]) Hypertension Immunization History Administered Date(s) Administered COVID-19, [...] Diagnoses and all orders for this visit: Kirit infection of flexural skin - fluconazole (DIFLUCAN) [...] Gamez 05/19/23 1412 documented in this encounter [employer] 03-18-2023 History of Presen t illness Narrative Images from the original note were not included. [address] [place] [address] SUBJECTIVE: Patient ID: Judy Leon is a 57 y.o. female. Chief Complaint Patient presents with Diabetes Presents for follow up States her allergies have been bothering her more lately. Is taking cetirizine but is not effective. Has tried loratadine as well. Flonase causes nose bleeds. Blood sugars average in the 130s. Uses [employer] system for blood glucose monitoring. Diabetes She [...] 130-140 mg/dl. She does not see a manager air.Eye exam is current. Hypertension This is a [...] Medical History: Diagnosis Date Allergic Diabetes mellitus ([facility]) Hypertension Immunization History Administered Date(s) Administered COVID-19, [...] hyperglycemia, without long-term current use of insulin ([facility]) - POCT Hemoglobin A1c - blood-glucose sensor (FREESTYLE WALDO 3 SENSOR) device; USE DIRECTED; change EVERY [...] of major depressive disorder without prior episode ([facility]) - venlafaxine XR (EFFEXOR-XR) 150 mg 24 [...] 6.5% in office today. Was 6.3% Using Waldo 3 testing system Previously ordered Jihan but [...] Gamez 03/18/23 0935 [facility] Evaluation note Encounter Date Diagnosis Assessment [...] and rest, Tylenol/Motrin as directed, rx of [place], OTC Flonase, cool mist humidifier, throat lozenges. [...] treatment plan. Patient left in stable condition [employer] Other 07-21-2022 Miscellaneous Notes* Telephone Encounter - Nabor Pichardo MD - 2021 5:59 AM EDT For chart eye exam 08/22/21 Dr.Mark Alonso, OD Blurry vision , diabetes making her vision fluctuate. Plaquenil 2years. No toxicity. [facility] NoteHNO ID: [id number] Author: Nabor Pichardo MD Service: ? Author [...] Biking several times a week. COVID vaccine [employer]PH[employer] 03/07/20, 04/17/20, 11/29/20. Feels safe at home. [...] aggravating triggers, July 20, 2020 SUBJECTIVE Ms. 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 Ulnar positive sarah (more content not included)...[facility] Other Evaluation note* Diagnosis Well woman exam with routine gynecological exam Routine gynecological examination Breast cancer screening by mammogram Postmenopausal state Asymptomatic postmenopausal status (age-related) (natural) Vitamin D deficiency Hot flash, menopausal Symptomatic menopausal or female climacteric states documented in this encounter [facility]* Diagnosis Arthritis, multiple joint involvement Unspecified arthropathy, multiple sites Benign essential HTN documented in this encounter [facility]* Diagnosis Benign essential HTN Migraine 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, not intractable Type 2 diabetes mellitus with hyperglycemia, without long-term current use of insulin ([facility]) Current mild episode of major depressive disorder without prior episode ([facility]) [facility] Diagnosis Gastroesophageal reflux disease without esophagitis Esophageal reflux documented in this encounter [facility]* Diagnosis Dehydration- Primary Epigastric pain Abdominal pain, epigastric Bilious vomiting with nausea Unintentional weight loss Loss of weight documented in this encounter [facility]* Diagnosis Type 2 diabetes mellitus with hyperglycemia, without long-term current use of insulin ([facility])- Primary Current mild episode of major depressive disorder without prior episode ([facility]) Gastroesophageal reflux disease without esophagitis Esophageal reflux Benign essential HTN Migraine 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, not intractable Seasonal allergic rhinitis due to pollen documented in this encounter [facility]* Diagnosis Pneumonia of left lower lobe due to infectious organism- Primary documented in this encounter [facility]* Diagnosis Type 2 diabetes mellitus with hyperglycemia, without long-term current use of insulin ([facility]) Current mild episode of major depressive disorder without prior episode ([facility]) Benign essential HTN Migraine 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, not intractable documented in this encounter [facility]* Diagnosis Vaginal kirit- Primary Candidiasis of vulva and vagina documented in this encounter [facility]* Diagnosis Type 2 diabetes mellitus with hyperglycemia, without long-term current use of insulin ([facility])- Primary Acute cystitis without hematuria Gastroesophageal reflux disease without esophagitis Esophageal reflux Benign essential HTN Migraine 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, not intractable Current mild episode of major depressive disorder without prior episode ([facility] documented in this encounter [facility]* Diagnosis Bacterial vaginosis- Primary Unspecified vaginitis and vulvovaginitis Dysuria Vaginal kirit Candidiasis of vulva and vagina documented in this encounter [facility]* Diagnosis Kirit infection of flexural skin- Primary Candidiasis of skin and nails documented in this encounter [facility]* Diagnosis Dysuria- Primary Acute cystitis without hematuria documented in this encounter [facility]* Diagnosis Kirit infection of flexural skin- Primary Candidiasis of skin and nails Vaginal kirit Candidiasis of vulva and vagina documented in this encounter [facility]* Diagnosis Major depression, chronic- Primary Generalized abdominal pain Abdominal pain, generalized Acute cystitis without hematuria Recurrent UTI Urinary tract infection, site not specified documented in this encounter [facility]* Diagnosis Vaginal kirit Candidiasis of vulva and vagina documented in this encounter [facility]* Diagnosis Vaginal kirit- Primary Candidiasis of vulva and vagina documented in this encounter [facility]* Diagnosis Non-insulin dependent type 2 diabetes mellitus ([facility] Primary Type II or unspecified type diabetes mellitus without mention of complication, not stated as uncontrolled documented in this encounter [facility]* Diagnosis Type 2 diabetes mellitus with hyperglycemia, without long-term current use of insulin ([facility]) documented in this encounter [facility]* Diagnosis Benign essential HTN- Primary Other insomnia Major depression, chronic documented in this encounter [facility]* Diagnosis Benign essential HTN- Primary Major depression, chronic Type 2 diabetes mellitus with hyperglycemia, without long-term current use of insulin ([facility]) Arthritis, multiple joint involvement Unspecified arthropathy, multiple sites documented in this encounter [facility]* Diagnosis Type 2 diabetes mellitus with hyperglycemia, without long-term current use of insulin ([facility]) documented in this encounter [facility]* Diagnosis DM type 2 with diabetic mixed hyperlipidemia ([facility] Primary documented in this encounter [facility]* Diagnosis Annual physical exam- Primary Routine general medical examination at a health care facility Type 2 diabetes mellitus with hyperglycemia, without long-term current use of insulin ([facility]) Blood tests for routine general physical examination Laboratory examination ordered as part of a routine general medical examination Special screening for malignant neoplasm of colon Special screening for malignant neoplasms, colon documented in this encounter [facility] System[facility] noteNo assessment information available [facility] Work Phone: Evaluation note* Diagnosis DM type 2 with diabetic mixed hyperlipidemia ([facility]) documented in this encounter [facility]* Diagnosis Type 2 diabetes mellitus with hyperglycemia, without long-term current use of insulin ([facility]) documented in this encounter [facility]* Diagnosis Major depression, chronic documented in this encounter [facility]* Diagnosis Type 2 diabetes mellitus with hyperglycemia, without long-term current use of insulin ([facility]) Benign essential HTN Migraine 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, not intractable Gastroesophageal reflux disease without esophagitis Esophageal reflux documented in this encounter [facility]* Diagnosis Current mild episode of major depressive disorder without prior episode Type 2 diabetes mellitus with hyperglycemia, without long-term current use of insulin ([facility]) Gastroesophageal reflux disease without esophagitis Esophageal reflux Benign essential HTN Migraine 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, not intractable [facility] N[facility]ative - Reported* Type Description Date Medical History depression Medical History hypertension Medical History menopause Surgical History hysterectomy Surgical History back surgery Surgical History elbow surgery Surgical History carpal tunnel release [employer] Other InstructionsNot on filedocumented in this encounter [facility] SystemInstructionsNot on filedocumented in this encounter [facility] SystemInstructionsNot on filedocumented in this encounter [facility] SystemInstructionsNot on filedocumented in this encounter [facility] SystemInstructionsNot on filedocumented in this encounter [facility] SystemInst[facility]* Attachments The following attachments cannot be sent through Care Everywhere. * Nausea and Vomiting, Adult ([place]) * Dehydration, Adult ED ([place]) documented [facility] encounter[facility] SystemInstructions* Attachments The following attachments cannot be sent through Care Everywhere. * High blood pressure in adults ([place]) documented in this encounterProMedica Health SystemInstructionsNot on file documented in this encounterProMedica Health SystemInstructionsNot on file documented in this encounterProMedica Health SystemInstructions* Attachments The following attachments cannot be sent through Care Everywhere. * Pneumonia in adults ([place]) documented in this encounterProMedica Health SystemInstructionsNot on file documented in this encounterProMediAdwanted Health SystemInstructionsNot on file documented in this encounterProOhio State University [facility] CenterAdwanted Health SystemInstructions* Attachments The following attachments cannot be sent through Care Everywhere. * High blood pressure emergencies ([place]) documented in this encounterProMedica Health SystemInstructions* Attachments The following attachments cannot be sent through Care Everywhere. * Vaginitis ([place]an) documented in this encounterProMedica Health SystemInstructionsNot on file documented in this encounterProMeditokia.lt SystemInstructionsNot on file documented in this encounterProMeditokia.lt SystemInstructionsNot on file documented in this encounterProCentral [facility] [employer] SystemInstructions* Attachments The following attachments cannot be sent through Care Everywhere. * Stomach ache and stomach upset ([place]) documented in this encounterProMeditokia.lt SystemInstructionsNot on file documented in this encounterProMeditokia.lt SystemInstructionsNot on file documented in this encounterProCentral [facility] [employer] SystemInstructionsNot on file documented in this encounterMemorial Health System [facility] Memorial Hospitaltokia.lt SystemInstructionsNot on file documented in this encounterAv[facility] System[facility]* Attachments The following attachments cannot be sent through Care Everywhere. * Controlling your blood pressure through lifestyle ([place]) documented in this encounterProMetrohealth [facility] SystemInstructions* Attachments The following attachments cannot be sent through Care Everywhere. * Joint Pain ([place]) documented in this encounterProCentral [facility] [employer] SystemInstructionsNot on file documented in this encounterProOhio State University [facility] Medical Centertokia.lt SystemInstructionsNot on file documented in this encounterProCentral [facility] [employer] SystemInstructions* Attachments The following attachments cannot be sent through Care Everywhere. * Yearly Physical for Adults ([place]) documented in this encounterProOhio State University [facility] Medical Centertokia.lt SystemInstructionsNot on file documented in this encounterProOhio State University [facility] Medical Centertokia.lt SystemInstructionsNot on file documented in this encounterMemorial Health System [facility] Memorial HospitalAdwanted [facility] SystemReason for referral (narrative)No reason for referral information availableCleveland Clinic [facility] Work Phone: Summary Purpose Family History No Family History Records Found Relationship Condition Age at Onset Recorded Date/T zachariah father Unknown Advance Directives No Advanced Directives Records Found Advance Directive Response Recorded Date/ Time Advance Directives No July 08 5:05pm Reason for Referral Specialty Diagnoses / Procedures Referred By Lukasz gutiérrez Referred To Contact Diagnoses Major depression, chronic Iris Villalta APRN-CUSTOMER OPERATIONS REPRESENTATIVE [address] [place] [address] Referral ID Status Reason Start Date Expiration Date V isits Requested Visits Authorized [id number] Authorized 10/21/2023 10/19/2024 1 1 Specialty Diagnoses / Procedures Referred By Lukasz gutiérrez Referred To Contact Diagnoses Seasonal allergic rhinitis due to pollen Iris Villalta ASSISTANT DEAN-CUSTOMER OPERATIONS REPRESENTATIVE [address] [place] [address] Referral ID Status Reason Start Date Expiration Date V isits Requested Visits Authorized [id number] Pending Review 1 1 Additional Source Comments Source Comments (unrecognize d section and content) In the event this informatio n is protected by the Federal Confidentiality of Alcohol and Drug Abuse Patient Records regulations: The Federal rules restrict any use of the information to criminally investigate or prosecute any alcohol or drug abuse patient.[facility] Reason for Visit (unrecogniz ed section and content) Reason Comments Results Reason Comments Well Women Visit Reason Comments Med Refill Reason Onset Date Comments Preventative Screening 03/30/2024 Reason Comments er follow up not eating Not feeling good Reason Comments Diabetes Reason Comments Follow-up Discharge [facility] pneumonia and uti Reason Comments Urinary Tract Infection Ongoing since Ap ril Reason Comments Urinary Tract Infection Reason Comments Rash Right groin Reason Onset Date Comments Med Refill 10/07/2023 Reason Comments Abdominal cramping. Bouts of loose stool s several days ago. Reason Onset Date Comments Med Refill 11/10/2023 Reason Comments Headache trouble sleeping Reason Comments Hypertension Reason Comments Annual Exam Reason Onset Date Comments Med Refill 09/14/2024 Care Teams (unrecognized sec tion and content) Speed Belt Sander Relationship Specialty Start Date End Date Robin Ma Sr. [address] [place] [address] PCP - General Family Practice 07/20/20 Speed Belt Sander Relationship Specialty Start Date End Date Luis Felipe Obando MD [address] [place] [address] PCP - General Family Medicine 10/02/22 Iris Villalta CRNP [address] [place] [address] Referring Physician Nurse Practitioner 10/02/22 Speed Belt Sander Relationship Specialty Start Date End Date Luis Felipe Obando MD [address] [place] [address] PCP - General Family Medicine 10/02/22 Iris Villalta CRNP [address] [place] [address] Referring Physician Nurse Practitioner 10/02/22 Speed Belt Sander Relationship Specialty Start Date End Date Luis Felipe Obando MD [address], [place] [address] PCP - General Family Medicine 10/02/22 Iris Villalta CRNP [address], [place] [address] Referring Physician Nurse Practitioner 10/02/22 Speed Belt Sander Relationship Specialty Start Date End Date Iris Villalta APRN-CUSTOMER OPERATIONS REPRESENTATIVE [address] [place] [address] PCP - General Family Medicine 08/28/22 Speed Belt Sander Relationship Specialty Start Date End Date Iris Villalta APRN-CUSTOMER OPERATIONS REPRESENTATIVE [address] [place] [address] PCP - General Family Medicine 08/28/22 Speed Belt Sander Relationship Specialty Start Date End Date Iris Villalta APRN-CUSTOMER OPERATIONS REPRESENTATIVE [address] [place] [address] PCP - General Family Medicine 08/28/22 Speed Belt Sander Relationship Specialty Start Date End Date Iris Villalta APRN-CUSTOMER OPERATIONS REPRESENTATIVE [address] [place] [address] PCP - General Family Medicine 08/28/22 Speed Belt Sander Relationship Specialty Start Date End Date Iris Villalta [facility] [address] [place] [address] PCP - General Family Medicine 08/28/22 Speed Belt Sander Relationship Specialty Start Date End Date Iris Villalta [facility] [address] [place] [address] PCP - General Family Medicine 08/28/22 Speed Belt Sander Relationship Specialty Start Date End Date Iris Villalta [facility] [address] [place] [address] PCP - General Family Medicine 08/28/22 Speed Belt Sander Relationship Specialty Start Date End Date Iris Villalta [facility] [address] [place] [address] PCP - General Family Medicine 08/28/22 Speed Belt Sander Relationship Specialty Start Date End Date Iris Villalta [facility] [address] [place] [address] PCP - General Family Medicine 08/28/22 Speed Belt Sander Relationship Specialty Start Date End Date Iris Villalta [facility] [address] [place] [address] PCP - General Family Medicine 08/28/22 Speed Belt Sander Relationship Specialty Start Date End Date Iris Villalta [facility] [address] [place] [address] PCP - General Family Medicine 08/28/22 Speed Belt Sander Relationship Specialty Start Date End Date Iris Villalta [facility] [address] [place] [address] PCP - General Family Medicine 08/28/22 Speed Belt Sander Relationship Specialty Start Date End Date Iris Villalta [facility] [address] [place] [address] PCP - General Family Medicine 08/28/22 Speed Belt Sander Relationship Specialty Start Date End Date Iris Villalta [facility] [address] [place] [address] PCP - General Family Medicine 08/28/22 Speed Belt Sander Relationship Specialty Start Date End Date Iris Villalta [facility] [address] [place] [address] PCP - General Family Medicine 08/28/22 Speed Belt Sander Relationship Specialty Start Date End Date Iris Villalta [facility] [address] [place] [address] PCP - General Family Medicine 08/28/22 Speed Belt Sander Relationship Specialty Start Date End Date Iris Villalta [facility] [address] [place] [address] PCP - General Family Medicine 08/28/22 Speed Belt Sander Relationship Specialty Start Date End Date Iris [facility] [address] [place] [address] PCP - General Family Medicine 08/28/22 Speed Belt Sander Relationship Specialty Start Date End Date Iris Villalta [facility] [address] [place] [address] PCP - General Family Medicine 08/28/22 Speed Belt Sander Relationship Specialty Start Date End Date Iris [facility] [address] [place] [address] PCP - General Family Medicine 08/28/22 Speed Belt Sander Relationship Specialty Start Date End Date Iris [facility] [address] [place] [address] PCP - General Family Medicine 08/28/22 Speed Belt Sander Relationship Specialty Start Date End Date Iris Vill[facility] [address] [place] [address] PCP - General Family Medicine 08/28/22 Speed Belt Sander Relationship Specialty Start Date End Date Iris Vill[facility] [address] [place] [address] PCP - General Family Medicine 08/28/22 Speed Belt Sander Relationship Specialty Start Date End Date Iris Vill[facility] [address] [place] [address] PCP - General Family Medicine 08/28/22 Team Status: Inactive Member Role Status Dates Iris Villalta , CORPORATE TUTOR-C Primary Care Provider Active Start: February 22, 2024 End: February 22, 2024 Franck Hercules Attending Provider Active Start: February 22, 2024 End: February 22, 2024 Team Status: Inactive Member Role Status Dates Hortencia Plaza MD Attending Provider Active Sta rt: May 11, 2024 End: May 11, 2024 Speed Belt Sander Relationship Specialty Start Date End Date Luis Felipe Obando DO [address], [facility] [address] PCP - General Family Medicine 09/14/24 Team Status: Inactive Member Role Status Dates Yael Rhodes Attending Provider Active Start: 2024 End: August 05, 2024 Team Status: Inactive Member Role Status Dates Elia Jensen DO Attending Provider Active S tart: September 20, 2024 End: September 20, 2024 Speed Belt Sander Relationship Specialty Start Date End Date Luis Felipe Obando DO [address], [place] [address] PCP - General Family Medicine 09/14/24 INFORMATION SOURCE (unrecogn ized section and content) DATE CREATED AUTHOR 09/15/2021 [facility] DATE CREATED AUTHOR AUTHOR'S ORGANIZ ATION 02/26/2022 [facility] DATE CREATED AUTHOR AUTHOR'S ORGANIZ ATION 10/24/2023 [facility] DATE CREATED AUTHOR AUTHOR'S ORGANIZ ATION 11/21/2023 [facility] DATE CREATED AUTHOR AUTHOR'S ORGANIZ ATION 12/23/2023 [facility] DATE CREATED AUTHOR AUTHOR'S ORGANIZ ATION 09/25/2024 [facility] Goals (unrecognized section and content) Goals may be documented in a n alternate section FOR RECORDS PERTAINING TO PATIENTS WHO ARE [...] ON THE PRIMARY CLINICAL RECORDS. [facility]. provides no warranty or guarantee of the accuracy or completeness of information in this document.
--- NOTE | 2024-10-28 17:42 | ED_ITS ---
HPI HPI - General Adult General Chief complaint: Urogenital-Female Stated complaint: UTI?? Time Seen by Provider: 10/28/24 17:18 Source: patient Mode of arrival: walk-in Limitations: no limitations History of Present Illness HPI narrative: Patient is a 59-year-old female who presents to the emergency department with history of 3 days of vaginal itching, urinary frequency, and inability to fully empty bladder. She denies dysuria but does have white milky discharge. She has been to this ED 3 times this year thus far with similar symptoms. She states she has been having symptoms similar to this all summer that will last for about 2 weeks and then resolved spontaneously. She denies fever, chils, night sweats, or abdominal pain. She had a hysterectomy in 2009 and denies sexual activity. Related Data Home Medications ?Medication ?Instructions ?Recorded ?Confirmed cetirizine 10 mg tablet 10 mg PO DAILY 07/28/2208/25 famotidine 40 mg tablet 40 mg PO Q12H 07/28/2209/20 glimepiride 4 mg tablet 4 mg PO .TWICE 07/28/2208/25 pioglitazone 30 mg tablet 30 mg PO DAILY 07/28/2208/25 propranolol 80 mg capsule,24 80 mg PO Q24H 07/28/22 hr,extended release venlafaxine 150 mg 150 mg PO DAILY 07/28/22 capsule,extended release 24 hr Previous Rx's ?Medication ?Instructions ?Recorded cephalexin 500 mg capsule 500 mg PO BID 7 days #14 cap s 09/20/24 fluconazole 150 mg tablet 150 mg PO QWEEK 14 days #2 t abs 09/20/24 phenazopyridine 200 mg tablet 200 mg PO Q8H 6 doses #6 tabs 09/20/24 (Pyridium) doxycycline hyclate 100 mg capsule 100 mg PO BID 7 day s #14 caps 10/28/24 fluconazole 150 mg tablet 150 mg PO DAILY 1 dose #1 ta b 10/28/24 Allergies Allergy/AdvReac Type Severity Reaction Status Date / Time No Known Drug Allergies Allergy Verified 09/20/24 16:58 Opioid HPI Opioid Management Most Recent Opioid Data: Last Pain Scale 4 08/05/24, 16:14 Review of Systems ROS Status of ROS 10 or more systems reviewed and unremark able except as noted in history and below [facility] Social History Smoking status: Never smoker Little interest or pleasure in doing things: not at all Feeling down, depressed, or hopeless: not at all Exam Narrative Exam Narrative: General: No distress, age-appropriate Skin: Warm, dry, no pallor. No rash. Head: Normocephalic, atraumatic. Neck: Supple, non-tender. Eye: Pupils are equal, round and EOMI. No scleral icterus. Ears, Nose, Mouth, and Throat: No nasal mucosal hypertrophy. Oral mucosa is moist, no posterior oropharynx erythema, uvula is mid-line Cardiovascular: Regular Rate and Rhythm without murmur, gallop or rub. Respiratory: No accessory muscle use or respiratory distress. Lungs are clear to auscultation, no wheezing, rales or rhonchi Chest Wall: no tenderness Back: No midline thoracic or lumbar vertebral tenderness. Musculoskeletal: Full ROM of all extremities, no calf or popliteal tenderness GI: Abdomen is soft, non-distended, non tender to palpation. No masses appreciated. No rebound, guarding, or rigidity noted. Neurological: A&O x4. No cranial nerve dysfunction observed. No truncal ataxia. Moves all extremities. Sensation intact. Psychiatric: Cooperative and interactive. Normal mood and affect. Constitutional Vital Signs, click to edit/add: Last Vital Signs Temp 98.3 F 10/28/24 17:15 Pulse 67 10/28/24 17:15 Resp 18 10/28/24 17:15 BP 146/92 H 10/28/24 17:15 Pulse Ox 100 10/28/24 17:15 O2 Del Method Room Air 10/28/24 17:15 Common normals: appearance of the vagina normal and appearance of the cervix normal External Female Exam: normal appearance of the urethra Speculum exam - vagina: vaginal discharge Vaginal discharge present: white and malodorous OB/external & speculum: external exam normal and vaginal discharge Course Vital Signs Vital signs: Vital Signs Temperature 98.3 F 10/28/24 17:15 Pulse Rate 67 10/28/24 17:15 Respiratory Rate 18 10/28/24 17:15 Blood Pressure 146/92 H 10/28/24 17:15 Pulse Oximetry 100 10/28/24 17:15 Oxygen Delivery Method Room Air 10/28/24 17:15 Temperature 98.3 F 10/28/24 17:15 Pulse Rate 67 10/28/24 17:15 Respiratory Rate 18 10/28/24 17:15 Blood Pressure 146/92 H 10/28/24 17:15 Pulse Oximetry 100 10/28/24 17:15 Oxygen Delivery Method Room Air 10/28/24 17:15 Medical Decision Making MDM Narrative Medical decision making narrative: 59 yr old female that presented to the ED with complaints of 3 days of urinary frequency, vaginal itchiness, and white discharge. She denies fever, chills, night sweats, abdominal/ pelvic pain. She is non toxic appearing, afebrile, and vitals are stable on arrival. She has been treated here 3 times in this ED this year for similar symptoms. UA sent. Pelvic exam with copious white milky discharge, no vulvar erythema. Wet prep and Chylamydia/GC ordered. Wet prep neg. UA with Trace Ketones, Small occult blood, Pos nitrites, Mod bacteria, LE, 10-12 WBC. 1000mg IM Rocephine IM given in ED. Discussed plan and results with [facility]. Will discharge with Doxycycline and Fluconozole. Patient agrees with plan. Patient to follow up with Dr Obando for after visit care. Differential Diagnosis Differential Diagnosis: Urinary Tract Infection, Bacterial Vaginosis, Yeast Infection, GC/Chlamydia Lab Data Lab results reviewed: Yes I reviewed the patient's lab results Labs: Lab Results 10/28/24 Range/Units 17:15 Urine Color Lt. yellow (YELLOW) Urine Clarity Sl cloudy (CLEAR) Urine pH 5.5 (5.0-9.0) Ur Specific Holt 1.025 (1.005-1.025) Urine Protein Trace (NEG/TRACE) mg/dL Urine Glucose (UA) Negative (NEGATIVE) mg/dL Urine Ketones Trace A (NEGATIVE) mg/dL Urine Occult Blood Small A (NEGATIVE) Urine Nitrite Positive A (NEGATIVE) Urine Bilirubin Negative (NEGATIVE) Urine Urobilinogen 1.0 (0.2-1.0) EU/dL Ur Leukocyte Esterase Moderate A (NEGATIVE) Urine RBC 2-5 A (0-2) #/HPF Urine WBC 10-20 A (NONE SEEN) #/HPF Ur Squamous Epith Cells Many A (NONE/RARE) #/LPF Urine Crystals None seen (None Seen) #/HPF Urine Bacteria Moderate A (NONE SEEN) #/HPF Urine Casts None seen (NONE SEEN) #/LPF Urine Mucus None seen (NONE SEEN) [place] [place] Dis[place] Chief Complaint: Urogenital-Female Clinical Impression: Bacterial vaginosis, Urinary tract infection Patient Disposition: Home, Self-Care Time of Disposition Decision: 18:26 Condition: Good Mode of Transportation: Private Vehicle Prescriptions / Home Meds: New doxycycline hyclate 100 mg capsule 100 mg PO BID 7 Days Qty: 14 0RF fluconazole 150 mg tablet 150 mg PO DAILY Qty: 1 0RF Rx Instructions: administer on day 1 of therapy No Action cetirizine 10 mg tablet 10 mg PO DAILY famotidine 40 mg tablet 40 mg PO Q12H glimepiride 4 mg tablet 4 mg PO .TWICE pioglitazone 30 mg tablet 30 mg PO DAILY propranolol 80 mg capsule,extended release 24 hr 80 mg PO Q24H venlafaxine 150 mg capsule,extended release 24hr 150 mg PO DAILY cephalexin 500 mg capsule 500 mg PO BID 7 Days Qty: 14 0RF phenazopyridine [Pyridium] 200 mg tablet 200 mg PO Q8H Qty: 6 0RF fluconazole 150 mg tablet 150 mg PO QWEEK 14 Days Qty: 2 0RF Print Language: Ecuadorean Instructions: Bacterial Vaginosis (ED), Urinary Tract Infection in Women (DC) Additional Instructions: Finish antibiotic even if symptoms resolve and take Fluconazole once complete. Return to the Emergency Department for any new or worsening symptoms. Referrals: GEORGE OBANDO [Physician, Family Practice] - 1-2 weeks
[2024-10-28 17:54] LABS: Glucose Urine UA NEGATIVE (NEGATIVE)
[2024-10-28 18:04] LABS: Cast Seen? NONE SEEN #/LPF (NONE SEEN); Crystals Seen? None Seen #/HPF (None Seen); Urine Culture Indicated YES-FRMC
[2024-10-28] MEDS: CEFTRIAXONE 1,000 MG, LIDOCAINE HCL/PF 2.1 ML IM (18:26)
[2024-11-01 21:07] LABS: Neisseria gonorrhoeae, NAA Negative (Negative)
== END 2024-10-28 18:39 | disposition home or self-care (01) ==
PROVIDERS: Physician Assistant; Emergency Provider Student in an Organized Health Care Education/Training Program; PCP Nurse Practitioner
DX: N76.0 Acute vaginitis (principal); N39.0 Urinary tract infection, site not specified; Z90.710 Acquired absence of both cervix and uterus
CPT/HCPCS: 81001; 87086; 87088; 87186; 87210; 87480; 87491; 87510; 87591; 87660; 99285; J0696